=== PATIENT | male | born 1930 | race Caucasian/White ===

== ENCOUNTER 2016-09-23 21:08 | Outpatient (CLI) | payer MEDICARE, OTHER | END 2016-09-23 21:09 | disposition critical access hospital (66) | LOC: EMS 21:08 | PROVIDERS: ATTEND Surgery | DX: M79.604 Pain in right leg (principal); W18.39XA Other fall on same level, initial encounter; Y92.002 Bathroom of unspecified non-institutional (private) residence as the place of occurrence of the external cause | CPT/HCPCS: A0425; A0427 ==

== ENCOUNTER 2016-09-23 21:19 | Inpatient (IN) | payer MEDICARE, OTHER ==
[2016-09-23] MEDS ORDERED: SODIUM CHLORIDE 0.9% 1,000 ML IV ONE ×2 (21:29→21:33)
[2016-09-23] MEDS ORDERED: ONDANSETRON 4 MG/2 ML VIAL IVP STA (21:29)
[2016-09-23] MEDS ORDERED: HYDROmorphone 1 MG/ML SYRINGE IVP STA (21:29)
[2016-09-23] MEDS ORDERED: ONDANSETRON 4 MG/2 ML VIAL ONE (21:33)
[2016-09-23] MEDS ORDERED: HYDROmorphone 1 MG/ML SYRINGE ONE (21:33)
--- NOTE | 2016-09-23 21:34 | ED Physician Documentation ---
PD HPI LOWER EXT INJURY - Stated complaint Stated Complaint: GLF/R LEG INJ - Chief complaint Chief Complaint: General - History obtained from History obtained from: Patient, EMS - History of Present Illness PD HPI LOW EXT INJURY LOCATION: Right, Upper leg Type of injury: Fall Where injury occurred: Home (in the bathroom) Timing - onset: How many hours ago (1), Today Timing - duration: Hours (1) Timing - details: Abrupt onset Pain level max: 10 Pain level now: 10 Improved by: Rest, Ice, Immobilization Worsened by: Moving, Palpating Associated symptoms: Swelling. No: Weakness, Numbness, Tingling Contributing factors: Prior ortho surgery (B TKR). No: Anticoagulated Similar symptoms before: Has not had sx before Recently seen: Not recently seen - Additional information Additional information: Pt fell in the bathroom today. Now R upper leg pain. Fentanyl given by EMS. place in splint. Denies head or neck injury. Review of Systems Ten Systems: 10 systems reviewed and negative Constitutional: denies: Fever, Chills Nose: denies: Rhinorrhea / runny nose, Congestion Respiratory: denies: Cough GI: denies: Abdominal Pain, Nausea, Vomiting, Diarrhea : denies: Dysuria Skin: denies: Rash PD PAST MEDICAL HISTORY - Past Medical History Past Medical History: Yes Neuro: Dementia - Past Surgical History Past Surgical History: Yes Ortho: Knee replacement - Present Medications Home Medications: Ambulatory Orders Medication Instructions Recorded Confirmed Aspirin 81 mg PO DAILY 09/23/16 09/23/16 Finasteride 5 mg PO DAILY 09/23/16 09/23/16 Hydrochlorothiazide 50 mg PO DAILY 09/23/16 09/23/16 Memantine [Namenda] 10 mg PO BID 09/23/16 09/23/16 Metoprolol Succinate 25 mg PO DAILY 09/23/16 09/23/16 Simvastatin 40 mg PO DAILY 09/23/16 09/23/16 - Allergies Allergies/Adverse Reactions: Allergies Allergy/AdvReac Type Severity Reaction Status Date / Time No Known Drug Allergies Allergy Verified 09/23/16 21:30 - Living Situation Living Situation: reports: With family Living Arrangement: reports: At home - Social History Does the pt smoke?: No Does the pt have substance abuse?: No - Family History Family history: reports: Non contributory PD ED PE NORMAL - Vitals Vital signs reviewed: Yes - General General: Alert and oriented X 3, No acute distress, Well developed/nourished - HEENT HEENT: Atraumatic, PERRL, Moist mucous membranes - Neck Neck: Supple, no meningeal sign, No bony TTP - Cardiac Cardiac: RRR, Strong equal pulses - Respiratory Respiratory: No respiratory distress, Clear bilaterally - Abdomen Abdomen: Soft, Non tender, Non distended - Back Back: No spinal TTP - Derm Derm: Warm and dry - Extremities Extremities: Other (deformity to the proximal aspect of the R femur. NVI. ) - Neuro Neuro: Alert and oriented X 3 - Psych Psych: Normal mood, Normal affect Results - Vitals Vitals: Vital Signs - 24 hr 09/23/16 21:27 Temperature 36.0 C L Heart Rate 84 Respiratory 16 Rate Blood Pressure 168/84 H O2 Saturation 97 Oxygen O2 Source Room air - EKG (time done) 2303 Rate: Rate (enter#) (90) Rhythm: NSR, Other (PVC) [place]: Normal Intervals: Normal NM QRS: Normal Ischemia: Non specific changes Computer interpretation: Agree with computer - Labs Labs: Laboratory Tests 09/23/16 21:25 Urine Color YELLOW Urine Clarity CLEAR Urine pH 6.0 Ur Specific [place] 1.025 Urine Protein NEGATIVE Urine Glucose (UA) NEGATIVE Urine Ketones NEGATIVE Urine Occult Blood TRACE-INTA Urine Nitrite NEGATIVE Urine Bilirubin NEGATIVE Urine Urobilinogen 1 (NORMAL) Ur Leukocyte Esterase NEGATIVE Ur Microscopic Review NOT INDICATED Urine Culture Comments NOT INDICATED - Rads (name of study) R femur Radiology: Prelim report reviewed, EMP read contemporaneously, See rad report ( Angulated and displaced proximal femoral shaft fracture. ) CXR Radiology: Prelim report reviewed, EMP read contemporaneously, See rad report ( Large lung volumes with mild cardiomegaly and mild pulmonary vascular congestion. ) PD MEDICAL DECISION MAKING - ED course Complexity details: reviewed results, re-evaluated patient, considered differential, d/w patient, d/w family, d/w business operations consultant ED course: Patient is an 86-year-old male who presents to the emergency department after a fall. Is found to have a proximal shaft femoral fracture of the right lower extremity. NVI. Pain well controlled. Discussed the case with Dr. Conner, orthopedics who recommends admission to the hospitalist and he will evaluate the patient in the morning. Discussed the case with Dr. Armas, hospitalist who accepts. This document was made in part using voice recognition software. While efforts are made to proofread this document, sound alike and grammatical errors may occur. Departure - Departure Disposition: 66 [facility] DC/Xfer Clinical Impression: Femur fracture, right Qualifiers: Encounter type: initial encounter Femur location: subtrochanteric Fracture type : closed Fracture alignment: displaced Qualified Code(s): S72.21XA - Displaced subtrochanteric fracture of right femur, initial encounter for closed fracture Condition: Good Discharge Date/Time: 09/24/16 00:20
[2016-09-23 21:45] LABS: BILIRUBIN,URINE NEGATIVE (NEGATIVE)
[2016-09-23 21:51] LABS: UA CHARGE (STRIP ONLY) YES; UR CULTURE IF IND NOT INDICATED
[2016-09-23] MEDS ORDERED: SODIUM CHLORIDE FLUSH 0.9% 10 ML SYRINGE IVP PRN (22:52)
[2016-09-23] MEDS ORDERED: HYDROmorphone 1 MG/ML SYRINGE IVP PRN (22:52)
[2016-09-23] MEDS ORDERED: PROCHLORPERAZINE 10 MG/2 ML VIAL IVP PRN (22:52)
[2016-09-23] MEDS ORDERED: oxyCODONE 5 MG TABLET PO PRN (22:52)
[2016-09-23] MEDS ORDERED: TEMAZEPAM 15 MG CAPSULE PO PRN (22:52)
[2016-09-23] MEDS ORDERED: ACETAMINOPHEN 325 MG TABLET PO PRN (22:52)
--- NOTE | 2016-09-23 22:58 | XRAY Preliminary Report ---
Exam: XR Femur 2V RT IMPRESSION: Angulated and displaced proximal femoral shaft fracture. [facility] SITE ID: [id number]
--- NOTE | 2016-09-23 23:01 | XRAY Report ---
EXAM: RIGHT FEMUR RADIOGRAPHY EXAM DATE: 09/23/2016 10:27 PM. CLINICAL HISTORY: Right leg pain, s/p fall. COMPARISON: None. TECHNIQUE: 2 views. FINDINGS: Bones: There is an angulated and displaced proximal femoral shaft fracture. Joints: Hip joint unremarkable. Total knee arthroplasty in place. Soft Tissues: Normal. No soft tissue swelling. IMPRESSION: Angulated and displaced proximal femoral shaft fracture. [facility] Referring Provider Line: [phone] SITE ID: [id number]
[2016-09-23] MEDS: SODIUM CHLORIDE 0.9% 1,000 ML IV SCH (23:40)
--- NOTE | 2016-09-23 23:45 | XRAY Preliminary Report ---
Exam: XR Chest 1 View IMPRESSION: 1. Large lung volumes with mild cardiomegaly and mild pulmonary vascular congestion. [facility] SITE ID: [id number]
--- NOTE | 2016-09-23 23:48 | XRAY Report ---
EXAM: CHEST RADIOGRAPHY EXAM DATE: 09/23/2016 11:16 PM. CLINICAL HISTORY: Femur fracture. Pre-op chest radiograph for fracture repair. COMPARISON: None. TECHNIQUE: 1 view. FINDINGS: Lungs/Pleura: Large lung volumes. Mild bibasilar atelectasis. Mild pulmonary vascular congestion. No alveolar consolidation or pleural effusion. No pneumothorax. Mediastinum: Mild cardiomegaly. Other: None. IMPRESSION: 1. Large lung volumes with mild cardiomegaly and mild pulmonary vascular congestion. [facility] Referring Provider Line: [phone] SITE ID: [id number]
[2016-09-24 01:26] LABS: BASOPHILS % (AUTO) 0.2 %; EOSINOPHILS % (AUTO) 0.2 %; HCT - HEMATOCRIT 35.3 % (42.0-52.0); HGB - HEMOGLOBIN 12.5 g/dL (14.0-18.0); MEAN CORPUSCULAR HEMOGLOBIN 31.2 pg (27.0-31.0); MEAN CORPUSCULAR HGB CONC 35.4 g/dL (32.0-36.0); MEAN CORPUSCULAR VOLUME 88.2 fL (80.0-94.0); MEAN PLATELET VOLUME 6.4 fL (7.4-11.4); MONOCYTES # (AUTO) 0.7 10^3/uL (0.0-1.0); MONOCYTES % (AUTO) 6.2 %; NEUTROPHILS # (AUTO) 8.9 10^3/uL (1.5-6.6); NEUTROPHILS % (AUTO) 84.4 %; NUCLEATED RED BLOOD CELLS AUTO 0.1 /100WBC; RED CELL DISTRIBUTION WIDTH 12.5 % (12.0-15.0); UNCORRECTED WHITE BLOOD COUNT 10.5 x10^3/uL; WHITE BLOOD COUNT 10.5 x10^3/uL (4.8-10.8)
[2016-09-24 01:34] LABS: MAGNESIUM 1.4 mg/dL (1.7-2.8); PHOSPHORUS 3.3 mg/dL (2.5-4.6)
[2016-09-24 01:37] LABS: ALBUMIN/GLOBULIN RATIO 1.1 (1.0-2.2); BILIRUBIN,TOTAL 0.7 mg/dL (0.2-1.0); BUN - BLOOD UREA NITROGEN 19 mg/dL (6-20); CALCIUM 8.7 mg/dL (8.5-10.3); CARBON DIOXIDE - CO2 30 mmol/L (21-32); CHLORIDE 95 mmol/L (101-111); CREATININE 0.7 mg/dL (0.6-1.2); GFR - MDRD 107 (>89); GLUCOSE 270 mg/dL (70-100); POTASSIUM 3.3 mmol/L (3.5-5.0); SODIUM 135 mmol/L (135-145); TOTAL PROTEIN 5.9 g/dL (6.7-8.2)
[2016-09-24] MEDS ORDERED: MAGNESIUM SULFATE 2 GRAM 50 ML IV ONE ×2 (01:37→07:54)
[2016-09-24 01:38] LABS: INR 1.2 (0.8-1.2)
[2016-09-24 01:39] LABS: LIPASE < 10 U/L (22-51)
[2016-09-24] MEDS ORDERED: POTASSIUM CHLORIDE 20 MEQ TABLET PO SCH (01:39)
--- NOTE | 2016-09-24 01:57 | HISTORY & PHYSICAL EXAMINATION ---
Chief Complaint - Chief Complaint Chief Complaint: Right leg pain History of Present Illness - Admitted From Admitted From:: emergency department - History Obtained From Records Reviewed: yes History obtained from: Patient and his Exam Limitations: Patient could not move right leg secondary to pain - History of Present Illness HPI Comment/Other: Patient is an 86-year-old gentleman with a past medical history significant for hypertension, hyperlipidemia, TIA, probable history of atrial fibrillation and was previously on Coumadin stop Coumadin 4 weeks ago secondary to hematuria, obstructive sleep apnea on CPAP, BPH, mild dementia and osteoarthritis with bilateral knee replacements who presented to the emergency department with a chief complaint of right leg pain. The history is provided by the patient's and the patient. The patient's states that the patient was in his normal state of health this evening when he got up to go to the bathroom. She states that the patient was standing at the toilet and then turned lost his balance and fell to the ground. The patient states that he did not hit his head or lose consciousness but fell onto his right leg and felt a severe pain and thinks he heard a crack. The patient states that after the fall he had severe pain in his right leg and could not get up or bear weight on the right leg. The patient's states that the leg appeared to be deformed and patient could not straighten his leg. The patient denies any fevers or chills. He denies any headaches blurred vision runny nose sore throat or cough. The patient denies any chest pain or shortness of breath. The patient was previously on Coumadin and the states that this was for a TIA that he had in the past but she also states that he was put on the Coumadin by his math coach. I believe that the patient likely had atrial fibrillation although his EKG does not show A. fib. The patient has been off of Coumadin for 4 weeks now he stopped it after he began having hematuria. On presentation to the emergency department the patient was afebrile his vital signs were normal except his blood pressure was elevated. The patient was in significant amount of pain and his right lower extremity appear to be shortened and externally rotated the patient was living was also bent at the knee and could not be straightened. The patient had an obvious fracture of his right femur this was confirmed on x-ray of his right leg which revealed an angulated and displaced proximal femoral shaft fracture. The patient underwent routine lab work which did show a mild hypo-kalemia and mild hypomagnesemia. The patient 's INR was 1.2. The patient did not have any hematuria on urine analysis. The patient's glucose was elevated at 270 but he denied any history of diabetes. The emergency room physician spoke with the orthopedic surgeon occupational therapy manager Dr. Angel and he recommended that the hospitalist team admit the patient optimize him medically and that he would see the patient in the morning for possible surgery. Review of Systems - Constitutional Constitutional: denies: Fatigue, Fever, Chills, Malaise, Weakness, Poor appetite , Diaphoresis, Night sweats, Weight gain, Weight loss, Other - Eyes Eyes: denies: Pain, Irritation, Amaurosis, Blurred vision, Spots in vision, Field loss, Vision loss, Dipolpia, Corrective lenses, Other - Ears, Nose & Throat Ears, Nose & Throat: denies: Ear pain, Hearing loss, Hearing aids, Tinnitus, Vertigo, Nasal pain, Nasal discharge, Nosebleeds, Nasal obstruction, Nasal congestion, Postnasal drainage, Dentures, Sore throat, Hoarseness, Mouth lesions , Bleeding gums, Dental decay, Dental pain, Other - Cardiovascular Cariovascular: denies: Irregular heart rate, Palpitations, Chest pain, Edema, Lightheadedness, Syncope, Exertional dyspnea, Decr. exercise tolerance, Orthopnea, Other - Respiratory Respiratory: denies: Cough, Sputum production, Wheezing, Snoring, Hemoptysis, Orthopnea, SOB at rest, SOB with exertion, Apnea, Stridor, Pleuritic pain, Other - Gastrointestinal Gastrointestinal: denies: Abdominal pain, Abdominal distention, Constipation, Diarrhea, Change in bowel habits, Rectal bleeding, Black stools, Bloody stools, Nausea, Vomiting, Bile emesis, Long blood emesis, Coffee grounds emesis, Reflux /heartburn, Bloating, Poor appetite, Other - Genitourinary Genitourinary: reports: Hematuria (Resolved but had some 4 weeks ago), Nocturia. denies: Dysuria, Frequency, Urgency, Incontinence, Flank pain, Urethral discharge, Sexual dysfunction, Other - Musculoskeletal Musculoskeletal: reports: Back pain (chronic low back pain), Limited range of motion (cannot move right leg secondary to pain), Joint pain, Joint swelling ( swelling in the right thigh and hip) - Integumentary Integumentary: denies: Rash, Pruritis, Lesions, Dryness, Lumps, Acne, Pigment changes, Nail changes, Hair changes, Other - Neurological Neurological: reports: Memory problems (mild dementia), Other (Multiple falls). denies: General weakness, Focal weakness, Headache, Dizziness, Seizures, Slurred speech - Psychiatric Psychiatric: denies: Depression, Anxiety, Suicidal - Endocrine Endocrine: denies: Polyuria, Polydypsia, Polyphagia, Intolerance to cold, Intolerance to heat - Hematologic/Lymphatic Hematologic/Lymphatic: denies: Bruising, Petechiae, Lymphadenopathy History - Past Medical History Cardiovascular: reports: Hypertension, High cholesterol, Atrial fibrillation ( possibly ) Respiratory: reports: Sleep apnea, CPAP use Neuro: reports: Dementia (Mild), TIA Endocrine/Autoimmune: reports: None GI: reports: None : reports: Benign prostate hypertrophy HEENT: reports: None Musculoskeletal: reports: Osteoarthritis (Bilateral knee replacements), Chronic back pain Derm: reports: None Other Past Medical History: The patient was on warfarin for a possible stroke. He was taken off of the warfarin due to a low hemoglobin 4 weeks ago. - Past Surgical History Ortho: reports: Knee replacement - Family & Social History Family History: Mother: (Both parents were healthy and of old age) , Father: , Other family: Alive and Well (2 sons and daughter) Living arrangement: At home Living Situation: With spouse/s.o. Social History Notes: The patient is lives in [facility] since 2001. Prior to that he lived in [place]. He is originally from [place] moved here in [place]. The patient lives with his partner they have been together for 16 years. The patient uses a walker at home and has fallen several times in the past month. The patient does have 3 children 2 sons whom he has not spoken to for years and a daughter whom he occasionally speaks to him who lives in [place]. Patient used to smoke quit 50 years ago. Drinks alcohol occasionally. no illicit drug use - Substance History Use: Uses substance without health or social issues: Alcohol (Rarely will drink wine or beer with meal.) Abuse: Recurrent use of substance despite neg consequences: NONE Dependence: Experiences withdrawal or developed tolerances: NONE - POLST Patient has POLST: Yes POLST Status: DNR Meds/Allgy - Home Medications Home Medications: Ambulatory Orders Medication Instructions Recorded Confirmed Aspirin 81 mg PO DAILY 09/23/16 09/23/16 Finasteride 5 mg PO DAILY 09/23/16 09/23/16 Hydrochlorothiazide 50 mg PO DAILY 09/23/16 09/23/16 Memantine [Namenda] 10 mg PO BID 09/23/16 09/23/16 Metoprolol Succinate 25 mg PO DAILY 09/23/16 09/23/16 Simvastatin 40 mg PO DAILY 09/23/16 09/23/16 - Allergies Allergies/Adverse Reactions: Allergies Allergy/AdvReac Type Severity Reaction Status Date / Time No Known Drug Allergies Allergy Verified 09/23/16 21:30 Exam - Vital Signs Reviewed Vital Signs: Yes Vital Signs: Vital Signs x48h Temp Pulse Resp BP Pulse Ox 09/24/16 00:15 88 18 138/84 H 100 09/23/16 23:18 79 18 148/85 H 98 09/23/16 23:02 36.0 C L 83 15 149/67 H 90 L - Physical Exam General Appearance: positive: Moderate distress (Secondary to pain in the right leg) Eyes Bilateral: positive: Normal inspection, PERRL, EOMI, No lid inflammation, Conjunctivae nml, No scleral icterus ENT: positive: ENT inspection nml, Pharynx nml, Dry mucous membranes. negative : Purulent nasal drainage, Pharyngeal erythema, Oral lesions Neck: positive: Nml inspection, Thyroid nml, No JVD, Trachea midline. negative : Thyromegaly, Lymphadenopathy (R), Lymphadenopathy (L) Respiratory: positive: Chest non-tender, No respiratory distress, Breath sounds nml. negative: Wheezes, Rales, Rhonchi Cardiovascular: positive: No murmur, No gallop, Other (Irregular rhythm with skipped beats) Peripheral Pulses: positive: 2+ Abdomen: positive: Non-tender, No organomegaly, Nml bowel sounds, No distention. negative: Guarding, Rebound, Hepatomegaly Back: positive: Nml inspection. negative: CVA tenderness (R), CVA tenderness (L ) Skin: positive: Color nml, No rash, Warm. negative: Cyanosis, Diaphoresis Extremities: positive: No pedal edema, Other (Right leg is shortened, externally rotated and flexed at the knee. There is significant swelling in the mid thigh area. Unable to move right leg secondary to pain.) Neurologic/Psychiatric: positive: Oriented x3, CN's nml (2-12), Motor nml, Sensation nml, Mood/affect nml Conclusion/Plan - Problem List (1) Right femoral shaft fracture Conclusion/Plan: The patient presents to the emergency department after a mechanical fall Patient had severe pain in his right lower extremity with obvious deformity Right leg was externally rotated shortened and flexed and could not be manipulated secondary to severe pain. X-ray of the right leg revealed an angulated and displaced proximal femoral shaft fracture Orthopedic surgery asked the hospitalist team admit the patient and they would see patient in consultation. To provide his cardiac risk index patient has a 6.6% risk of major cardiac event during surgery. Plan: N.p.o. IV fluids Pain control with IV Dilaudid Orthopedic consult Will need surgical repair of right femur We'll start DVT prophylaxis postop Will medically optimized prior to surgery Qualifiers: Fracture type: closed Fracture alignment: displaced (2) Hypokalemia Conclusion/Plan: Potassium low on presentation Likely secondary to HCTZ Will replace K (3) Hypomagnesemia Conclusion/Plan: Magnesium low on presentation Likely secondary to dehydration Will give patient Mg replacement and IVfs (4) Hyperglycemia Conclusion/Plan: Could be elevated in acute stress like with fracture but concerning as Glu of 270 Patient may have undiagnosed DM Check HbA1c and consider Glu checks and sliding scale insulin if elevated Odd to have new onset diabetes at patients age would need to consider possibility of pancreatic cancer (5) Hypertension Conclusion/Plan: BP elevated on presentation LIkely secondary to pain Will continue home antihypertensives and control pain with IV dilaudid (6) Hyperlipidemia Conclusion/Plan: Continue home dose of statin Stable (7) LUISA on CPAP Conclusion/Plan: On CPAP at home but did not bring with him Asked to bring in for tomorrow (8) Prophylactic use of low molecular weight heparin for venous thromboembolism Conclusion/Plan: Start lovenox post op - Lab Results Lab results reviewed: Yes Fish Bones: 09/24/16 01:13 09/24/16 01:13 - Diagnostic Imaging Results Diagnostic Imaging Results: positive: Final report reviewed - EKG Results EKG Interpreted Independently: Yes EKG Findings: A lot of PVCs Issues/Core Measures - Anticipated LOS Anticipated Stay Length: 2 or more midnights - DVT/VTE - Prophylaxis VTE/DVT Prophylaxis med ordered at admit?: Yes
[2016-09-24 06:01] LABS: HEMOGLOBIN A1C 0.97 g/dL
[2016-09-24] MEDS: SODIUM CHLORIDE 0.9% 1,000 ML IV SCH ×2 (06:13→15:52)
[2016-09-24] MEDS: oxyCODONE 5 MG TABLET PO PRN (06:15)
[2016-09-24] MEDS: PANTOPRAZOLE 40 MG TABLET PO SCH (06:15)
--- NOTE | 2016-09-24 07:54 | PROVIDER PROGRESS NOTE ---
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 Dr Conner is taking patient to the OR for hafsa placement to the right femur. Patient is in bucks traction. no pain noted when laying still. will continue on pain medication and surgery scheduled for this morning (2) Hyperglycemia due to type 2 diabetes mellitus Qualifiers: Qualified Code(s): E11.65 - Type 2 diabetes mellitus with hyperglycemia Assessment/Plan: acute. patient does not take any medication for elevated blood glucose and will need outpatient treatment since his A1C was 8.9. He is on sliding scale insulin with diabetic diet once able to eat after surgery. will need nutrition and diabetic counseling per significant other. patient has had no formal notice from any caregiver regarding his blood sugars being elevated (3) Low serum magnesium level Assessment/Plan: acute. replace magnesium with magnesium sulfate IV and repeat levels with daily lab draw (4) Low serum potassium level Assessment/Plan: acute. replace potassium and monitor electrolytes with daily lab draws (5) Benign prostatic hyperplasia Qualifiers: Qualified Code(s): N40.0 - Benign prostatic hyperplasia without lower urinary tract symptoms Assessment/Plan: chronic. continue to monitor output. continue on proscar 5mg po home medications (6) LUISA on CPAP Assessment/Plan: chronic. continue on CPAP at night. respiratory therapy for supplemental oxygen an duoneb treatments as needed. monitor for changes in breathing status. (7) Postoperative anemia due to acute blood loss Assessment/Plan: acute with proximal femur fracture of right leg. will type and cross and pending transfusion. patient dropped to 9.7 after surgery and is anticipated to loose more blood. will monitor hemoglobin Q6 x 2. iron studies requested - Current Meds Current Meds: Current Medications Generic Name Dose Route Start Last Admin Trade Name Freq PRN Reason Stop Dose Admin Sodium Chloride 1,000 mls @ 100 mls/hr 09/23/16 23:00 09/24/16 06:13 Normal Saline 0.9% IV 100 mls/hr .Q10H GABRIELA Administration Oxycodone HCl 5 mg 09/23/16 22:52 09/24/16 06:15 Roxicodone PO 5 mg Q4HR PRN Administration Pain 5 to 7 Pantoprazole Sodium 40 mg 09/24/16 07:00 09/24/16 06:15 Protonix PO 40 mg QDAC GABRIELA Administration - Lab Result Lab results reviewed: Yes Fish Bone Diagrams: 09/24/16 13:05 09/24/16 01:13 Other Lab Results: Abnormal Lab Results 09/24/16 09/24/16 09/24/16 01:13 01:13 01:13 RBC 4.00 10^6/uL L 10^6/uL (4.70-6.10) Hgb 12.5 g/dL L g/dL (14.0-18.0) Hct 35.3 % L % (42.0-52.0) MCH 31.2 pg H pg (27.0-31.0) MPV 6.4 fL L fL (7.4-11.4) Neut # 8.9 10^3/uL H 10^3/uL (1.5-6.6) Lymph # 1.0 10^3/uL L 10^3/uL (1.5-3.5) PT 14.0 secs H secs (9.9-12.6) Potassium 3.3 mmol/L L mmol/L (3.5-5.0) Chloride 95 mmol/L L mmol/L (101-111) Glucose 270 mg/dL H mg/dL (70-100) Glycated Hemoglobin Estim Average Glucose Magnesium Alkaline Phosphatase 180 IU/L H IU/L (42-121) Total Protein 5.9 g/dL L g/dL (6.7-8.2) Albumin 3.1 g/dL L g/dL (3.2-5.5) Lipase < 10 U/L L U/L (22-51) 09/24/16 09/24/16 01:13 01:13 RBC Hgb Hct MCH MPV Neut # Lymph # PT Potassium Chloride Glucose Glycated Hemoglobin 8.9 % H % (4.6-6.2) Estim Average Glucose 209 H (70-100) Magnesium 1.4 mg/dL L mg/dL (1.7-2.8) Alkaline Phosphatase Total Protein Albumin Lipase - EKG Results EKG Interpreted Independently: Yes EKG Comparison: Unchanged from prior EKG - Diagnostic Imaging Results Diagnostic Imaging Results: positive: Prelim report reviewed, Final report reviewed - Additional Planning Condition/Complexity: Stable Consult/Specialty: OT, PT, Surgery Plan Discussed with:: Patient, Spouse, Case Management Time Spent: 31-60 minutes Additional Planning Notes: Patient will need at least 48-36 hours of inpatient treatment. He will need rehab after discharge. He is high risk and receiving IV medications with high risk for toxicity. He will need surgical intervention and additional diagnostics and consult. Subjective - Subjective Patient Reports: Feeling Better, Resting Comfortably, No Complaints Nursing Reports: No Complaints, Pain (only with movement and in bucks traction) Objective Vital Signs: Vital Signs - 24 hr 09/23/16 09/23/16 09/24/16 23:02 23:18 00:15 Temperature 36.0 C L Heart Rate 83 79 88 Heart Rate [ Brachial] Respiratory 15 18 18 Rate Blood Pressure 149/67 H 148/85 H 138/84 H Blood Pressure [Left Brachial artery] O2 Saturation 90 L 98 100 09/24/16 02:03 Temperature 36.3 C L Heart Rate Heart Rate [ 89 Brachial] Respiratory 16 Rate Blood Pressure Blood Pressure 146/73 H [Left Brachial artery] O2 Saturation 94 Oxygen O2 Source Room air I&O (Last 24 Hrs): Intake and Output Totals x24h 09/22/16 09/23/16 09/24/16 23:59 23:59 23:59 Intake Total 915 Output Total 475 Balance 440 General: Alert, Oriented x3, Cooperative, No acute distress HEENT: PERRLA, Mucous membr. moist/pink Neck: Supple, No JVD Lymphatic: no adenopathy Neuro: Alert, CN 2-12 Grossly Intact, Oriented Times 3 Cardiovascular: Regular rate, Normal S1, Normal S2 Respiratory: Chest non-tender, No respiratory distress, Breath sounds nml Abdomen: Normal bowel sounds, Soft, No tenderness, No hepatospenomegaly, No masses Rectal: Stool - Heme NEG Extremities: No clubbing, No cyanosis, No edema, Normal pulses, Other ( tenderness to right leg and good pulses to right pedal and popliteal. warm and intact skin) Skin: No rashes, No breakdown, No significant lesion - Results Results: Laboratory Results WBC 10.5 x10^3/uL (4.8-10.8) 09/24/16 01:13 RBC 4.00 10^6/uL (4.70-6.10) L 09/24/16 01:13 Hgb 12.5 g/dL (14.0-18.0) L 09/24/16 01:13 Hct 35.3 % (42.0-52.0) L 09/24/16 01:13 MCV 88.2 fL (80.0-94.0) 09/24/16 01:13 MCH 31.2 pg (27.0-31.0) H 09/24/16 01:13 MCHC 35.4 g/dL (32.0-36.0) 09/24/16 01:13 RDW 12.5 % (12.0-15.0) 09/24/16 01:13 Plt Count 226 10^3/uL (130-450) 09/24/16 01:13 MPV 6.4 fL (7.4-11.4) L 09/24/16 01:13 Neut # 8.9 10^3/uL (1.5-6.6) H 09/24/16 01:13 Lymph # 1.0 10^3/uL (1.5-3.5) L 09/24/16 01:13 White # 0.7 10^3/uL (0.0-1.0) 09/24/16 01:13 Eos # 0.0 10^3/uL (0.0-0.7) 09/24/16 01:13 Baso # 0.0 10^3/uL (0.0-0.1) 09/24/16 01:13 Absolute Nucleated RBC 0.01 x10^3/uL 09/24/16 01:13 Nucleated RBCs 0.1 /100WBC 09/24/16 01:13 PT 14.0 secs (9.9-12.6) H 09/24/16 01:13 INR 1.2 (0.8-1.2) 09/24/16 01:13 Sodium 135 mmol/L (135-145) 09/24/16 01:13 Potassium 3.3 mmol/L (3.5-5.0) L 09/24/16 01:13 Chloride 95 mmol/L (101-111) L 09/24/16 01:13 Carbon Dioxide 30 mmol/L (21-32) 09/24/16 01:13 Anion Gap 10.0 (6-13) 09/24/16 01:13 BUN 19 mg/dL (6-20) 09/24/16 01:13 Creatinine 0.7 mg/dL (0.6-1.2) 09/24/16 01:13 Estimated GFR (MDRD) 107 (>89) 09/24/16 01:13 Glucose 270 mg/dL (70-100) H 09/24/16 01:13 Glycated Hemoglobin 8.9 % (4.6-6.2) H 09/24/16 01:13 Estim Average Glucose 209 (70-100) H 09/24/16 01:13 Calcium 8.7 mg/dL (8.5-10.3) 09/24/16 01:13 Phosphorus 3.3 mg/dL (2.5-4.6) 09/24/16 01:13 Magnesium 1.4 mg/dL (1.7-2.8) L 09/24/16 01:13 Total Bilirubin 0.7 mg/dL (0.2-1.0) 09/24/16 01:13 AST 29 IU/L (10-42) 09/24/16 01:13 ALT 21 IU/L (10-60) 09/24/16 01:13 Alkaline Phosphatase 180 IU/L (42-121) H 09/24/16 01:13 Total Protein 5.9 g/dL (6.7-8.2) L 09/24/16 01:13 Albumin 3.1 g/dL (3.2-5.5) L 09/24/16 01:13 Globulin 2.8 g/dL (2.1-4.2) 09/24/16 01:13 Albumin/Globulin Ratio 1.1 (1.0-2.2) 09/24/16 01:13 Lipase < 10 U/L (22-51) L 09/24/16 01:13 Urine Color YELLOW 09/23/16 21:25 Urine Clarity CLEAR (CLEAR) 09/23/16 21:25 Urine pH 6.0 PH (5.0-7.5) 09/23/16 21:25 Ur Specific [place] 1.025 (1.002-1.030) 09/23/16 21:25 Urine Protein NEGATIVE mg/dL (NEGATIVE) 09/23/16 21:25 Urine Glucose (UA) NEGATIVE mg/dL (NEGATIVE) 09/23/16 21:25 Urine Ketones NEGATIVE mg/dL (NEGATIVE) 09/23/16 21:25 Urine Occult Blood TRACE-INTA (NEGATIVE) 09/23/16 21:25 Urine Nitrite NEGATIVE (NEGATIVE) 09/23/16 21:25 Urine Bilirubin NEGATIVE (NEGATIVE) 09/23/16 21:25 Urine Urobilinogen 1 (NORMAL) E.U./dL (NORMAL) 09/23/16 21:25 Ur Leukocyte Esterase NEGATIVE (NEGATIVE) 09/23/16 21:25 Ur Microscopic Review NOT INDICATED 09/23/16 21:25 Urine Culture Comments NOT INDICATED 09/23/16 21:25 - Procedures Procedures: Patient will need 48 hours before being discharged to rehab after fracture. He is high risk for worsening co morbid conditions and will need IV pain medication and IVF with high risk for toxicity. code status addressed at bedside. Patient is requesting [facility] for skilled rehab whendischarged
--- NOTE | 2016-09-24 07:57 | CONSULTATION NOTE ---
DATE OF CONSULTATION: REQUESTING PROVIDER: Sinan Mendez MD REASON FOR ADMISSION: Right hip fracture. HISTORY OF PRESENT ILLNESS: The patient is an 86-year-old male who has been a limited household ambul ator with a walker and a history of arthritis and knee replacements, who suffered a ground-level fall at home, fracturing his right hip. The patient did not have other injuries in this incident and was brought to the emergency room, unable to ambulate, and was admitted with hip pain. PAST MEDICAL HISTORY: The patient's prior medical history is remarkable for history of hypertension, hyperlipidemia, TIA, intermittent atrial fibrillation, hematuria with chronic prostate enlargement, s leep apnea, dementia, osteoarthritis. PAST SURGICAL HISTORY: Prior surgeries include knee replacements. SOCIAL HISTORY: The patient lives with his partner that he has been with for 16 years. He is original ly from [place]. His prior smoking history is significant, but he quit over 50 years ago[address] Does not dr ink alcohol or use drugs, and is retired. MEDICATIONS Listed and reviewed as: 1. Aspirin. 2. Finasteride. 3. Hydrochlorothiazide. 4. Namenda. 5. Metoprolol. 6. Simvastatin. ALLERGIES: NONE. REVIEW OF SYSTEMS: Not accurate because of the patient's dementia, and most of the record is reviewed for information in that regard. IMPRESSION: X-ray shows a subtrochanteric right femur fracture, slightly comminuted, with a butterfly fragment. The patient's bone density appears reasonable. PLAN: The plan for treatment of the injury is for closed intramedullary rodding of the right femur, w hich has been discussed with the patient's partner, who is the power of patent attorney and is in-transit to the hospital. Additionally, the patient has the following problems, which will be managed by the [facility] pitalist: Hypokalemia, hypomagnesemia, hyperglycemia, hypertension, hyperlipidemia, CPAP. The patient understands the plan for his hospital stay and he has had his questions answered. I also will speak to his partner when she arrives. JOB #: [id number] EXT JOB #:[id number]
[2016-09-24] MEDS: SODIUM CHLORIDE FLUSH 0.9% 10 ML SYRINGE IVP SCH ×2 (08:02→14:38)
[2016-09-24 08:22] LABS: HCT - HEMATOCRIT 32.6 % (42.0-52.0); HGB - HEMOGLOBIN 11.6 g/dL (14.0-18.0)
[2016-09-24] MEDS ORDERED: ceFAZolin 1 GM VIAL IV ONE (08:55)
[2016-09-24] MEDS ORDERED: ONDANSETRON 4 MG/2 ML VIAL IVP ONE (08:55)
[2016-09-24] MEDS ORDERED: ALBUTEROL 6.7 GM INHALER INH ONE (08:55)
[2016-09-24] MEDS ORDERED: GLYCOPYRROLATE 1 MG/5 ML VIAL IVP ONE (08:55)
[2016-09-24] MEDS ORDERED: fentaNYL 100 MCG/2 ML VIAL IVP ONE (08:55)
[2016-09-24] MEDS ORDERED: LIDOCAINE-MPF 2% 5 ML VIAL IM ONE (08:55)
[2016-09-24] MEDS ORDERED: ROCURONIUM 50 MG/5 ML VIAL IVP ONE (08:55)
[2016-09-24] MEDS ORDERED: PHENYLEPHRINE 50 MG/5 ML VIAL IV ONE (08:55)
[2016-09-24] MEDS ORDERED: ePHEDrine 50 MG/ML AMP IVP ONE (08:55)
[2016-09-24] MEDS ORDERED: DEXAMETHASONE 4 MG/ML VIAL IVP ONE (08:55)
[2016-09-24] MEDS ORDERED: MIDAZOLAM 2 MG/2 ML VIAL IVP ONE (08:55)
[2016-09-24] MEDS ORDERED: HYDROCHLOROTHIAZIDE 50 MG PO SCH (09:00)
[2016-09-24] MEDS: MEMANTINE 5 MG TABLET PO SCH ×2 (09:30→21:09)
[2016-09-24] MEDS: hydroCHLOROthiazide 25 MG TABLET PO SCH (09:30)
[2016-09-24] MEDS: METOPROLOL SUCCINATE 25 MG TABLET PO SCH (09:30)
[2016-09-24] MEDS: POLYETHYLENE GLYCOL 3350 17 GM PACKET PO SCH (09:30)
[2016-09-24] MEDS: FINASTERIDE 5 MG TABLET PO SCH (09:30)
[2016-09-24] MEDS: ASPIRIN CHEW 81 MG TABLET PO SCH (09:30)
[2016-09-24] MEDS ORDERED: LACTATED RINGERS 1,000 ML IV ONE ×3 (12:52→12:53)
--- NOTE | 2016-09-24 12:52 | OPERATIVE REPORT ---
Operative Report - General Admit Date: 09/23/16 Procedure Date: 09/24/16 Planned Procedure: im hafsa of right femur Pre-Op Diagnosis: subtrochanteric comminuted fracture right femur - Procedure Note Primary Surgeon: ava Anesthesia Provider: Anesthesia Technique: General ET tube Estimated Blood Loss (in cc): 800
[2016-09-24] MEDS ORDERED: SODIUM CHLORIDE 0.9% 1,000 ML IV SCH (13:00)
[2016-09-24 13:11] LABS: HCT - HEMATOCRIT 27.9 % (42.0-52.0); HGB - HEMOGLOBIN 9.7 g/dL (14.0-18.0); MEAN CORPUSCULAR HEMOGLOBIN 31.1 pg (27.0-31.0); MEAN CORPUSCULAR HGB CONC 34.9 g/dL (32.0-36.0); MEAN CORPUSCULAR VOLUME 89.1 fL (80.0-94.0); MEAN PLATELET VOLUME 6.1 fL (7.4-11.4); RED BLOOD COUNT 3.13 10^6/uL (4.70-6.10); RED CELL DISTRIBUTION WIDTH 12.2 % (12.0-15.0); WHITE BLOOD COUNT 13.6 x10^3/uL (4.8-10.8)
[2016-09-24] MEDS ORDERED: traMADol 50 MG TABLET PO PRN (13:41)
--- NOTE | 2016-09-24 13:55 | OPERATIVE REPORT ---
DATE OF SURGERY: 09/24/2016 00:00:00 PREOPERATIVE DIAGNOSIS: Comminuted, closed, right subtrochanteric femur fracture. POSTOPERATIVE DIAGNOSIS: Comminuted, closed, right subtrochanteric femur fracture. NAME OF PROCEDURE: Intramedullary interlocked rodding of the right femur with cerclage wiring, open. SURGEON: Frederick Conner MD ANESTHESIA: General. INDICATIONS FOR SURGERY: The patient is an 86-year-old male who suffered a ground level fall yesterda y, was admitted to the hospital with gross deformity of his thigh. He had swelling and pain in the th igh and unable to ambulate. Surgery was recommended with expectation of a difficult surgery because o f the nature of the fracture and the degree of comminution. FINDINGS AT SURGERY: The patient's fracture was able to be nicely reduced in an AP plane; however, on lateral views, the proximal femur remains significantly flexed and the butterfly fragment represente d a long segment of the posterior cortex which created problems with later guide hafsa passage reaming and hafsa placement and reduction. DESCRIPTION OF OPERATIVE PROCEDURE: The patient was on the fracture table in supine position under tr action, was sterilely prepped and draped in standard fashion. After an adequate surgical timeout, a h ip incision was made proximal to the trochanter and under C-arm images, a central to anterior slight placement was placed in the tip of the trochanter for trochanteric entry nailing. Reaming was perform ed to open the canal and further guide hafsa advancement was done down the femur intending to place the hafsa just proximal to the total knee arthroplasty. The initial reaming was taken up to a size 12 at w hich point the guide hafsa fell out and subsequent placement was difficult, but after the patient had f urther muscle relaxation, the hafsa was placed and a final reaming was done at 13 mm, so that the 11.5 would be easily passed down the femur, and a 30 cm hafsa length. At the time of hafsa placement. C-arm im ages showed that the patient had significant residual deformity at the fracture site, but excellent a ppearance once again on AP images. It was felt that the sagittal plane deformity was of such magnitud e it was elected to open the fracture and re-treat the hafsa from the fracture, remove it, reduce the f racture, and band it with cerclage wires which was more difficult than anticipated, but ultimately th e hafsa was able to be passed with cerclage wires under preliminary tension, after which they were firm ly clamped down on the hafsa when rotation was established, and a proximal screw placed in the femur, t he lag screw. This was done under standard technique, placing a lag screw central in the femur, femor al head and neck, and then removing the guide hafsa system and focusing on final reduction of the fract ure and final tightening of cerclage wires. When this was accomplished, the reduction gained was near anatomic and stability was gained distally by placement of an interlocked screw originally intention was to place 2 distal interlock screws, but the nature of the prep, the extent of the prep was not w arsen enough to accommodate a second distal screw. The wounds were all flushed and irrigated and closur e after C-arm imaging in 2 planes, and finding acceptable hafsa placement and screw placement and flush ing all wounds, closure began with 0 Vicryl in the fascial layers of the incisions, followed by 2-0 V icryl subcutaneous and louise in skin. Sterile dressings were applied. The patient was carefully pos itioned on a hospital bed and taken to recovery room in stable condition. ESTIMATED BLOOD LOSS: 800 mL. COMPLICATIONS: None. SPONGE AND NEEDLE COUNTS: Correct. JOB #: [id number] EXT JOB #:[id number]
[2016-09-24] MEDS: INSULIN REGULAR HUMAN 100 UNIT/1 ML 10 ML MDV SUBQ SCH ×3 (14:09→17:14)
--- NOTE | 2016-09-24 14:14 | XRAY Preliminary Report ---
Exam: XR Femur 2V RT IMPRESSION: Postoperative changes of IM hafsa fixation of proximal femoral shaft fracture. [facility] SITE ID: [id number]
--- NOTE | 2016-09-24 14:17 | XRAY Report ---
EXAM: RIGHT FEMUR RADIOGRAPHY EXAM DATE: 09/24/2016 01:51 PM. CLINICAL HISTORY: Post op. COMPARISON: 09/23/2016. TECHNIQUE: 2 views. FINDINGS: Bones: There has been a long IM hafsa and cerclage wire fixation of the proximal femoral shaft fracture . Proximal dynamic compression screw and distal locking screw are noted. Joints: Knee replacement. Mild hip osteoarthritis. Soft Tissues: Postoperative changes. IMPRESSION: Postoperative changes of IM hafsa fixation of proximal femoral shaft fracture. [facility] Referring Provider Line: [phone] SITE ID: [id number]
[2016-09-24 14:21] LABS: IMMATURE RETIC FRACTION 0.62; RED BLOOD COUNT 3.13 10^6/uL (4.70-6.10)
[2016-09-24 15:19] LABS: IRON 33 ug/dL (45-182); TOTAL IRON BINDING CAPACITY 232 ug/dL (250-450); TRANSFERRIN 166 mg/dL (180-329)
[2016-09-24 15:26] LABS: FERRITIN 595.1 ng/mL (23.9-336.2)
[2016-09-24] MEDS: ACETAMINOPHEN 1,000 MG/100 ML 100 ML IV SCH ×2 (15:36→21:08)
[2016-09-24] MEDS: ceFAZolin 2 GM/50 ML 50 ML IV SCH (17:14)
[2016-09-24] MEDS ORDERED: MORPHINE 2 MG/ML SYRINGE IVP PRN (17:17)
[2016-09-24] MEDS ORDERED: CYANOCOBALAMIN 1,000 MCG/ML VIAL IM SCH (17:19)
[2016-09-24] MEDS ORDERED: IRON SUCROSE 200 MG in SODIUM CHLORIDE 0.9% 100ML 100 ML IV SCH (17:21)
[2016-09-24] MEDS: CHOLECALCIFEROL 5,000 UNIT CAPSULE PO SCH ×2 (17:41→21:10)
[2016-09-24] MEDS: MULTIVITAMIN W/MINERALS TABLET PO SCH (17:41)
[2016-09-24 18:31] LABS: HCT - HEMATOCRIT 27.2 % (42.0-52.0); HGB - HEMOGLOBIN 9.5 g/dL (14.0-18.0)
[2016-09-24] MEDS ORDERED: INSULIN GLARGINE 300 UNIT/3 ML PEN SUBQ SCH (21:00)
[2016-09-24] MEDS ORDERED: ATORVASTATIN 40 MG TABLET PO SCH (21:00)
[2016-09-24] MEDS: SENNA 8.6 MG TABLET PO SCH ×2 (21:09→21:46)
[2016-09-24] MEDS: ATORVASTATIN 10 MG TABLET PO SCH ×2 (21:09→21:47)
[2016-09-24] MEDS: CALCIUM CARBONATE CHEW 500 MG TABLET PO SCH ×2 (21:09→21:45)
[2016-09-24] MEDS: DOCUSATE SODIUM 250 MG CAPSULE PO SCH (21:10)
[2016-09-24] MEDS: ONDANSETRON 4 MG/2 ML VIAL IVP PRN (23:28)
[2016-09-25] MEDS: INSULIN REGULAR HUMAN 100 UNIT/1 ML 10 ML MDV SUBQ SCH ×4 (00:05→17:36)
[2016-09-25] MEDS: SODIUM CHLORIDE FLUSH 0.9% 10 ML SYRINGE IVP SCH ×4 (00:36→21:16)
[2016-09-25] MEDS: ceFAZolin 2 GM/50 ML 50 ML IV SCH (00:39)
[2016-09-25] MEDS: SODIUM CHLORIDE 0.9% 1,000 ML IV SCH ×2 (02:52→20:00)
[2016-09-25] MEDS: ACETAMINOPHEN 1,000 MG/100 ML 100 ML IV SCH ×4 (04:08→22:37)
[2016-09-25 05:55] LABS: BASOPHILS % (AUTO) 0.1 %; HCT - HEMATOCRIT 25.6 % (42.0-52.0); LYMPHOCYTES # (AUTO) 1.3 10^3/uL (1.5-3.5); LYMPHOCYTES % (AUTO) 11.9 %; MEAN CORPUSCULAR HEMOGLOBIN 31.7 pg (27.0-31.0); MEAN CORPUSCULAR VOLUME 90.3 fL (80.0-94.0); MEAN PLATELET VOLUME 7.1 fL (7.4-11.4); MONOCYTES % (AUTO) 9.5 %; NEUTROPHILS # (AUTO) 8.3 10^3/uL (1.5-6.6); NEUTROPHILS % (AUTO) 78.5 %; RED BLOOD COUNT 2.84 10^6/uL (4.70-6.10); RED CELL DISTRIBUTION WIDTH 12.6 % (12.0-15.0); UNCORRECTED WHITE BLOOD COUNT 10.6 x10^3/uL; WHITE BLOOD COUNT 10.6 x10^3/uL (4.8-10.8)
[2016-09-25 06:17] LABS: ALBUMIN/GLOBULIN RATIO 0.9 (1.0-2.2); BILIRUBIN,TOTAL 0.5 mg/dL (0.2-1.0); CREATININE 1.7 mg/dL (0.6-1.2); MAGNESIUM 1.9 mg/dL (1.7-2.8); PHOSPHORUS 5.4 mg/dL (2.5-4.6); POTASSIUM 4.8 mmol/L (3.5-5.0)
[2016-09-25 06:22] LABS: CHOLESTEROL 89 mg/dL; HDL CHOLESTEROL 30 mg/dL; LDL/HDL RATIO 1.1 (<3.6); TRIGLYCERIDES 126 mg/dL; VLDL CHOLESTEROL 25 mg/dL
[2016-09-25] MEDS: PANTOPRAZOLE 40 MG TABLET PO SCH (06:33)
--- NOTE | 2016-09-25 07:48 | PROVIDER PROGRESS NOTE ---
Subjective - General Admit Date: 09/23/16 Procedure Date: 09/24/16 Post Op Days: 1 Procedure Performed: IM rodding of right femur/hip - Review of Systems Wound/Incisions: positive: Dressing dry and intact Musculoskeletal: positive: Joint swelling Psychiatric: positive: Confusion Objective - Patient Data Reviewed Vital Signs: Yes Vital Signs: Vital Signs x48h Temp Pulse Resp BP BP Pulse Ox 09/25/16 07:46 36.8 C 105 H 14 158/64 H 92 09/25/16 04:00 36.4 C L 104 H 18 138/77 H 94 09/25/16 00:19 36.5 C 104 H 20 127/90 H 95 Weight: Weight 09/23/16 09/24/16 09/25/16 23:59 23:59 23:59 Weight (kg) 200 kg Intake & Output: Intake and Output Totals x24h 09/23/16 09/24/16 09/25/16 23:59 23:59 23:59 Intake Total 1015 1474 Output Total 675 150 Balance 340 1324 - Lab Results Lab Results: 09/25/16 05:19 09/25/16 05:19 Other Lab Results: Lab Results x24hrs 09/25/16 09/25/16 09/25/16 Range/Units 05:19 05:19 05:19 WBC 10.6 (4.8-10.8) x10^3/uL RBC 2.84 L (4.70-6.10) 10^6/uL Hgb 9.0 L (14.0-18.0) g/dL Hct 25.6 L (42.0-52.0) % MCV 90.3 (80.0-94.0) fL MCH 31.7 H (27.0-31.0) pg MCHC 35.0 (32.0-36.0) g/dL RDW 12.6 (12.0-15.0) % Plt Count 221 (130-450) 10^3/uL MPV 7.1 L (7.4-11.4) fL Reticulocyte % (Auto) (0.5-2.3) % Neut # 8.3 H (1.5-6.6) 10^3/uL Lymph # 1.3 L (1.5-3.5) 10^3/uL [place] # 1.0 (0.0-1.0) 10^3/uL Eos # 0.0 (0.0-0.7) 10^3/uL Baso # 0.0 (0.0-0.1) 10^3/uL Absolute Nucleated RBC 0.00 x10^3/uL Nucleated RBCs 0.0 /100WBC Absolute Retic (0.020-0.110) 10^6/uL Sodium 133 L (135-145) mmol/L Potassium 4.8 (3.5-5.0) mmol/L Chloride 98 L (101-111) mmol/L Carbon Dioxide 24 (21-32) mmol/L Anion Gap 11.0 (6-13) BUN 33 H (6-20) mg/dL Creatinine 1.7 H (0.6-1.2) mg/dL Estimated GFR (MDRD) 38 L (>89) Glucose 421 H (70-100) mg/dL Calcium 8.0 L (8.5-10.3) mg/dL Phosphorus 5.4 H (2.5-4.6) mg/dL Magnesium 1.9 (1.7-2.8) mg/dL Iron (45-182) ug/dL TIBC (250-450) ug/dL % Saturation (20-50) % Transferrin (180-329) mg/dL Ferritin (23.9-336.2) ng/mL Total Bilirubin 0.5 (0.2-1.0) mg/dL AST 189 H (10-42) IU/L ALT 22 (10-60) IU/L Alkaline Phosphatase 583 H (42-121) IU/L Lactate Dehydrogenase (91-225) IU/L Total Protein 5.0 L (6.7-8.2) g/dL Albumin 2.4 L (3.2-5.5) g/dL Globulin 2.6 (2.1-4.2) g/dL Albumin/Globulin Ratio 0.9 L (1.0-2.2) Triglycerides 126 ( - 149) mg/dL Cholesterol 89 ( - 199) mg/dL LDL Cholesterol, Calc 34 ( - 129) mg/dL VLDL Cholesterol 25 mg/dL HDL Cholesterol 30 L (60 - ) mg/dL LDL/HDL Ratio 1.1 (<3.6) Cholesterol/HDL Ratio 3.0 (<5.0) Vitamin B12 (180-914) pg/mL Blood Type Blood Type Recheck Antibody Screen Crossmatch IS Only 09/24/16 09/24/16 09/24/16 Range/Units 18:00 14:40 14:40 WBC (4.8-10.8) x10^3/uL RBC (4.70-6.10) 10^6/uL Hgb 9.5 L (14.0-18.0) g/dL Hct 27.2 L (42.0-52.0) % MCV (80.0-94.0) fL MCH (27.0-31.0) pg MCHC (32.0-36.0) g/dL RDW (12.0-15.0) % Plt Count (130-450) 10^3/uL MPV (7.4-11.4) fL Reticulocyte % (Auto) (0.5-2.3) % Neut # (1.5-6.6) 10^3/uL Lymph # (1.5-3.5) 10^3/uL [place] # (0.0-1.0) 10^3/uL Eos # (0.0-0.7) 10^3/uL Baso # (0.0-0.1) 10^3/uL Absolute Nucleated RBC x10^3/uL Nucleated RBCs /100WBC Absolute Retic (0.020-0.110) 10^6/uL Sodium (135-145) mmol/L Potassium (3.5-5.0) mmol/L Chloride (101-111) mmol/L Carbon Dioxide (21-32) mmol/L Anion Gap (6-13) BUN (6-20) mg/dL Creatinine (0.6-1.2) mg/dL Estimated GFR (MDRD) (>89) Glucose (70-100) mg/dL Calcium (8.5-10.3) mg/dL Phosphorus (2.5-4.6) mg/dL Magnesium (1.7-2.8) mg/dL Iron 33 L (45-182) ug/dL TIBC 232 L (250-450) ug/dL % Saturation 14 L (20-50) % Transferrin 166 L (180-329) mg/dL Ferritin 595.1 H (23.9-336.2) ng/mL Total Bilirubin (0.2-1.0) mg/dL AST (10-42) IU/L ALT (10-60) IU/L Alkaline Phosphatase (42-121) IU/L Lactate Dehydrogenase (91-225) IU/L Total Protein (6.7-8.2) g/dL Albumin (3.2-5.5) g/dL Globulin (2.1-4.2) g/dL Albumin/Globulin Ratio (1.0-2.2) Triglycerides ( - 149) mg/dL Cholesterol ( - 199) mg/dL LDL Cholesterol, Calc ( - 129) mg/dL VLDL Cholesterol mg/dL HDL Cholesterol (60 - ) mg/dL LDL/HDL Ratio (<3.6) Cholesterol/HDL Ratio (<5.0) Vitamin B12 339 (180-914) pg/mL Blood Type Blood Type Recheck Antibody Screen Crossmatch IS Only 09/24/16 09/24/16 09/24/16 Range/Units 13:45 13:05 13:05 WBC (4.8-10.8) x10^3/uL RBC 3.13 L (4.70-6.10) 10^6/uL Hgb (14.0-18.0) g/dL Hct (42.0-52.0) % MCV (80.0-94.0) fL MCH (27.0-31.0) pg MCHC (32.0-36.0) g/dL RDW (12.0-15.0) % Plt Count (130-450) 10^3/uL MPV (7.4-11.4) fL Reticulocyte % (Auto) 2.38 H (0.5-2.3) % Neut # (1.5-6.6) 10^3/uL Lymph # (1.5-3.5) 10^3/uL [place] # (0.0-1.0) 10^3/uL Eos # (0.0-0.7) 10^3/uL Baso # (0.0-0.1) 10^3/uL Absolute Nucleated RBC x10^3/uL Nucleated RBCs /100WBC Absolute Retic 0.075 (0.020-0.110) 10^6/uL Sodium (135-145) mmol/L Potassium (3.5-5.0) mmol/L Chloride (101-111) mmol/L Carbon Dioxide (21-32) mmol/L Anion Gap (6-13) BUN (6-20) mg/dL Creatinine (0.6-1.2) mg/dL Estimated GFR (MDRD) (>89) Glucose (70-100) mg/dL Calcium (8.5-10.3) mg/dL Phosphorus (2.5-4.6) mg/dL Magnesium (1.7-2.8) mg/dL Iron (45-182) ug/dL TIBC (250-450) ug/dL % Saturation (20-50) % Transferrin (180-329) mg/dL Ferritin (23.9-336.2) ng/mL Total Bilirubin (0.2-1.0) mg/dL AST (10-42) IU/L ALT (10-60) IU/L Alkaline Phosphatase (42-121) IU/L Lactate Dehydrogenase 298 H (91-225) IU/L Total Protein (6.7-8.2) g/dL Albumin (3.2-5.5) g/dL Globulin (2.1-4.2) g/dL Albumin/Globulin Ratio (1.0-2.2) Triglycerides ( - 149) mg/dL Cholesterol ( - 199) mg/dL LDL Cholesterol, Calc ( - 129) mg/dL VLDL Cholesterol mg/dL HDL Cholesterol (60 - ) mg/dL LDL/HDL Ratio (<3.6) Cholesterol/HDL Ratio (<5.0) Vitamin B12 (180-914) pg/mL Blood Type Blood Type Recheck O POSITIVE Antibody Screen Crossmatch IS Only 09/24/16 09/24/16 09/24/16 Range/Units 13:05 08:15 07:42 WBC 13.6 H (4.8-10.8) x10^3/uL RBC 3.13 L (4.70-6.10) 10^6/uL Hgb 9.7 L 11.6 L (14.0-18.0) g/dL Hct 27.9 L 32.6 L (42.0-52.0) % MCV 89.1 (80.0-94.0) fL MCH 31.1 H (27.0-31.0) pg MCHC 34.9 (32.0-36.0) g/dL RDW 12.2 (12.0-15.0) % Plt Count 239 (130-450) 10^3/uL MPV 6.1 L (7.4-11.4) fL Reticulocyte % (Auto) (0.5-2.3) % Neut # (1.5-6.6) 10^3/uL Lymph # (1.5-3.5) 10^3/uL [place] # (0.0-1.0) 10^3/uL Eos # (0.0-0.7) 10^3/uL Baso # (0.0-0.1) 10^3/uL Absolute Nucleated RBC x10^3/uL Nucleated RBCs /100WBC Absolute Retic (0.020-0.110) 10^6/uL Sodium (135-145) mmol/L Potassium (3.5-5.0) mmol/L Chloride (101-111) mmol/L Carbon Dioxide (21-32) mmol/L Anion Gap (6-13) BUN (6-20) mg/dL Creatinine (0.6-1.2) mg/dL Estimated GFR (MDRD) (>89) Glucose (70-100) mg/dL Calcium (8.5-10.3) mg/dL Phosphorus (2.5-4.6) mg/dL Magnesium (1.7-2.8) mg/dL Iron (45-182) ug/dL TIBC (250-450) ug/dL % Saturation (20-50) % Transferrin (180-329) mg/dL Ferritin (23.9-336.2) ng/mL Total Bilirubin (0.2-1.0) mg/dL AST (10-42) IU/L ALT (10-60) IU/L Alkaline Phosphatase (42-121) IU/L Lactate Dehydrogenase (91-225) IU/L Total Protein (6.7-8.2) g/dL Albumin (3.2-5.5) g/dL Globulin (2.1-4.2) g/dL Albumin/Globulin Ratio (1.0-2.2) Triglycerides ( - 149) mg/dL Cholesterol ( - 199) mg/dL LDL Cholesterol, Calc ( - 129) mg/dL VLDL Cholesterol mg/dL HDL Cholesterol (60 - ) mg/dL LDL/HDL Ratio (<3.6) Cholesterol/HDL Ratio (<5.0) Vitamin B12 (180-914) pg/mL Blood Type Blood Type Recheck Antibody Screen Crossmatch IS Only See Detail 09/24/16 Range/Units 07:40 WBC (4.8-10.8) x10^3/uL RBC (4.70-6.10) 10^6/uL Hgb (14.0-18.0) g/dL Hct (42.0-52.0) % MCV (80.0-94.0) fL MCH (27.0-31.0) pg MCHC (32.0-36.0) g/dL RDW (12.0-15.0) % Plt Count (130-450) 10^3/uL MPV (7.4-11.4) fL Reticulocyte % (Auto) (0.5-2.3) % Neut # (1.5-6.6) 10^3/uL Lymph # (1.5-3.5) 10^3/uL [place] # (0.0-1.0) 10^3/uL Eos # (0.0-0.7) 10^3/uL Baso # (0.0-0.1) 10^3/uL Absolute Nucleated RBC x10^3/uL Nucleated RBCs /100WBC Absolute Retic (0.020-0.110) 10^6/uL Sodium (135-145) mmol/L Potassium (3.5-5.0) mmol/L Chloride (101-111) mmol/L Carbon Dioxide (21-32) mmol/L Anion Gap (6-13) BUN (6-20) mg/dL Creatinine (0.6-1.2) mg/dL Estimated GFR (MDRD) (>89) Glucose (70-100) mg/dL Calcium (8.5-10.3) mg/dL Phosphorus (2.5-4.6) mg/dL Magnesium (1.7-2.8) mg/dL Iron (45-182) ug/dL TIBC (250-450) ug/dL % Saturation (20-50) % Transferrin (180-329) mg/dL Ferritin (23.9-336.2) ng/mL Total Bilirubin (0.2-1.0) mg/dL AST (10-42) IU/L ALT (10-60) IU/L Alkaline Phosphatase (42-121) IU/L Lactate Dehydrogenase (91-225) IU/L Total Protein (6.7-8.2) g/dL Albumin (3.2-5.5) g/dL Globulin (2.1-4.2) g/dL Albumin/Globulin Ratio (1.0-2.2) Triglycerides ( - 149) mg/dL Cholesterol ( - 199) mg/dL LDL Cholesterol, Calc ( - 129) mg/dL VLDL Cholesterol mg/dL HDL Cholesterol (60 - ) mg/dL LDL/HDL Ratio (<3.6) Cholesterol/HDL Ratio (<5.0) Vitamin B12 (180-914) pg/mL Blood Type O POSITIVE Blood Type Recheck Antibody Screen NEGATIVE Crossmatch IS Only - Imaging Results Radiology Imaging: positive: EMP read indepedently - Current Medications Current Medications: Current Medications Generic Name Dose Route Start Last Admin Trade Name Freq PRN Reason Stop Dose Admin Aspirin 81 mg 09/24/16 09:00 09/24/16 09:30 [facility] [place] Aspirin PO Not Given DAILY [facility] Atorvastatin Calcium 20 mg 09/24/16 21:00 09/24/16 21:47 Lipitor PO Not Given QPM GABRIELA Calcium Carbonate/Glycine 500 mg 09/24/16 21:00 09/24/16 21:45 Tums PO Not Given BID GABRIELA Cholecalciferol 5,000 unit 09/24/16 17:20 09/24/16 21:10 Vitamin D3 PO 5,000 unit BID GABRIELA Administration Docusate Sodium 250 - 500 mg 09/24/16 21:00 09/24/16 21:10 Colace 250mg Capsule PO 500 mg DAILY GABRIELA Administration Finasteride 5 mg 09/24/16 09:00 09/24/16 09:30 Proscar PO Not Given DAILY G[facility]A Hydrochlorothiazide 50 mg 09/24/16 09:00 09/24/16 09:30 Hydrodiuril PO Not Given DAILY GABRIELA Sodium Chloride 1,000 mls @ 100 mls/hr 09/23/16 23:00 09/25/16 02:52 Normal Saline 0.9% IV 100 mls/hr .Q10H GABRIELA Administration Acetaminophen 100 mls @ 400 mls/hr 09/24/16 16:00 09/25/16 04:08 Ofirmev IV 400 mls/hr Q6H GABRIELA Administration Insulin Glargine 5 unit 09/24/16 21:00 09/24/16 21:10 Lantus Solostar SUBQ 5 unit QPM GABRIELA Administration Insulin Human Regular 1 - 5 unit 09/24/16 08:00 09/25/16 06:32 Novolin R SUBQ 5 unit Q6HR GABRIELA Administration Protocol Memantine 10 mg 09/24/16 09:00 09/24/16 21:09 Namenda PO 10 mg BID GABRIELA Administration Metoprolol Succinate 25 mg 09/24/16 09:00 09/24/16 09:30 Toprol Xl PO Not Given DAILY [facility] Morphine Sulfate 2 mg 09/24/16 17:17 09/24/16 18:28 Morphine IVP 2 mg Q2HR PRN Administration PAIN Multivitamins/Minerals 1 tab 09/24/16 18:00 09/24/16 17:41 Theragran M PO 1 tab DAILYWM GABRIELA Administration Ondansetron HCl 4 mg 09/23/16 22:52 09/24/16 23:28 Zofran Inj IVP 4 mg Q6HR PRN Administration Nausea / Vomiting Oxycodone HCl 5 mg 09/23/16 22:52 09/24/16 06:15 Roxicodone PO 5 mg Q4HR PRN Administration Pain 5 to 7 Pantoprazole Sodium 40 mg 09/24/16 07:00 09/25/16 06:33 Protonix PO 40 mg QDAC [facility] Administration Polyethylene Glycol 17 gm 09/24/16 09:00 09/24/16 09:30 Miralax PO Not Given DAILY [facility] Senna 8.6 - 17.2 mg 09/24/16 21:00 09/24/16 21:46 Senokot PO Not Given DAILY [facility] Sodium Chloride 10 ml 09/24/16 06:00 09/25/16 07:26 Normal Saline Flush 0.9% IVP Not Given Q8HR [facility] Temazepam 15 mg 09/23/16 22:52 09/25/16 00:56 Restoril PO 15 mg QPM PRN Administration Insomnia - Physical Exam Wound/Incisions: positive: Dressing dry and intact General Appearance: positive: No acute distress Skin: positive: Warm, Dry Extremities: positive: Joint swelling Neurologic/Psychiatric: positive: Motor nml, Sensation nml, Disoriented to time Impression/Plan - Problem List Problem List: POD #1 Pt is having some pain as expected. Hip area is clean and dry. Plan to begin PT today.
[2016-09-25] MEDS: POLYETHYLENE GLYCOL 3350 17 GM PACKET PO SCH (08:41)
[2016-09-25] MEDS: CALCIUM CARBONATE CHEW 500 MG TABLET PO SCH ×2 (08:41→21:15)
[2016-09-25] MEDS: DOCUSATE SODIUM 250 MG CAPSULE PO SCH (08:42)
[2016-09-25] MEDS: ASPIRIN CHEW 81 MG TABLET PO SCH (08:42)
[2016-09-25] MEDS: MEMANTINE 5 MG TABLET PO SCH ×2 (08:42→21:16)
[2016-09-25] MEDS: CHOLECALCIFEROL 5,000 UNIT CAPSULE PO SCH ×2 (08:42→21:16)
[2016-09-25] MEDS: METOPROLOL SUCCINATE 25 MG TABLET PO SCH (08:42)
[2016-09-25] MEDS: hydroCHLOROthiazide 25 MG TABLET PO SCH (08:42)
[2016-09-25] MEDS: FINASTERIDE 5 MG TABLET PO SCH (08:42)
[2016-09-25] MEDS: SENNA 8.6 MG TABLET PO SCH (08:42)
[2016-09-25] MEDS: MULTIVITAMIN W/MINERALS TABLET PO SCH (08:43)
[2016-09-25] MEDS: oxyCODONE 5 MG TABLET PO PRN (08:49)
[2016-09-25] MEDS ORDERED: SODIUM CHLORIDE 0.9% 500 ML IV ONE (08:50)
--- NOTE | 2016-09-25 08:51 | PROVIDER PROGRESS NOTE ---
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 continue to work with PT and OT. continue with pain medications as scheduled. Continue to encourage ambulation. continue with vitamin D and calcium supplements. surgery ortho on consult following (2) Postoperative anemia due to acute blood loss Assessment/Plan: unstable. patients hemoglobin dropped to 9.0 today. he received Venofer yesterday and is on Ferrous sulfate oral daily. colace for stool softener. continue to monitor hemoglobin daily. no active bleeding at this time. oxygen NC ordered (3) Hyperglycemia due to type 2 diabetes mellitus Qualifiers: Qualified Code(s): E11.65 - Type 2 diabetes mellitus with hyperglycemia Assessment/Plan: ongong. increased lantus to 10units BID and increased sliding scale to moderate. will add metformin to medications BID tomorrow. continue with diabetic diet and counseling with diabetic coordinator and nursing (4) Low serum magnesium level Assessment/Plan: resolved. continue to monitor with daily lab draws (5) Low serum potassium level Assessment/Plan: resolved. continue to monitor with daily lab draws and replace as needed (6) Benign prostatic hyperplasia Qualifiers: Qualified Code(s): N40.0 - Benign prostatic hyperplasia without lower urinary tract symptoms Assessment/Plan: chronic. will also monitor PSA and get ultrasound of the prostate/bladder. His ALP was 583 and very high today. could be from the bone fracture as well. patient was having issues with urination recently. (7) LUISA on CPAP Assessment/Plan: chronic. continue with CPAP at night and oxygen NC during the day - Current Meds Current Meds: Current Medications Generic Name Dose Route Start Last Admin Trade Name Mili PRN Reason Stop Dose Admin Aspirin 81 mg 09/24/16 09:00 09/25/16 08:42 [facility] [place] Aspirin PO 81 mg DAILY [facility] Administration Atorvastatin Calcium 20 mg 09/24/16 21:00 09/24/16 21:47 Lipitor PO Not Given QPM [facility] Calcium Carbonate/Glycine 500 mg 09/24/16 21:00 09/25/16 08:41 Tums PO 500 mg BID GABRIELA Administration Cholecalciferol 5,000 unit 09/24/16 17:20 09/25/16 08:42 Vitamin D3 PO 5,000 unit BID [facility] Administration Docusate Sodium 250 - 500 mg 09/24/16 21:00 09/25/16 08:42 Colace 250mg Capsule PO 250 mg DAILY GABRIELA Administration Finasteride 5 mg 09/24/16 09:00 09/25/16 08:42 Proscar PO 5 mg DAILY GABRIELA Administration Sodium Chloride 1,000 mls @ 100 mls/hr 09/23/16 23:00 09/25/16 02:52 Normal Saline 0.9% IV 100 mls/hr .Q10H GABRIELA Administration Acetaminophen 100 mls @ 400 mls/hr 09/24/16 16:00 09/25/16 04:08 Ofirmev IV 400 mls/hr Q6H GABRIELA Administration Memantine 10 mg 09/24/16 09:00 09/25/16 08:42 Namenda PO 10 mg BID GABRIELA Administration Metoprolol Succinate 25 mg 09/24/16 09:00 09/25/16 08:42 Toprol Xl PO 25 mg DAILY GABRIELA Administration Morphine Sulfate 2 mg 09/24/16 17:17 09/24/16 18:28 Morphine IVP 2 mg Q2HR PRN Administration PAIN Multivitamins/Minerals 1 tab 09/24/16 18:00 09/25/16 08:43 Theragran M PO 1 tab DAILYWM G[facility] Administration Ondansetron HCl 4 mg 09/23/16 22:52 09/24/16 23:28 Zofran Inj IVP 4 mg Q6HR PRN Administration Nausea / Vomiting Oxycodone HCl 5 mg 09/23/16 22:52 09/25/16 08:49 Roxicodone PO 5 mg Q4HR PRN Administration Pain 5 to 7 Pantoprazole Sodium 40 mg 09/24/16 07:00 09/25/16 06:33 Protonix PO 40 mg QDAC GABRIELA Administration Polyethylene Glycol 17 gm 09/24/16 09:00 09/25/16 08:41 Miralax PO 17 gm DAILY G[facility] Administration Senna 8.6 - 17.2 mg 09/24/16 21:00 09/25/16 08:42 Senokot PO 8.6 mg DAILY GABRIELA Administration Sodium Chloride 10 ml 09/24/16 06:00 09/25/16 07:26 Normal Saline Flush 0.9% IVP Not Given Q8HR GABREILA Temazepam 15 mg 09/23/16 22:52 09/25/16 00:56 Restoril PO 15 mg QPM PRN Administration Insomnia - Lab Result Lab results reviewed: Yes Fish Bone Diagrams: 09/25/16 05:19 09/25/16 05:19 Other Lab Results: Abnormal Lab Results 09/24/16 09/24/16 09/24/16 01:13 01:13 01:13 WBC RBC 4.00 10^6/uL L 10^6/uL (4.70-6.10) Hgb 12.5 g/dL L g/dL (14.0-18.0) Hct 35.3 % L % (42.0-52.0) MCH 31.2 pg H pg (27.0-31.0) MPV 6.4 fL L fL (7.4-11.4) Reticulocyte % (Auto) Neut # 8.9 10^3/uL H 10^3/uL (1.5-6.6) Lymph # 1.0 10^3/uL L 10^3/uL (1.5-3.5) PT 14.0 secs H secs (9.9-12.6) Sodium Potassium 3.3 mmol/L L mmol/L (3.5-5.0) Chloride 95 mmol/L L mmol/L (101-111) BUN Creatinine Estimated GFR (MDRD) Glucose 270 mg/dL H mg/dL (70-100) Glycated Hemoglobin Estim Average Glucose Calcium Phosphorus Magnesium Iron TIBC % Saturation Transferrin Ferritin AST Alkaline Phosphatase 180 IU/L H IU/L (42-121) Lactate Dehydrogenase Total Protein 5.9 g/dL L g/dL (6.7-8.2) Albumin 3.1 g/dL L g/dL (3.2-5.5) Albumin/Globulin Ratio HDL Cholesterol Lipase < 10 U/L L U/L (22-51) Crossmatch IS Only 09/24/16 09/24/16 09/24/16 01:13 01:13 07:42 WBC RBC Hgb Hct MCH MPV Reticulocyte % (Auto) Neut # Lymph # PT Sodium Potassium Chloride BUN Creatinine Estimated GFR (MDRD) Glucose Glycated Hemoglobin 8.9 % H % (4.6-6.2) Estim Average Glucose 209 H (70-100) Calcium Phosphorus Magnesium 1.4 mg/dL L mg/dL (1.7-2.8) Iron TIBC % Saturation Transferrin Ferritin AST Alkaline Phosphatase Lactate Dehydrogenase Total Protein Albumin Albumin/Globulin Ratio HDL Cholesterol Lipase Crossmatch IS Only See Detail 09/24/16 09/24/16 09/24/16 08:15 13:05 13:05 WBC 13.6 x10^3/uL H x10^3/uL (4.8-10.8) RBC 3.13 10^6/uL L 10^6/uL 3.13 10^6/uL L 10^6/uL (4.70-6.10) (4.70-6.10) Hgb 11.6 g/dL L g/dL 9.7 g/dL L g/dL (14.0-18.0) (14.0-18.0) Hct 32.6 % L % 27.9 % L % (42.0-52.0) (42.0-52.0) MCH 31.1 pg H pg (27.0-31.0) MPV 6.1 fL L fL (7.4-11.4) Reticulocyte % (Auto) 2.38 % H % (0.5-2.3) Neut # Lymph # PT Sodium Potassium Chloride BUN Creatinine Estimated GFR (MDRD) Glucose Glycated Hemoglobin Estim Average Glucose Calcium Phosphorus Magnesium Iron TIBC % Saturation Transferrin Ferritin AST Alkaline Phosphatase Lactate Dehydrogenase Total Protein Albumin Albumin/Globulin Ratio HDL Cholesterol Lipase Crossmatch IS Only 09/24/16 09/24/16 09/24/16 13:45 14:40 14:40 WBC RBC Hgb Hct MCH MPV Reticulocyte % (Auto) Neut # Lymph # PT Sodium Potassium Chloride BUN Creatinine Estimated GFR (MDRD) Glucose Glycated Hemoglobin Estim Average Glucose Calcium Phosphorus Magnesium Iron 33 ug/dL L ug/dL (45-182) TIBC 232 ug/dL L ug/dL (250-450) % Saturation 14 % L % (20-50) Transferrin 166 mg/dL L mg/dL (180-329) Ferritin 595.1 ng/mL H ng/mL (23.9-336.2) AST Alkaline Phosphatase Lactate Dehydrogenase 298 IU/L H IU/L (91-225) Total Protein Albumin Albumin/Globulin Ratio HDL Cholesterol Lipase Crossmatch IS Only 09/24/16 09/25/16 09/25/16 18:00 05:19 05:19 WBC RBC 2.84 10^6/uL L 10^6/uL (4.70-6.10) Hgb 9.5 g/dL L g/dL 9.0 g/dL L g/dL (14.0-18.0) (14.0-18.0) Hct 27.2 % L % 25.6 % L % (42.0-52.0) (42.0-52.0) MCH 31.7 pg H pg (27.0-31.0) MPV 7.1 fL L fL (7.4-11.4) Reticulocyte % (Auto) Neut # 8.3 10^3/uL H 10^3/uL (1.5-6.6) Lymph # 1.3 10^3/uL L 10^3/uL (1.5-3.5) PT Sodium 133 mmol/L L mmol/L (135-145) Potassium Chloride 98 mmol/L L mmol/L (101-111) BUN 33 mg/dL H mg/dL (6-20) Creatinine 1.7 mg/dL H mg/dL (0.6-1.2) Estimated GFR (MDRD) 38 L (>89) Glucose 421 mg/dL H mg/dL (70-100) Glycated Hemoglobin Estim Average Glucose Calcium 8.0 mg/dL L mg/dL (8.5-10.3) Phosphorus 5.4 mg/dL H mg/dL (2.5-4.6) Magnesium Iron TIBC % Saturation Transferrin Ferritin AST 189 IU/L H IU/L (10-42) Alkaline Phosphatase 583 IU/L H IU/L (42-121) Lactate Dehydrogenase Total Protein 5.0 g/dL L g/dL (6.7-8.2) Albumin 2.4 g/dL L g/dL (3.2-5.5) Albumin/Globulin Ratio 0.9 L (1.0-2.2) HDL Cholesterol Lipase Crossmatch IS Only 09/25/16 09/25/16 05:19 05:19 WBC RBC Hgb Hct MCH MPV Reticulocyte % (Auto) Neut # Lymph # PT Sodium Potassium Chloride BUN Creatinine Estimated GFR (MDRD) Glucose Glycated Hemoglobin 9.0 % H % (4.6-6.2) Estim Average Glucose 212 H (70-100) Calcium Phosphorus Magnesium Iron TIBC % Saturation Transferrin Ferritin AST Alkaline Phosphatase Lactate Dehydrogenase Total Protein Albumin Albumin/Globulin Ratio HDL Cholesterol 30 mg/dL L mg/dL (60 - ) Lipase Crossmatch IS Only - EKG Results EKG Interpreted Independently: No - Additional Planning Condition/Complexity: Stable My Orders: My Active Orders 09/24/16 07:56 Blood Glucose POC [] 0800,1200,1700,2100 Initiate Hypoglycemia Protocol [RC] .protocol 09/24/16 13:41 traMADol [Ultram] 50 mg PO Q6H PRN 09/24/16 16:00 Acetaminophen 1,000 mg/100 ml [Ofirmev] 100 ml IV Q6H 09/24/16 17:17 Morphine Inj [Morphine] 2 mg IVP Q2HR PRN 09/24/16 17:18 Blood Glucose Checks - NPO [] 0600,1200,1800,0000 Diabetic Education [RC] ONCE 09/24/16 17:20 Cholecalciferol [Vitamin D3] 5,000 unit PO BID 09/24/16 18:00 Multivitamin W/Minerals [Theragran M] 1 tab PO DAILYWM 09/24/16 21:00 Atorvastatin [Lipitor] 20 mg PO QPM Calcium Carbonate [Tums] 500 mg PO BID Docusate Sodium 250Mg Capsule [Colace 250Mg Capsule] 250 - 500 mg PO DAILY Senna [Senokot] 8.6 - 17.2 mg PO DAILY 09/24/16 Dinner Carb-controlled Diet [DIET] 09/25/16 08:45 ABG - ARTERIAL BLOOD GAS [BG] Routine 09/25/16 08:47 A1C [CHEM] Routine BMP - BASIC METABOLIC PANEL [CHEM] Routine GLUCOSE,FASTING [CHEM] Routine 09/25/16 08:50 Sodium Chloride 0.9% [Normal Saline 0.9%] 500 ml IV ONCE 09/25/16 09:00 Insulin Glargine [Lantus Solostar] 10 unit SUBQ BID Insulin Regular Human [NovoLIN R] See Protocol SUBQ Q6HR Consult/Specialty: OT, PT, Surgery Plan Discussed with:: Patient, Family, Case Management Time Spent: 31-60 minutes (Patient will need another 24-48 hours before discharge. He will go to rehab. He is high risk for worsening co morbid conditions and still is needing IV medication with high risk for toxicity) Subjective - Subjective Patient Reports: Resting Comfortably, No Complaints, Pain (to right hip with movement. sleeping alot) Nursing Reports: No Complaints, Sedated Objective Vital Signs: Vital Signs - 24 hr 09/24/16 09/24/16 09/24/16 12:48 12:50 12:53 Temperature Heart Rate [ Brachial] Respiratory Rate Blood Pressure [Left Brachial artery] Blood Pressure [Right Brachial artery] O2 Saturation 98 9 L 96 09/24/16 09/24/16 09/24/16 12:59 13:04 13:08 Temperature Heart Rate [ Brachial] Respiratory Rate Blood Pressure [Left Brachial artery] Blood Pressure [Right Brachial artery] O2 Saturation 98 8 L 94 09/24/16 09/24/16 09/24/16 13:14 13:21 13:29 Temperature Heart Rate [ Brachial] Respiratory Rate Blood Pressure [Left Brachial artery] Blood Pressure [Right Brachial artery] O2 Saturation 98 97 99 09/24/16 09/24/16 09/24/16 13:40 13:45 13:54 Temperature Heart Rate [ Brachial] Respiratory Rate Blood Pressure [Left Brachial artery] Blood Pressure [Right Brachial artery] O2 Saturation 99 98 96 09/24/16 09/24/16 09/24/16 14:00 14:35 15:22 Temperature 37.1 C 36.7 C 36.7 C Heart Rate [ 96 106 H 101 H Brachial] Respiratory 24 22 20 Rate Blood Pressure 111/64 119/69 [Left Brachial artery] Blood Pressure 121/73 [Right Brachial artery] O2 Saturation 97 97 95 09/24/16 09/25/16 09/25/16 20:05 00:19 04:00 Temperature 36.4 C L 36.5 C 36.4 C L Heart Rate [ 106 H 104 H 104 H Brachial] Respiratory 24 20 18 Rate Blood Pressure 127/90 H 138/77 H [Left Brachial artery] Blood Pressure 112/76 [Right Brachial artery] O2 Saturation 98 95 94 09/25/16 07:46 Temperature 36.8 C Heart Rate [ 105 H Brachial] Respiratory 14 Rate Blood Pressure [Left Brachial artery] Blood Pressure 158/64 H [Right Brachial artery] O2 Saturation 92 Oxygen O2 Source Room air I&O (Last 24 Hrs): Intake and Output Totals x24h 09/23/16 09/24/16 09/25/16 23:59 23:59 23:59 Intake Total 1015 1834 Output Total 675 150 Balance 340 1684 General: Alert, Oriented x3, Cooperative, No acute distress HEENT: Atraumatic, PERRLA, Mucous membr. moist/pink Neck: Supple, No JVD Lymphatic: no adenopathy Neuro: Alert, Non Focal, Oriented Times 3 Cardiovascular: Normal S1, Normal S2, No murmurs Respiratory: Chest non-tender, No respiratory distress, Breath sounds nml Abdomen: Normal bowel sounds, Soft, No tenderness Rectal: Stool - Heme NEG Extremities: No clubbing, No cyanosis, Normal pulses, Other (tenderness to outer right hip and not moving much. dry intact dressing.) Skin: No rashes, No breakdown, No significant lesion - Results Results: Laboratory Results WBC 10.6 x10^3/uL (4.8-10.8) 09/25/16 05:19 RBC 2.84 10^6/uL (4.70-6.10) L 09/25/16 05:19 Hgb 9.0 g/dL (14.0-18.0) L 09/25/16 05:19 Hct 25.6 % (42.0-52.0) L 09/25/16 05:19 MCV 90.3 fL (80.0-94.0) 09/25/16 05:19 MCH 31.7 pg (27.0-31.0) H 09/25/16 05:19 MCHC 35.0 g/dL (32.0-36.0) 09/25/16 05:19 RDW 12.6 % (12.0-15.0) 09/25/16 05:19 Plt Count 221 10^3/uL (130-450) 09/25/16 05:19 MPV 7.1 fL (7.4-11.4) L 09/25/16 05:19 Reticulocyte % (Auto) 2.38 % (0.5-2.3) H 09/24/16 13:05 Neut # 8.3 10^3/uL (1.5-6.6) H 09/25/16 05:19 Lymph # 1.3 10^3/uL (1.5-3.5) L 09/25/16 05:19 [place] # 1.0 10^3/uL (0.0-1.0) 09/25/16 05:19 Eos # 0.0 10^3/uL (0.0-0.7) 09/25/16 05:19 Baso # 0.0 10^3/uL (0.0-0.1) 09/25/16 05:19 Absolute Nucleated RBC 0.00 x10^3/uL 09/25/16 05:19 Nucleated RBCs 0.0 /100WBC 09/25/16 05:19 Absolute Retic 0.075 10^6/uL (0.020-0.110) 09/24/16 13:05 PT 14.0 secs (9.9-12.6) H 09/24/16 01:13 INR 1.2 (0.8-1.2) 09/24/16 01:13 Sodium 133 mmol/L (135-145) L 09/25/16 05:19 Potassium 4.8 mmol/L (3.5-5.0) 09/25/16 05:19 Chloride 98 mmol/L (101-111) L 09/25/16 05:19 Carbon Dioxide 24 mmol/L (21-32) 09/25/16 05:19 Anion Gap 11.0 (6-13) 09/25/16 05:19 BUN 33 mg/dL (6-20) H 09/25/16 05:19 Creatinine 1.7 mg/dL (0.6-1.2) H 09/25/16 05:19 Estimated GFR (MDRD) 38 (>89) L 09/25/16 05:19 Glucose 421 mg/dL (70-100) H 09/25/16 05:19 Glycated Hemoglobin 8.9 % (4.6-6.2) H 09/24/16 01:13 Estim Average Glucose 209 (70-100) H 09/24/16 01:13 Calcium 8.0 mg/dL (8.5-10.3) L 09/25/16 05:19 Phosphorus 5.4 mg/dL (2.5-4.6) H 09/25/16 05:19 Magnesium 1.9 mg/dL (1.7-2.8) 09/25/16 05:19 Iron 33 ug/dL (45-182) L 09/24/16 14:40 TIBC 232 ug/dL (250-450) L 09/24/16 14:40 % Saturation 14 % (20-50) L 09/24/16 14:40 Transferrin 166 mg/dL (180-329) L 09/24/16 14:40 Ferritin 595.1 ng/mL (23.9-336.2) H 09/24/16 14:40 Total Bilirubin 0.5 mg/dL (0.2-1.0) 09/25/16 05:19 AST 189 IU/L (10-42) H 09/25/16 05:19 ALT 22 IU/L (10-60) 09/25/16 05:19 Alkaline Phosphatase 583 IU/L (42-121) H 09/25/16 05:19 Lactate Dehydrogenase 298 IU/L (91-225) H 09/24/16 13:45 Total Protein 5.0 g/dL (6.7-8.2) L 09/25/16 05:19 Albumin 2.4 g/dL (3.2-5.5) L 09/25/16 05:19 Globulin 2.6 g/dL (2.1-4.2) 09/25/16 05:19 Albumin/Globulin Ratio 0.9 (1.0-2.2) L 09/25/16 05:19 Triglycerides 126 mg/dL (-149) 09/25/16 05:19 Cholesterol 89 mg/dL (-199) 09/25/16 05:19 LDL Cholesterol, Calc 34 mg/dL (-129) 09/25/16 05:19 VLDL Cholesterol 25 mg/dL 09/25/16 05:19 HDL Cholesterol 30 mg/dL (60-) L 09/25/16 05:19 LDL/HDL Ratio 1.1 (<3.6) 09/25/16 05:19 Cholesterol/HDL Ratio 3.0 (<5.0) 09/25/16 05:19 Lipase < 10 U/L (22-51) L 09/24/16 01:13 Vitamin B12 339 pg/mL (180-914) 09/24/16 14:40 Urine Color YELLOW 09/23/16 21:25 Urine Clarity CLEAR (CLEAR) 09/23/16 21:25 Urine pH 6.0 PH (5.0-7.5) 09/23/16 21:25 Ur Specific [place] 1.025 (1.002-1.030) 09/23/16 21:25 Urine Protein NEGATIVE mg/dL (NEGATIVE) 09/23/16 21:25 Urine Glucose (UA) NEGATIVE mg/dL (NEGATIVE) 09/23/16 21:25 Urine Ketones NEGATIVE mg/dL (NEGATIVE) 09/23/16 21:25 Urine Occult Blood TRACE-INTA (NEGATIVE) 09/23/16 21:25 Urine Nitrite NEGATIVE (NEGATIVE) 09/23/16 21:25 Urine Bilirubin NEGATIVE (NEGATIVE) 09/23/16 21:25 Urine Urobilinogen 1 (NORMAL) E.U./dL (NORMAL) 09/23/16 21:25 Ur Leukocyte Esterase NEGATIVE (NEGATIVE) 09/23/16 21:25 Ur Microscopic Review NOT INDICATED 09/23/16 21:25 Urine Culture Comments NOT INDICATED 09/23/16 21:25 Blood Type O POSITIVE 09/24/16 07:40 Blood Type Recheck O POSITIVE 09/24/16 13:05 Antibody Screen NEGATIVE 09/24/16 07:40 Crossmatch IS Only See Detail 09/24/16 07:42
[2016-09-25] MEDS ORDERED: INSULIN REGULAR HUMAN 100 UNIT/1 ML 10 ML MDV SUBQ SCH ×2 (09:00→12:00)
[2016-09-25] MEDS ORDERED: SENNA 8.6 MG TABLET PO SCH (09:00)
[2016-09-25] MEDS ORDERED: DOCUSATE SODIUM 250 MG CAPSULE PO SCH (09:00)
[2016-09-25] MEDS ORDERED: ENOXAPARIN 40 MG/0.4 ML SYRINGE SUBQ SCH (09:00)
[2016-09-25] MEDS: INSULIN GLARGINE 300 UNIT/3 ML PEN SUBQ SCH ×2 (09:07→21:27)
[2016-09-25 09:49] LABS: HEMOGLOBIN A1C 0.69 g/dL
[2016-09-25] MEDS ORDERED: CALCIUM CARBONATE CHEW 500 MG TABLET PO ONE (17:15)
[2016-09-25] MEDS ORDERED: INSULIN ASPART 300 UNIT/3 ML PEN SUBQ SCH (21:00)
[2016-09-25] MEDS: ATORVASTATIN 10 MG TABLET PO SCH (21:16)
[2016-09-26] MEDS: SODIUM CHLORIDE 0.9% 1,000 ML IV SCH ×2 (03:40→06:01)
[2016-09-26] MEDS: ACETAMINOPHEN 1,000 MG/100 ML 100 ML IV SCH ×4 (03:48→22:00)
[2016-09-26] MEDS: SODIUM CHLORIDE FLUSH 0.9% 10 ML SYRINGE IVP SCH ×3 (05:05→23:53)
[2016-09-26 06:33] LABS: BASOPHILS % (AUTO) 0.1 %; EOSINOPHILS % (AUTO) 0.4 %; HGB - HEMOGLOBIN 7.1 g/dL (14.0-18.0); LYMPHOCYTES # (AUTO) 1.6 10^3/uL (1.5-3.5); LYMPHOCYTES % (AUTO) 16.2 %; MEAN CORPUSCULAR HEMOGLOBIN 31.7 pg (27.0-31.0); MEAN CORPUSCULAR HGB CONC 35.2 g/dL (32.0-36.0); MEAN CORPUSCULAR VOLUME 89.9 fL (80.0-94.0); MEAN PLATELET VOLUME 6.8 fL (7.4-11.4); MONOCYTES # (AUTO) 0.8 10^3/uL (0.0-1.0); MONOCYTES % (AUTO) 8.3 %; NEUTROPHILS # (AUTO) 7.4 10^3/uL (1.5-6.6); NUCLEATED RED BLOOD CELLS AUTO 0.4 /100WBC; RED BLOOD COUNT 2.23 10^6/uL (4.70-6.10); RED CELL DISTRIBUTION WIDTH 12.8 % (12.0-15.0); UNCORRECTED WHITE BLOOD COUNT 9.8 x10^3/uL; WHITE BLOOD COUNT 9.8 x10^3/uL (4.8-10.8)
[2016-09-26 06:37] LABS: BILIRUBIN,TOTAL 0.6 mg/dL (0.2-1.0); CALCIUM 7.8 mg/dL (8.5-10.3); CREATININE 1.4 mg/dL (0.6-1.2); PHOSPHORUS 3.2 mg/dL (2.5-4.6); POTASSIUM 3.5 mmol/L (3.5-5.0); TOTAL PROTEIN 4.5 g/dL (6.7-8.2)
[2016-09-26] MEDS: PANTOPRAZOLE 40 MG TABLET PO SCH (06:38)
[2016-09-26] MEDS ORDERED: ACETAMINOPHEN 325 MG TABLET PO ONE (07:25)
[2016-09-26] MEDS ORDERED: FUROSEMIDE 20 MG/2 ML VIAL IVP PRN (07:25)
[2016-09-26] MEDS ORDERED: diphenhydrAMINE INJ 50 MG/ML VIAL IVP ONE ×2 (07:25→11:00)
--- NOTE | 2016-09-26 08:21 | PROVIDER PROGRESS NOTE ---
Subjective - General Admit Date: 09/23/16 Procedure Date: 09/24/16 Post Op Days: 2 Procedure Performed: IM rodding of right femur/hip - Review of Systems Wound/Incisions: positive: Dressing dry and intact Musculoskeletal: positive: Joint swelling Psychiatric: positive: Confusion Objective - Patient Data Reviewed Vital Signs: Yes Vital Signs: Vital Signs x48h Temp Pulse Resp BP BP Pulse Ox 09/26/16 03:59 36.7 C 109 H 18 139/71 H 95 09/26/16 01:00 36.8 C 103 H 18 133/70 H 94 Weight: Weight 09/24/16 09/25/16 09/26/16 23:59 23:59 23:59 Weight (kg) 200 kg Intake & Output: Intake and Output Totals x24h 09/24/16 09/25/16 09/26/16 23:59 23:59 23:59 Intake Total 1015 4505 350 Output Total 675 900 225 Balance 340 3605 125 - Lab Results Lab Results: 09/26/16 05:44 09/26/16 05:44 Other Lab Results: Lab Results x24hrs 09/26/16 09/26/16 09/25/16 Range/Units 05:44 05:44 17:25 WBC 9.8 (4.8-10.8) x10^3/uL RBC 2.23 L (4.70-6.10) 10^6/uL Hgb 7.1 L (14.0-18.0) g/dL Hct 20.0 L* (42.0-52.0) % MCV 89.9 (80.0-94.0) fL MCH 31.7 H (27.0-31.0) pg MCHC 35.2 (32.0-36.0) g/dL RDW 12.8 (12.0-15.0) % Plt Count 166 (130-450) 10^3/uL MPV 6.8 L (7.4-11.4) fL Neut # 7.4 H (1.5-6.6) 10^3/uL Lymph # 1.6 (1.5-3.5) 10^3/uL [place] # 0.8 (0.0-1.0) 10^3/uL Eos # 0.0 (0.0-0.7) 10^3/uL Baso # 0.0 (0.0-0.1) 10^3/uL Absolute Nucleated RBC 0.04 x10^3/uL Nucleated RBCs 0.4 /100WBC Sodium 134 L (135-145) mmol/L Potassium 3.5 (3.5-5.0) mmol/L Chloride 101 (101-111) mmol/L Carbon Dioxide 27 (21-32) mmol/L Anion Gap 6.0 (6-13) BUN 43 H (6-20) mg/dL Creatinine 1.4 H (0.6-1.2) mg/dL Estimated GFR (MDRD) 48 L (>89) Glucose 183 H (70-100) mg/dL Glycated Hemoglobin (4.6-6.2) % Estim Average Glucose (70-100) Calcium 7.8 L (8.5-10.3) mg/dL Phosphorus 3.2 (2.5-4.6) mg/dL Magnesium 2.0 (1.7-2.8) mg/dL Total Bilirubin 0.6 (0.2-1.0) mg/dL GGT (8-55) IU/L AST 121 H (10-42) IU/L ALT 16 (10-60) IU/L Alkaline Phosphatase 597 H (42-121) IU/L Total Protein 4.5 L (6.7-8.2) g/dL Albumin 2.2 L (3.2-5.5) g/dL Globulin 2.3 (2.1-4.2) g/dL Albumin/Globulin Ratio 1.0 (1.0-2.2) PSA Screen (0.000-2.000) ng/mL Prostate Specific Ag (0.000-2.000) ng/mL TSH 3.96 (0.34-5.60) uIU/mL Blood Type Antibody Screen Crossmatch IS Only 09/25/16 09/25/16 09/25/16 Range/Units 17:25 17:05 05:19 WBC (4.8-10.8) x10^3/uL RBC (4.70-6.10) 10^6/uL Hgb (14.0-18.0) g/dL Hct (42.0-52.0) % MCV (80.0-94.0) fL MCH (27.0-31.0) pg MCHC (32.0-36.0) g/dL RDW (12.0-15.0) % Plt Count (130-450) 10^3/uL MPV (7.4-11.4) fL Neut # (1.5-6.6) 10^3/uL Lymph # (1.5-3.5) 10^3/uL [place] # (0.0-1.0) 10^3/uL Eos # (0.0-0.7) 10^3/uL Baso # (0.0-0.1) 10^3/uL Absolute Nucleated RBC x10^3/uL Nucleated RBCs /100WBC Sodium (135-145) mmol/L Potassium (3.5-5.0) mmol/L Chloride (101-111) mmol/L Carbon Dioxide (21-32) mmol/L Anion Gap (6-13) BUN (6-20) mg/dL Creatinine (0.6-1.2) mg/dL Estimated GFR (MDRD) (>89) Glucose (70-100) mg/dL Glycated Hemoglobin 9.0 H (4.6-6.2) % Estim Average Glucose 212 H (70-100) Calcium (8.5-10.3) mg/dL Phosphorus (2.5-4.6) mg/dL Magnesium (1.7-2.8) mg/dL Total Bilirubin (0.2-1.0) mg/dL GGT 22 (8-55) IU/L AST (10-42) IU/L ALT (10-60) IU/L Alkaline Phosphatase (42-121) IU/L Total Protein (6.7-8.2) g/dL Albumin (3.2-5.5) g/dL Globulin (2.1-4.2) g/dL Albumin/Globulin Ratio (1.0-2.2) PSA Screen 1210.000 H (0.000-2.000) ng/mL Prostate Specific Ag 1210.000 H (0.000-2.000) ng/mL TSH (0.34-5.60) uIU/mL Blood Type Antibody Screen Crossmatch IS Only 09/24/16 Range/Units 07:42 WBC (4.8-10.8) x10^3/uL RBC (4.70-6.10) 10^6/uL Hgb (14.0-18.0) g/dL Hct (42.0-52.0) % MCV (80.0-94.0) fL MCH (27.0-31.0) pg MCHC (32.0-36.0) g/dL RDW (12.0-15.0) % Plt Count (130-450) 10^3/uL MPV (7.4-11.4) fL Neut # (1.5-6.6) 10^3/uL Lymph # (1.5-3.5) 10^3/uL [place] # (0.0-1.0) 10^3/uL Eos # (0.0-0.7) 10^3/uL Baso # (0.0-0.1) 10^3/uL Absolute Nucleated RBC x10^3/uL Nucleated RBCs /100WBC Sodium (135-145) mmol/L Potassium (3.5-5.0) mmol/L Chloride (101-111) mmol/L Carbon Dioxide (21-32) mmol/L Anion Gap (6-13) BUN (6-20) mg/dL Creatinine (0.6-1.2) mg/dL Estimated GFR (MDRD) (>89) Glucose (70-100) mg/dL Glycated Hemoglobin (4.6-6.2) % Estim Average Glucose (70-100) Calcium (8.5-10.3) mg/dL Phosphorus (2.5-4.6) mg/dL Magnesium (1.7-2.8) mg/dL Total Bilirubin (0.2-1.0) mg/dL GGT (8-55) IU/L AST (10-42) IU/L ALT (10-60) IU/L Alkaline Phosphatase (42-121) IU/L Total Protein (6.7-8.2) g/dL Albumin (3.2-5.5) g/dL Globulin (2.1-4.2) g/dL Albumin/Globulin Ratio (1.0-2.2) PSA Screen (0.000-2.000) ng/mL Prostate Specific Ag (0.000-2.000) ng/mL TSH (0.34-5.60) uIU/mL Blood Type Cancelled Antibody Screen Cancelled Crossmatch IS Only See Detail - Current Medications Current Medications: Current Medications Generic Name Dose Route Start Last Admin Trade Name Mili PRN Reason Stop Dose Admin Aspirin 81 mg 09/24/16 09:00 09/25/16 08:42 [facility] [place] Aspirin PO 81 mg DAILY GABRIELA Administration Atorvastatin Calcium 20 mg 09/24/16 21:00 09/25/16 21:16 Lipitor PO 20 mg QPM GABRIELA Administration Calcium Carbonate/Glycine 500 mg 09/24/16 21:00 09/25/16 21:15 Tums PO 500 mg BID GABRIELA Administration Cholecalciferol 5,000 unit 09/24/16 17:20 09/25/16 21:16 Vitamin D3 PO 5,000 unit BID GABRIELA Administration Docusate Sodium 250 - 500 mg 09/24/16 21:00 09/25/16 08:42 Colace 250mg Capsule PO 250 mg DAILY GABRIELA Administration Finasteride 5 mg 09/24/16 09:00 09/25/16 08:42 Proscar PO 5 mg DAILY GABRIELA Administration Sodium Chloride 1,000 mls @ 100 mls/hr 09/23/16 23:00 09/26/16 06:01 Normal Saline 0.9% IV 100 mls/hr .Q10H GABRIELA Administration Acetaminophen 100 mls @ 400 mls/hr 09/24/16 16:00 09/26/16 03:48 Ofirmev IV 400 mls/hr Q6H GABRIELA Administration Insulin Glargine 10 unit 09/25/16 09:00 09/25/16 21:27 Lantus Solostar SUBQ 10 unit BID GABRIELA Administration Memantine 10 mg 09/24/16 09:00 09/25/16 21:16 Namenda PO 10 mg BID GABRIELA Administration Metoprolol Succinate 25 mg 09/24/16 09:00 09/25/16 08:42 Toprol Xl PO 25 mg DAILY GABRIELA Administration Morphine Sulfate 2 mg 09/24/16 17:17 09/24/16 18:28 Morphine IVP 2 mg Q2HR PRN Administration PAIN Multivitamins/Minerals 1 tab 09/24/16 18:00 09/25/16 08:43 Theragran M PO 1 tab DAILYWM GABRIELA Administration Ondansetron HCl 4 mg 09/23/16 22:52 09/24/16 23:28 Zofran Inj IVP 4 mg Q6HR PRN Administration Nausea / Vomiting Oxycodone HCl 5 mg 09/23/16 22:52 09/25/16 08:49 Roxicodone PO 5 mg Q4HR PRN Administration Pain 5 to 7 Pantoprazole Sodium 40 mg 09/24/16 07:00 09/26/16 06:38 Protonix PO 40 mg QDAC GABRIELA Administration Polyethylene Glycol 17 gm 09/24/16 09:00 09/25/16 08:41 Miralax PO 17 gm DAILY GABRIELA Administration Senna 8.6 - 17.2 mg 09/24/16 21:00 09/25/16 08:42 Senokot PO 8.6 mg DAILY GABRIELA Administration Sodium Chloride 10 ml 09/24/16 06:00 09/26/16 05:05 Normal Saline Flush 0.9% IVP Not Given Q8HR GABRIELA Temazepam 15 mg 09/23/16 22:52 09/25/16 00:56 Restoril PO 15 mg QPM PRN Administration Insomnia - Physical Exam Wound/Incisions: positive: Dressing dry and intact General Appearance: positive: No acute distress Skin: positive: Warm, Dry Extremities: positive: Joint swelling Neurologic/Psychiatric: positive: Motor nml, Sensation nml, Mood/affect nml Impression/Plan - Problem List Problem List: POD #2 Pt has post-operative anemia, and some confusion. He will be transfused. There is no sign of compartment syndrome or hematoma, and this degree of blood loss is expected with the injury and surgery. Delay PT mobilization today
[2016-09-26] MEDS: POLYETHYLENE GLYCOL 3350 17 GM PACKET PO SCH (08:39)
[2016-09-26] MEDS: oxyCODONE 5 MG TABLET PO PRN (08:39)
[2016-09-26] MEDS: CALCIUM CARBONATE CHEW 500 MG TABLET PO SCH ×2 (08:39→20:44)
[2016-09-26] MEDS: METOPROLOL SUCCINATE 25 MG TABLET PO SCH (08:39)
[2016-09-26] MEDS: MULTIVITAMIN W/MINERALS TABLET PO SCH (08:40)
[2016-09-26] MEDS: CHOLECALCIFEROL 5,000 UNIT CAPSULE PO SCH ×2 (08:40→20:44)
[2016-09-26] MEDS: INSULIN GLARGINE 300 UNIT/3 ML PEN SUBQ SCH ×2 (08:40→20:43)
[2016-09-26] MEDS: DOCUSATE SODIUM 250 MG CAPSULE PO SCH (08:40)
[2016-09-26] MEDS: MEMANTINE 5 MG TABLET PO SCH ×2 (08:40→20:44)
[2016-09-26] MEDS: ASPIRIN CHEW 81 MG TABLET PO SCH (08:40)
[2016-09-26] MEDS: FINASTERIDE 5 MG TABLET PO SCH (08:40)
[2016-09-26] MEDS: SENNA 8.6 MG TABLET PO SCH (08:40)
[2016-09-26] MEDS: INSULIN ASPART 300 UNIT/3 ML PEN SUBQ SCH ×4 (08:41→20:43)
--- NOTE | 2016-09-26 10:26 | PROVIDER PROGRESS NOTE ---
Assessment/Plan - Problem List (1) Postoperative anemia due to acute blood loss Assessment/Plan: acute. Hemoglobin now at 7.1. Iron studies done. Transfuse 2 units now and then repeat H/H and Q6 hours. patient will need close monitoring. he is receiving iron supplements. continue with vitamin D and calcium. 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 patient is still working with PT and OT today. He will need transfusion since his hemoglobin dropped to 7.1 overnight. will monitor and continue to encourage ambulation. will need Rehab at [facility] when discharged. (3) Hyperglycemia due to type 2 diabetes mellitus Qualifiers: Qualified Code(s): E11.65 - Type 2 diabetes mellitus with hyperglycemia Assessment/Plan: improving. continue with counseling for diabetic management and continue with sliding scale and diabetic diet. Patient is doing well with Lantus at 10units at night and during the morning. His blood glucose is now around 140 average. will need to start metformin before discharge. (4) Low serum magnesium level Assessment/Plan: resolving. continue to monitor electrolytes with lab draws and replace. (5) Low serum potassium level Assessment/Plan: ongoing. continue with potassium replacement and monitor with daily lab draws. (6) Benign prostatic hyperplasia Qualifiers: Qualified Code(s): N40.0 - Benign prostatic hyperplasia without lower urinary tract symptoms Assessment/Plan: ongoing. patient has a very high PSA. will get ultrasound since patient is having urinary retention as well. - Current Meds Current Meds: Current Medications Generic Name Dose Route Start Last Admin Trade Name Mili PRN Reason Stop Dose Admin Aspirin 81 mg 09/24/16 09:00 09/26/16 08:40 Casey Aspirin PO 81 mg DAILY GABRIELA Administration Atorvastatin Calcium 20 mg 09/24/16 21:00 09/25/16 21:16 Lipitor PO 20 mg QPM GABRIELA Administration Calcium Carbonate/Glycine 500 mg 09/24/16 21:00 09/26/16 08:39 Tums PO 500 mg BID GABRIELA Administration Cholecalciferol 5,000 unit 09/24/16 17:20 09/26/16 08:40 Vitamin D3 PO 5,000 unit BID GABRIELA Administration Docusate Sodium 250 - 500 mg 09/24/16 21:00 09/26/16 08:40 Colace 250mg Capsule PO 500 mg DAILY GABRIELA Administration Finasteride 5 mg 09/24/16 09:00 09/26/16 08:40 Proscar PO 5 mg DAILY GABRIELA Administration Sodium Chloride 1,000 mls @ 100 mls/hr 09/23/16 23:00 09/26/16 06:01 Normal Saline 0.9% IV 100 mls/hr .Q10H GABRIELA Administration Acetaminophen 100 mls @ 400 mls/hr 09/24/16 16:00 09/26/16 03:48 Ofirmev IV 400 mls/hr Q6H GABRIELA Administration Insulin Aspart 1 - 9 unit 09/25/16 22:56 09/26/16 08:41 Novolog SUBQ 2 unit 0800,1200,1700,2100 GABRIELA Administration Protocol Insulin Glargine 10 unit 09/25/16 09:00 09/26/16 08:40 Lantus Solostar SUBQ 10 unit BID GABRIELA Administration Memantine 10 mg 09/24/16 09:00 09/26/16 08:40 Namenda PO 10 mg BID GABRIELA Administration Metoprolol Succinate 25 mg 09/24/16 09:00 09/26/16 08:39 Toprol Xl PO 25 mg DAILY GABRIELA Administration Morphine Sulfate 2 mg 09/24/16 17:17 09/24/16 18:28 Morphine IVP 2 mg Q2HR PRN Administration PAIN Multivitamins/Minerals 1 tab 09/24/16 18:00 09/26/16 08:40 Theragran M PO 1 tab DAILYWM GABRIELA Administration Ondansetron HCl 4 mg 09/23/16 22:52 09/24/16 23:28 Zofran Inj IVP 4 mg Q6HR PRN Administration Nausea / Vomiting Oxycodone HCl 5 mg 09/23/16 22:52 09/26/16 08:39 Roxicodone PO 5 mg Q4HR PRN Administration Pain 5 to 7 Pantoprazole Sodium 40 mg 09/24/16 07:00 09/26/16 06:38 Protonix PO 40 mg QDAC GABRIELA Administration Polyethylene Glycol 17 gm 09/24/16 09:00 09/26/16 08:39 Miralax PO 17 gm DAILY GABRIELA Administration Senna 8.6 - 17.2 mg 09/24/16 21:00 09/26/16 08:40 Senokot PO 8.6 mg DAILY GABRIELA Administration Sodium Chloride 10 ml 09/24/16 06:00 09/26/16 05:05 Normal Saline Flush 0.9% IVP Not Given Q8HR GABRIELA Temazepam 15 mg 09/23/16 22:52 09/25/16 00:56 Restoril PO 15 mg QPM PRN Administration Insomnia - Lab Result Fish Bone Diagrams: 09/26/16 05:44 09/26/16 05:44 Other Lab Results: Abnormal Lab Results 09/24/16 09/24/16 09/24/16 07:42 08:19 12:56 WBC RBC Hgb Hct MCH MPV Reticulocyte % (Auto) Neut # Lymph # Sodium Chloride BUN Creatinine Estimated GFR (MDRD) Glucose POC Whole Bld Glucose 236 mg/dL H mg/dL 243 mg/dL H mg/dL (70 - 100) (70 - 100) Glycated Hemoglobin Estim Average Glucose Calcium Phosphorus Iron TIBC % Saturation Transferrin Ferritin AST Alkaline Phosphatase Lactate Dehydrogenase Total Protein Albumin Albumin/Globulin Ratio HDL Cholesterol PSA Screen Prostate Specific Ag Crossmatch IS Only See Detail 09/24/16 09/24/16 09/24/16 13:05 13:05 13:45 WBC 13.6 x10^3/uL H x10^3/uL (4.8-10.8) RBC 3.13 10^6/uL L 10^6/uL 3.13 10^6/uL L 10^6/uL (4.70-6.10) (4.70-6.10) Hgb 9.7 g/dL L g/dL (14.0-18.0) Hct 27.9 % L % (42.0-52.0) MCH 31.1 pg H pg (27.0-31.0) MPV 6.1 fL L fL (7.4-11.4) Reticulocyte % (Auto) 2.38 % H % (0.5-2.3) Neut # Lymph # Sodium Chloride BUN Creatinine Estimated GFR (MDRD) Glucose POC Whole Bld Glucose Glycated Hemoglobin Estim Average Glucose Calcium Phosphorus Iron TIBC % Saturation Transferrin Ferritin AST Alkaline Phosphatase Lactate Dehydrogenase 298 IU/L H IU/L (91-225) Total Protein Albumin Albumin/Globulin Ratio HDL Cholesterol PSA Screen Prostate Specific Ag Crossmatch IS Only 09/24/16 09/24/16 09/24/16 14:11 14:40 14:40 WBC RBC Hgb Hct MCH MPV Reticulocyte % (Auto) Neut # Lymph # Sodium Chloride BUN Creatinine Estimated GFR (MDRD) Glucose POC Whole Bld Glucose 301 mg/dL H mg/dL (70 - 100) Glycated Hemoglobin Estim Average Glucose Calcium Phosphorus Iron 33 ug/dL L ug/dL (45-182) TIBC 232 ug/dL L ug/dL (250-450) % Saturation 14 % L % (20-50) Transferrin 166 mg/dL L mg/dL (180-329) Ferritin 595.1 ng/mL H ng/mL (23.9-336.2) AST Alkaline Phosphatase Lactate Dehydrogenase Total Protein Albumin Albumin/Globulin Ratio HDL Cholesterol PSA Screen Prostate Specific Ag Crossmatch IS Only 09/24/16 09/24/16 09/24/16 16:26 18:00 20:57 WBC RBC Hgb 9.5 g/dL L g/dL (14.0-18.0) Hct 27.2 % L % (42.0-52.0) MCH MPV Reticulocyte % (Auto) Neut # Lymph # Sodium Chloride BUN Creatinine Estimated GFR (MDRD) Glucose POC Whole Bld Glucose 314 mg/dL H mg/dL 338 mg/dL H mg/dL (70 - 100) (70 - 100) Glycated Hemoglobin Estim Average Glucose Calcium Phosphorus Iron TIBC % Saturation Transferrin Ferritin AST Alkaline Phosphatase Lactate Dehydrogenase Total Protein Albumin Albumin/Globulin Ratio HDL Cholesterol PSA Screen Prostate Specific Ag Crossmatch IS Only 09/24/16 09/24/16 09/25/16 23:52 23:54 00:51 WBC RBC Hgb Hct MCH MPV Reticulocyte % (Auto) Neut # Lymph # Sodium Chloride BUN Creatinine Estimated GFR (MDRD) Glucose POC Whole Bld Glucose 389 mg/dL H mg/dL 357 mg/dL H mg/dL 344 mg/dL H mg/dL (70 - 100) (70 - 100) (70 - 100) Glycated Hemoglobin Estim Average Glucose Calcium Phosphorus Iron TIBC % Saturation Transferrin Ferritin AST Alkaline Phosphatase Lactate Dehydrogenase Total Protein Albumin Albumin/Globulin Ratio HDL Cholesterol PSA Screen Prostate Specific Ag Crossmatch IS Only 09/25/16 09/25/16 09/25/16 05:19 05:19 05:19 WBC RBC 2.84 10^6/uL L 10^6/uL (4.70-6.10) Hgb 9.0 g/dL L g/dL (14.0-18.0) Hct 25.6 % L % (42.0-52.0) MCH 31.7 pg H pg (27.0-31.0) MPV 7.1 fL L fL (7.4-11.4) Reticulocyte % (Auto) Neut # 8.3 10^3/uL H 10^3/uL (1.5-6.6) Lymph # 1.3 10^3/uL L 10^3/uL (1.5-3.5) Sodium 133 mmol/L L mmol/L (135-145) Chloride 98 mmol/L L mmol/L (101-111) BUN 33 mg/dL H mg/dL (6-20) Creatinine 1.7 mg/dL H mg/dL (0.6-1.2) Estimated GFR (MDRD) 38 L (>89) Glucose 421 mg/dL H mg/dL (70-100) POC Whole Bld Glucose Glycated Hemoglobin Estim Average Glucose Calcium 8.0 mg/dL L mg/dL (8.5-10.3) Phosphorus 5.4 mg/dL H mg/dL (2.5-4.6) Iron TIBC % Saturation Transferrin Ferritin AST 189 IU/L H IU/L (10-42) Alkaline Phosphatase 583 IU/L H IU/L (42-121) Lactate Dehydrogenase Total Protein 5.0 g/dL L g/dL (6.7-8.2) Albumin 2.4 g/dL L g/dL (3.2-5.5) Albumin/Globulin Ratio 0.9 L (1.0-2.2) HDL Cholesterol 30 mg/dL L mg/dL (60 - ) PSA Screen Prostate Specific Ag Crossmatch IS Only 09/25/16 09/25/16 09/25/16 05:19 06:24 11:49 WBC RBC Hgb Hct MCH MPV Reticulocyte % (Auto) Neut # Lymph # Sodium Chloride BUN Creatinine Estimated GFR (MDRD) Glucose POC Whole Bld Glucose 371 mg/dL H mg/dL 355 mg/dL H mg/dL (70 - 100) (70 - 100) Glycated Hemoglobin 9.0 % H % (4.6-6.2) Estim Average Glucose 212 H (70-100) Calcium Phosphorus Iron TIBC % Saturation Transferrin Ferritin AST Alkaline Phosphatase Lactate Dehydrogenase Total Protein Albumin Albumin/Globulin Ratio HDL Cholesterol PSA Screen Prostate Specific Ag Crossmatch IS Only 09/25/16 09/25/16 09/25/16 16:57 17:05 20:58 WBC RBC Hgb Hct MCH MPV Reticulocyte % (Auto) Neut # Lymph # Sodium Chloride BUN Creatinine Estimated GFR (MDRD) Glucose POC Whole Bld Glucose 365 mg/dL H mg/dL 324 mg/dL H mg/dL (70 - 100) (70 - 100) Glycated Hemoglobin Estim Average Glucose Calcium Phosphorus Iron TIBC % Saturation Transferrin Ferritin AST Alkaline Phosphatase Lactate Dehydrogenase Total Protein Albumin Albumin/Globulin Ratio HDL Cholesterol PSA Screen 1210.000 ng/mL H ng/mL (0.000-2.000) Prostate Specific Ag 1210.000 ng/mL H ng/mL (0.000-2.000) Crossmatch IS Only 09/26/16 09/26/16 09/26/16 05:44 05:44 07:39 WBC RBC 2.23 10^6/uL L 10^6/uL (4.70-6.10) Hgb 7.1 g/dL L g/dL (14.0-18.0) Hct 20.0 % L* % (42.0-52.0) MCH 31.7 pg H pg (27.0-31.0) MPV 6.8 fL L fL (7.4-11.4) Reticulocyte % (Auto) Neut # 7.4 10^3/uL H 10^3/uL (1.5-6.6) Lymph # Sodium 134 mmol/L L mmol/L (135-145) Chloride BUN 43 mg/dL H mg/dL (6-20) Creatinine 1.4 mg/dL H mg/dL (0.6-1.2) Estimated GFR (MDRD) 48 L (>89) Glucose 183 mg/dL H mg/dL (70-100) POC Whole Bld Glucose 146 mg/dL H mg/dL (70 - 100) Glycated Hemoglobin Estim Average Glucose Calcium 7.8 mg/dL L mg/dL (8.5-10.3) Phosphorus Iron TIBC % Saturation Transferrin Ferritin AST 121 IU/L H IU/L (10-42) Alkaline Phosphatase 597 IU/L H IU/L (42-121) Lactate Dehydrogenase Total Protein 4.5 g/dL L g/dL (6.7-8.2) Albumin 2.2 g/dL L g/dL (3.2-5.5) Albumin/Globulin Ratio HDL Cholesterol PSA Screen Prostate Specific Ag Crossmatch IS Only - EKG Results EKG Interpreted Independently: Yes - Additional Planning Condition/Complexity: Guarded My Orders: My Active Orders 09/25/16 17:25 PTH-RELATED PROTEIN (PTH-RP) [REFLAB] Routine 09/25/16 22:36 RT [Home CPAP/BiPAP] [RC] .ONCE 09/25/16 22:56 Insulin Aspart [NovoLOG] 1 - 9 unit SUBQ 0800,1200,1700,2100 09/26/16 07:23 Transfuse RBCs Leukoreduced [RC] ONCE 09/26/16 07:25 FUROSEMIDE INJ 20mg VIAL [LASIX INJ 20mg VIAL] 20 mg IVP ONCE PRN 09/26/16 15:00 HEMOGLOBIN AND HEMATOCRIT [HEME] Timed Consult/Specialty: OT, PT, Surgery Plan Discussed with:: Patient, Case Management Subjective - Subjective Patient Reports: Resting Comfortably, Other (not wanting to eat or get up much, sleeping alot and tired) Nursing Reports: Other (patient is sleeping and lethargic. pale. will be getting blood transfusion today) Objective Vital Signs: Vital Signs - 24 hr 09/25/16 09/25/16 09/25/16 11:25 11:35 12:00 Temperature 36.5 C Heart Rate [ 88 Brachial] Heart Rate [ 88 88 Sitting] Heart Rate [ 80 83 Supine] Respiratory 18 Rate Blood Pressure [Left Brachial artery] Blood Pressure 131/79 H [Right Brachial artery] Blood Pressure 131/79 H 131/79 H [Sitting] Blood Pressure 138/79 H 138/79 H [Supine] O2 Saturation 92 09/25/16 09/25/16 09/25/16 16:00 20:13 21:25 Temperature 36.3 C L 36.8 C 36.8 C Heart Rate [ 92 88 88 Brachial] Heart Rate [ Sitting] Heart Rate [ Supine] Respiratory 20 18 18 Rate Blood Pressure 128/68 [Left Brachial artery] Blood Pressure 143/82 H 128/68 [Right Brachial artery] Blood Pressure [Sitting] Blood Pressure [Supine] O2 Saturation 94 93 93 09/26/16 09/26/16 09/26/16 01:00 03:59 08:37 Temperature 36.8 C 36.7 C 36.6 C Heart Rate [ 103 H 109 H 110 H Brachial] Heart Rate [ Sitting] Heart Rate [ Supine] Respiratory 18 18 16 Rate Blood Pressure 139/71 H 129/80 [Left Brachial artery] Blood Pressure 133/70 H [Right Brachial artery] Blood Pressure [Sitting] Blood Pressure [Supine] O2 Saturation 94 95 94 Oxygen O2 Source Room air I&O (Last 24 Hrs): Intake and Output Totals x24h 09/24/16 09/25/16 09/26/16 23:59 23:59 23:59 Intake Total 1015 4505 650 Output Total 675 900 225 Balance 340 3605 425 General: Alert, Oriented x3, Cooperative, No acute distress HEENT: PERRLA Neck: No JVD, No thyromegaly Lymphatic: no adenopathy Neuro: Alert, Other (not wanting to have assessment done due to lethargy) Cardiovascular: Normal S1, Normal S2 Respiratory: Chest non-tender, No respiratory distress, Breath sounds nml Abdomen: Normal bowel sounds, Soft, No tenderness, No hepatospenomegaly Extremities: No clubbing, No cyanosis, No edema, Normal pulses, Other (right leg and hip painful with palpation) Skin: No rashes, No breakdown, No significant lesion - Results Results: Laboratory Results WBC 9.8 x10^3/uL (4.8-10.8) 09/26/16 05:44 RBC 2.23 10^6/uL (4.70-6.10) L 09/26/16 05:44 Hgb 7.1 g/dL (14.0-18.0) L 09/26/16 05:44 Hct 20.0 % (42.0-52.0) L* 09/26/16 05:44 MCV 89.9 fL (80.0-94.0) 09/26/16 05:44 MCH 31.7 pg (27.0-31.0) H 09/26/16 05:44 MCHC 35.2 g/dL (32.0-36.0) 09/26/16 05:44 RDW 12.8 % (12.0-15.0) 09/26/16 05:44 Plt Count 166 10^3/uL (130-450) 09/26/16 05:44 MPV 6.8 fL (7.4-11.4) L 09/26/16 05:44 Reticulocyte % (Auto) 2.38 % (0.5-2.3) H 09/24/16 13:05 Neut # 7.4 10^3/uL (1.5-6.6) H 09/26/16 05:44 Lymph # 1.6 10^3/uL (1.5-3.5) 09/26/16 05:44 [place] # 0.8 10^3/uL (0.0-1.0) 09/26/16 05:44 Eos # 0.0 10^3/uL (0.0-0.7) 09/26/16 05:44 Baso # 0.0 10^3/uL (0.0-0.1) 09/26/16 05:44 Absolute Nucleated RBC 0.04 x10^3/uL 09/26/16 05:44 Nucleated RBCs 0.4 /100WBC 09/26/16 05:44 Absolute Retic 0.075 10^6/uL (0.020-0.110) 09/24/16 13:05 PT 14.0 secs (9.9-12.6) H 09/24/16 01:13 INR 1.2 (0.8-1.2) 09/24/16 01:13 Sodium 134 mmol/L (135-145) L 09/26/16 05:44 Potassium 3.5 mmol/L (3.5-5.0) 09/26/16 05:44 Chloride 101 mmol/L (101-111) 09/26/16 05:44 Carbon Dioxide 27 mmol/L (21-32) 09/26/16 05:44 Anion Gap 6.0 (6-13) 09/26/16 05:44 BUN 43 mg/dL (6-20) H 09/26/16 05:44 Creatinine 1.4 mg/dL (0.6-1.2) H 09/26/16 05:44 Estimated GFR (MDRD) 48 (>89) L 09/26/16 05:44 Glucose 183 mg/dL (70-100) H 09/26/16 05:44 POC Whole Bld Glucose 146 mg/dL (70 - 100) H 09/26/16 07:39 Glycated Hemoglobin 9.0 % (4.6-6.2) H 09/25/16 05:19 Estim Average Glucose 212 (70-100) H 09/25/16 05:19 Calcium 7.8 mg/dL (8.5-10.3) L 09/26/16 05:44 Phosphorus 3.2 mg/dL (2.5-4.6) 09/26/16 05:44 Magnesium 2.0 mg/dL (1.7-2.8) 09/26/16 05:44 Iron 33 ug/dL (45-182) L 09/24/16 14:40 TIBC 232 ug/dL (250-450) L 09/24/16 14:40 % Saturation 14 % (20-50) L 09/24/16 14:40 Transferrin 166 mg/dL (180-329) L 09/24/16 14:40 Ferritin 595.1 ng/mL (23.9-336.2) H 09/24/16 14:40 Total Bilirubin 0.6 mg/dL (0.2-1.0) 09/26/16 05:44 GGT 22 IU/L (8-55) 09/25/16 17:25 AST 121 IU/L (10-42) H 09/26/16 05:44 ALT 16 IU/L (10-60) 09/26/16 05:44 Alkaline Phosphatase 597 IU/L (42-121) H 09/26/16 05:44 Lactate Dehydrogenase 298 IU/L (91-225) H 09/24/16 13:45 Total Protein 4.5 g/dL (6.7-8.2) L 09/26/16 05:44 Albumin 2.2 g/dL (3.2-5.5) L 09/26/16 05:44 Globulin 2.3 g/dL (2.1-4.2) 09/26/16 05:44 Albumin/Globulin Ratio 1.0 (1.0-2.2) 09/26/16 05:44 Triglycerides 126 mg/dL (-149) 09/25/16 05:19 Cholesterol 89 mg/dL (-199) 09/25/16 05:19 LDL Cholesterol, Calc 34 mg/dL (-129) 09/25/16 05:19 VLDL Cholesterol 25 mg/dL 09/25/16 05:19 HDL Cholesterol 30 mg/dL (60-) L 09/25/16 05:19 LDL/HDL Ratio 1.1 (<3.6) 09/25/16 05:19 Cholesterol/HDL Ratio 3.0 (<5.0) 09/25/16 05:19 Lipase < 10 U/L (22-51) L 09/24/16 01:13 PSA Screen 1210.000 ng/mL (0.000-2.000) H 09/25/16 17:05 Prostate Specific Ag 1210.000 ng/mL (0.000-2.000) H 09/25/16 17:05 Vitamin B12 339 pg/mL (180-914) 09/24/16 14:40 TSH 3.96 uIU/mL (0.34-5.60) 09/25/16 17:25 Urine Color YELLOW 09/23/16 21:25 Urine Clarity CLEAR (CLEAR) 09/23/16 21:25 Urine pH 6.0 PH (5.0-7.5) 09/23/16 21:25 Ur Specific [place] 1.025 (1.002-1.030) 09/23/16 21:25 Urine Protein NEGATIVE mg/dL (NEGATIVE) 09/23/16 21:25 Urine Glucose (UA) NEGATIVE mg/dL (NEGATIVE) 09/23/16 21:25 Urine Ketones NEGATIVE mg/dL (NEGATIVE) 09/23/16 21:25 Urine Occult Blood TRACE-INTA (NEGATIVE) 09/23/16 21:25 Urine Nitrite NEGATIVE (NEGATIVE) 09/23/16 21:25 Urine Bilirubin NEGATIVE (NEGATIVE) 09/23/16 21:25 Urine Urobilinogen 1 (NORMAL) E.U./dL (NORMAL) 09/23/16 21:25 Ur Leukocyte Esterase NEGATIVE (NEGATIVE) 09/23/16 21:25 Ur Microscopic Review NOT INDICATED 09/23/16 21:25 Urine Culture Comments NOT INDICATED 09/23/16 21:25 Blood Type O POSITIVE 09/24/16 07:40 Blood Type Recheck O POSITIVE 09/24/16 13:05 Antibody Screen NEGATIVE 09/24/16 07:40 Crossmatch IS Only See Detail 09/24/16 07:42
--- NOTE | 2016-09-26 12:33 | Ultrasound Report ---
BLADDER ULTRASOUND: 09/26/2016 CLINICAL INDICATION: Urinary retention. TECHNIQUE: Real-time scanning was performed with area representative static images obtained. FINDINGS: Prevoid, the urinary bladder measures 9.3 x 8.4 x 5.0 cm, yielding a prevoid volume of 204 mL. No focal bladder mass is identified. The prostate appears heterogeneous. The patient could no t void at this volume, so no postvoid imaging was performed. IMPRESSION: A TOTAL OF 204 ML BLADDER VOLUME. PATIENT COULD NOT VOID AT THIS VOLUME. JOB #: [id number] EXT JOB #:[id number]
[2016-09-26] MEDS ORDERED: chlorproMAZINE 25 MG TABLET PO PRN (15:34)
--- NOTE | 2016-09-26 16:42 | XRAY Report ---
[facility] SERVICES: 09/24/2016 Fluoroscopy time only, no images submitted for interpretation. Fluoroscopy time 2 minutes, 4 seconds. STEVIED
[2016-09-26 18:25] LABS: HCT - HEMATOCRIT 26.2 % (42.0-52.0); HGB - HEMOGLOBIN 9.2 g/dL (14.0-18.0); IMMATURE RETIC FRACTION 0.65; RED BLOOD COUNT 2.99 10^6/uL (4.70-6.10)
[2016-09-26 20:04] LABS: IRON 85 ug/dL (45-182); TOTAL IRON BINDING CAPACITY 262 ug/dL (250-450); TRANSFERRIN 187 mg/dL (180-329)
[2016-09-26] MEDS: ATORVASTATIN 10 MG TABLET PO SCH (20:44)
[2016-09-27] MEDS: SODIUM CHLORIDE 0.9% 1,000 ML IV SCH ×4 (01:00→22:19)
[2016-09-27] MEDS: ACETAMINOPHEN 1,000 MG/100 ML 100 ML IV SCH ×4 (04:27→22:19)
[2016-09-27] MEDS: SODIUM CHLORIDE FLUSH 0.9% 10 ML SYRINGE IVP SCH ×3 (04:33→21:34)
[2016-09-27 05:55] LABS: BASOPHILS % (AUTO) 0.3 %; EOSINOPHILS % (AUTO) 0.6 %; HCT - HEMATOCRIT 24.3 % (42.0-52.0); HGB - HEMOGLOBIN 8.5 g/dL (14.0-18.0); LYMPHOCYTES # (AUTO) 1.3 10^3/uL (1.5-3.5); LYMPHOCYTES % (AUTO) 15.9 %; MEAN CORPUSCULAR HEMOGLOBIN 31.2 pg (27.0-31.0); MEAN CORPUSCULAR VOLUME 89.1 fL (80.0-94.0); MEAN PLATELET VOLUME 6.3 fL (7.4-11.4); MONOCYTES # (AUTO) 0.7 10^3/uL (0.0-1.0); NEUTROPHILS # (AUTO) 6.2 10^3/uL (1.5-6.6); NEUTROPHILS % (AUTO) 75.2 %; NUCLEATED RED BLOOD CELLS AUTO 0.3 /100WBC; RED BLOOD COUNT 2.72 10^6/uL (4.70-6.10); RED CELL DISTRIBUTION WIDTH 13.2 % (12.0-15.0); UNCORRECTED WHITE BLOOD COUNT 8.2 x10^3/uL; WHITE BLOOD COUNT 8.2 x10^3/uL (4.8-10.8)
[2016-09-27 06:10] LABS: ALBUMIN/GLOBULIN RATIO 0.9 (1.0-2.2); BILIRUBIN,TOTAL 0.9 mg/dL (0.2-1.0); CALCIUM 7.8 mg/dL (8.5-10.3); MAGNESIUM 1.8 mg/dL (1.7-2.8); PHOSPHORUS 2.8 mg/dL (2.5-4.6); POTASSIUM 3.3 mmol/L (3.5-5.0); TOTAL PROTEIN 4.7 g/dL (6.7-8.2)
[2016-09-27] MEDS: PANTOPRAZOLE 40 MG TABLET PO SCH (06:40)
[2016-09-27] MEDS ORDERED: POTASSIUM CHLORIDE 20 MEQ TABLET PO SCH (08:00)
--- NOTE | 2016-09-27 08:06 | PROVIDER PROGRESS NOTE ---
Subjective - General Admit Date: 09/23/16 Procedure Date: 09/24/16 Post Op Days: 3 Procedure Performed: IM rodding of right femur/hip - Review of Systems Wound/Incisions: positive: Dressing dry and intact Musculoskeletal: positive: Joint swelling Psychiatric: positive: Confusion Objective - Patient Data Reviewed Vital Signs: Yes Vital Signs: Vital Signs x48h Temp Pulse Resp BP Pulse Ox 09/27/16 04:32 36.6 C 79 18 127/72 94 Intake & Output: Intake and Output Totals x24h 09/25/16 09/26/16 09/27/16 23:59 23:59 23:59 Intake Total 4505 950 150 Output Total 900 850 Balance 3605 100 150 - Lab Results Lab Results: 09/27/16 05:38 09/27/16 05:38 Other Lab Results: Lab Results x24hrs 09/27/16 09/27/16 09/27/16 Range/Units 07:31 05:38 05:38 WBC 8.2 (4.8-10.8) x10^3/uL RBC 2.72 L (4.70-6.10) 10^6/uL Hgb 8.5 L (14.0-18.0) g/dL Hct 24.3 L (42.0-52.0) % MCV 89.1 (80.0-94.0) fL MCH 31.2 H (27.0-31.0) pg MCHC 35.0 (32.0-36.0) g/dL RDW 13.2 (12.0-15.0) % Plt Count 153 (130-450) 10^3/uL MPV 6.3 L (7.4-11.4) fL Reticulocyte % (Auto) (0.5-2.3) % Neut # 6.2 (1.5-6.6) 10^3/uL Lymph # 1.3 L (1.5-3.5) 10^3/uL [place] # 0.7 (0.0-1.0) 10^3/uL Eos # 0.0 (0.0-0.7) 10^3/uL Baso # 0.0 (0.0-0.1) 10^3/uL Absolute Nucleated RBC 0.02 x10^3/uL Nucleated RBCs 0.3 /100WBC Absolute Retic (0.020-0.110) 10^6/uL Sodium 135 (135-145) mmol/L Potassium 3.3 L (3.5-5.0) mmol/L Chloride 102 (101-111) mmol/L Carbon Dioxide 27 (21-32) mmol/L Anion Gap 6.0 (6-13) BUN 34 H (6-20) mg/dL Creatinine 1.0 (0.6-1.2) mg/dL Estimated GFR (MDRD) 71 L (>89) Glucose 148 H (70-100) mg/dL POC Whole Bld Glucose 125 H (70 - 100) mg/dL Calcium 7.8 L (8.5-10.3) mg/dL Phosphorus 2.8 (2.5-4.6) mg/dL Magnesium 1.8 (1.7-2.8) mg/dL Iron (45-182) ug/dL TIBC (250-450) ug/dL % Saturation (20-50) % Transferrin (180-329) mg/dL Ferritin (23.9-336.2) ng/mL Total Bilirubin 0.9 (0.2-1.0) mg/dL AST 98 H (10-42) IU/L ALT 17 (10-60) IU/L Alkaline Phosphatase 448 H (42-121) IU/L Lactate Dehydrogenase (91-225) IU/L Total Protein 4.7 L (6.7-8.2) g/dL Albumin 2.2 L (3.2-5.5) g/dL Globulin 2.5 (2.1-4.2) g/dL Albumin/Globulin Ratio 0.9 L (1.0-2.2) Vitamin B12 (180-914) pg/mL Blood Type Antibody Screen Crossmatch IS Only 09/26/16 09/26/16 09/26/16 Range/Units 20:36 18:06 18:06 WBC (4.8-10.8) x10^3/uL RBC (4.70-6.10) 10^6/uL Hgb (14.0-18.0) g/dL Hct (42.0-52.0) % MCV (80.0-94.0) fL MCH (27.0-31.0) pg MCHC (32.0-36.0) g/dL RDW (12.0-15.0) % Plt Count (130-450) 10^3/uL MPV (7.4-11.4) fL Reticulocyte % (Auto) (0.5-2.3) % Neut # (1.5-6.6) 10^3/uL Lymph # (1.5-3.5) 10^3/uL [place] # (0.0-1.0) 10^3/uL Eos # (0.0-0.7) 10^3/uL Baso # (0.0-0.1) 10^3/uL Absolute Nucleated RBC x10^3/uL Nucleated RBCs /100WBC Absolute Retic (0.020-0.110) 10^6/uL Sodium (135-145) mmol/L Potassium (3.5-5.0) mmol/L Chloride (101-111) mmol/L Carbon Dioxide (21-32) mmol/L Anion Gap (6-13) BUN (6-20) mg/dL Creatinine (0.6-1.2) mg/dL Estimated GFR (MDRD) (>89) Glucose (70-100) mg/dL POC Whole Bld Glucose 187 H (70 - 100) mg/dL Calcium (8.5-10.3) mg/dL Phosphorus (2.5-4.6) mg/dL Magnesium (1.7-2.8) mg/dL Iron (45-182) ug/dL TIBC (250-450) ug/dL % Saturation (20-50) % Transferrin (180-329) mg/dL Ferritin 1362.0 H (23.9-336.2) ng/mL Total Bilirubin (0.2-1.0) mg/dL AST (10-42) IU/L ALT (10-60) IU/L Alkaline Phosphatase (42-121) IU/L Lactate Dehydrogenase 626 H (91-225) IU/L Total Protein (6.7-8.2) g/dL Albumin (3.2-5.5) g/dL Globulin (2.1-4.2) g/dL Albumin/Globulin Ratio (1.0-2.2) Vitamin B12 3804 H (180-914) pg/mL Blood Type Antibody Screen Crossmatch IS Only 09/26/16 09/26/16 09/26/16 Range/Units 18:06 18:06 18:06 WBC (4.8-10.8) x10^3/uL RBC 2.99 L (4.70-6.10) 10^6/uL Hgb 9.2 L (14.0-18.0) g/dL Hct 26.2 L (42.0-52.0) % MCV (80.0-94.0) fL MCH (27.0-31.0) pg MCHC (32.0-36.0) g/dL RDW (12.0-15.0) % Plt Count (130-450) 10^3/uL MPV (7.4-11.4) fL Reticulocyte % (Auto) 4.59 H (0.5-2.3) % Neut # (1.5-6.6) 10^3/uL Lymph # (1.5-3.5) 10^3/uL [place] # (0.0-1.0) 10^3/uL Eos # (0.0-0.7) 10^3/uL Baso # (0.0-0.1) 10^3/uL Absolute Nucleated RBC x10^3/uL Nucleated RBCs /100WBC Absolute Retic 0.137 H (0.020-0.110) 10^6/uL Sodium (135-145) mmol/L Potassium (3.5-5.0) mmol/L Chloride (101-111) mmol/L Carbon Dioxide (21-32) mmol/L Anion Gap (6-13) BUN (6-20) mg/dL Creatinine (0.6-1.2) mg/dL Estimated GFR (MDRD) (>89) Glucose (70-100) mg/dL POC Whole Bld Glucose (70 - 100) mg/dL Calcium (8.5-10.3) mg/dL Phosphorus (2.5-4.6) mg/dL Magnesium (1.7-2.8) mg/dL Iron 85 (45-182) ug/dL TIBC 262 (250-450) ug/dL % Saturation 32 (20-50) % Transferrin 187 (180-329) mg/dL Ferritin (23.9-336.2) ng/mL Total Bilirubin (0.2-1.0) mg/dL AST (10-42) IU/L ALT (10-60) IU/L Alkaline Phosphatase (42-121) IU/L Lactate Dehydrogenase (91-225) IU/L Total Protein (6.7-8.2) g/dL Albumin (3.2-5.5) g/dL Globulin (2.1-4.2) g/dL Albumin/Globulin Ratio (1.0-2.2) Vitamin B12 (180-914) pg/mL Blood Type Antibody Screen Crossmatch IS Only 09/26/16 09/26/16 09/26/16 Range/Units 16:52 11:16 07:39 WBC (4.8-10.8) x10^3/uL RBC (4.70-6.10) 10^6/uL Hgb (14.0-18.0) g/dL Hct (42.0-52.0) % MCV (80.0-94.0) fL MCH (27.0-31.0) pg MCHC (32.0-36.0) g/dL RDW (12.0-15.0) % Plt Count (130-450) 10^3/uL MPV (7.4-11.4) fL Reticulocyte % (Auto) (0.5-2.3) % Neut # (1.5-6.6) 10^3/uL Lymph # (1.5-3.5) 10^3/uL [place] # (0.0-1.0) 10^3/uL Eos # (0.0-0.7) 10^3/uL Baso # (0.0-0.1) 10^3/uL Absolute Nucleated RBC x10^3/uL Nucleated RBCs /100WBC Absolute Retic (0.020-0.110) 10^6/uL Sodium (135-145) mmol/L Potassium (3.5-5.0) mmol/L Chloride (101-111) mmol/L Carbon Dioxide (21-32) mmol/L Anion Gap (6-13) BUN (6-20) mg/dL Creatinine (0.6-1.2) mg/dL Estimated GFR (MDRD) (>89) Glucose (70-100) mg/dL POC Whole Bld Glucose 164 H 188 H 146 H (70 - 100) mg/dL Calcium (8.5-10.3) mg/dL Phosphorus (2.5-4.6) mg/dL Magnesium (1.7-2.8) mg/dL Iron (45-182) ug/dL TIBC (250-450) ug/dL % Saturation (20-50) % Transferrin (180-329) mg/dL Ferritin (23.9-336.2) ng/mL Total Bilirubin (0.2-1.0) mg/dL AST (10-42) IU/L ALT (10-60) IU/L Alkaline Phosphatase (42-121) IU/L Lactate Dehydrogenase (91-225) IU/L Total Protein (6.7-8.2) g/dL Albumin (3.2-5.5) g/dL Globulin (2.1-4.2) g/dL Albumin/Globulin Ratio (1.0-2.2) Vitamin B12 (180-914) pg/mL Blood Type Antibody Screen Crossmatch IS Only 09/25/16 09/25/16 09/25/16 Range/Units 20:58 16:57 11:49 WBC (4.8-10.8) x10^3/uL RBC (4.70-6.10) 10^6/uL Hgb (14.0-18.0) g/dL Hct (42.0-52.0) % MCV (80.0-94.0) fL MCH (27.0-31.0) pg MCHC (32.0-36.0) g/dL RDW (12.0-15.0) % Plt Count (130-450) 10^3/uL MPV (7.4-11.4) fL Reticulocyte % (Auto) (0.5-2.3) % Neut # (1.5-6.6) 10^3/uL Lymph # (1.5-3.5) 10^3/uL [place] # (0.0-1.0) 10^3/uL Eos # (0.0-0.7) 10^3/uL Baso # (0.0-0.1) 10^3/uL Absolute Nucleated RBC x10^3/uL Nucleated RBCs /100WBC Absolute Retic (0.020-0.110) 10^6/uL Sodium (135-145) mmol/L Potassium (3.5-5.0) mmol/L Chloride (101-111) mmol/L Carbon Dioxide (21-32) mmol/L Anion Gap (6-13) BUN (6-20) mg/dL Creatinine (0.6-1.2) mg/dL Estimated GFR (MDRD) (>89) Glucose (70-100) mg/dL POC Whole Bld Glucose 324 H 365 H 355 H (70 - 100) mg/dL Calcium (8.5-10.3) mg/dL Phosphorus (2.5-4.6) mg/dL Magnesium (1.7-2.8) mg/dL Iron (45-182) ug/dL TIBC (250-450) ug/dL % Saturation (20-50) % Transferrin (180-329) mg/dL Ferritin (23.9-336.2) ng/mL Total Bilirubin (0.2-1.0) mg/dL AST (10-42) IU/L ALT (10-60) IU/L Alkaline Phosphatase (42-121) IU/L Lactate Dehydrogenase (91-225) IU/L Total Protein (6.7-8.2) g/dL Albumin (3.2-5.5) g/dL Globulin (2.1-4.2) g/dL Albumin/Globulin Ratio (1.0-2.2) Vitamin B12 (180-914) pg/mL Blood Type Antibody Screen Crossmatch IS Only 09/25/16 09/25/16 09/24/16 Range/Units 06:24 00:51 23:54 WBC (4.8-10.8) x10^3/uL RBC (4.70-6.10) 10^6/uL Hgb (14.0-18.0) g/dL Hct (42.0-52.0) % MCV (80.0-94.0) fL MCH (27.0-31.0) pg MCHC (32.0-36.0) g/dL RDW (12.0-15.0) % Plt Count (130-450) 10^3/uL MPV (7.4-11.4) fL Reticulocyte % (Auto) (0.5-2.3) % Neut # (1.5-6.6) 10^3/uL Lymph # (1.5-3.5) 10^3/uL [place] # (0.0-1.0) 10^3/uL Eos # (0.0-0.7) 10^3/uL Baso # (0.0-0.1) 10^3/uL Absolute Nucleated RBC x10^3/uL Nucleated RBCs /100WBC Absolute Retic (0.020-0.110) 10^6/uL Sodium (135-145) mmol/L Potassium (3.5-5.0) mmol/L Chloride (101-111) mmol/L Carbon Dioxide (21-32) mmol/L Anion Gap (6-13) BUN (6-20) mg/dL Creatinine (0.6-1.2) mg/dL Estimated GFR (MDRD) (>89) Glucose (70-100) mg/dL POC Whole Bld Glucose 371 H 344 H 357 H (70 - 100) mg/dL Calcium (8.5-10.3) mg/dL Phosphorus (2.5-4.6) mg/dL Magnesium (1.7-2.8) mg/dL Iron (45-182) ug/dL TIBC (250-450) ug/dL % Saturation (20-50) % Transferrin (180-329) mg/dL Ferritin (23.9-336.2) ng/mL Total Bilirubin (0.2-1.0) mg/dL AST (10-42) IU/L ALT (10-60) IU/L Alkaline Phosphatase (42-121) IU/L Lactate Dehydrogenase (91-225) IU/L Total Protein (6.7-8.2) g/dL Albumin (3.2-5.5) g/dL Globulin (2.1-4.2) g/dL Albumin/Globulin Ratio (1.0-2.2) Vitamin B12 (180-914) pg/mL Blood Type Antibody Screen Crossmatch IS Only 09/24/16 09/24/16 09/24/16 Range/Units 23:52 20:57 16:26 WBC (4.8-10.8) x10^3/uL RBC (4.70-6.10) 10^6/uL Hgb (14.0-18.0) g/dL Hct (42.0-52.0) % MCV (80.0-94.0) fL MCH (27.0-31.0) pg MCHC (32.0-36.0) g/dL RDW (12.0-15.0) % Plt Count (130-450) 10^3/uL MPV (7.4-11.4) fL Reticulocyte % (Auto) (0.5-2.3) % Neut # (1.5-6.6) 10^3/uL Lymph # (1.5-3.5) 10^3/uL [place] # (0.0-1.0) 10^3/uL Eos # (0.0-0.7) 10^3/uL Baso # (0.0-0.1) 10^3/uL Absolute Nucleated RBC x10^3/uL Nucleated RBCs /100WBC Absolute Retic (0.020-0.110) 10^6/uL Sodium (135-145) mmol/L Potassium (3.5-5.0) mmol/L Chloride (101-111) mmol/L Carbon Dioxide (21-32) mmol/L Anion Gap (6-13) BUN (6-20) mg/dL Creatinine (0.6-1.2) mg/dL Estimated GFR (MDRD) (>89) Glucose (70-100) mg/dL POC Whole Bld Glucose 389 H 338 H 314 H (70 - 100) mg/dL Calcium (8.5-10.3) mg/dL Phosphorus (2.5-4.6) mg/dL Magnesium (1.7-2.8) mg/dL Iron (45-182) ug/dL TIBC (250-450) ug/dL % Saturation (20-50) % Transferrin (180-329) mg/dL Ferritin (23.9-336.2) ng/mL Total Bilirubin (0.2-1.0) mg/dL AST (10-42) IU/L ALT (10-60) IU/L Alkaline Phosphatase (42-121) IU/L Lactate Dehydrogenase (91-225) IU/L Total Protein (6.7-8.2) g/dL Albumin (3.2-5.5) g/dL Globulin (2.1-4.2) g/dL Albumin/Globulin Ratio (1.0-2.2) Vitamin B12 (180-914) pg/mL Blood Type Antibody Screen Crossmatch IS Only 09/24/16 09/24/16 09/24/16 Range/Units 14:11 12:56 08:19 WBC (4.8-10.8) x10^3/uL RBC (4.70-6.10) 10^6/uL Hgb (14.0-18.0) g/dL Hct (42.0-52.0) % MCV (80.0-94.0) fL MCH (27.0-31.0) pg MCHC (32.0-36.0) g/dL RDW (12.0-15.0) % Plt Count (130-450) 10^3/uL MPV (7.4-11.4) fL Reticulocyte % (Auto) (0.5-2.3) % Neut # (1.5-6.6) 10^3/uL Lymph # (1.5-3.5) 10^3/uL [place] # (0.0-1.0) 10^3/uL Eos # (0.0-0.7) 10^3/uL Baso # (0.0-0.1) 10^3/uL Absolute Nucleated RBC x10^3/uL Nucleated RBCs /100WBC Absolute Retic (0.020-0.110) 10^6/uL Sodium (135-145) mmol/L Potassium (3.5-5.0) mmol/L Chloride (101-111) mmol/L Carbon Dioxide (21-32) mmol/L Anion Gap (6-13) BUN (6-20) mg/dL Creatinine (0.6-1.2) mg/dL Estimated GFR (MDRD) (>89) Glucose (70-100) mg/dL POC Whole Bld Glucose 301 H 243 H 236 H (70 - 100) mg/dL Calcium (8.5-10.3) mg/dL Phosphorus (2.5-4.6) mg/dL Magnesium (1.7-2.8) mg/dL Iron (45-182) ug/dL TIBC (250-450) ug/dL % Saturation (20-50) % Transferrin (180-329) mg/dL Ferritin (23.9-336.2) ng/mL Total Bilirubin (0.2-1.0) mg/dL AST (10-42) IU/L ALT (10-60) IU/L Alkaline Phosphatase (42-121) IU/L Lactate Dehydrogenase (91-225) IU/L Total Protein (6.7-8.2) g/dL Albumin (3.2-5.5) g/dL Globulin (2.1-4.2) g/dL Albumin/Globulin Ratio (1.0-2.2) Vitamin B12 (180-914) pg/mL Blood Type Antibody Screen Crossmatch IS Only 09/24/16 Range/Units 07:42 WBC (4.8-10.8) x10^3/uL RBC (4.70-6.10) 10^6/uL Hgb (14.0-18.0) g/dL Hct (42.0-52.0) % MCV (80.0-94.0) fL MCH (27.0-31.0) pg MCHC (32.0-36.0) g/dL RDW (12.0-15.0) % Plt Count (130-450) 10^3/uL MPV (7.4-11.4) fL Reticulocyte % (Auto) (0.5-2.3) % Neut # (1.5-6.6) 10^3/uL Lymph # (1.5-3.5) 10^3/uL [place] # (0.0-1.0) 10^3/uL Eos # (0.0-0.7) 10^3/uL Baso # (0.0-0.1) 10^3/uL Absolute Nucleated RBC x10^3/uL Nucleated RBCs /100WBC Absolute Retic (0.020-0.110) 10^6/uL Sodium (135-145) mmol/L Potassium (3.5-5.0) mmol/L Chloride (101-111) mmol/L Carbon Dioxide (21-32) mmol/L Anion Gap (6-13) BUN (6-20) mg/dL Creatinine (0.6-1.2) mg/dL Estimated GFR (MDRD) (>89) Glucose (70-100) mg/dL POC Whole Bld Glucose (70 - 100) mg/dL Calcium (8.5-10.3) mg/dL Phosphorus (2.5-4.6) mg/dL Magnesium (1.7-2.8) mg/dL Iron (45-182) ug/dL TIBC (250-450) ug/dL % Saturation (20-50) % Transferrin (180-329) mg/dL Ferritin (23.9-336.2) ng/mL Total Bilirubin (0.2-1.0) mg/dL AST (10-42) IU/L ALT (10-60) IU/L Alkaline Phosphatase (42-121) IU/L Lactate Dehydrogenase (91-225) IU/L Total Protein (6.7-8.2) g/dL Albumin (3.2-5.5) g/dL Globulin (2.1-4.2) g/dL Albumin/Globulin Ratio (1.0-2.2) Vitamin B12 (180-914) pg/mL Blood Type Cancelled Antibody Screen Cancelled Crossmatch IS Only See Detail - Current Medications Current Medications: Current Medications Generic Name Dose Route Start Last Admin Trade Name Freq PRN Reason Stop Dose Admin Aspirin 81 mg 09/24/16 09:00 09/26/16 08:40 [facility] [place] Aspirin PO 81 mg DAILY GABRIELA Administration Atorvastatin Calcium 20 mg 09/24/16 21:00 09/26/16 20:44 Lipitor PO 20 mg QPM GABRIELA Administration Calcium Carbonate/Glycine 500 mg 09/24/16 21:00 09/26/16 20:44 Tums PO 500 mg BID GABRIELA Administration Chlorpromazine HCl 25 mg 09/26/16 15:34 09/26/16 16:08 Thorazine PO 25 mg TID PRN Administration Hiccups Cholecalciferol 5,000 unit 09/24/16 17:20 09/26/16 20:44 Vitamin D3 PO 5,000 unit BID GABRIELA Administration Docusate Sodium 250 - 500 mg 09/24/16 21:00 09/26/16 08:40 Colace 250mg Capsule PO 500 mg DAILY GABRIELA Administration Finasteride 5 mg 09/24/16 09:00 09/26/16 08:40 Proscar PO 5 mg DAILY GABRIELA Administration Sodium Chloride 1,000 mls @ 100 mls/hr 09/23/16 23:00 09/27/16 06:47 Normal Saline 0.9% IV Not Given .Q10H GABRIELA Acetaminophen 100 mls @ 400 mls/hr 09/24/16 16:00 09/27/16 04:27 Ofirmev IV 400 mls/hr Q6H GABRIELA Administration Insulin Aspart 1 - 9 unit 09/25/16 22:56 09/26/16 20:43 Novolog SUBQ 3 unit 0800,1200,1700,2100 GABRIELA Administration Protocol Insulin Glargine 10 unit 09/25/16 09:00 09/26/16 20:43 Lantus Solostar SUBQ 10 unit BID GABRIELA Administration Memantine 10 mg 09/24/16 09:00 09/26/16 20:44 Namenda PO 10 mg BID GABRIELA Administration Metoprolol Succinate 25 mg 09/24/16 09:00 09/26/16 08:39 Toprol Xl PO 25 mg DAILY GABRIELA Administration Multivitamins/Minerals 1 tab 09/24/16 18:00 09/26/16 08:40 Theragran M PO 1 tab DAILYWM AGBRIELA Administration Ondansetron HCl 4 mg 09/23/16 22:52 09/24/16 23:28 Zofran Inj IVP 4 mg Q6HR PRN Administration Nausea / Vomiting Oxycodone HCl 5 mg 09/23/16 22:52 09/26/16 08:39 Roxicodone PO 5 mg Q4HR PRN Administration Pain 5 to 7 Pantoprazole Sodium 40 mg 09/24/16 07:00 09/27/16 06:40 Protonix PO 40 mg QDAC GABRIELA Administration Polyethylene Glycol 17 gm 09/24/16 09:00 09/26/16 08:39 Miralax PO 17 gm DAILY GABRIELA Administration Senna 8.6 - 17.2 mg 09/24/16 21:00 09/26/16 08:40 Senokot PO 8.6 mg DAILY GABRIELA Administration Sodium Chloride 10 ml 09/24/16 06:00 09/27/16 04:33 Normal Saline Flush 0.9% IVP Not Given Q8HR GABRIELA - Physical Exam Wound/Incisions: positive: Drainage Skin: positive: Warm, Dry Neurologic/Psychiatric: positive: Motor nml, Sensation nml, Mood/affect nml Impression/Plan - Problem List Problem List: POD #3 Pt is progressing as expected. Will need SNF. Dressings changed, PT, louise out by 12 days post-op, office f/u in 2-3 wks.
[2016-09-27] MEDS: CALCIUM CARBONATE CHEW 500 MG TABLET PO SCH ×2 (08:42→21:07)
[2016-09-27] MEDS: MULTIVITAMIN W/MINERALS TABLET PO SCH (08:42)
[2016-09-27] MEDS: MEMANTINE 5 MG TABLET PO SCH ×2 (08:42→21:07)
[2016-09-27] MEDS: ASPIRIN CHEW 81 MG TABLET PO SCH (08:42)
[2016-09-27] MEDS: DOCUSATE SODIUM 250 MG CAPSULE PO SCH (08:42)
[2016-09-27] MEDS: INSULIN GLARGINE 300 UNIT/3 ML PEN SUBQ SCH ×2 (08:42→21:07)
[2016-09-27] MEDS: CHOLECALCIFEROL 5,000 UNIT CAPSULE PO SCH ×2 (08:42→21:07)
[2016-09-27] MEDS: FINASTERIDE 5 MG TABLET PO SCH (08:43)
[2016-09-27] MEDS: POLYETHYLENE GLYCOL 3350 17 GM PACKET PO SCH (08:43)
[2016-09-27] MEDS: METOPROLOL SUCCINATE 25 MG TABLET PO SCH (08:43)
[2016-09-27] MEDS: SENNA 8.6 MG TABLET PO SCH (08:43)
[2016-09-27] MEDS: INSULIN ASPART 300 UNIT/3 ML PEN SUBQ SCH ×4 (08:44→21:08)
--- NOTE | 2016-09-27 15:39 | PROVIDER PROGRESS NOTE ---
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 Staff is having trouble getting him to want to sit in chair. He is working with physical therapy. Anticipate discharge to [facility] tomorrow. Will monitor 1 more day to make sure anemia has stabilized (2) Hyperglycemia due to type 2 diabetes mellitus Qualifiers: Qualified Code(s): E11.65 - Type 2 diabetes mellitus with hyperglycemia Assessment/Plan: BG has been stable. Will restart his Metformin in AM (3) Hypertension Assessment/Plan: Controlled on current medications. Continue to monitor with no changes today (4) Hypokalemia Assessment/Plan: 3.3 today. Additional PO K ordered. Mag was normal range and not requiring supplementation. Recheck in AM (5) Postoperative anemia due to acute blood loss Assessment/Plan: H/H has decreased overnight however remains greater then the pre-transfusion levels/ Will continue to monitor and replace if H/H decline further. - Current Meds Current Meds: Current Medications Generic Name Dose Route Start Last Admin Trade Name Freq PRN Reason Stop Dose Admin Aspirin 81 mg 09/24/16 09:00 09/27/16 08:42 [facility] [place] Aspirin PO 81 mg DAILY GABRIELA Administration Atorvastatin Calcium 20 mg 09/24/16 21:00 09/26/16 20:44 Lipitor PO 20 mg QPM GABRIELA Administration Calcium Carbonate/Glycine 500 mg 09/24/16 21:00 09/27/16 08:42 Tums PO 500 mg BID GABRIELA Administration Chlorpromazine HCl 25 mg 09/26/16 15:34 09/26/16 16:08 Thorazine PO 25 mg TID PRN Administration Hiccups Cholecalciferol 5,000 unit 09/24/16 17:20 09/27/16 08:42 Vitamin D3 PO 5,000 unit BID GABRIELA Administration Docusate Sodium 250 - 500 mg 09/24/16 21:00 09/27/16 08:42 Colace 250mg Capsule PO 250 mg DAILY GABRIELA Administration Finasteride 5 mg 09/24/16 09:00 09/27/16 08:43 Proscar PO 5 mg DAILY GABRIELA Administration Sodium Chloride 1,000 mls @ 100 mls/hr 09/23/16 23:00 09/27/16 11:13 Normal Saline 0.9% IV 100 mls/hr .Q10H GABRIELA Administration Acetaminophen 100 mls @ 400 mls/hr 09/24/16 16:00 09/27/16 11:11 Ofirmev IV 400 mls/hr Q6H GABRIELA Administration Insulin Aspart 1 - 9 unit 09/25/16 22:56 09/27/16 15:32 Novolog SUBQ Not Given 0800,1200,1700,2100 COUNT INCLUDES [facility] Protocol Insulin Glargine 10 unit 09/25/16 09:00 09/27/16 08:42 Lantus Solostar SUBQ 10 unit BID GABRIELA Administration Memantine 10 mg 09/24/16 09:00 09/27/16 08:42 Namenda PO 10 mg BID GABRIELA Administration Metoprolol Succinate 25 mg 09/24/16 09:00 09/27/16 08:43 Toprol Xl PO 25 mg DAILY GABRIELA Administration Multivitamins/Minerals 1 tab 09/24/16 18:00 09/27/16 08:42 Theragran M PO 1 tab DAILYWM GABRIELA Administration Ondansetron HCl 4 mg 09/23/16 22:52 09/24/16 23:28 Zofran Inj IVP 4 mg Q6HR PRN Administration Nausea / Vomiting Oxycodone HCl 5 mg 09/23/16 22:52 09/26/16 08:39 Roxicodone PO 5 mg Q4HR PRN Administration Pain 5 to 7 Pantoprazole Sodium 40 mg 09/24/16 07:00 09/27/16 06:40 Protonix PO 40 mg QDAC GABRIELA Administration Polyethylene Glycol 17 gm 09/24/16 09:00 09/27/16 08:43 Miralax PO 17 gm DAILY GABRIELA Administration Senna 8.6 - 17.2 mg 09/24/16 21:00 09/27/16 08:43 Senokot PO 8.6 mg DAILY GABRIELA Administration Sodium Chloride 10 ml 09/24/16 06:00 09/27/16 04:33 Normal Saline Flush 0.9% IVP Not Given Q8HR GABRIELA - Lab Result Lab results reviewed: Yes Fish Bone Diagrams: 09/27/16 05:38 09/27/16 05:38 - Additional Planning Condition/Complexity: Stable Plan Discussed with:: Patient, Family Time Spent: 15-30 minutes Subjective - Subjective Patient Reports: Nausea (PT reports pain with eating. HE also stated he doesnt like the food choices. He denies pain. His dementia is confounding his report of SX.), Pain Nursing Reports: Confused, Pain, Other (Does not eat or drink much throughout the day. Does not complain of pain but has pain response when mobilizing.) Objective Vital Signs: Vital Signs - 24 hr 09/26/16 09/26/16 09/27/16 16:30 21:30 00:05 Temperature 36.9 C 38.6 C H 36.9 C Heart Rate [ 100 75 93 Brachial] Respiratory 16 16 20 Rate Blood Pressure 129/54 L 147/70 H 117/60 [Left Brachial artery] O2 Saturation 95 94 94 09/27/16 09/27/16 09/27/16 04:32 08:35 13:00 Temperature 36.6 C 36.7 C 36.8 C Heart Rate [ 79 66 116 H Brachial] Respiratory 18 16 18 Rate Blood Pressure 127/72 125/60 127/64 [Left Brachial artery] O2 Saturation 94 96 92 Oxygen O2 Source Room air I&O (Last 24 Hrs): Intake and Output Totals x24h 09/25/16 09/26/16 09/27/16 23:59 23:59 23:59 Intake Total 4505 950 1249 Output Total 900 850 Balance 3605 100 1249 General: Alert, No acute distress HEENT: Atraumatic, PERRLA, EOMI Neck: Supple, No JVD Neuro: Alert, Non Focal, CN 2-12 Grossly Intact Cardiovascular: Regular rate, No murmurs Respiratory: Chest non-tender, No respiratory distress Abdomen: Normal bowel sounds, Soft - Results Results: Laboratory Results WBC 8.2 x10^3/uL (4.8-10.8) 09/27/16 05:38 RBC 2.72 10^6/uL (4.70-6.10) L 09/27/16 05:38 Hgb 8.5 g/dL (14.0-18.0) L 09/27/16 05:38 Hct 24.3 % (42.0-52.0) L 09/27/16 05:38 MCV 89.1 fL (80.0-94.0) 09/27/16 05:38 MCH 31.2 pg (27.0-31.0) H 09/27/16 05:38 MCHC 35.0 g/dL (32.0-36.0) 09/27/16 05:38 RDW 13.2 % (12.0-15.0) 09/27/16 05:38 Plt Count 153 10^3/uL (130-450) 09/27/16 05:38 MPV 6.3 fL (7.4-11.4) L 09/27/16 05:38 Reticulocyte % (Auto) 4.59 % (0.5-2.3) H 09/26/16 18:06 Neut # 6.2 10^3/uL (1.5-6.6) 09/27/16 05:38 Lymph # 1.3 10^3/uL (1.5-3.5) L 09/27/16 05:38 [place] # 0.7 10^3/uL (0.0-1.0) 09/27/16 05:38 Eos # 0.0 10^3/uL (0.0-0.7) 09/27/16 05:38 Baso # 0.0 10^3/uL (0.0-0.1) 09/27/16 05:38 Absolute Nucleated RBC 0.02 x10^3/uL 09/27/16 05:38 Nucleated RBCs 0.3 /100WBC 09/27/16 05:38 Absolute Retic 0.137 10^6/uL (0.020-0.110) H 09/26/16 18:06 PT 14.0 secs (9.9-12.6) H 09/24/16 01:13 INR 1.2 (0.8-1.2) 09/24/16 01:13 Sodium 135 mmol/L (135-145) 09/27/16 05:38 Potassium 3.3 mmol/L (3.5-5.0) L 09/27/16 05:38 Chloride 102 mmol/L (101-111) 09/27/16 05:38 Carbon Dioxide 27 mmol/L (21-32) 09/27/16 05:38 Anion Gap 6.0 (6-13) 09/27/16 05:38 BUN 34 mg/dL (6-20) H 09/27/16 05:38 Creatinine 1.0 mg/dL (0.6-1.2) 09/27/16 05:38 Estimated GFR (MDRD) 71 (>89) L 09/27/16 05:38 Glucose 148 mg/dL (70-100) H 09/27/16 05:38 POC Whole Bld Glucose 134 mg/dL (70 - 100) H 09/27/16 11:10 Glycated Hemoglobin 9.0 % (4.6-6.2) H 09/25/16 05:19 Estim Average Glucose 212 (70-100) H 09/25/16 05:19 Calcium 7.8 mg/dL (8.5-10.3) L 09/27/16 05:38 Phosphorus 2.8 mg/dL (2.5-4.6) 09/27/16 05:38 Magnesium 1.8 mg/dL (1.7-2.8) 09/27/16 05:38 Iron 85 ug/dL (45-182) 09/26/16 18:06 TIBC 262 ug/dL (250-450) 09/26/16 18:06 % Saturation 32 % (20-50) 09/26/16 18:06 Transferrin 187 mg/dL (180-329) 09/26/16 18:06 Ferritin 1362.0 ng/mL (23.9-336.2) H 09/26/16 18:06 Total Bilirubin 0.9 mg/dL (0.2-1.0) 09/27/16 05:38 GGT 22 IU/L (8-55) 09/25/16 17:25 AST 98 IU/L (10-42) H 09/27/16 05:38 ALT 17 IU/L (10-60) 09/27/16 05:38 Alkaline Phosphatase 448 IU/L (42-121) H 09/27/16 05:38 Lactate Dehydrogenase 626 IU/L (91-225) H 09/26/16 18:06 Total Protein 4.7 g/dL (6.7-8.2) L 09/27/16 05:38 Albumin 2.2 g/dL (3.2-5.5) L 09/27/16 05:38 Globulin 2.5 g/dL (2.1-4.2) 09/27/16 05:38 Albumin/Globulin Ratio 0.9 (1.0-2.2) L 09/27/16 05:38 Triglycerides 126 mg/dL (-149) 09/25/16 05:19 Cholesterol 89 mg/dL (-199) 09/25/16 05:19 LDL Cholesterol, Calc 34 mg/dL (-129) 09/25/16 05:19 VLDL Cholesterol 25 mg/dL 09/25/16 05:19 HDL Cholesterol 30 mg/dL (60-) L 09/25/16 05:19 LDL/HDL Ratio 1.1 (<3.6) 09/25/16 05:19 Cholesterol/HDL Ratio 3.0 (<5.0) 09/25/16 05:19 Lipase < 10 U/L (22-51) L 09/24/16 01:13 PSA Screen 1210.000 ng/mL (0.000-2.000) H 09/25/16 17:05 Prostate Specific Ag 1210.000 ng/mL (0.000-2.000) H 09/25/16 17:05 Vitamin B12 3804 pg/mL (180-914) H 09/26/16 18:06 TSH 3.96 uIU/mL (0.34-5.60) 09/25/16 17:25 Urine Color YELLOW 09/23/16 21:25 Urine Clarity CLEAR (CLEAR) 09/23/16 21:25 Urine pH 6.0 PH (5.0-7.5) 09/23/16 21:25 Ur Specific [place] 1.025 (1.002-1.030) 09/23/16 21:25 Urine Protein NEGATIVE mg/dL (NEGATIVE) 09/23/16 21:25 Urine Glucose (UA) NEGATIVE mg/dL (NEGATIVE) 09/23/16 21:25 Urine Ketones NEGATIVE mg/dL (NEGATIVE) 09/23/16 21:25 Urine Occult Blood TRACE-INTA (NEGATIVE) 09/23/16 21:25 Urine Nitrite NEGATIVE (NEGATIVE) 09/23/16 21:25 Urine Bilirubin NEGATIVE (NEGATIVE) 09/23/16 21:25 Urine Urobilinogen 1 (NORMAL) E.U./dL (NORMAL) 09/23/16 21:25 Ur Leukocyte Esterase NEGATIVE (NEGATIVE) 09/23/16 21:25 Ur Microscopic Review NOT INDICATED 09/23/16 21:25 Urine Culture Comments NOT INDICATED 09/23/16 21:25 Blood Type O POSITIVE 09/24/16 07:40 Blood Type Recheck O POSITIVE 09/24/16 13:05 Antibody Screen NEGATIVE 09/24/16 07:40 Crossmatch IS Only See Detail 09/24/16 07:42
[2016-09-27] MEDS: ATORVASTATIN 10 MG TABLET PO SCH (21:07)
[2016-09-28] MEDS: ACETAMINOPHEN 1,000 MG/100 ML 100 ML IV SCH ×4 (04:34→22:39)
[2016-09-28 05:42] LABS: ALBUMIN/GLOBULIN RATIO 0.8 (1.0-2.2); BILIRUBIN,TOTAL 0.8 mg/dL (0.2-1.0); CALCIUM 7.8 mg/dL (8.5-10.3); CREATININE 0.7 mg/dL (0.6-1.2); MAGNESIUM 1.7 mg/dL (1.7-2.8); PHOSPHORUS 2.8 mg/dL (2.5-4.6); POTASSIUM 3.4 mmol/L (3.5-5.0); TOTAL PROTEIN 4.7 g/dL (6.7-8.2)
[2016-09-28 05:54] LABS: BASOPHILS % (AUTO) 0.1 %; EOSINOPHILS % (AUTO) 0.7 %; LYMPHOCYTES # (AUTO) 0.8 10^3/uL (1.5-3.5); LYMPHOCYTES % (AUTO) 12.5 %; MEAN CORPUSCULAR HEMOGLOBIN 31.6 pg (27.0-31.0); MEAN CORPUSCULAR HGB CONC 34.9 g/dL (32.0-36.0); MEAN CORPUSCULAR VOLUME 90.6 fL (80.0-94.0); MEAN PLATELET VOLUME 6.6 fL (7.4-11.4); MONOCYTES # (AUTO) 0.7 10^3/uL (0.0-1.0); MONOCYTES % (AUTO) 10.2 %; NEUTROPHILS # (AUTO) 5.2 10^3/uL (1.5-6.6); NEUTROPHILS % (AUTO) 76.5 %; NUCLEATED RED BLOOD CELLS AUTO 0.4 /100WBC; RED BLOOD COUNT 2.54 10^6/uL (4.70-6.10); RED CELL DISTRIBUTION WIDTH 13.4 % (12.0-15.0); UNCORRECTED WHITE BLOOD COUNT 6.7 x10^3/uL; WHITE BLOOD COUNT 6.7 x10^3/uL (4.8-10.8)
[2016-09-28] MEDS: SODIUM CHLORIDE FLUSH 0.9% 10 ML SYRINGE IVP SCH ×3 (06:53→20:10)
[2016-09-28] MEDS: SODIUM CHLORIDE 0.9% 1,000 ML IV SCH ×2 (06:55→18:36)
[2016-09-28] MEDS: PANTOPRAZOLE 40 MG TABLET PO SCH (06:55)
[2016-09-28] MEDS: INSULIN GLARGINE 300 UNIT/3 ML PEN SUBQ SCH ×2 (10:03→20:57)
[2016-09-28] MEDS: METOPROLOL SUCCINATE 25 MG TABLET PO SCH (10:04)
[2016-09-28] MEDS: CHOLECALCIFEROL 5,000 UNIT CAPSULE PO SCH ×2 (10:04→20:56)
[2016-09-28] MEDS: MULTIVITAMIN W/MINERALS TABLET PO SCH (10:04)
[2016-09-28] MEDS: CALCIUM CARBONATE CHEW 500 MG TABLET PO SCH ×2 (10:04→20:56)
[2016-09-28] MEDS: FINASTERIDE 5 MG TABLET PO SCH (10:04)
[2016-09-28] MEDS: ASPIRIN CHEW 81 MG TABLET PO SCH (10:04)
[2016-09-28] MEDS: MEMANTINE 5 MG TABLET PO SCH ×2 (10:04→20:56)
[2016-09-28] MEDS: DOCUSATE SODIUM 250 MG CAPSULE PO SCH (10:05)
[2016-09-28] MEDS: INSULIN ASPART 300 UNIT/3 ML PEN SUBQ SCH ×4 (10:05→20:58)
[2016-09-28] MEDS: POLYETHYLENE GLYCOL 3350 17 GM PACKET PO SCH (10:05)
[2016-09-28] MEDS: SENNA 8.6 MG TABLET PO SCH (10:06)
--- NOTE | 2016-09-28 10:52 | PROVIDER PROGRESS NOTE ---
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 Continues to need 2 person assist. Reports leg being tender to palpation but otherwise no complaints. Continues to show post op blood loss on labs. Plan: PT to work with pt again today. Had intended to discharge to SNF but will need to monitor blood loss as he may need additional transfusion. (2) Hyperglycemia due to type 2 diabetes mellitus Qualifiers: Qualified Code(s): E11.65 - Type 2 diabetes mellitus with hyperglycemia Assessment/Plan: HgA1c 9.0 on admission. Will continue insulin for now. No mention of metformin on home medication list. Can transition to PO as OP after seing PCP. For now given his elevated HgA1c he will benefit from continued use of insulin. (3) Hypertension Assessment/Plan: Bp is suboptimally controlled during admission and is elevated further today. Currently on low dose BB. Plan Add ACEi today for better BP control and renal protection in setting of DM (4) Hypokalemia Assessment/Plan: Potassium remains low today at 3.4. Will replace again with oral potassium. Magnesium is low normal and will replace this as well (5) Postoperative anemia due to acute blood loss Assessment/Plan: H/H decreased again today. Will recheck at 1200 and 1800. If drops below 8 then will replace with PRBC - Current Meds Current Meds: Current Medications Generic Name Dose Route Start Last Admin Trade Name Freq PRN Reason Stop Dose Admin Aspirin 81 mg 09/24/16 09:00 09/28/16 10:04 [facility] Aspirin PO 81 mg DAILY GABRIELA Administration Atorvastatin Calcium 20 mg 09/24/16 21:00 09/27/16 21:07 Lipitor PO 20 mg QPM GABRIELA Administration Calcium Carbonate/Glycine 500 mg 09/24/16 21:00 09/28/16 10:04 Tums PO 500 mg BID GABRIELA Administration Chlorpromazine HCl 25 mg 09/26/16 15:34 09/26/16 16:08 Thorazine PO 25 mg TID PRN Administration Hiccups Cholecalciferol 5,000 unit 09/24/16 17:20 09/28/16 10:04 Vitamin D3 PO 5,000 unit BID GABRIELA Administration Docusate Sodium 250 - 500 mg 09/24/16 21:00 09/28/16 10:05 Colace 250mg Capsule PO Not Given DAILY GABRIELA Finasteride 5 mg 09/24/16 09:00 09/28/16 10:04 Proscar PO 5 mg DAILY GABRIELA Administration Sodium Chloride 1,000 mls @ 100 mls/hr 09/23/16 23:00 09/28/16 06:55 Normal Saline 0.9% IV 100 mls/hr .Q10H GABRIELA Administration Acetaminophen 100 mls @ 400 mls/hr 09/24/16 16:00 09/28/16 10:04 Ofirmev IV 400 mls/hr Q6H GABRIELA Administration Insulin Aspart 1 - 9 unit 09/25/16 22:56 09/28/16 10:05 Novolog SUBQ Not Given 0800,1200,1700,2100 [facility] Protocol Insulin Glargine 10 unit 09/25/16 09:00 09/28/16 10:03 Lantus Solostar SUBQ 10 unit BID GABRIELA Administration Memantine 10 mg 09/24/16 09:00 09/28/16 10:04 Namenda PO 10 mg BID GABRIELA Administration Metoprolol Succinate 25 mg 09/24/16 09:00 09/28/16 10:04 Toprol Xl PO 25 mg DAILY GABRIELA Administration Multivitamins/Minerals 1 tab 09/24/16 18:00 09/28/16 10:04 Theragran M PO 1 tab DAILYWM GABRIELA Administration Ondansetron HCl 4 mg 09/23/16 22:52 09/24/16 23:28 Zofran Inj IVP 4 mg Q6HR PRN Administration Nausea / Vomiting Oxycodone HCl 5 mg 09/23/16 22:52 09/26/16 08:39 Roxicodone PO 5 mg Q4HR PRN Administration Pain 5 to 7 Pantoprazole Sodium 40 mg 09/24/16 07:00 09/28/16 06:55 Protonix PO 40 mg QDAC GABRIELA Administration Polyethylene Glycol 17 gm 09/24/16 09:00 09/28/16 10:05 Miralax PO Not Given DAILY [facility] Senna 8.6 - 17.2 mg 09/24/16 21:00 09/28/16 10:06 Senokot PO Not Given DAILY GABRIELA Sodium Chloride 10 ml 09/24/16 06:00 09/28/16 06:53 Normal Saline Flush 0.9% IVP Not Given Q8HR GABRIELA - Lab Result Lab results reviewed: Yes Fish Bone Diagrams: 09/28/16 05:02 09/28/16 05:02 - Additional Planning Condition/Complexity: Stable My Orders: My Active Orders 09/28/16 12:00 HEMOGLOBIN AND HEMATOCRIT [HEME] Timed Plan Discussed with:: Patient Time Spent: 15-30 minutes Subjective - Subjective Patient Reports: Pain (Pt complains of pain along his RLE. He continues to have decreaseda ppetite but will try to eat more) Objective Vital Signs: Vital Signs - 24 hr 09/27/16 09/27/16 09/27/16 13:00 16:25 20:00 Temperature 36.8 C 36.5 C 36.5 C Heart Rate [ 116 H 98 84 Brachial] Respiratory 18 20 18 Rate Blood Pressure 127/64 147/82 H 131/71 H [Left Brachial artery] Blood Pressure [Right Brachial artery] O2 Saturation 92 97 95 09/28/16 09/28/16 09/28/16 00:00 04:00 08:00 Temperature 37.6 C H 37.6 C H 37.1 C Heart Rate [ 72 96 89 Brachial] Respiratory 18 18 18 Rate Blood Pressure 157/93 H 160/75 H [Left Brachial artery] Blood Pressure 162/81 H [Right Brachial artery] O2 Saturation 95 94 96 Oxygen O2 Source Room air I&O (Last 24 Hrs): Intake and Output Totals x24h 09/26/16 09/27/16 09/28/16 23:59 23:59 23:59 Intake Total 950 2388 1541 Output Total 850 150 100 Balance 100 2238 1441 General: Alert, No acute distress HEENT: PERRLA, EOMI Neck: No JVD, No thyromegaly Neuro: CN 2-12 Grossly Intact Cardiovascular: Regular rate, No murmurs Respiratory: Chest non-tender, No respiratory distress Abdomen: Normal bowel sounds Extremities: Other (RLE edema. No ecchymosis appreciated. Tender to palpation. Incision C/D/I) Skin: No rashes, No breakdown - Results Results: Laboratory Results WBC 6.7 x10^3/uL (4.8-10.8) 09/28/16 05:02 RBC 2.54 10^6/uL (4.70-6.10) L 09/28/16 05:02 Hgb 8.0 g/dL (14.0-18.0) L 09/28/16 05:02 Hct 23.0 % (42.0-52.0) L 09/28/16 05:02 MCV 90.6 fL (80.0-94.0) 09/28/16 05:02 MCH 31.6 pg (27.0-31.0) H 09/28/16 05:02 MCHC 34.9 g/dL (32.0-36.0) 09/28/16 05:02 RDW 13.4 % (12.0-15.0) 09/28/16 05:02 Plt Count 154 10^3/uL (130-450) 09/28/16 05:02 MPV 6.6 fL (7.4-11.4) L 09/28/16 05:02 Reticulocyte % (Auto) 4.59 % (0.5-2.3) H 09/26/16 18:06 Neut # 5.2 10^3/uL (1.5-6.6) 09/28/16 05:02 Lymph # 0.8 10^3/uL (1.5-3.5) L 09/28/16 05:02 [place] # 0.7 10^3/uL (0.0-1.0) 09/28/16 05:02 Eos # 0.0 10^3/uL (0.0-0.7) 09/28/16 05:02 Baso # 0.0 10^3/uL (0.0-0.1) 09/28/16 05:02 Absolute Nucleated RBC 0.03 x10^3/uL 09/28/16 05:02 Nucleated RBCs 0.4 /100WBC 09/28/16 05:02 Absolute Retic 0.137 10^6/uL (0.020-0.110) H 09/26/16 18:06 PT 14.0 secs (9.9-12.6) H 09/24/16 01:13 INR 1.2 (0.8-1.2) 09/24/16 01:13 Sodium 136 mmol/L (135-145) 09/28/16 05:02 Potassium 3.4 mmol/L (3.5-5.0) L 09/28/16 05:02 Chloride 103 mmol/L (101-111) 09/28/16 05:02 Carbon Dioxide 25 mmol/L (21-32) 09/28/16 05:02 Anion Gap 8.0 (6-13) 09/28/16 05:02 BUN 28 mg/dL (6-20) H 09/28/16 05:02 Creatinine 0.7 mg/dL (0.6-1.2) 09/28/16 05:02 Estimated GFR (MDRD) 107 (>89) 09/28/16 05:02 Glucose 127 mg/dL (70-100) H 09/28/16 05:02 POC Whole Bld Glucose 95 mg/dL (70 - 100) 09/28/16 07:51 Glycated Hemoglobin 9.0 % (4.6-6.2) H 09/25/16 05:19 Estim Average Glucose 212 (70-100) H 09/25/16 05:19 Calcium 7.8 mg/dL (8.5-10.3) L 09/28/16 05:02 Phosphorus 2.8 mg/dL (2.5-4.6) 09/28/16 05:02 Magnesium 1.7 mg/dL (1.7-2.8) 09/28/16 05:02 Iron 85 ug/dL (45-182) 09/26/16 18:06 TIBC 262 ug/dL (250-450) 09/26/16 18:06 % Saturation 32 % (20-50) 09/26/16 18:06 Transferrin 187 mg/dL (180-329) 09/26/16 18:06 Ferritin 1362.0 ng/mL (23.9-336.2) H 09/26/16 18:06 Total Bilirubin 0.8 mg/dL (0.2-1.0) 09/28/16 05:02 GGT 22 IU/L (8-55) 09/25/16 17:25 AST 78 IU/L (10-42) H 09/28/16 05:02 ALT 20 IU/L (10-60) 09/28/16 05:02 Alkaline Phosphatase 356 IU/L (42-121) H 09/28/16 05:02 Lactate Dehydrogenase 626 IU/L (91-225) H 09/26/16 18:06 Total Protein 4.7 g/dL (6.7-8.2) L 09/28/16 05:02 Albumin 2.1 g/dL (3.2-5.5) L 09/28/16 05:02 Globulin 2.6 g/dL (2.1-4.2) 09/28/16 05:02 Albumin/Globulin Ratio 0.8 (1.0-2.2) L 09/28/16 05:02 Triglycerides 126 mg/dL (-149) 09/25/16 05:19 Cholesterol 89 mg/dL (-199) 09/25/16 05:19 LDL Cholesterol, Calc 34 mg/dL (-129) 09/25/16 05:19 VLDL Cholesterol 25 mg/dL 09/25/16 05:19 HDL Cholesterol 30 mg/dL (60-) L 09/25/16 05:19 LDL/HDL Ratio 1.1 (<3.6) 09/25/16 05:19 Cholesterol/HDL Ratio 3.0 (<5.0) 09/25/16 05:19 Lipase < 10 U/L (22-51) L 09/24/16 01:13 PSA Screen 1210.000 ng/mL (0.000-2.000) H 09/25/16 17:05 Prostate Specific Ag 1210.000 ng/mL (0.000-2.000) H 09/25/16 17:05 Vitamin B12 3804 pg/mL (180-914) H 09/26/16 18:06 TSH 3.96 uIU/mL (0.34-5.60) 09/25/16 17:25 Urine Color YELLOW 09/23/16 21:25 Urine Clarity CLEAR (CLEAR) 09/23/16 21:25 Urine pH 6.0 PH (5.0-7.5) 09/23/16 21:25 Ur Specific [place] 1.025 (1.002-1.030) 09/23/16 21:25 Urine Protein NEGATIVE mg/dL (NEGATIVE) 09/23/16 21:25 Urine Glucose (UA) NEGATIVE mg/dL (NEGATIVE) 09/23/16 21:25 Urine Ketones NEGATIVE mg/dL (NEGATIVE) 09/23/16 21:25 Urine Occult Blood TRACE-INTA (NEGATIVE) 09/23/16 21:25 Urine Nitrite NEGATIVE (NEGATIVE) 09/23/16 21:25 Urine Bilirubin NEGATIVE (NEGATIVE) 09/23/16 21:25 Urine Urobilinogen 1 (NORMAL) E.U./dL (NORMAL) 09/23/16 21:25 Ur Leukocyte Esterase NEGATIVE (NEGATIVE) 09/23/16 21:25 Ur Microscopic Review NOT INDICATED 09/23/16 21:25 Urine Culture Comments NOT INDICATED 09/23/16 21:25 Blood Type O POSITIVE 09/24/16 07:40 Blood Type Recheck O POSITIVE 09/24/16 13:05 Antibody Screen NEGATIVE 09/24/16 07:40 Crossmatch IS Only See Detail 09/24/16 07:42
[2016-09-28] MEDS: LISINOPRIL 5 MG TABLET PO SCH (11:17)
[2016-09-28] MEDS ORDERED: MAGNESIUM SULFATE 2 GRAM 50 ML IV ONE (12:00)
[2016-09-28] MEDS ORDERED: POTASSIUM CHLORIDE 20 MEQ TABLET PO SCH (12:00)
[2016-09-28] MEDS ORDERED: POTASSIUM CHLORIDE 20 MEQ TABLET PO ONE (12:00)
[2016-09-28 12:18] LABS: HCT - HEMATOCRIT 24.7 % (42.0-52.0); HGB - HEMOGLOBIN 8.6 g/dL (14.0-18.0)
--- NOTE | 2016-09-28 12:36 | PROVIDER PROGRESS NOTE ---
Subjective - General Admit Date: 09/23/16 Procedure Date: 09/24/16 Post Op Days: 4 Procedure Performed: IM rodding of right femur/hip - Review of Systems Wound/Incisions: positive: Healing well Musculoskeletal: positive: Joint swelling Skin: positive: Bruising Objective - Patient Data Reviewed Vital Signs: Yes Vital Signs: Vital Signs x48h Temp Pulse Resp BP Pulse Ox 09/28/16 08:00 37.1 C 89 18 160/75 H 96 Intake & Output: Intake and Output Totals x24h 09/26/16 09/27/16 09/28/16 23:59 23:59 23:59 Intake Total 950 2388 1541 Output Total 850 150 100 Balance 100 2238 1441 - Lab Results Lab Results: 09/28/16 12:15 09/28/16 05:02 Other Lab Results: Lab Results x24hrs 09/28/16 09/28/16 09/28/16 Range/Units 12:15 11:56 07:51 WBC (4.8-10.8) x10^3/uL RBC (4.70-6.10) 10^6/uL Hgb 8.6 L (14.0-18.0) g/dL Hct 24.7 L (42.0-52.0) % MCV (80.0-94.0) fL MCH (27.0-31.0) pg MCHC (32.0-36.0) g/dL RDW (12.0-15.0) % Plt Count (130-450) 10^3/uL MPV (7.4-11.4) fL Neut # (1.5-6.6) 10^3/uL Lymph # (1.5-3.5) 10^3/uL Edgar # (0.0-1.0) 10^3/uL Eos # (0.0-0.7) 10^3/uL Baso # (0.0-0.1) 10^3/uL Absolute Nucleated RBC x10^3/uL Nucleated RBCs /100WBC Sodium (135-145) mmol/L Potassium (3.5-5.0) mmol/L Chloride (101-111) mmol/L Carbon Dioxide (21-32) mmol/L Anion Gap (6-13) BUN (6-20) mg/dL Creatinine (0.6-1.2) mg/dL Estimated GFR (MDRD) (>89) Glucose (70-100) mg/dL POC Whole Bld Glucose 158 H 95 (70 - 100) mg/dL Calcium (8.5-10.3) mg/dL Phosphorus (2.5-4.6) mg/dL Magnesium (1.7-2.8) mg/dL Total Bilirubin (0.2-1.0) mg/dL AST (10-42) IU/L ALT (10-60) IU/L Alkaline Phosphatase (42-121) IU/L Total Protein (6.7-8.2) g/dL Albumin (3.2-5.5) g/dL Globulin (2.1-4.2) g/dL Albumin/Globulin Ratio (1.0-2.2) 09/28/16 09/28/16 09/27/16 Range/Units 05:02 05:02 20:20 WBC 6.7 (4.8-10.8) x10^3/uL RBC 2.54 L (4.70-6.10) 10^6/uL Hgb 8.0 L (14.0-18.0) g/dL Hct 23.0 L (42.0-52.0) % MCV 90.6 (80.0-94.0) fL MCH 31.6 H (27.0-31.0) pg MCHC 34.9 (32.0-36.0) g/dL RDW 13.4 (12.0-15.0) % Plt Count 154 (130-450) 10^3/uL MPV 6.6 L (7.4-11.4) fL Neut # 5.2 (1.5-6.6) 10^3/uL Lymph # 0.8 L (1.5-3.5) 10^3/uL Edgar # 0.7 (0.0-1.0) 10^3/uL Eos # 0.0 (0.0-0.7) 10^3/uL Baso # 0.0 (0.0-0.1) 10^3/uL Absolute Nucleated RBC 0.03 x10^3/uL Nucleated RBCs 0.4 /100WBC Sodium 136 (135-145) mmol/L Potassium 3.4 L (3.5-5.0) mmol/L Chloride 103 (101-111) mmol/L Carbon Dioxide 25 (21-32) mmol/L Anion Gap 8.0 (6-13) BUN 28 H (6-20) mg/dL Creatinine 0.7 (0.6-1.2) mg/dL Estimated GFR (MDRD) 107 (>89) Glucose 127 H (70-100) mg/dL POC Whole Bld Glucose 149 H (70 - 100) mg/dL Calcium 7.8 L (8.5-10.3) mg/dL Phosphorus 2.8 (2.5-4.6) mg/dL Magnesium 1.7 (1.7-2.8) mg/dL Total Bilirubin 0.8 (0.2-1.0) mg/dL AST 78 H (10-42) IU/L ALT 20 (10-60) IU/L Alkaline Phosphatase 356 H (42-121) IU/L Total Protein 4.7 L (6.7-8.2) g/dL Albumin 2.1 L (3.2-5.5) g/dL Globulin 2.6 (2.1-4.2) g/dL Albumin/Globulin Ratio 0.8 L (1.0-2.2) 09/27/16 Range/Units 16:54 WBC (4.8-10.8) x10^3/uL RBC (4.70-6.10) 10^6/uL Hgb (14.0-18.0) g/dL Hct (42.0-52.0) % MCV (80.0-94.0) fL MCH (27.0-31.0) pg MCHC (32.0-36.0) g/dL RDW (12.0-15.0) % Plt Count (130-450) 10^3/uL MPV (7.4-11.4) fL Neut # (1.5-6.6) 10^3/uL Lymph # (1.5-3.5) 10^3/uL Edgar # (0.0-1.0) 10^3/uL Eos # (0.0-0.7) 10^3/uL Baso # (0.0-0.1) 10^3/uL Absolute Nucleated RBC x10^3/uL Nucleated RBCs /100WBC Sodium (135-145) mmol/L Potassium (3.5-5.0) mmol/L Chloride (101-111) mmol/L Carbon Dioxide (21-32) mmol/L Anion Gap (6-13) BUN (6-20) mg/dL Creatinine (0.6-1.2) mg/dL Estimated GFR (MDRD) (>89) Glucose (70-100) mg/dL POC Whole Bld Glucose 147 H (70 - 100) mg/dL Calcium (8.5-10.3) mg/dL Phosphorus (2.5-4.6) mg/dL Magnesium (1.7-2.8) mg/dL Total Bilirubin (0.2-1.0) mg/dL AST (10-42) IU/L ALT (10-60) IU/L Alkaline Phosphatase (42-121) IU/L Total Protein (6.7-8.2) g/dL Albumin (3.2-5.5) g/dL Globulin (2.1-4.2) g/dL Albumin/Globulin Ratio (1.0-2.2) - Current Medications Current Medications: Current Medications Generic Name Dose Route Start Last Admin Trade Name Freq PRN Reason Stop Dose Admin Aspirin 81 mg 09/24/16 09:00 09/28/16 10:04 [facility] Aspirin PO 81 mg DAILY GABRIELA Administration Atorvastatin Calcium 20 mg 09/24/16 21:00 09/27/16 21:07 Lipitor PO 20 mg QPM GABRIELA Administration Calcium Carbonate/Glycine 500 mg 09/24/16 21:00 09/28/16 10:04 Tums PO 500 mg BID GABRIELA Administration Chlorpromazine HCl 25 mg 09/26/16 15:34 09/26/16 16:08 Thorazine PO 25 mg TID PRN Administration Hiccups Cholecalciferol 5,000 unit 09/24/16 17:20 09/28/16 10:04 Vitamin D3 PO 5,000 unit BID GABRIELA Administration Docusate Sodium 250 - 500 mg 09/24/16 21:00 09/28/16 10:05 Colace 250mg Capsule PO Not Given DAILY GABRIELA Finasteride 5 mg 09/24/16 09:00 09/28/16 10:04 Proscar PO 5 mg DAILY GABRIELA Administration Sodium Chloride 1,000 mls @ 100 mls/hr 09/23/16 23:00 09/28/16 06:55 Normal Saline 0.9% IV 100 mls/hr .Q10H GABRIELA Administration Acetaminophen 100 mls @ 400 mls/hr 09/24/16 16:00 09/28/16 10:04 Ofirmev IV 400 mls/hr Q6H GABRIELA Administration Magnesium Sulfate 50 mls @ 50 mls/hr 09/28/16 12:00 09/28/16 11:18 Magnesium Sulfate IV 09/28/16 12:59 50 mls/hr ONCE ONE Administration Insulin Aspart 1 - 9 unit 09/25/16 22:56 09/28/16 10:05 Novolog SUBQ Not Given 0800,1200,1700,2100 [facility] Protocol Insulin Glargine 10 unit 09/25/16 09:00 09/28/16 10:03 Lantus Solostar SUBQ 10 unit BID GABRIELA Administration Lisinopril 5 mg 09/28/16 11:30 09/28/16 11:17 Zestril PO 5 mg DAILY GABRIELA Administration Memantine 10 mg 09/24/16 09:00 09/28/16 10:04 Namenda PO 10 mg BID GABRIELA Administration Metoprolol Succinate 25 mg 09/24/16 09:00 09/28/16 10:04 Toprol Xl PO 25 mg DAILY GABRIELA Administration Multivitamins/Minerals 1 tab 09/24/16 18:00 09/28/16 10:04 Theragran M PO 1 tab DAILYWM GABRIELA Administration Ondansetron HCl 4 mg 09/23/16 22:52 09/24/16 23:28 Zofran Inj IVP 4 mg Q6HR PRN Administration Nausea / Vomiting Oxycodone HCl 5 mg 09/23/16 22:52 09/26/16 08:39 Roxicodone PO 5 mg Q4HR PRN Administration Pain 5 to 7 Pantoprazole Sodium 40 mg 09/24/16 07:00 09/28/16 06:55 Protonix PO 40 mg QDAC GABRIELA Administration Polyethylene Glycol 17 gm 09/24/16 09:00 09/28/16 10:05 Miralax PO Not Given DAILY GABRIELA Senna 8.6 - 17.2 mg 09/24/16 21:00 09/28/16 10:06 Senokot PO Not Given DAILY GABRIELA Sodium Chloride 10 ml 09/24/16 06:00 09/28/16 06:53 Normal Saline Flush 0.9% IVP Not Given Q8HR GABRIELA
[2016-09-28] MEDS: ONDANSETRON 4 MG/2 ML VIAL IVP PRN (17:27)
[2016-09-28] MEDS: ATORVASTATIN 10 MG TABLET PO SCH (20:56)
[2016-09-29] MEDS: ACETAMINOPHEN 1,000 MG/100 ML 100 ML IV SCH (04:39)
[2016-09-29] MEDS: SODIUM CHLORIDE 0.9% 1,000 ML IV SCH (04:57)
[2016-09-29] MEDS: PANTOPRAZOLE 40 MG TABLET PO SCH (06:18)
[2016-09-29] MEDS: SODIUM CHLORIDE FLUSH 0.9% 10 ML SYRINGE IVP SCH (06:20)
[2016-09-29 07:39] LABS: HCT - HEMATOCRIT 23.1 % (42.0-52.0); HGB - HEMOGLOBIN 8.1 g/dL (14.0-18.0); MEAN CORPUSCULAR HEMOGLOBIN 31.7 pg (27.0-31.0); MEAN CORPUSCULAR HGB CONC 34.9 g/dL (32.0-36.0); MEAN PLATELET VOLUME 6.3 fL (7.4-11.4); RED BLOOD COUNT 2.54 10^6/uL (4.70-6.10); RED CELL DISTRIBUTION WIDTH 13.5 % (12.0-15.0); WHITE BLOOD COUNT 7.7 x10^3/uL (4.8-10.8)
[2016-09-29 07:43] VITALS: BP 124/72
[2016-09-29] MEDS ORDERED: POTASSIUM CHLORIDE 20 MEQ TABLET PO SCH (08:00)
[2016-09-29] MEDS: POLYETHYLENE GLYCOL 3350 17 GM PACKET PO SCH (08:49)
[2016-09-29] MEDS: INSULIN GLARGINE 300 UNIT/3 ML PEN SUBQ SCH (08:49)
[2016-09-29] MEDS: CALCIUM CARBONATE CHEW 500 MG TABLET PO SCH (08:50)
[2016-09-29] MEDS: DOCUSATE SODIUM 250 MG CAPSULE PO SCH (08:50)
[2016-09-29] MEDS: CHOLECALCIFEROL 5,000 UNIT CAPSULE PO SCH (08:50)
[2016-09-29] MEDS: ASPIRIN CHEW 81 MG TABLET PO SCH (08:50)
[2016-09-29] MEDS: SENNA 8.6 MG TABLET PO SCH (08:51)
[2016-09-29] MEDS: LISINOPRIL 5 MG TABLET PO SCH (08:51)
[2016-09-29] MEDS: FINASTERIDE 5 MG TABLET PO SCH (08:51)
[2016-09-29] MEDS: METOPROLOL SUCCINATE 25 MG TABLET PO SCH (08:51)
[2016-09-29] MEDS: MEMANTINE 5 MG TABLET PO SCH (08:51)
[2016-09-29] MEDS: INSULIN ASPART 300 UNIT/3 ML PEN SUBQ SCH ×2 (08:51→11:45)
[2016-09-29] MEDS: MULTIVITAMIN W/MINERALS TABLET PO SCH (08:51)
[2016-09-29] MEDS ORDERED: ENOXAPARIN 40 MG/0.4 ML SYRINGE SUBQ SCH (09:00)
--- NOTE | 2016-09-29 09:31 | PROVIDER PROGRESS NOTE ---
Subjective - General Admit Date: 09/23/16 Procedure Date: 09/24/16 Post Op Days: 5 Procedure Performed: IM rodding of right femur/hip - Review of Systems Wound/Incisions: positive: Healing well, Drainage Musculoskeletal: positive: Joint swelling Skin: positive: Bruising Psychiatric: positive: Confusion Objective - Patient Data Reviewed Vital Signs: Yes Vital Signs: Vital Signs x48h Temp Pulse Resp BP BP Pulse Ox 09/29/16 07:42 36.9 C 86 14 124/72 94 09/29/16 04:05 36.7 C 71 16 130/69 96 Weight: Weight 09/27/16 09/28/16 09/29/16 23:59 23:59 23:59 Weight (kg) 90.718 kg Intake & Output: Intake and Output Totals x24h 09/27/16 09/28/16 09/29/16 23:59 23:59 23:59 Intake Total 2388 3961 1374 Output Total 150 300 Balance 2238 3661 1374 - Lab Results Lab Results: 09/29/16 07:26 09/28/16 05:02 Other Lab Results: Lab Results x24hrs 09/29/16 09/29/16 09/28/16 Range/Units 07:37 07:26 20:21 WBC 7.7 (4.8-10.8) x10^3/uL RBC 2.54 L (4.70-6.10) 10^6/uL Hgb 8.1 L (14.0-18.0) g/dL Hct 23.1 L (42.0-52.0) % MCV 91.0 (80.0-94.0) fL MCH 31.7 H (27.0-31.0) pg MCHC 34.9 (32.0-36.0) g/dL RDW 13.5 (12.0-15.0) % Plt Count 167 (130-450) 10^3/uL MPV 6.3 L (7.4-11.4) fL POC Whole Bld Glucose 88 206 H (70 - 100) mg/dL 09/28/16 09/28/16 09/28/16 Range/Units 16:42 12:15 11:56 WBC (4.8-10.8) x10^3/uL RBC (4.70-6.10) 10^6/uL Hgb 8.6 L (14.0-18.0) g/dL Hct 24.7 L (42.0-52.0) % MCV (80.0-94.0) fL MCH (27.0-31.0) pg MCHC (32.0-36.0) g/dL RDW (12.0-15.0) % Plt Count (130-450) 10^3/uL MPV (7.4-11.4) fL POC Whole Bld Glucose 169 H 158 H (70 - 100) mg/dL - Current Medications Current Medications: Current Medications Generic Name Dose Route Start Last Admin Trade Name Freq PRN Reason Stop Dose Admin Aspirin 81 mg 09/24/16 09:00 09/29/16 08:50 [facility] Aspirin PO 81 mg DAILY GABRIELA Administration Atorvastatin Calcium 20 mg 09/24/16 21:00 09/28/16 20:56 Lipitor PO 20 mg QPM GABRIELA Administration Calcium Carbonate/Glycine 500 mg 09/24/16 21:00 09/29/16 08:50 Tums PO 500 mg BID GABRIELA Administration Chlorpromazine HCl 25 mg 09/26/16 15:34 09/26/16 16:08 Thorazine PO 25 mg TID PRN Administration Hiccups Cholecalciferol 5,000 unit 09/24/16 17:20 09/29/16 08:50 Vitamin D3 PO 5,000 unit BID GABRIELA Administration Docusate Sodium 250 - 500 mg 09/24/16 21:00 09/29/16 08:50 Colace 250mg Capsule PO 250 mg DAILY GABRIELA Administration Finasteride 5 mg 09/24/16 09:00 09/29/16 08:51 Proscar PO 5 mg DAILY GABRIELA Administration Sodium Chloride 1,000 mls @ 100 mls/hr 09/23/16 23:00 09/29/16 04:57 Normal Saline 0.9% IV 100 mls/hr .Q10H GABRIELA Administration Insulin Aspart 1 - 9 unit 09/25/16 22:56 09/29/16 08:51 Novolog SUBQ Not Given 0800,1200,1700,2100 [facility] [place] Protocol Insulin Glargine 10 unit 09/25/16 09:00 09/29/16 08:49 Lantus Solostar SUBQ 10 unit BID GABRIELA Administration Lisinopril 5 mg 09/28/16 11:30 09/29/16 08:51 Zestril PO 5 mg DAILY GABRIELA Administration Memantine 10 mg 09/24/16 09:00 09/29/16 08:51 Namenda PO 10 mg BID GABRIELA Administration Metoprolol Succinate 25 mg 09/24/16 09:00 09/29/16 08:51 Toprol Xl PO 25 mg DAILY GABRIELA Administration Multivitamins/Minerals 1 tab 09/24/16 18:00 09/29/16 08:51 Theragran M PO 1 tab DAILYWM GABRIELA Administration Ondansetron HCl 4 mg 09/23/16 22:52 09/28/16 17:27 Zofran Inj IVP 4 mg Q6HR PRN Administration Nausea / Vomiting Oxycodone HCl 5 mg 09/23/16 22:52 09/26/16 08:39 Roxicodone PO 5 mg Q4HR PRN Administration Pain 5 to 7 Pantoprazole Sodium 40 mg 09/24/16 07:00 09/29/16 06:18 Protonix PO 40 mg QDAC GABRIELA Administration Polyethylene Glycol 17 gm 09/24/16 09:00 09/29/16 08:49 Miralax PO 17 gm DAILY GABRIELA Administration Potassium Chloride 20 meq 09/29/16 08:00 09/29/16 08:50 K-Dur PO 20 meq DAILYWM GABRIELA Administration Senna 8.6 - 17.2 mg 09/24/16 21:00 09/29/16 08:51 Senokot PO 8.6 mg DAILY GABRIELA Administration Sodium Chloride 10 ml 09/23/16 22:52 09/28/16 17:28 Normal Saline Flush 0.9% IVP 10 ml PRN PRN Administration NEEDED PER PROVIDER ORDERS Sodium Chloride 10 ml 09/24/16 06:00 09/29/16 06:20 Normal Saline Flush 0.9% IVP Not Given Q8HR GABRIELA Tramadol HCl 50 mg 09/24/16 13:41 09/29/16 06:18 Ultram PO 50 mg Q6H PRN Administration PAIN - Physical Exam Wound/Incisions: positive: Drainage Skin: positive: Warm, Dry Neurologic/Psychiatric: positive: Motor nml, Sensation nml, Mood/affect nml Impression/Plan - Problem List Problem List: Ortho: Pt is showing decreasing hct. Will follow with serial labs. Rec: D/C Lovenox and use ASA.. Continue with care. Dressing change by nursing today.
[2016-09-29] MEDS ORDERED: ASPIRIN 325 MG TABLET PO SCH (10:00)
--- NOTE | 2016-09-29 10:28 | Discharge Plan ---
Discharge Plan Disposition: 03 SNF DC/Xfer Condition: Stable Prescriptions: oxyCODONE [Roxicodone] 5 mg PO Q6H PRN #20 tablet PRN Reason: Pain 5 to 7 Diet: Diabetic Activity Restrictions: Wt Bearing as Tolerated Assistance Devices: Walker Weight Bearing: Full Weight No Smoking: If you smoke, Please STOP! Call for help. Follow-up with: Nikolai Muller MD [Provider Admit Priv/Credential] - 2 Weeks
--- NOTE | 2016-09-29 19:44 | DISCHARGE SUMMARY ---
DATE OF ADMISSION: 09/23/2016 DATE OF DISCHARGE: 09/29/2016 PRIMARY CARE PROVIDER: Sachin Weber MD ADMITTING DIAGNOSES 1. Right femoral shaft fracture. 2. Hypokalemia. 3. Hypomagnesemia. 4. Hyperglycemia. 5. Hypertension. 6. Hyperlipidemia. 7. Obstructive sleep apnea. DISCHARGE DIAGNOSES 1. Right femoral shaft fracture. a. Status post open reduction and internal fixation. 2. Postoperative anemia. a. Status post transfusion. b. Stable. 3. Hypokalemia - resolved. 4. Hypomagnesemia - resolved with replacement. 5. Hyperglycemia, had been treated with insulin. 6. Hypertension - controlled. 7. Hyperlipidemia - controlled on statin. 8. Obstructive sleep apnea on CPAP. BRIEF HISTORY OF PRESENT ILLNESS: For specifics, please see that on admission. This is an 86-year-old gentleman with a complex past medical history. Recently stopped Coumadin due to hematuria. The patie nt had gotten up to use the restroom and lost his balance while standing at the toilet. He had a grou nd-level fall resulting in acute onset of pain. 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 Fracture was co nfirmed on x-ray. Dr. Conner, surgeon transmission builder, recommended admit to the hospitalist team. The patient was taken to the operating room on 09/24/2016, and a hafsa was placed in the right femur. T he procedure was performed without difficulties or complications. The patient was taken back to the [facility] floor for further observation. The patient was treated with physical therapy and occupational therapy. Pain was controlled with oral and IV medication. Ambulation was encouraged. The patient was noted to have postoperative anemia which continued to decline, with a low of 7.1 hemo globin and 20.0 hematocrit. The patient was transfused 2 units of packed red blood cells with an impr ovement in his hemoglobin and hematocrit. This remained stable over the next 3 days initially with a gradual decline before leveling off. The patient had limited mobility and difficulty with standing an d ambulation. He would often forget that he had an injury due to his dementia. At time of discharge, patient was stable but not at a medical state to go home without assistance. Th e patient was transferred to a shelter facility for additional therapy and medical management . LABORATORY CBC ON DISCHARGE: White blood cell 7.7, hemoglobin 8.1, hematocrit 23.1, platelet count 167. DISCHARGE MEDICATIONS 1. Oxycodone 5 mg p.o. q.4 hours as needed for pain. 2. Aspirin 325 mg daily. 3. Potassium 10 daily. 4. Lisinopril 5 mg daily. 5. Tramadol 50 mg q.6 hours as needed. 6. Calcium carbonate 500 mg b.i.d. 7. Metoprolol succinate 25 mg daily. 8. Senna 8.6 mg as needed daily. 9. Protonix 40 mg q.a.m. 10. Insulin Lantus 10 units subcutaneously b.i.d. 11. Insulin aspart per moderate sliding scale. PHYSICAL EXAMINATION ON DISCHARGE GENERAL: In no acute distress. CHEST: Clear to auscultation with regular respiratory rate and effort. CARDIOVASCULAR: Regular rate and rhythm without murmurs, rubs, or gallops. ABDOMEN: Nontender, nondistended. Normal bowel tones. EXTREMITIES: Right lower extremity with tenderness to palpation. Incision is clean, dry, and intact. There is 1+ or trace plus left lower extremity edema. SKIN: No rashes or breakdown. DISCHARGE INSTRUCTIONS 1. The patient is discharged to a shelter facility. 2. Follow up with Orthopedic Surgery in 2 weeks. 3. Follow up with his primary care provider in 1-2 weeks. 4. Diet: Consistent carbohydrate diet. 5. Activity: Physical therapy and occupational therapy with weightbearing as tolerated. Time spent on discharge greater than 30 minutes, including decision making and plan. Thank you for the opportunity to participate in the care of the patient and all his medical needs. JOB #: [id number] EXT JOB #:[id number]
[2016-09-30] MEDS ORDERED: ASPIRIN 325 MG TABLET PO SCH (09:00)
== END 2016-09-29 14:23 | DRG 481 ==
LOC: EDUNIT# → ED 21:19 → MS 22:56
PROVIDERS: ADMIT Internal Medicine; ATTEND Physician Assistant
PROC: 0QS606Z Reposition Right Upper Femur with Intramedullary Internal Fixation Device, Open Approach (ICD-10-PCS; principal; 2016-09-24 09:00)
PROC: 30233N1 Transfusion of Nonautologous Red Blood Cells into Peripheral Vein, Percutaneous Approach (ICD-10-PCS; 2016-09-26)
DX: S72.301A Unspecified fracture of shaft of right femur, initial encounter for closed fracture (principal); S72.21XA Displaced subtrochanteric fracture of right femur, initial encounter for closed fracture; D62 Acute posthemorrhagic anemia; W19.XXXA Unspecified fall, initial encounter; Z96.653 Presence of artificial knee joint, bilateral; Y92.002 Bathroom of unspecified non-institutional (private) residence as the place of occurrence of the external cause; F03.90 Unspecified dementia, unspecified severity, without behavioral disturbance, psychotic disturbance, mood disturbance, and anxiety; E87.6 Hypokalemia; E83.42 Hypomagnesemia; I10 Essential (primary) hypertension; E78.5 Hyperlipidemia, unspecified; G47.33 Obstructive sleep apnea (adult) (pediatric); Z86.73 Personal history of transient ischemic attack (TIA), and cerebral infarction without residual deficits; N40.0 Benign prostatic hyperplasia without lower urinary tract symptoms; Z79.82 Long term (current) use of aspirin; E11.65 Type 2 diabetes mellitus with hyperglycemia
CPT/HCPCS: 36415; 71010; 76857; 80048; 80053; 80061; 81001; 81003; 82607; 82728; 82803; 82947; 82977; 83036; 83519; 83540; 83615; 83690; 83735; 84100; 84153; 84443; 84466; 85014; 85018; 85025; 85044; 85610; 86850; 86900; 86901; 86920; 87086; 93005; 93010; 96361; 96374; 96375; 99283; 99284; 99285

== ENCOUNTER 2016-09-29 14:05 | Outpatient (CLI) | payer MEDICARE, OTHER | END 2016-09-29 14:06 | disposition home or self-care (01) | LOC: EMS 14:05 | PROVIDERS: ATTEND Surgery | DX: S72.91XA Unspecified fracture of right femur, initial encounter for closed fracture (principal) | CPT/HCPCS: A0425; A0428 ==

== ENCOUNTER 2016-10-03 06:05 | Outpatient (CLI) | payer MEDICARE, OTHER ==
[2016-10-03 08:19] LABS: BILIRUBIN,URINE NEGATIVE (NEGATIVE)
[2016-10-03 08:22] LABS: UA CHARGE (STRIP ONLY) YES; UR CULTURE IF IND NOT INDICATED
[2016-10-03 08:29] LABS: BASOPHILS % (AUTO) 0.4 %; EOSINOPHILS # (AUTO) 0.1 10^3/uL (0.0-0.7); EOSINOPHILS % (AUTO) 1.5 %; HGB - HEMOGLOBIN 8.2 g/dL (14.0-18.0); LYMPHOCYTES # (AUTO) 0.9 10^3/uL (1.5-3.5); LYMPHOCYTES % (AUTO) 12.1 %; MEAN CORPUSCULAR HEMOGLOBIN 30.8 pg (27.0-31.0); MEAN CORPUSCULAR HGB CONC 34.1 g/dL (32.0-36.0); MEAN CORPUSCULAR VOLUME 90.3 fL (80.0-94.0); MEAN PLATELET VOLUME 6.4 fL (7.4-11.4); MONOCYTES # (AUTO) 0.5 10^3/uL (0.0-1.0); MONOCYTES % (AUTO) 6.5 %; NEUTROPHILS % (AUTO) 79.5 %; NUCLEATED RED BLOOD CELLS AUTO 0.1 /100WBC; RED BLOOD COUNT 2.66 10^6/uL (4.70-6.10); RED CELL DISTRIBUTION WIDTH 13.5 % (12.0-15.0); UNCORRECTED WHITE BLOOD COUNT 7.5 x10^3/uL; WHITE BLOOD COUNT 7.5 x10^3/uL (4.8-10.8)
[2016-10-03 08:32] LABS: ALBUMIN/GLOBULIN RATIO 0.6 (1.0-2.2); BILIRUBIN,TOTAL 1.1 mg/dL (0.2-1.0); CALCIUM 7.8 mg/dL (8.5-10.3); CREATININE 0.7 mg/dL (0.6-1.2); POTASSIUM 3.5 mmol/L (3.5-5.0); TOTAL PROTEIN 4.8 g/dL (6.7-8.2)
== END 2016-10-03 06:06 | disposition home or self-care (01) ==
LOC: LAB.R 06:05
DX: D62 Acute posthemorrhagic anemia (principal)
CPT/HCPCS: 80053; 81001; 81003; 85025; 87086

== ENCOUNTER 2016-10-04 12:05 | Outpatient (CLI) | payer MEDICARE, OTHER ==
[2016-10-04 12:58] LABS: BASOPHILS % (AUTO) 0.1 %; EOSINOPHILS % (AUTO) 0.1 %; HCT - HEMATOCRIT 26.2 % (42.0-52.0); HGB - HEMOGLOBIN 9.1 g/dL (14.0-18.0); LYMPHOCYTES # (AUTO) 0.2 10^3/uL (1.5-3.5); LYMPHOCYTES % (AUTO) 3.2 %; MEAN CORPUSCULAR HEMOGLOBIN 31.5 pg (27.0-31.0); MEAN CORPUSCULAR HGB CONC 34.8 g/dL (32.0-36.0); MEAN CORPUSCULAR VOLUME 90.6 fL (80.0-94.0); MEAN PLATELET VOLUME 6.2 fL (7.4-11.4); MONOCYTES % (AUTO) 0.3 %; NEUTROPHILS # (AUTO) 6.8 10^3/uL (1.5-6.6); NEUTROPHILS % (AUTO) 96.3 %; RED BLOOD COUNT 2.89 10^6/uL (4.70-6.10); RED CELL DISTRIBUTION WIDTH 13.8 % (12.0-15.0)
== END 2016-10-04 12:06 | disposition home or self-care (01) ==
LOC: LAB.R 12:05
PROVIDERS: ATTEND Internal Medicine
DX: D62 Acute posthemorrhagic anemia (principal)
CPT/HCPCS: 36415; 85025

== ENCOUNTER 2016-10-04 17:29 | Outpatient (CLI) | payer MEDICARE, OTHER | END 2016-10-04 17:30 | disposition critical access hospital (66) | LOC: EMS 17:29 | PROVIDERS: ATTEND Surgery | DX: E11.641 Type 2 diabetes mellitus with hypoglycemia with coma (principal) | CPT/HCPCS: A0425; A0427 ==

== ENCOUNTER 2016-10-04 17:33 | Inpatient (IN) | payer MEDICARE, OTHER ==
[2016-10-04] MEDS ORDERED: ACETAMINOPHEN 1,000 MG/100 ML 100 ML IV STA (17:53)
[2016-10-04] MEDS ORDERED: ACETAMINOPHEN 1,000 MG/100 ML 100 ML IV ONE (17:54)
--- NOTE | 2016-10-04 17:56 | ED Physician Documentation ---
PD HPI ALTERED MENTAL STATUS - Stated complaint Stated Complaint: POST OP COMPLICATIONS - Chief complaint Chief Complaint: Fever - History obtained from History obtained from: Family (DPOA), EMS - History of Present Illness Timing - onset: Other (Had a recent hip fracture, repaired here and discharged to [facility] 5 days ago, now presents by EMS with fevers and report of cough. Patient is unable to give any history due to altered mental status.) Review of Systems Unable to obtain: Confused PD PAST MEDICAL HISTORY - Past Medical History Cardiovascular: Hypertension, High cholesterol, Atrial fibrillation Respiratory: Sleep apnea, CPAP use Neuro: Dementia, TIA Endocrine/Autoimmune: None GI: None : Benign prostate hypertrophy HEENT: None Psych: None Musculoskeletal: Osteoarthritis, Chronic back pain Derm: None - Past Surgical History Past Surgical History: Yes Ortho: Knee replacement - Present Medications Home Medications: Ambulatory Orders Medication Instructions Recorded Confirmed Aspirin 81 mg PO DAILY 09/23/16 09/23/16 Finasteride 5 mg PO DAILY 09/23/16 09/23/16 Memantine [Namenda] 10 mg PO BID 09/23/16 09/23/16 Metoprolol Succinate 25 mg PO DAILY 09/23/16 09/23/16 Simvastatin 40 mg PO DAILY 09/23/16 09/23/16 Potassium Chloride [Micro-K] 10 meq PO DAILY 09/24/16 09/24/16 Tramadol HCl 50 mg PO Q6H PRN 09/24/16 09/24/16 Calcium Carbonate [Tums (Calcium 500 mg PO BID tablet 09/29/16 Carbonate 500mg)] Cholecalciferol [Vitamin D3] 2,000 unit PO DAILYWM capsule 09/29/16 Insulin Aspart [NovoLOG] 1 - 9 unit SUBQ 09/29/16 0800,1200,1700,2100 pen Insulin Glargine [Lantus Solostar] 10 unit SUBQ BID pen 09/29/16 Lisinopril [Zestril] 5 mg PO DAILY #0 tablet 09/29/16 Multivitamin W/Minerals [Theragran 1 tab PO DAILYWM tablet 09/29/16 M] oxyCODONE [Roxicodone] 5 mg PO Q6H PRN #20 tablet 09/29/16 - Allergies Allergies/Adverse Reactions: Allergies Allergy/AdvReac Type Severity Reaction Status Date / Time No Known Drug Allergies Allergy Verified 10/04/16 17:41 - Social History Does the pt smoke?: No Smoking Status: Never smoker Does the pt drink ETOH?: Yes Does the pt have substance abuse?: No - POLST Patient has POLST: Yes POLST Status: DNR PD ED PE NORMAL - Vitals Vital signs reviewed: Yes - General General: Other (He is somnolent, tachypneic, febrile. He nods his head when I say his name but he does not follow commands and is nonverbal. He is keeping his eyes closed.) - HEENT HEENT: PERRL, EOMI - Neck Neck: Supple, no meningeal sign, No bony TTP - Cardiac Cardiac: Other (Tachycardic) - Respiratory Respiratory: Other (Tachypneic, diminished at both bases, left more than right with some rhonchi there) - Abdomen Abdomen: Soft, Other (TTP RUQ) - Derm Derm: Normal color, Warm and dry - Extremities Extremities: Other (Right hip surgical sites look fine) - Neuro Neuro: Other (ddelirious, nonverbal) Results - Vitals Vitals: Vital Signs - 24 hr 10/04/16 10/04/16 10/04/16 17:36 19:48 21:37 Temperature 38.9 C H 37.5 C Heart Rate 80 94 94 Respiratory 20 22 22 Rate Blood Pressure 95/61 95/67 94/64 O2 Saturation 93 94 97 10/04/16 22:27 Temperature Heart Rate 84 Respiratory 9 L Rate Blood Pressure 78/52 L O2 Saturation 97 Oxygen O2 Source Room air Oxygen Flow Rate 3 - EKG (time done) 1804 Rate: Rate (enter#) (116) Rhythm: Atrial fibrillation (with PVCs) QRS: Low voltage Ischemia: Non specific changes Computer interpretation: Agree with computer - Labs Labs: Laboratory Tests 10/04/16 10/04/16 10/04/16 17:49 17:49 17:49 WBC 27.6 H RBC 2.76 L Hgb 8.5 L Hct 25.4 L MCV 92.0 MCH 30.6 MCHC 33.3 RDW 14.1 Plt Count 367 MPV 6.2 L Neut # 27.2 H Lymph # 0.3 L Cavalier # 0.1 Eos # 0.0 Baso # 0.0 Absolute Nucleated RBC 0.31 Nucleated RBCs 1.1 WBC Morphology 1+ BANDS Platelet Estimate NORMAL (130-450,000) Platelet Morphology NORMAL APPEARANCE RBC Morph Micro Appear 1+ POLYCHROMASIA PT 17.5 H INR 1.5 H Sodium 137 Potassium 3.3 L Chloride 100 L Carbon Dioxide 26 Anion Gap 11.0 BUN 26 H Creatinine 1.3 H Estimated GFR (MDRD) 52 L Glucose 126 H Lactic Acid Calcium 7.5 L Total Bilirubin 2.3 H AST 93 H ALT 65 H Alkaline Phosphatase 367 H Total Creatine Kinase 89 CK-MB (CK-2) Troponin I Total Protein 5.1 L Albumin 1.7 L Globulin 3.4 Albumin/Globulin Ratio 0.5 L Lipase 10 L Urine Color Urine Clarity Urine pH Ur Specific Lenore Urine Protein Urine Glucose (UA) Urine Ketones Urine Occult Blood Urine Nitrite Urine Bilirubin Urine Urobilinogen Ur Leukocyte Esterase Urine RBC Urine WBC Ur Epithelial Cells Ur Squamous Epith Cells Urine Bacteria Urine Mucus Ur Microscopic Review Urine Culture Comments 10/04/16 10/04/16 10/04/16 17:49 17:49 18:44 WBC RBC Hgb Hct MCV MCH MCHC RDW Plt Count MPV Neut # Lymph # Cavalier # Eos # Baso # Absolute Nucleated RBC Nucleated RBCs WBC Morphology Platelet Estimate Platelet Morphology RBC Morph Micro Appear PT INR Sodium Potassium Chloride Carbon Dioxide Anion Gap BUN Creatinine Estimated GFR (MDRD) Glucose Lactic Acid 3.7 H* Calcium Total Bilirubin AST ALT Alkaline Phosphatase Total Creatine Kinase CK-MB (CK-2) 1.0 Troponin I 0.11 Total Protein Albumin Globulin Albumin/Globulin Ratio Lipase Urine Color DARK YELLOW Urine Clarity HAZY Urine pH 6.0 Ur Specific Lenore 1.015 Urine Protein TRACE Urine Glucose (UA) NEGATIVE Urine Ketones NEGATIVE Urine Occult Blood LARGE H Urine Nitrite NEGATIVE Urine Bilirubin MODERATE H Urine Urobilinogen 4 H Ur Leukocyte Esterase TRACE H Urine RBC TNTC H Urine WBC 6-10 H Ur Epithelial Cells FEW Renal Tubular Ur Squamous Epith Cells FEW Squamous Urine Bacteria Many H Urine Mucus Few Strands Ur Microscopic Review INDICATED Urine Culture Comments INDICATED 10/04/16 20:25 WBC RBC Hgb Hct MCV MCH MCHC RDW Plt Count MPV Neut # Lymph # Cavalier # Eos # Baso # Absolute Nucleated RBC Nucleated RBCs WBC Morphology Platelet Estimate Platelet Morphology RBC Morph Micro Appear PT INR Sodium Potassium Chloride Carbon Dioxide Anion Gap BUN Creatinine Estimated GFR (MDRD) Glucose Lactic Acid 3.4 H* Calcium Total Bilirubin AST ALT Alkaline Phosphatase Total Creatine Kinase CK-MB (CK-2) Troponin I Total Protein Albumin Globulin Albumin/Globulin Ratio Lipase Urine Color Urine Clarity Urine pH Ur Specific Lenore Urine Protein Urine Glucose (UA) Urine Ketones Urine Occult Blood Urine Nitrite Urine Bilirubin Urine Urobilinogen Ur Leukocyte Esterase Urine RBC Urine WBC Ur Epithelial Cells Ur Squamous Epith Cells Urine Bacteria Urine Mucus Ur Microscopic Review Urine Culture Comments - Rads (name of study) 1v chest Radiology: EMP read contemporaneously (Pulmonary vascular congestion without obvious consolidation.) RUQ sono Radiology: EMP read contemporaneously (Gallstones and sludge without other evidence of cholecystitis, complicated renal cyst) CT A/P Radiology: EMP read contemporaneously (No acute organ abnormality, moderate pleural effusions, diverticulosis, vascular disease, prostatic hypertrophy, thickening of the urinary bladder, L2 compression fracture) Procedures - Central Line Central Line Preparation: Unable to obtain consent, Time out completed, Ultrasound used, Sterile prep and drape Central line location: Right IJ Central line type: Triple lumen Central line aftercare: Chlorhexidine disc placed, Secured, Placement confirmed , No pneumothorax, No complications, Bundle checklist complete, Pt tolerated well PD MEDICAL DECISION MAKING - ED course ED course: This is an 86-year-old gentleman presents from a local retirement after her recent transfer thereafter hip fracture. He is febrile and delirious. No obvious pulmonary source on exam or chest x-ray. Urinalysis is infected. His hip wound looks fine. He does have a significant leukocytosis and lactic acidosis. He was given 3 L of IV crystalloid, lactate rechecked and improved. He was administered Zosyn and vancomycin after blood cultures. He had some abdominal tenderness focused in the right upper quadrant ultrasound was done showing gallstones but no evidence of cholecystitis. This was followed by CT. Spoke with Dr. Ring for admission at 940 p.m. He did have some soft blood pressures, but no maps below [address] Ring spoke with the by phone, after that discussion the wanted him in the ICU and there is no ICU bed available here. prefer to [place] or [facility]. [facility] so [facility] was called for transfer at 944 p.m. Accepted to [facility] ICU by Dr. Meza at 950 p.m. I was notified at 1015 p.m. and we actually did have an ICU bed and Taty was called and thanked but we were able to keep him here and is admitting him. He continued to have some episodes of hypotension, a central line was placed and pressures were started. - Critical Care Time(min): 45 Time Includes: Direct patient care, Review records, Reassess patient, Document care, Coordinate care, Medical consult, Family consult for tx dec Procedures included in critical care time: Peripheral IV Procedures excluded from critical care time: EKG Departure - Departure Disposition: 66 [facility] DC/Xfer Clinical Impression: Septicemia UTI (urinary tract infection) Qualifiers: Urinary tract infection type: site unspecified Hematuria presence: with hematuria Qualified Code(s): N39.0 - Urinary tract infection, site not specified Fever Qualifiers: Fever type: due to other condition Qualified Code(s): R50.81 - Fever presenting with conditions classified elsewhere Abdominal pain Qualifiers: Abdominal location: generalized Qualified Code(s): R10.84 - Generalized abdominal pain Condition: Serious
[2016-10-04] MEDS ORDERED: SODIUM CHLORIDE 0.9% 1,000 ML IV ONE (17:59)
[2016-10-04 18:00] LABS: BASOPHILS % (AUTO) 0.1 %; HCT - HEMATOCRIT 25.4 % (42.0-52.0); HGB - HEMOGLOBIN 8.5 g/dL (14.0-18.0); LYMPHOCYTES # (AUTO) 0.3 10^3/uL (1.5-3.5); LYMPHOCYTES % (AUTO) 0.9 %; MEAN CORPUSCULAR HEMOGLOBIN 30.6 pg (27.0-31.0); MEAN CORPUSCULAR HGB CONC 33.3 g/dL (32.0-36.0); MEAN PLATELET VOLUME 6.2 fL (7.4-11.4); MONOCYTES # (AUTO) 0.1 10^3/uL (0.0-1.0); MONOCYTES % (AUTO) 0.5 %; NEUTROPHILS # (AUTO) 27.2 10^3/uL (1.5-6.6); NEUTROPHILS % (AUTO) 98.5 %; NUCLEATED RED BLOOD CELLS AUTO 1.1 /100WBC; RED BLOOD COUNT 2.76 10^6/uL (4.70-6.10); RED CELL DISTRIBUTION WIDTH 14.1 % (12.0-15.0); UNCORRECTED WHITE BLOOD COUNT 27.6 x10^3/uL; WHITE BLOOD COUNT 27.6 x10^3/uL (4.8-10.8)
[2016-10-04 18:05] LABS: INR 1.5 (0.8-1.2); PT - PROTHROMBIN TIME 17.5 secs (9.9-12.6)
[2016-10-04 18:11] LABS: ALBUMIN/GLOBULIN RATIO 0.5 (1.0-2.2); BILIRUBIN,TOTAL 2.3 mg/dL (0.2-1.0); CALCIUM 7.5 mg/dL (8.5-10.3); CREATININE 1.3 mg/dL (0.6-1.2); POTASSIUM 3.3 mmol/L (3.5-5.0); TOTAL PROTEIN 5.1 g/dL (6.7-8.2)
[2016-10-04] MEDS ORDERED: LACTATED RINGERS 2,000 ML IV STA (18:12)
[2016-10-04] MEDS ORDERED: PIPERACILLIN/TAZOBACTAM 4.5 GM in SODIUM CHLORIDE 0.9% MINIBAG 100 ML IV STA (18:12)
[2016-10-04] MEDS ORDERED: VANCOMYCIN INJ 2 GM in SODIUM CHLORIDE 0.9% 500 ML IV STA (18:12)
[2016-10-04 18:16] LABS: TROPONIN I 0.11 ng/mL (<0.49)
[2016-10-04 18:26] LABS: PLATELET ESTIMATE, MANUAL NORMAL (130-450,000) (NORMAL); PLATELET MORPHOLOGY NORMAL APPEARANCE (NORMAL)
[2016-10-04 18:27] LABS: WBC MORPHOLOGY (MULTIPLE) 1+ BANDS (NORMAL)
--- NOTE | 2016-10-04 18:57 | XRAY Preliminary Report ---
Exam: XR Chest 1 View IMPRESSION: Pulmonary vascular congestion. No overt edema or focal air space consolidation. [id number]
--- NOTE | 2016-10-04 19:00 | XRAY Report ---
EXAM: CHEST RADIOGRAPHY EXAM DATE: 10/04/2016 06:32 PM. CLINICAL HISTORY: Cough, fever. COMPARISON: 09/23/2016 chest x-ray. TECHNIQUE: 1 view. FINDINGS: Lungs/Pleura: Distended pulmonary vessels with no edema or focal consolidation. No pleural effusion o r pneumothorax. Mediastinum: Within exam limitations, cardiomediastinal contour is normal. Other: None. IMPRESSION: Pulmonary vascular congestion. No overt edema or focal air space consolidation. [facility] Referring Provider Line: [phone] SITE ID: [id number]
[2016-10-04 19:14] LABS: UA w/ MICROSCOPIC CHARGE YES
[2016-10-04 19:15] LABS: BILIRUBIN,URINE MODERATE (NEGATIVE)
[2016-10-04 19:20] LABS: UR CULTURE IF IND INDICATED
--- NOTE | 2016-10-04 19:48 | Ultrasound Preliminary Report ---
Exam: US Abdomen Limited IMPRESSION: 1. Gallstones and sludge. No color wall thickening, sonographic Dorsey's sign or pericholecystic flui d. 2. Heterogeneous liver parenchyma. No mass. 3. No hydronephrosis or renal stones. 4.6 x 5.8 x 5.2 cm mildly complex right mid renal cyst with pos sible thickened septations. Cyst wall is mildly irregular without a definite mural nodule. Recommend contrast enhanced CT or MRI for more definitive characterization. [facility] SITE ID: [id number]
--- NOTE | 2016-10-04 20:28 | Ultrasound Report ---
EXAM: ABDOMEN ULTRASOUND LIMITED, RUQ EXAM DATE: 10/04/2016 07:23 PM. CLINICAL HISTORY: Fever, elevated liver enzymes, TTP RUQ. COMPARISON: None. TECHNIQUE: Real-time scanning was performed with static images obtained. FINDINGS: Liver: Mildly heterogeneous parenchyma. No mass or intrahepatic bile duct dilation. Right liver measu res 18 cm. Main portal vein flow: Hepatopetal. Gallbladder: Sludge and gallstones are noted. Negative sonographic Dorsey's sign. No pericholecystic fluid or gallbladder wall thickening noted. Biliary System: CBD measures 4.6 mm. No intrahepatic or extrahepatic ductal dilatation. Right kidney: No hydronephrosis. Renal cortex is mildly echogenic. There is a cystic lesion in the mi d right kidney measuring 4.6 x 5.8 x 5.2 cm. Possible thickened septation. Margins of the cyst are ir regular. No calcifications. No hydronephrosis or stones. Other: Right-sided pleural effusion noted. IMPRESSION: 1. Gallstones and sludge. No gallbladder wall thickening, sonographic Dorsey's sign or pericholecysti c fluid. 2. Heterogeneous liver parenchyma. No mass. 3. No hydronephrosis or renal stones. 4.6 x 5.8 x 5.2 cm mildly complex right mid renal cyst with pos sible thickened septations. Cyst wall is mildly irregular without a definite mural nodule. Recommend contrast enhanced CT or MRI for more definitive characterization and to exclude malignancy. [facility] Referring Provider Line: [phone] SITE ID: [id number]
[2016-10-04] MEDS ORDERED: IOPAMIDOL-300 100 ML VIAL IVP ONE (21:44)
[2016-10-04] MEDS ORDERED: ACETAMINOPHEN 325 MG TABLET PO PRN (22:24)
[2016-10-04] MEDS ORDERED: ONDANSETRON 4 MG/2 ML VIAL IVP PRN (22:24)
[2016-10-04] MEDS ORDERED: HYDROcod/ACETAM 5/325 MG TABLET PO PRN (22:24)
[2016-10-04] MEDS ORDERED: ONDANSETRON ODT 4 MG TABLET TL PRN (22:24)
[2016-10-04] MEDS ORDERED: MORPHINE 2 MG/ML SYRINGE IVP PRN (22:24)
[2016-10-04] MEDS ORDERED: PROCHLORPERAZINE 10 MG/2 ML VIAL IVP PRN (22:24)
--- NOTE | 2016-10-04 22:27 | CT Report ---
EXAM: CT ABDOMEN AND PELVIS EXAM DATE: 10/04/2016 09:54 PM. CLINICAL HISTORY: Sepsis. COMPARISONS: None. TECHNIQUE: Routine helical CT imaging was performed through the abdomen and pelvis. IV contrast: 100 cc Isovue-300. Enteric contrast: No. Reconstructions: Coronal and sagittal. In accordance with CT protocol optimization, one or more of the following dose reduction techniques w ere utilized for this exam: automated exposure control, adjustment of mA and/or KV based on patient s ize, or use of iterative reconstructive technique. FINDINGS: Lung Bases: There are moderate-sized bilateral pleural effusions. There is bibasilar atelectasis. The re is mild cardiomegaly. Liver: Normal. No masses. Gallbladder/Bile Ducts: Unremarkable. Spleen: Normal. Pancreas: There is fatty replacement of the pancreas. No acute abnormalities. Adrenal Glands: Normal. Kidneys: No significant abnormalities. There is a right renal cyst. Peritoneal Cavity/Bowel: No dilated or thick-walled bowel is seen. There is small amount of fluid wit hin the paracolic gutters. There is distal colon diverticulosis without evidence of diverticulitis. N o enlarged mesenteric or retroperitoneal lymph nodes. The appendix is well visualized and normal. Pelvic Organs: Mild enlargement of the prostate. The urinary bladder demonstrates no acute abnormalit ies. No enlarged pelvic lymph nodes. Vasculature: There are atheromatous calcifications of the aorta and branch vessels. No acute vascular abnormalities are seen. Bones: Patient has undergone internal fixation of proximal right femur fracture. No acute bony abnorm alities are seen. There is patient terminated fracture through the superior endplate of the L2 verteb ral body. There is approximately 20% loss of height. Other: None. IMPRESSION: 1. No acute solid or hollow viscus abdominal organ abnormalities to clearly account for the patient's presentation. 2. There are moderate-sized bilateral pleural effusions. 3. There is distal colon diverticulosis without evidence of diverticulitis. 4. There are atheromatous calcifications of the aorta and branch vessels. No acute vascular abnormali ties are seen. 5. Prostate is enlarged. There is mild thickening of the urinary bladder. This could represent cystit is. 6. Age-indeterminate compression fracture of the L2 vertebral body. Patient has undergone internal fi xation of right femur fracture. [facility] Referring Provider Line: [phone] SITE ID: [id number]
[2016-10-04] MEDS ORDERED: traMADol 50 MG TABLET PO PRN (22:28)
[2016-10-04] MEDS ORDERED: VANCOMYCIN PER PHARMACY 1 GM in SODIUM CHLORIDE 0.9% 250 ML IV SCH (23:00)
--- NOTE | 2016-10-04 23:25 | XRAY Preliminary Report ---
Exam: XR Chest for Line Placement IMPRESSION: 1. Right IJ central line placed to cavoatrial junction. 2. No pneumothorax. 3. Mild pulmonary fluid overload. [facility] SITE ID: [id number]
--- NOTE | 2016-10-04 23:28 | XRAY Report ---
EXAM: CHEST RADIOGRAPHY EXAM DATE: 10/04/2016 11:03 PM. CLINICAL HISTORY: Post line. COMPARISON: 10/04/2016. TECHNIQUE: 1 view. FINDINGS: Lungs/Pleura: Mild interstitial edema. No pleural effusion or pneumothorax. Mediastinum: Prominent heart size. Other: Right IJ line placed to cavoatrial junction. IMPRESSION: 1. Right IJ central line placed to cavoatrial junction. 2. No pneumothorax. 3. Mild pulmonary fluid overload. [facility] Referring Provider Line: [phone] SITE ID: [id number]
[2016-10-05] MEDS ORDERED: FUROSEMIDE 20 MG/2 ML VIAL IVP ONE (00:51)
[2016-10-05] MEDS: PIPERACILLIN/TAZOBACTAM 4.5 GM in SODIUM CHLORIDE 0.9% MINIBAG 100 ML IV SCH ×5 (00:56→23:04)
[2016-10-05] MEDS: FUROSEMIDE 20 MG/2 ML VIAL IVP SCH ×2 (00:59→09:01)
[2016-10-05 02:17] LABS: BASOPHILS % (AUTO) 0.1 %; HCT - HEMATOCRIT 23.2 % (42.0-52.0); HGB - HEMOGLOBIN 7.8 g/dL (14.0-18.0); LYMPHOCYTES % (AUTO) 1.8 %; MEAN CORPUSCULAR HEMOGLOBIN 30.4 pg (27.0-31.0); MEAN CORPUSCULAR HGB CONC 33.8 g/dL (32.0-36.0); MEAN PLATELET VOLUME 6.1 fL (7.4-11.4); MONOCYTES % (AUTO) 2.6 %; NEUTROPHILS % (AUTO) 95.5 %; RED BLOOD COUNT 2.57 10^6/uL (4.70-6.10); UNCORRECTED WHITE BLOOD COUNT 30.2 x10^3/uL; WHITE BLOOD COUNT 30.2 x10^3/uL (4.8-10.8)
[2016-10-05] MEDS: POTASSIUM CHLOR 20 MEQ/100 ML 100 ML IV SCH ×2 (02:18→03:22)
[2016-10-05 02:26] LABS: CALCIUM 7.2 mg/dL (8.5-10.3); CREATININE 1.1 mg/dL (0.6-1.2); POTASSIUM 3.4 mmol/L (3.5-5.0)
[2016-10-05 02:33] LABS: MAGNESIUM 1.3 mg/dL (1.7-2.8); PHOSPHORUS 3.9 mg/dL (2.5-4.6)
[2016-10-05 02:38] LABS: CALCIUM 7.1 mg/dL (8.5-10.3)
[2016-10-05 02:56] LABS: BAND NEUTROPHILS % (MANUAL) 33 %; LYMPHOCYTES % (MANUAL) 4 %; NEUTROPHILS % (MANUAL) 61 %; PLATELET ESTIMATE, MANUAL NORMAL (130-450,000) (NORMAL); TOTAL CELLS COUNTED 100
[2016-10-05 02:57] LABS: NP AUTO DIFFERENTIAL? YES; NP MAN DIFFERENTIAL? NO
--- NOTE | 2016-10-05 03:03 | HISTORY & PHYSICAL EXAMINATION ---
DATE OF ADMISSION: 10/04/2016 PRIMARY CARE PROVIDER: Sachin Weber MD. ADMITTING PROVIDER: Antoinette Ring MD. HISTORY OF PRESENT ILLNESS: The patient is an 86-year-old man who has moderate cognitive deficit of aging and is on Namenda. He also used to have a history of atrial fibrillation and was on Coumadin, as well as for a possible TIA. He lives in his own home with his partner of 16-18 years. He was standing in his bathroom when he tripped and fell and lost his balance on 09/23 and had a subsequent right femoral neck fracture. He underwent open reduction and internal fixation and had some postoperative anemia requiring transfusion, hypokalemia that resolved, hypomagnesemia that resolved, a new diagnosis of hypoglycemia with sugars over 200-300 treated with insulin. He also has obstructive sleep apnea on CPAP. He needed rehabilitation because of limited mobility and difficulty with standing. He would often forget that he had his injury due to dementia. He was stable, but not at a medical state or able to go home without assistance. As such, he was transferred to a halfway facility for additional therapy and medical management. He has been at [facility] since 09/29. Over the last couple of days, he has had increasing chest congestion and cough. History is obtained from EMS and from his partner because he is unable to give a history. In addition to the cough and chest congestion, he has gotten more and more lethargic. He is not getting out of bed and is not eating. He had a fever yesterday and labs were done with normal urinalysis and normal WBC. He continues to have the abnormal LFTs that were present with his last admission. He was brought to [facility] today because of continued fever and now he is obtunded. He was evaluated by Dr. Eduard Brooks, and Dr. Brooks found him to be somnolent, tachypneic, febrile. He would nod his head when his name was called, but he would not follow commands and was nonverbal. Eyes were closed. He was febrile to 38.9, heart rate was 80, blood pressure was 95/61. Dr. Brooks gave him lactated Ringer's wide open, as well as sodium chloride wide open with vancomycin and Zosyn. He found to have a urinary tract infection, a complex right renal cyst, elevated liver enzymes, but a negative ultrasound with just sludge in the gallbladder. He does not have any abdominal pain indicating that he has acute cholecystitis. We initially did not have an ICU bed, and as such the patient stayed in the emergency room as Dr. Brooks found him a bed. He was eventually to be transferred to [facility], but at the last moment we were able to transfer the patient out of the ICU where he was stabilized and the patient go now go to ICU here, and the bed transfer to [facility] was cancelled. Although he is DNR/DNI, his partner says that she does want aggressive measures done, such as pressors and care in the ICU and blood transfusions as necessary. PAST MEDICAL HISTORY 1. Moderate cognitive deficit of aging with possible slide into dementia. 2. Complex right renal cyst, resulting in hematuria and stopping of Coumadin in early August. 3. Obstructive sleep apnea on CPAP. 4. Benign prostatic hypertrophy on Finasteride. 5. Osteoarthritis with a history of bilateral knee replacements. 6. Right femoral neck fracture on 09/23, status post open reduction internal fixation. 7. Chronic atrial fibrillation in the past, for which he is on Coumadin. 8. History of TIA, for which he is on Coumadin. 9. Hyperlipidemia. 10. Hypertension. 11. New diagnosis of diabetes mellitus. His partner was never aware that he had diabetes and has never been a diagnosis that she was aware of, but with his hip fracture in September, it was a new diagnosis for which he was started on Lantus and but he was not sent to [facility] with Lantus. ALLERGIES: NO KNOWN DRUG ALLERGIES. MEDICATIONS 1. Simvastatin 40 mg p.o. at bedtime. 2. Calcium carbonate 500 p.o. b.i.d. 3. Vitamin D 2000 units daily. 4. Finasteride 5 mg daily. 5. Lisinopril 5 mg daily. 6. Namenda 10 mg b.i.d. 7. Metoprolol succinate 25 mg p.o. daily. 8. Protonix 40 mg p.o. daily. 9. Oxycodone 5 mg p.o. q.6h. p.r.n. pain. 10. At discharge, there were no orders for Lantus. However, during his hospital stay, he was on Lantus 10 units b.i.d. and sliding scale insulin. SOCIAL HISTORY: This elderly gentleman is from [place]. He moved to the [place] in [address] and lived in [place]. He moved to [facility] in 2001. He has been with his current partner for 16-18 years, and they lived together in their own home until he was placed at [facility]. He uses a walker at home and prior to his admission on 09/23, had fallen several times in the month before. He had 3 children, 2 sons. He had not spoken to them in years and the daughter he does speak to and she lives in [place]. He smoked, but quit 50 years ago. Occasional alcohol use, but no history of abuse. I spoke to his significant other, and she confirms that he is DO NOT INTUBATE, DO NOT RESUSCITATE, BUT STILL WANTS HIM TO RECEIVE AGGRESSIVE MEDICAL CARE, INCLUDING TRANSFER TO ICU AND PRESSORS IF NEEDED. REVIEW OF SYSTEMS: Unobtainable in this septic elderly man who is obtunded. Review of the review of systems from 09/[address] Armas did not have any major complaint other than his dementia and multiple falls. PHYSICAL EXAMINATION VITAL SIGNS: On examination tonight, he has already received a liter of fluids, Zosyn and vancomycin. Temperature started off at 39 and he is currently 37.5. Pulse has been maintained in the 80s-90s, but his systolic has dropped in spite of intervention to 38-[address] Brooks place a central line before transferring him to PACU. Respiratory rate varies from 9-20 and he is 97% on 3 liters nasal cannula. GENERAL: He is a tall, slender, elderly, balding gentleman who is lying quietly on the emergency room gurney, unresponsive to my voice until I place my hand on his chest where he will open his eyes and then go right back to sleep with some mumbling conversation. HEENT: Pupils are sluggish, but reactive. Sclerae are muddy. Oral mucosa are dry , lips are cracked. Facies are slack, but no specific facial asymmetry. NECK: Shotty adenopathy, some JVD. No goiter, no bruits. LUNGS: Coarse upper airway sounds, diminished at bases in the axilla. Occasional crackle that comes and goes. No increased respiratory effort. No use of accessory muscles. CARDIOVASCULAR: PMI is normally placed with a regular rate and rhythm and a systolic ejection murmur. ABDOMEN: Slightly distended, soft, and there is frowning and grimacing and he uses his hands to pull my hands away and he mumbles when I get toward the left lower quadrant and suprapubic area, but there does not seem to be rebound or guarding. EXTREMITIES: His legs are with slight edema around the left calf and ankle. The right calf and leg are diffusely swollen, 1+ edema. There is a bandage over the distal lateral femoral acetabulum. In inspecting the skin over the joint, there is no redness or heat and the skin is uniform in coloration from groin to thigh without any redness. Just edema is present. His right arm is also diffusely larger with edema. No cyanosis. No clubbing. NEUROLOGICAL: He is responsive to voice, pain. Uses his hands to withdraw from noxious stimuli. Toes are downgoing. There does not appear to be any focal deficits. LABORATORY: Sodium is 137, potassium 3.3, BUN 26, creatinine 1.3, which is new from yesterday where he was 20 and 0.7. Random glucose 126. Lactic acid is elevated at 3.7 and repeat after antibiotics and fluids is 3.4, calcium 7.5. Total bilirubin has gone from 1.1 to 2.3. AST was 75, now 93. ALT was 63, now 65. Alkaline phosphatase was 291, now 367. Troponin is 0.11. Protein down at 5.1. White cell count is markedly elevated. Yesterday, he was 7.5. At noon today , he was 7, and now he is 27.6. Hemoglobin shows an anemia since the surgery at 8.5. MCV is 92. Platelets are 367. INR is 1.5. Urinalysis has hazy, dark yellow urine with a large amount of blood, bilirubin, urobilinogen, leukocyte esterase , red cells, white cells, renal tubular cells, squamous cells, bacteria. Yesterday, his urinalysis was actually relatively normal. IMAGING: Abdomen and pelvis CT was done in the emergency room, and he has gallbladder sludge, but no dilated duct, no evidence of acute cholecystitis, enlarged prostate. He has moderate sized bilateral pleural effusions, diverticulosis without diverticulitis. He has a compression fracture of L2 and he has undergone internal fixation of the right femur. Abdominal ultrasound is negative other than a complex right renal cyst. Chest x-ray shows pulmonary vascular congestion, but no infiltrate. ASSESSMENT AND PLAN 1. Sepsis with shock from urinary tract infection. He is not responding to fluid resuscitation or antibiotics in the emergency room. Will transfer him to ICU after the central line is placed, continue vancomycin and Zosyn, as well as start Levophed. The continued elevation in bilirubin and liver enzymes is concerning. Where we did think obstruction or cholecystitis, CT and ultrasound did not show obstruction other than sludge. He does have a history of gallstones. On physical exam, there is no right upper quadrant tenderness and he grimaces and withdraws to pain when I palpate left lower quadrant and suprapubic area. Nevertheless, he will be placed on broad-spectrum antibiotics to cover not only urinary pathogens, but gallbladder pathogens. Prognosis is guarded in this elderly gentleman. 2. Abnormal troponin that may be just due to hypotension. No true NSTEMI. Nevertheless, repeat troponins q.6h. x2 more. 3. Bilateral pleural effusions in an elderly person who has a history of atrial fibrillation and is malnourished. Combination of possible congestive heart failure from atrial fibrillation, as well as malnutrition. He has not had an echocardiogram. I do not think we are going to need to do one in this elderly gentleman as we try and resuscitate him. I do not believe that pleural effusions are malignant or infectious. 4. Anemia. When he was admitted to the hospital prior to his hip surgery, his hemoglobin was 12.5. After surgery, he dropped to 9 and has hung between 8.5 to 9 grams of hemoglobin. Most likely chronic anemia and superimposed acute blood loss anemia from surgery, and he has not had enough time to recover. No transfusion required at this time. 5. Acute kidney injury, most likely from hypotension. We will continue to monitor and hopefully it responds to pressors and treatment. 6. History of new diabetes type 2 with last admission. Monitor glucose and treat with sliding scale. Currently glucose is acceptable level. 7. DO NOT INTUBATE, DO NOT RESUSCITATE status. 8. Deep venous thrombosis prophylaxis with Lovenox that will be adjusted on the basis of his renal function and already elevated INR. JOB #: [id number] EXT JOB #:[id number] [facility]
[2016-10-05] MEDS: MAGNESIUM SULFATE 2 GRAM 50 ML IV SCH ×2 (03:22→04:17)
[2016-10-05] MEDS: SODIUM CHLORIDE FLUSH 0.9% 10 ML SYRINGE IVP PRN ×3 (04:26→16:53)
[2016-10-05] MEDS: SODIUM CHLORIDE FLUSH 0.9% 10 ML SYRINGE IVP SCH ×3 (06:11→20:36)
[2016-10-05] MEDS ORDERED: PANTOPRAZOLE 40 MG VIAL IVP SCH (07:00)
[2016-10-05] MEDS ORDERED: BENZOCAINE/MENTHOL LOZENGE MM PRN (07:22)
[2016-10-05] MEDS ORDERED: INSULIN ASPART 300 UNIT/3 ML PEN SUBQ SCH (08:00)
[2016-10-05] MEDS ORDERED: CHOLECALCIFEROL 1,000 UNIT TABLET PO SCH (08:00)
[2016-10-05] MEDS: FINASTERIDE 5 MG TABLET PO SCH (08:50)
[2016-10-05] MEDS: MULTIVITAMIN W/MINERALS TABLET PO SCH (08:50)
[2016-10-05] MEDS: ASPIRIN CHEW 81 MG TABLET PO SCH (08:50)
[2016-10-05] MEDS: CALCIUM CARBONATE CHEW 500 MG TABLET PO SCH ×2 (08:50→20:33)
[2016-10-05] MEDS: ENOXAPARIN 40 MG/0.4 ML SYRINGE SUBQ SCH (08:57)
[2016-10-05] MEDS ORDERED: FUROSEMIDE 20 MG/2 ML VIAL IVP SCH (09:00)
[2016-10-05] MEDS: VANCOMYCIN INJ 1 GM in SODIUM CHLORIDE 0.9% 250 ML IV SCH ×2 (09:52→20:33)
[2016-10-05] MEDS: SODIUM CHLORIDE 0.9% 1,000 ML IV SCH (20:36)
[2016-10-05] MEDS: MEMANTINE 5 MG TABLET PO SCH (21:18)
[2016-10-06] MEDS ORDERED: METOPROLOL SUCCINATE 25 MG TABLET PO SCH ×2 (00:30→09:00)
[2016-10-06 01:57] LABS: CALCIUM 6.7 mg/dL (8.5-10.3)
[2016-10-06 01:59] LABS: BASOPHILS % (AUTO) 0.4 %; EOSINOPHILS % (AUTO) 0.2 %; HGB - HEMOGLOBIN 7.3 g/dL (14.0-18.0); LYMPHOCYTES % (AUTO) 4.4 %; MEAN CORPUSCULAR VOLUME 90.8 fL (80.0-94.0); MEAN PLATELET VOLUME 6.6 fL (7.4-11.4); MONOCYTES % (AUTO) 3.3 %; NEUTROPHILS % (AUTO) 91.7 %; RED BLOOD COUNT 2.43 10^6/uL (4.70-6.10); RED CELL DISTRIBUTION WIDTH 13.8 % (12.0-15.0); UNCORRECTED WHITE BLOOD COUNT 20.6 x10^3/uL; WHITE BLOOD COUNT 20.6 x10^3/uL (4.8-10.8)
[2016-10-06 02:00] LABS: CALCIUM, IONIZED 0.98 mmol/L (1.15-1.33); VBG PH 7.476 (7.31-7.41)
[2016-10-06 02:02] LABS: CALCIUM 6.8 mg/dL (8.5-10.3); MAGNESIUM 1.9 mg/dL (1.7-2.8); PHOSPHORUS 2.8 mg/dL (2.5-4.6); POTASSIUM 3.3 mmol/L (3.5-5.0)
[2016-10-06 02:19] LABS: BAND NEUTROPHILS % (MANUAL) 9 %; LYMPHOCYTES % (MANUAL) 7 %; NEUTROPHILS % (MANUAL) 82 %; TOTAL CELLS COUNTED 100
[2016-10-06 02:20] LABS: NP AUTO DIFFERENTIAL? YES; NP MAN DIFFERENTIAL? NO; PLATELET ESTIMATE, MANUAL NORMAL (130-450,000) (NORMAL); PLATELET MORPHOLOGY NORMAL APPEARANCE (NORMAL)
[2016-10-06] MEDS ORDERED: POTASSIUM CHLORIDE 20 MEQ TABLET PO SCH (03:00)
[2016-10-06] MEDS: PIPERACILLIN/TAZOBACTAM 4.5 GM in SODIUM CHLORIDE 0.9% MINIBAG 100 ML IV SCH (05:34)
[2016-10-06] MEDS: SODIUM CHLORIDE FLUSH 0.9% 10 ML SYRINGE IVP SCH ×2 (06:15→06:16)
[2016-10-06] MEDS: PANTOPRAZOLE 40 MG TABLET PO SCH (06:16)
[2016-10-06] MEDS: VANCOMYCIN INJ 1 GM in SODIUM CHLORIDE 0.9% 250 ML IV SCH (09:15)
[2016-10-06] MEDS: FUROSEMIDE 20 MG/2 ML VIAL IVP SCH (09:37)
[2016-10-06] MEDS: SODIUM CHLORIDE FLUSH 0.9% 10 ML SYRINGE IVP PRN (09:38)
[2016-10-06] MEDS: ENOXAPARIN 40 MG/0.4 ML SYRINGE SUBQ SCH (09:41)
[2016-10-06] MEDS: FINASTERIDE 5 MG TABLET PO SCH (09:55)
[2016-10-06] MEDS: ASPIRIN CHEW 81 MG TABLET PO SCH (09:55)
[2016-10-06] MEDS: LISINOPRIL 5 MG TABLET PO SCH (09:55)
[2016-10-06] MEDS: POTASSIUM CHLORIDE 10 MEQ CAPSULE PO SCH (09:57)
[2016-10-06] MEDS: MULTIVITAMIN W/MINERALS TABLET PO SCH (10:00)
[2016-10-06] MEDS: CALCIUM CARBONATE CHEW 500 MG TABLET PO SCH (10:02)
[2016-10-06] MEDS: CHOLECALCIFEROL 1,000 UNIT TABLET PO SCH (10:03)
[2016-10-06] MEDS: MEMANTINE 5 MG TABLET PO SCH (10:10)
[2016-10-06] MEDS: SODIUM CHLORIDE 0.9% 1,000 ML IV SCH (11:33)
[2016-10-06] MEDS ORDERED: MAGNESIUM SULFATE 2 GRAM 50 ML IV SCH (22:10)
[2016-10-06] MEDS ORDERED: METOPROLOL TARTRATE 25 MG TABLET PO SCH (22:10)
[2016-10-06] MEDS ORDERED: MAGNESIUM SULFATE 2 GRAM 50 ML IV ONE (22:26)
[2016-10-07] MEDS: POTASSIUM CHLOR 10 MEQ/100 ML 100 ML IV SCH ×3 (01:47→02:51)
[2016-10-07] MEDS: CALCIUM CARBONATE CHEW 500 MG TABLET PO SCH ×3 (02:01→20:48)
[2016-10-07] MEDS: MEMANTINE 5 MG TABLET PO SCH ×3 (02:02→20:48)
[2016-10-07] MEDS: SODIUM CHLORIDE FLUSH 0.9% 10 ML SYRINGE IVP SCH ×4 (02:03→20:53)
[2016-10-07 05:48] LABS: EOSINOPHILS # (AUTO) 0.1 10^3/uL (0.0-0.7); HGB - HEMOGLOBIN 7.6 g/dL (14.0-18.0); LYMPHOCYTES # (AUTO) 1.3 10^3/uL (1.5-3.5); MEAN CORPUSCULAR HEMOGLOBIN 29.6 pg (27.0-31.0); NUCLEATED RED BLOOD CELLS AUTO 0.1 /100WBC; RED BLOOD COUNT 2.58 10^6/uL (4.70-6.10)
[2016-10-07 05:53] LABS: BASOPHILS % (AUTO) 0.3 %; EOSINOPHILS % (AUTO) 0.5 %; HCT - HEMATOCRIT 23.7 % (42.0-52.0); MEAN CORPUSCULAR HGB CONC 32.2 g/dL (32.0-36.0); MEAN PLATELET VOLUME 6.9 fL (7.4-11.4); MONOCYTES # (AUTO) 0.5 10^3/uL (0.0-1.0); NEUTROPHILS # (AUTO) 14.1 10^3/uL (1.5-6.6); NEUTROPHILS % (AUTO) 88.2 %; RED CELL DISTRIBUTION WIDTH 14.2 % (12.0-15.0)
[2016-10-07 05:59] LABS: CALCIUM 7.5 mg/dL (8.5-10.3); CREATININE 0.8 mg/dL (0.6-1.2); POTASSIUM 3.8 mmol/L (3.5-5.0)
[2016-10-07 06:03] LABS: CALCIUM, IONIZED 1.07 mmol/L (1.15-1.33); VBG PH 7.448 (7.31-7.41)
[2016-10-07 06:46] LABS: NP AUTO DIFFERENTIAL? NO; NP MAN DIFFERENTIAL? YES; PLATELET ESTIMATE, MANUAL NORMAL (130-450,000) (NORMAL); PLATELET MORPHOLOGY NORMAL APPEARANCE (NORMAL)
[2016-10-07] MEDS: PANTOPRAZOLE 40 MG TABLET PO SCH (06:52)
[2016-10-07] MEDS ORDERED: POTASSIUM PHOSPHATE 15 MMOL in SODIUM CHLORIDE 0.9% 250 ML IV ONE (08:00)
--- NOTE | 2016-10-07 08:00 | PROVIDER PROGRESS NOTE ---
Assessment/Plan - Problem List (1) Septic shock Assessment/Plan: Presented with lethargy, fever, WBC of 27.6, weakness and hypotension Requiring levophed to maintain BP Lactate still elevated at 2.3 presented with lactate of 3.7 Source appears to be urine and blood Patient has positive blood cultures with 4/4 bottles growing gram negative Patient has improvement in mentation this am WBC worsening to 30.2 Plan: Continue levophed COntinue IVFs Continue broad spectrum IV abx Vanoc and Zosyn Monitor lactate (2) Gram-negative bacteremia Assessment/Plan: 4/4 bottles positive for gram negative bacteremia Likely source is urine Patient presented with septic shock Will continue IV vanco and zosyn till we get susceptibilities Will likely need IV abx at least during hospitalization if significant improvement maybe able to switch to PO at discharge (3) UTI (urinary tract infection) Qualifiers: Urinary tract infection type: site unspecified Hematuria presence: with hematuria Qualified Code(s): N39.0 - Urinary tract infection, site not specified; R31.9 - Hematuria, unspecified Assessment/Plan: Presented with lethargy and septic shock Blood cx positive for gram negative organism Likely source is the urine Given history of BPH this is concerning for prostatitis Will need long course of abx On zosyn and vanco Awaiting cultures (4) CLARISSE (acute kidney injury) Assessment/Plan: Secondary to septic shock Non 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 was 1.3 presentation improved to 1.1 Continue IVFs and pressors (5) Benign prostatic hyperplasia Qualifiers: Assessment/Plan: Patient on finasteride Presented with septic shock and bacteremia from urinary source Given that he is a male and has BPH will presume this is prostatitis and treat accordingly (6) Hyperlipidemia Assessment/Plan: HOlding statin till more stable (7) Hypokalemia Assessment/Plan: Replace K (8) Elevated LFTs Assessment/Plan: Likely shocked liver secondary to septic shock Treat septic shock and recheck LFTs Abdominal ultrasound and CT does not show obvious cholecystitis - Current Meds Current Meds: Current Medications Generic Name Dose Route Start Last Admin Trade Name Freq PRN Reason Stop Dose Admin Aspirin 81 mg 10/05/16 09:00 10/06/16 09:55 [facility] [place] Aspirin PO 81 mg DAILY GABRIELA Administration Calcium Carbonate/Glycine 500 mg 10/05/16 09:00 10/07/16 02:01 Tums PO Not Given BID [facility] Cholecalciferol 1,000 unit 10/06/16 09:00 10/06/16 10:03 Vitamin D3 PO 1,000 unit DAILY GABRIELA Administration Enoxaparin Sodium 40 mg 10/05/16 09:00 10/06/16 09:41 Lovenox SUBQ 40 mg DAILY GABRIELA Administration Finasteride 5 mg 10/05/16 09:00 10/06/16 09:55 Proscar PO 5 mg DAILY GABRIELA Administration Furosemide 20 mg 10/05/16 00:53 10/06/16 09:37 Lasix Inj 20mg Vial IVP 20 mg DAILY GABRIELA Administration Norepinephrine Bitartrate 8 mg 250 mls @ 15 mls/hr 10/04/16 23:00 10/07/16 05: 31 / Dextrose IV Not Given .[id number] [facility] Protocol 8 MCG/MIN Levofloxacin 150 mls @ 100 mls/hr 10/06/16 11:00 10/06/16 11:32 Levaquin 750 Mg/150 Ml IV 100 mls/hr Q24H GABRIELA Administration Potassium Phosphate 15 mmol/ 255 mls @ 63 mls/hr 10/07/16 08:00 10/07/16 07:52 Sodium Chloride IV 10/07/16 12:02 63 mls/hr ONCE ONE Administration Protocol Lisinopril 5 mg 10/06/16 09:00 10/06/16 09:55 Zestril PO 5 mg DAILY GABRIELA Administration Memantine 10 mg 10/05/16 21:00 10/07/16 02:02 Namenda PO Not Given BID [facility] Multivitamins/Minerals 1 tab 10/05/16 08:00 10/06/16 10:00 Theragran M PO 1 tab DAILYWM GABRIELA Administration Pantoprazole Sodium 40 mg 10/06/16 07:00 10/07/16 06:52 Protonix PO 40 mg QDAC GABRIELA Administration Potassium Chloride 10 meq 10/06/16 09:00 10/06/16 09:57 Micro-K PO 10 meq DAILY GABRIELA Administration Sodium Chloride 10 ml 10/04/16 22:24 10/06/16 09:38 Normal Saline Flush 0.9% IVP 20 ml PRN PRN Administration NEEDED PER PROVIDER ORDERS Sodium Chloride 10 ml 10/05/16 06:00 10/07/16 05:14 Normal Saline Flush 0.9% IVP 10 ml Q8HR GABRIELA Administration - Lab Result Lab results reviewed: Yes Fish Bone Diagrams: 10/07/16 05:03 10/07/16 05:03 - EKG Results EKG Interpreted Independently: Yes - Diagnostic Imaging Results Diagnostic Imaging Results: positive: Final report reviewed - Additional Planning Condition/Complexity: Critical My Orders: My Active Orders 10/06/16 11:00 levoFLOXacin 750 MG/150 ML [Levaquin 750 mg/150 ml] 150 ml IV Q24H 10/06/16 11:18 Min Oil/Dimeth/Coconut Oil Crm [Cavilon] 1 applic TOP PRN PRN 10/07/16 05:03 ALBUMIN [CHEM] Stat 10/07/16 08:00 Metoprolol Tartrate [Lopressor] 50 mg PO BID Potassium Phosphate 15 mmol Sodium Chloride 0.9% [Normal Saline 0.9%] 250 ml IV ONCE Plan Discussed with:: Patient, Family Time Spent: 31-60 minutes Subjective - Subjective Patient Reports: Other (Patient is more alert but still look toxic. He feels better, still short of breath. No fevers today. No chest pain.) Nursing Reports: No Complaints Objective Vital Signs: Vital Signs - 24 hr 10/06/16 10/06/16 10/06/16 08:00 09:00 10:00 Temperature Heart Rate [ 118 H 120 H 117 H Monitoring electrodes] Respiratory 21 23 24 Rate Blood Pressure 117/70 123/62 134/78 H [Right Brachial artery] O2 Saturation 96 96 97 10/06/16 10/06/16 10/06/16 11:00 12:00 13:00 Temperature 36.9 C Heart Rate [ 113 H 113 H 119 H Monitoring electrodes] Respiratory 22 24 22 Rate Blood Pressure 134/78 H 131/82 H 113/62 [Right Brachial artery] O2 Saturation 97 97 97 10/06/16 10/07/16 10/07/16 14:00 02:00 03:00 Temperature Heart Rate [ 120 H 84 94 Monitoring electrodes] Respiratory 22 18 20 Rate Blood Pressure 123/66 117/71 122/74 [Right Brachial artery] O2 Saturation 97 98 96 10/07/16 10/07/16 10/07/16 04:00 05:00 06:00 Temperature 36.5 C Heart Rate [ 94 97 85 Monitoring electrodes] Respiratory 20 18 22 Rate Blood Pressure 122/75 123/73 129/68 [Right Brachial artery] O2 Saturation 96 98 98 10/07/16 06:59 Temperature Heart Rate [ 105 H Monitoring electrodes] Respiratory 24 Rate Blood Pressure [Right Brachial artery] O2 Saturation 98 Oxygen O2 Source Room air I&O (Last 24 Hrs): Intake and Output Totals x24h 10/05/16 10/06/16 10/07/16 23:59 23:59 23:59 Intake Total 3268 1524 360 Output Total 2509 1435 325 Balance 759 89 35 General: Alert, Cooperative, Mild distress (toxic appearing) HEENT: Atraumatic, PERRLA, EOMI, Other (dry mucus membranes) Neck: Supple, No JVD, No thyromegaly, +2 carotid pulse wo bruit, No LAD Lymphatic: no adenopathy Neuro: Alert, Non Focal, CN 2-12 Grossly Intact, Other (oriented x2) Cardiovascular: Regular rate, No murmurs, Other (tachycardic) Respiratory: Chest non-tender, Rales, Rhonchi (coarse breath sounds) Abdomen: Normal bowel sounds, Soft, No tenderness, No hepatospenomegaly Rectal: Tender Prostate Extremities: No clubbing, No cyanosis, No edema, Normal pulses Skin: No rashes, No breakdown - Results Results: Laboratory Results WBC 16.0 x10^3/uL (4.8-10.8) H 10/07/16 05:03 RBC 2.58 10^6/uL (4.70-6.10) L 10/07/16 05:03 Hgb 7.6 g/dL (14.0-18.0) L 10/07/16 05:03 Hct 23.7 % (42.0-52.0) L 10/07/16 05:03 MCV 92.0 fL (80.0-94.0) 10/07/16 05:03 MCH 29.6 pg (27.0-31.0) 10/07/16 05:03 MCHC 32.2 g/dL (32.0-36.0) 10/07/16 05:03 RDW 14.2 % (12.0-15.0) 10/07/16 05:03 Plt Count 344 10^3/uL (130-450) 10/07/16 05:03 MPV 6.9 fL (7.4-11.4) L 10/07/16 05:03 Neut # 14.1 10^3/uL (1.5-6.6) H 10/07/16 05:03 Lymph # 1.3 10^3/uL (1.5-3.5) L 10/07/16 05:03 Mccreary # 0.5 10^3/uL (0.0-1.0) 10/07/16 05:03 Eos # 0.1 10^3/uL (0.0-0.7) 10/07/16 05:03 Baso # 0.0 10^3/uL (0.0-0.1) 10/07/16 05:03 Absolute Nucleated RBC 0.02 x10^3/uL 10/07/16 05:03 Total Counted 100 10/06/16 01:40 Band Neuts % (Manual) Not Reportable 10/07/16 05:03 Neutrophils # (Manual) 18.7 10^3/uL (1.5-6.6) H 10/06/16 01:40 Lymphocytes # (Manual) 1.4 10^3/uL (1.5-3.5) L 10/06/16 01:40 Monocytes # (Manual) 0.4 10^3/uL (0.0-1.0) 10/06/16 01:40 Nucleated RBCs 0.1 /100WBC 10/07/16 05:03 Differential Comment MANUAL=AUTO DIFF 10/07/16 05:03 WBC Morphology 1+ BANDS (NORMAL) 10/04/16 17:49 Platelet Estimate NORMAL (130-450,000) (NORMAL) 10/07/16 05:03 Platelet Morphology NORMAL APPEARANCE (NORMAL) 10/07/16 05:03 RBC Morph Micro Appear NORMAL APPEARANCE (NORMAL) 10/05/16 02:02 RBC Morph Micro Appear NORMAL APPEARANCE (NORMAL) 10/06/16 01:40 RBC Morph Micro Appear NORMAL APPEARANCE (NORMAL) 10/07/16 05:03 PT 17.5 secs (9.9-12.6) H 10/04/16 17:49 INR 1.5 (0.8-1.2) H 10/04/16 17:49 VBG pH 7.448 (7.31-7.41) H 10/07/16 05:03 Ionized Calcium 1.07 mmol/L (1.15-1.33) L 10/07/16 05:03 Sodium 140 mmol/L (135-145) 10/07/16 05:03 Potassium 3.8 mmol/L (3.5-5.0) 10/07/16 05:03 Chloride 107 mmol/L (101-111) 10/07/16 05:03 Carbon Dioxide 25 mmol/L (21-32) 10/07/16 05:03 Anion Gap 8.0 (6-13) 10/07/16 05:03 BUN 27 mg/dL (6-20) H 10/07/16 05:03 Creatinine 0.8 mg/dL (0.6-1.2) 10/07/16 05:03 Estimated GFR (MDRD) 91 (>89) 10/07/16 05:03 Glucose 163 mg/dL (70-100) H 10/07/16 05:03 Lactic Acid 1.8 mmol/L (0.5-2.2) 10/06/16 01:40 Calcium 7.5 mg/dL (8.5-10.3) L 10/07/16 05:03 Ionized Calcium YES 10/07/16 05:03 Phosphorus 2.0 mg/dL (2.5-4.6) L 10/07/16 05:03 Magnesium 2.0 mg/dL (1.7-2.8) 10/07/16 05:03 Total Bilirubin 2.3 mg/dL (0.2-1.0) H 10/04/16 17:49 AST 93 IU/L (10-42) H 10/04/16 17:49 ALT 65 IU/L (10-60) H 10/04/16 17:49 Alkaline Phosphatase 367 IU/L (42-121) H 10/04/16 17:49 Total Creatine Kinase 89 IU/L (22-269) 10/04/16 17:49 CK-MB (CK-2) 1.0 ng/mL (0.6-6.3) 10/04/16 17:49 Troponin I 0.07 ng/mL (<0.49) 10/05/16 08:00 Total Protein 5.1 g/dL (6.7-8.2) L 10/04/16 17:49 Albumin 1.6 g/dL (3.2-5.5) L 10/06/16 01:40 Globulin 3.4 g/dL (2.1-4.2) 10/04/16 17:49 Albumin/Globulin Ratio 0.5 (1.0-2.2) L 10/04/16 17:49 Lipase 10 U/L (22-51) L 10/04/16 17:49 Urine Color DARK YELLOW 10/04/16 18:44 Urine Clarity HAZY (CLEAR) 10/04/16 18:44 Urine pH 6.0 PH (5.0-7.5) 10/04/16 18:44 Ur Specific [place] 1.015 (1.002-1.030) 10/04/16 18:44 Urine Protein TRACE mg/dL (NEGATIVE) 10/04/16 18:44 Urine Glucose (UA) NEGATIVE mg/dL (NEGATIVE) 10/04/16 18:44 Urine Ketones NEGATIVE mg/dL (NEGATIVE) 10/04/16 18:44 Urine Occult Blood LARGE (NEGATIVE) H 10/04/16 18:44 Urine Nitrite NEGATIVE (NEGATIVE) 10/04/16 18:44 Urine Bilirubin MODERATE (NEGATIVE) H 10/04/16 18:44 Urine Urobilinogen 4 E.U./dL (NORMAL) H 10/04/16 18:44 Ur Leukocyte Esterase TRACE (NEGATIVE) H 10/04/16 18:44 Urine RBC TNTC /HPF (0-5) H 10/04/16 18:44 Urine WBC 6-10 /HPF (0-3) H 10/04/16 18:44 Ur Epithelial Cells FEW Renal Tubular /HPF (<= Few) 10/04/16 18:44 Ur Squamous Epith Cells FEW Squamous (<= Few) 10/04/16 18:44 Urine Bacteria Many /HPF (None Seen) H 10/04/16 18:44 Urine Mucus Few Strands 10/04/16 18:44 Ur Microscopic Review INDICATED 10/04/16 18:44 Urine Culture Comments INDICATED 10/04/16 18:44 - Procedures Procedures: Procedures REPOSITION R UP FEMUR WITH INTRAMED FIX, OPEN APPROACH (09/23/16) TRANSFUSE NONAUT RED BLOOD CELLS IN PERIPH VEIN, PERC (09/23/16)
--- NOTE | 2016-10-07 08:20 | PROVIDER PROGRESS NOTE ---
Assessment/Plan - Problem List (1) Septic shock Assessment/Plan: Presented with lethargy, fever, WBC of 27.6, weakness and hypotension Requiring levophed to maintain BP Lactate resolved Source appears to be urine and blood Patient has positive blood cultures with 4/4 bottles growing kleb pneumonia WBC improved to 20.5 from 30.2 Patient looks better Off Levophed Blood cx susceptible to levaquin Will discontinue vanco and zosyn and start levaquin Resolving (2) Gram-negative bacteremia Assessment/Plan: 4/4 bottles positive for Kleb Pneumo Likely source is urine Patient presented with septic shock Susceptible to levaquin switch to IV levaquin today will continue IV abx till discharge (3) UTI (urinary tract infection) Qualifiers: Urinary tract infection type: site unspecified Hematuria presence: with hematuria Qualified Code(s): N39.0 - Urinary tract infection, site not specified; R31.9 - Hematuria, unspecified Assessment/Plan: Presented with lethargy and septic shock Blood cx positive for gram negative organism Likely source is the urine Given history of BPH this is concerning for prostatitis Will need long course of abx Urine growing kleb pnuemo susceptible to levaquin On IV levaquin Improving (4) CLARISSE (acute kidney injury) Assessment/Plan: Secondary to septic shock 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 Safety Director was 1.3 presentation improved to 1.0 Resolving (5) Benign prostatic hyperplasia Qualifiers: Assessment/Plan: Patient on finasteride Presented with septic shock and bacteremia from urinary source Given that he is a male and has BPH will presume this is prostatitis and treat accordingly (6) Hyperlipidemia Assessment/Plan: HOlding statin till more stable (7) Hypokalemia Assessment/Plan: Replace K (8) Elevated LFTs Assessment/Plan: Likely shocked liver secondary to septic shock Treat septic shock and recheck LFTs Abdominal ultrasound and CT does not show obvious cholecystitis - Current Meds Current Meds: Current Medications Generic Name Dose Route Start Last Admin Trade Name Freq PRN Reason Stop Dose Admin Aspirin 81 mg 10/05/16 09:00 10/06/16 09:55 [place] Aspirin PO 81 mg DAILY GABRIELA Administration Calcium Carbonate/Glycine 500 mg 10/05/16 09:00 10/07/16 02:01 Tums PO Not Given BID [facility] Cholecalciferol 1,000 unit 10/06/16 09:00 10/06/16 10:03 Vitamin D3 PO 1,000 unit DAILY GABRIELA Administration Enoxaparin Sodium 40 mg 10/05/16 09:00 10/06/16 09:41 Lovenox SUBQ 40 mg DAILY GABRIELA Administration Finasteride 5 mg 10/05/16 09:00 10/06/16 09:55 Proscar PO 5 mg DAILY GABRIELA Administration Furosemide 20 mg 10/05/16 00:53 10/06/16 09:37 Lasix Inj 20mg Vial IVP 20 mg DAILY GABRIELA Administration Norepinephrine Bitartrate 8 mg 250 mls @ 15 mls/hr 10/04/16 23:00 10/07/16 05: 31 / Dextrose IV Not Given .[id number] GABRIELA Protocol 8 MCG/MIN Levofloxacin 150 mls @ 100 mls/hr 10/06/16 11:00 10/06/16 11:32 Levaquin 750 Mg/150 Ml IV 100 mls/hr Q24H GABRIELA Administration Potassium Phosphate 15 mmol/ 255 mls @ 63 mls/hr 10/07/16 08:00 10/07/16 07:52 Sodium Chloride IV 10/07/16 12:02 63 mls/hr ONCE ONE Administration Protocol Lisinopril 5 mg 10/06/16 09:00 10/06/16 09:55 Zestril PO 5 mg DAILY GABRIELA Administration Memantine 10 mg 10/05/16 21:00 10/07/16 02:02 Namenda PO Not Given BID [facility] Multivitamins/Minerals 1 tab 10/05/16 08:00 10/06/16 10:00 Theragran M PO 1 tab DAILYWM GABRIELA Administration Pantoprazole Sodium 40 mg 10/06/16 07:00 10/07/16 06:52 Protonix PO 40 mg QDAC GABRIELA Administration Potassium Chloride 10 meq 10/06/16 09:00 10/06/16 09:57 Micro-K PO 10 meq DAILY GABRIELA Administration Sodium Chloride 10 ml 10/04/16 22:24 10/06/16 09:38 Normal Saline Flush 0.9% IVP 20 ml PRN PRN Administration NEEDED PER PROVIDER ORDERS Sodium Chloride 10 ml 10/05/16 06:00 10/07/16 05:14 Normal Saline Flush 0.9% IVP 10 ml Q8HR GABRIELA Administration - Lab Result Lab results reviewed: Yes Fish Bone Diagrams: 10/07/16 05:03 10/07/16 05:03 - EKG Results EKG Interpreted Independently: Yes EKG Comparison: Changed from prior EKG - Diagnostic Imaging Results Diagnostic Imaging Results: positive: Final report reviewed - Additional Planning Condition/Complexity: Guarded My Orders: My Active Orders 10/06/16 11:00 levoFLOXacin 750 MG/150 ML [Levaquin 750 mg/150 ml] 150 ml IV Q24H 10/06/16 11:18 Min Oil/Dimeth/Coconut Oil Crm [Cavilon] 1 applic TOP PRN PRN 10/07/16 05:03 ALBUMIN [CHEM] Stat 10/07/16 08:00 Metoprolol Tartrate [Lopressor] 50 mg PO BID Potassium Phosphate 15 mmol Sodium Chloride 0.9% [Normal Saline 0.9%] 250 ml IV ONCE 10/08/16 05:00 CMP, RFLX TO IONIZED CA IF [CHEM] DAILYLAB 10/09/16 05:00 CMP, RFLX TO IONIZED CA IF [CHEM] DAILYLAB 10/10/16 05:00 CMP, RFLX TO IONIZED CA IF [CHEM] DAILYLAB 10/11/16 05:00 CMP, RFLX TO IONIZED CA IF [CHEM] DAILYLAB Plan Discussed with:: Patient, Family Time Spent: 31-60 minutes Subjective - Subjective Patient Reports: Feeling Better (Patient feels better this morning, much more alert. He states he has no appetite. Denies any fevers or chills. Denies any shortnes of breath.) Nursing Reports: No Complaints Objective Vital Signs: Vital Signs - 24 hr 10/06/16 10/06/16 10/06/16 09:00 10:00 11:00 Temperature 36.9 C Heart Rate [ 120 H 117 H 113 H Monitoring electrodes] Respiratory 23 24 22 Rate Blood Pressure 123/62 134/78 H 134/78 H [Right Brachial artery] O2 Saturation 96 97 97 10/06/16 10/06/16 10/06/16 12:00 13:00 14:00 Temperature Heart Rate [ 113 H 119 H 120 H Monitoring electrodes] Respiratory 24 22 22 Rate Blood Pressure 131/82 H 113/62 123/66 [Right Brachial artery] O2 Saturation 97 97 97 10/07/16 10/07/16 10/07/16 02:00 03:00 04:00 Temperature 36.5 C Heart Rate [ 84 94 94 Monitoring electrodes] Respiratory 18 20 20 Rate Blood Pressure 117/71 122/74 122/75 [Right Brachial artery] O2 Saturation 98 96 96 10/07/16 10/07/16 10/07/16 05:00 06:00 06:59 Temperature Heart Rate [ 97 85 105 H Monitoring electrodes] Respiratory 18 22 24 Rate Blood Pressure 123/73 129/68 [Right Brachial artery] O2 Saturation 98 98 98 10/07/16 08:00 Temperature 36.5 C Heart Rate [ 100 Monitoring electrodes] Respiratory 22 Rate Blood Pressure 131/79 H [Right Brachial artery] O2 Saturation 98 Oxygen O2 Source Room air I&O (Last 24 Hrs): Intake and Output Totals x24h 10/05/16 10/06/16 10/07/16 23:59 23:59 23:59 Intake Total 3268 1524 360 Output Total 2509 1435 405 Balance 759 89 -45 General: Alert, Cooperative, No acute distress, Other HEENT: Atraumatic, PERRLA, EOMI, Mucous membr. moist/pink Neck: Supple, No JVD, No thyromegaly, +2 carotid pulse wo bruit, No LAD Lymphatic: no adenopathy Neuro: Alert, Non Focal, CN 2-12 Grossly Intact, Oriented Times 3 Cardiovascular: Regular rate, Normal S1, Normal S2, No murmurs Respiratory: Chest non-tender, No respiratory distress, Breath sounds nml Abdomen: Normal bowel sounds, Soft, No tenderness, No hepatospenomegaly Extremities: No clubbing, No cyanosis, No edema, Normal pulses, Other (Surgical site appears clean from ORIF) Skin: No rashes, No breakdown - Results Results: Laboratory Results WBC 16.0 x10^3/uL (4.8-10.8) H 10/07/16 05:03 RBC 2.58 10^6/uL (4.70-6.10) L 10/07/16 05:03 Hgb 7.6 g/dL (14.0-18.0) L 10/07/16 05:03 Hct 23.7 % (42.0-52.0) L 10/07/16 05:03 MCV 92.0 fL (80.0-94.0) 10/07/16 05:03 MCH 29.6 pg (27.0-31.0) 10/07/16 05:03 MCHC 32.2 g/dL (32.0-36.0) 10/07/16 05:03 RDW 14.2 % (12.0-15.0) 10/07/16 05:03 Plt Count 344 10^3/uL (130-450) 10/07/16 05:03 MPV 6.9 fL (7.4-11.4) L 10/07/16 05:03 Neut # 14.1 10^3/uL (1.5-6.6) H 10/07/16 05:03 Lymph # 1.3 10^3/uL (1.5-3.5) L 10/07/16 05:03 [place] # 0.5 10^3/uL (0.0-1.0) 10/07/16 05:03 Eos # 0.1 10^3/uL (0.0-0.7) 10/07/16 05:03 Baso # 0.0 10^3/uL (0.0-0.1) 10/07/16 05:03 Absolute Nucleated RBC 0.02 x10^3/uL 10/07/16 05:03 Total Counted 100 10/06/16 01:40 Band Neuts % (Manual) Not Reportable 10/07/16 05:03 Neutrophils # (Manual) 18.7 10^3/uL (1.5-6.6) H 10/06/16 01:40 Lymphocytes # (Manual) 1.4 10^3/uL (1.5-3.5) L 10/06/16 01:40 Monocytes # (Manual) 0.4 10^3/uL (0.0-1.0) 10/06/16 01:40 Nucleated RBCs 0.1 /100WBC 10/07/16 05:03 Differential Comment MANUAL=AUTO DIFF 10/07/16 05:03 WBC Morphology 1+ BANDS (NORMAL) 10/04/16 17:49 Platelet Estimate NORMAL (130-450,000) (NORMAL) 10/07/16 05:03 Platelet Morphology NORMAL APPEARANCE (NORMAL) 10/07/16 05:03 RBC Morph Micro Appear NORMAL APPEARANCE (NORMAL) 10/05/16 02:02 RBC Morph Micro Appear NORMAL APPEARANCE (NORMAL) 10/06/16 01:40 RBC Morph Micro Appear NORMAL APPEARANCE (NORMAL) 10/07/16 05:03 PT 17.5 secs (9.9-12.6) H 10/04/16 17:49 INR 1.5 (0.8-1.2) H 10/04/16 17:49 VBG pH 7.448 (7.31-7.41) H 10/07/16 05:03 Ionized Calcium 1.07 mmol/L (1.15-1.33) L 10/07/16 05:03 Sodium 140 mmol/L (135-145) 10/07/16 05:03 Potassium 3.8 mmol/L (3.5-5.0) 10/07/16 05:03 Chloride 107 mmol/L (101-111) 10/07/16 05:03 Carbon Dioxide 25 mmol/L (21-32) 10/07/16 05:03 Anion Gap 8.0 (6-13) 10/07/16 05:03 BUN 27 mg/dL (6-20) H 10/07/16 05:03 Creatinine 0.8 mg/dL (0.6-1.2) 10/07/16 05:03 Estimated GFR (MDRD) 91 (>89) 10/07/16 05:03 Glucose 163 mg/dL (70-100) H 10/07/16 05:03 Lactic Acid 1.8 mmol/L (0.5-2.2) 10/06/16 01:40 Calcium 7.5 mg/dL (8.5-10.3) L 10/07/16 05:03 Ionized Calcium YES 10/07/16 05:03 Phosphorus 2.0 mg/dL (2.5-4.6) L 10/07/16 05:03 Magnesium 2.0 mg/dL (1.7-2.8) 10/07/16 05:03 Total Bilirubin 2.3 mg/dL (0.2-1.0) H 10/04/16 17:49 AST 93 IU/L (10-42) H 10/04/16 17:49 ALT 65 IU/L (10-60) H 10/04/16 17:49 Alkaline Phosphatase 367 IU/L (42-121) H 10/04/16 17:49 Total Creatine Kinase 89 IU/L (22-269) 10/04/16 17:49 CK-MB (CK-2) 1.0 ng/mL (0.6-6.3) 10/04/16 17:49 Troponin I 0.07 ng/mL (<0.49) 10/05/16 08:00 Total Protein 5.1 g/dL (6.7-8.2) L 10/04/16 17:49 Albumin 1.6 g/dL (3.2-5.5) L 10/06/16 01:40 Globulin 3.4 g/dL (2.1-4.2) 10/04/16 17:49 Albumin/Globulin Ratio 0.5 (1.0-2.2) L 10/04/16 17:49 Lipase 10 U/L (22-51) L 10/04/16 17:49 Urine Color DARK YELLOW 10/04/16 18:44 Urine Clarity HAZY (CLEAR) 10/04/16 18:44 Urine pH 6.0 PH (5.0-7.5) 10/04/16 18:44 Ur Specific [place] 1.015 (1.002-1.030) 10/04/16 18:44 Urine Protein TRACE mg/dL (NEGATIVE) 10/04/16 18:44 Urine Glucose (UA) NEGATIVE mg/dL (NEGATIVE) 10/04/16 18:44 Urine Ketones NEGATIVE mg/dL (NEGATIVE) 10/04/16 18:44 Urine Occult Blood LARGE (NEGATIVE) H 10/04/16 18:44 Urine Nitrite NEGATIVE (NEGATIVE) 10/04/16 18:44 Urine Bilirubin MODERATE (NEGATIVE) H 10/04/16 18:44 Urine Urobilinogen 4 E.U./dL (NORMAL) H 10/04/16 18:44 Ur Leukocyte Esterase TRACE (NEGATIVE) H 10/04/16 18:44 Urine RBC TNTC /HPF (0-5) H 10/04/16 18:44 Urine WBC 6-10 /HPF (0-3) H 10/04/16 18:44 Ur Epithelial Cells FEW Renal Tubular /HPF (<= Few) 10/04/16 18:44 Ur Squamous Epith Cells FEW Squamous (<= Few) 10/04/16 18:44 Urine Bacteria Many /HPF (None Seen) H 10/04/16 18:44 Urine Mucus Few Strands 10/04/16 18:44 Ur Microscopic Review INDICATED 10/04/16 18:44 Urine Culture Comments INDICATED 10/04/16 18:44 - Procedures Procedures: Procedures REPOSITION R UP FEMUR WITH INTRAMED FIX, OPEN APPROACH (09/23/16) TRANSFUSE NONAUT RED BLOOD CELLS IN PERIPH VEIN, PERC (09/23/16)
[2016-10-07] MEDS: MIN OIL/DIMETHICON/COCONUT OIL 92 GM TUBE TOP PRN ×2 (08:57→20:53)
[2016-10-07] MEDS: FINASTERIDE 5 MG TABLET PO SCH (09:01)
[2016-10-07] MEDS: LISINOPRIL 5 MG TABLET PO SCH (09:02)
[2016-10-07] MEDS: ASPIRIN CHEW 81 MG TABLET PO SCH (09:02)
[2016-10-07] MEDS: METOPROLOL TARTRATE 50 MG TABLET PO SCH ×2 (09:02→20:50)
[2016-10-07] MEDS: POTASSIUM CHLORIDE 10 MEQ CAPSULE PO SCH (09:03)
[2016-10-07] MEDS: MULTIVITAMIN W/MINERALS TABLET PO SCH (09:03)
[2016-10-07] MEDS: CHOLECALCIFEROL 1,000 UNIT TABLET PO SCH (09:04)
[2016-10-07] MEDS: SODIUM CHLORIDE FLUSH 0.9% 10 ML SYRINGE IVP PRN ×4 (09:04→20:53)
[2016-10-07] MEDS: FUROSEMIDE 20 MG/2 ML VIAL IVP SCH (09:04)
[2016-10-07] MEDS: ENOXAPARIN 40 MG/0.4 ML SYRINGE SUBQ SCH (09:05)
[2016-10-08] MEDS: SODIUM CHLORIDE FLUSH 0.9% 10 ML SYRINGE IVP PRN ×2 (05:41→20:57)
[2016-10-08] MEDS: SODIUM CHLORIDE FLUSH 0.9% 10 ML SYRINGE IVP SCH ×3 (05:42→20:57)
[2016-10-08 06:03] LABS: BASOPHILS % (AUTO) 0.2 %; EOSINOPHILS # (AUTO) 0.2 10^3/uL (0.0-0.7); EOSINOPHILS % (AUTO) 1.4 %; HCT - HEMATOCRIT 24.4 % (42.0-52.0); LYMPHOCYTES # (AUTO) 1.7 10^3/uL (1.5-3.5); LYMPHOCYTES % (AUTO) 13.8 %; MEAN CORPUSCULAR HEMOGLOBIN 30.3 pg (27.0-31.0); MEAN CORPUSCULAR HGB CONC 32.9 g/dL (32.0-36.0); MEAN PLATELET VOLUME 6.9 fL (7.4-11.4); MONOCYTES # (AUTO) 0.6 10^3/uL (0.0-1.0); MONOCYTES % (AUTO) 4.6 %; NEUTROPHILS # (AUTO) 9.8 10^3/uL (1.5-6.6); NUCLEATED RED BLOOD CELLS AUTO 0.4 /100WBC; RED BLOOD COUNT 2.65 10^6/uL (4.70-6.10); RED CELL DISTRIBUTION WIDTH 14.5 % (12.0-15.0); UNCORRECTED WHITE BLOOD COUNT 12.3 x10^3/uL; WHITE BLOOD COUNT 12.3 x10^3/uL (4.8-10.8)
[2016-10-08 06:06] LABS: ALBUMIN/GLOBULIN RATIO 0.5 (1.0-2.2); BUN - BLOOD UREA NITROGEN 25 mg/dL (6-20); CALCIUM 7.8 mg/dL (8.5-10.3); CARBON DIOXIDE - CO2 26 mmol/L (21-32); CHLORIDE 108 mmol/L (101-111); CREATININE 0.8 mg/dL (0.6-1.2); GFR - MDRD 91 (>89); GLUCOSE 142 mg/dL (70-100); POTASSIUM 3.7 mmol/L (3.5-5.0); SODIUM 141 mmol/L (135-145); TOTAL PROTEIN 5.3 g/dL (6.7-8.2)
[2016-10-08 06:16] LABS: CALCIUM, IONIZED 1.11 mmol/L (1.15-1.33); VBG PH 7.43 (7.31-7.41)
[2016-10-08 06:31] LABS: NP AUTO DIFFERENTIAL? NO; NP MAN DIFFERENTIAL? YES; PLATELET ESTIMATE, MANUAL NORMAL (130-450,000) (NORMAL); PLATELET MORPHOLOGY NORMAL APPEARANCE (NORMAL)
[2016-10-08] MEDS: FUROSEMIDE 20 MG/2 ML VIAL IVP SCH (10:49)
[2016-10-08] MEDS: METOPROLOL TARTRATE 50 MG TABLET PO SCH ×2 (10:51→20:55)
[2016-10-08] MEDS: MEMANTINE 5 MG TABLET PO SCH ×2 (10:52→20:56)
[2016-10-08] MEDS: LISINOPRIL 5 MG TABLET PO SCH (10:53)
[2016-10-08] MEDS: ASPIRIN CHEW 81 MG TABLET PO SCH (10:53)
[2016-10-08] MEDS: CHOLECALCIFEROL 1,000 UNIT TABLET PO SCH (10:57)
[2016-10-08] MEDS: MULTIVITAMIN W/MINERALS TABLET PO SCH (10:58)
[2016-10-08] MEDS: PANTOPRAZOLE 40 MG TABLET PO SCH (10:59)
[2016-10-08] MEDS: FINASTERIDE 5 MG TABLET PO SCH (11:00)
[2016-10-08] MEDS: POTASSIUM CHLORIDE 10 MEQ CAPSULE PO SCH (11:01)
[2016-10-08] MEDS: CALCIUM CARBONATE CHEW 500 MG TABLET PO SCH ×2 (11:01→20:56)
[2016-10-08] MEDS: ENOXAPARIN 40 MG/0.4 ML SYRINGE SUBQ SCH (11:02)
--- NOTE | 2016-10-08 16:53 | PROVIDER PROGRESS NOTE ---
Assessment/Plan - Problem List (1) Septic shock Assessment/Plan: Presented with lethargy, fever, WBC of 27.6, weakness and hypotension Requiring levophed to maintain BP Lactate resolved Source appears to be urine and blood Patient has positive blood cultures with 4/4 bottles growing kleb pneumonia WBC improved to 16.0 from 30.2 Off Levophed Blood cx susceptible to levaquin on levophed day 2 Resolved (2) Gram-negative bacteremia Assessment/Plan: 4/4 bottles positive for Kleb Pneumo Likely source is urine Patient presented with septic shock Susceptible to levaquin switched to IV levaquin day 2 will continue IV abx till discharge then switch to PO levaquin and will treat for total of 6 weeks for prostatitis (3) Prostatitis Qualifiers: Urinary tract infection type: site unspecified Hematuria presence: with hematuria Qualified Code(s): N39.0 - Urinary tract infection, site not specified; R31.9 - Hematuria, unspecified Assessment/Plan: Presented with lethargy and septic shock Blood cx positive for Kleb penumo Urine cx also positive for kleb pneumo prostate tenderness Treat for 6 weeks for prostatitis to eradicate bacteria Urine growing kleb pnuemo susceptible to levaquin On IV levaquin will switch to PO at discharge and treat for 6 weeks today is day 2 of 42 Improving (4) CLARISSE (acute kidney injury) Assessment/Plan: Secondary to septic shock 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 was 1.3 presentation improved to 0.8 Resolved (5) Benign prostatic hyperplasia Assessment/Plan: Patient on finasteride Presented with septic shock and bacteremia from urinary source Given that he is a male and has BPH will presume this is prostatitis and treat for 6 weeks (6) Hyperlipidemia Assessment/Plan: HOlding statin till more stable (7) Hypokalemia Assessment/Plan: Replaced K Resolved (8) Elevated LFTs Assessment/Plan: Likely shocked liver secondary to septic shock Abdominal ultrasound and CT does not show obvious cholecystitis Recheck LFTs tomorrow (9) Hypophosphatemia Assessment/Plan: Replace Phos - Current Meds Current Meds: Current Medications Generic Name Dose Route Start Last Admin Trade Name Freq PRN Reason Stop Dose Admin Acetaminophen/Hydrocodone Bitart 1 tab 10/04/16 22:24 10/08/16 05:57 [place] 5/325 PO 1 tab Q4HR PRN Administration Pain 5 to 7 Aspirin 81 mg 06/15/17 09:00 10/08/16 10:53 [place] Aspirin PO 81 mg DAILY GABRIELA Administration Calcium Carbonate/Glycine 500 mg 10/05/16 09:00 10/08/16 11:01 Tums PO 500 mg BID GABRIELA Administration Cholecalciferol 1,000 unit 10/06/16 09:00 10/08/16 10:57 Vitamin D3 PO 1,000 unit DAILY GABRIELA Administration Enoxaparin Sodium 40 mg 10/05/16 09:00 10/08/16 11:02 Lovenox SUBQ 40 mg DAILY GABRIELA Administration Finasteride 5 mg 10/05/16 09:00 10/08/16 11:00 Proscar PO 5 mg DAILY GABRIELA Administration Furosemide 20 mg 10/05/16 00:53 10/08/16 10:49 Lasix Inj 20mg Vial IVP 20 mg DAILY GABRIELA Administration Norepinephrine Bitartrate 8 mg 250 mls @ 15 mls/hr 10/04/16 23:00 10/08/16 08: 04 / Dextrose IV Not Given .[id number] GABRIELA Protocol 8 MCG/MIN Levofloxacin 150 mls @ 100 mls/hr 10/06/16 11:00 10/08/16 11:39 Levaquin 750 Mg/150 Ml IV 100 mls/hr Q24H GABRIELA Administration Lisinopril 5 mg 10/06/16 09:00 10/08/16 10:53 Zestril PO 5 mg DAILY GABRIELA Administration Memantine 10 mg 10/05/16 21:00 10/08/16 10:52 Namenda PO 10 mg BID GABRIELA Administration Metoprolol Tartrate 50 mg 10/07/16 08:00 10/08/16 10:51 Lopressor PO 50 mg BID GABRIELA Administration Mineral Oil 1 applic 10/06/16 11:18 10/07/16 20:53 Cavilon TOP 1 applic PRN PRN Administration Skin Care Multivitamins/Minerals 1 tab 10/05/16 08:00 10/08/16 10:58 Theragran M PO 1 tab DAILYWM GABRIELA Administration Ondansetron HCl 4 mg 10/04/16 22:24 10/07/16 11:37 Zofran Inj IVP 4 mg Q6HR PRN Administration Nausea / Vomiting Pantoprazole Sodium 40 mg 10/06/16 07:00 10/08/16 10:59 Protonix PO 40 mg QDAC GABRIELA Administration Potassium Chloride 10 meq 10/06/16 09:00 10/08/16 11:01 Micro-K PO 10 meq DAILY GABRIELA Administration Sodium Chloride 10 ml 10/04/16 22:24 10/08/16 05:41 Normal Saline Flush 0.9% IVP 10 ml PRN PRN Administration NEEDED PER PROVIDER ORDERS Sodium Chloride 10 ml 10/05/16 06:00 10/08/16 10:48 Normal Saline Flush 0.9% IVP 10 ml Q8HR GABRIELA Administration Throat Lozenges 1 lozenge 10/05/16 07:22 10/07/16 11:36 Cepacol MM 1 lozenge Q2HR PRN Administration Mouth Sore Pain - Lab Result Lab results reviewed: Yes Fish Bone Diagrams: 10/08/16 05:10 10/08/16 05:10 - EKG Results EKG Interpreted Independently: Yes - Diagnostic Imaging Results Diagnostic Imaging Results: positive: Final report reviewed - Additional Planning Condition/Complexity: Improved My Orders: My Active Orders 10/09/16 05:00 CMP, RFLX TO IONIZED CA IF [CHEM] DAILYLAB 10/10/16 05:00 CMP, RFLX TO IONIZED CA IF [CHEM] DAILYLAB 10/11/16 05:00 CMP, RFLX TO IONIZED CA IF [CHEM] DAILYLAB Consult/Specialty: PT Plan Discussed with:: Patient, Family, Spouse Time Spent: 31-60 minutes Subjective - Subjective Patient Reports: Other (Improving. He still feels weak. will work with PT today. Would like to go home but understands he will likely have to go back to [facility]. no fevers or chills.) Nursing Reports: No Complaints Objective Vital Signs: Vital Signs - 24 hr 10/07/16 10/07/16 10/08/16 20:50 21:00 01:00 Temperature 36.8 C 36.7 C Heart Rate [ 97 84 Brachial] Respiratory 18 16 Rate Blood Pressure 128/73 Blood Pressure 128/73 130/79 [Left Brachial artery] O2 Saturation 95 96 10/08/16 10/08/16 10/08/16 05:00 09:00 10:42 Temperature 36.5 C 36.5 C Heart Rate [ 83 90 85 Brachial] Respiratory 16 18 Rate Blood Pressure Blood Pressure 127/77 108/72 138/71 H [Left Brachial artery] O2 Saturation 97 95 94 10/08/16 10/08/16 10:51 12:36 Temperature 36.7 C Heart Rate [ 79 Brachial] Respiratory 18 Rate Blood Pressure 138/71 H Blood Pressure 116/69 [Left Brachial artery] O2 Saturation 95 Oxygen O2 Source [Without Activity] Room air O2 Source Room air I&O (Last 24 Hrs): Intake and Output Totals x24h 10/06/16 10/07/16 10/08/16 23:59 23:59 23:59 Intake Total 1524 1763 1270 Output Total 1435 1290 Balance 89 473 1270 General: Alert, Oriented x3, Cooperative, No acute distress HEENT: Atraumatic, PERRLA, EOMI, Mucous membr. moist/pink Neck: Supple, No JVD, No thyromegaly, +2 carotid pulse wo bruit, No LAD Lymphatic: no adenopathy Neuro: Alert, Non Focal, CN 2-12 Grossly Intact, Oriented Times 3 Cardiovascular: Regular rate, Normal S1, Normal S2, No murmurs Respiratory: Chest non-tender, No respiratory distress, Breath sounds nml Abdomen: Normal bowel sounds, Soft, No tenderness, No hepatospenomegaly Extremities: No clubbing, No cyanosis, No edema, Normal pulses, Other (surgical site from hip fx repair looks clean and non infected) Skin: No rashes, No breakdown - Results Results: Laboratory Results WBC 12.3 x10^3/uL (4.8-10.8) H 10/08/16 05:10 RBC 2.65 10^6/uL (4.70-6.10) L 10/08/16 05:10 Hgb 8.0 g/dL (14.0-18.0) L 10/08/16 05:10 Hct 24.4 % (42.0-52.0) L 10/08/16 05:10 MCV 92.0 fL (80.0-94.0) 10/08/16 05:10 MCH 30.3 pg (27.0-31.0) 10/08/16 05:10 MCHC 32.9 g/dL (32.0-36.0) 10/08/16 05:10 RDW 14.5 % (12.0-15.0) 10/08/16 05:10 Plt Count 346 10^3/uL (130-450) 10/08/16 05:10 MPV 6.9 fL (7.4-11.4) L 10/08/16 05:10 Neut # 9.8 10^3/uL (1.5-6.6) H 10/08/16 05:10 Lymph # 1.7 10^3/uL (1.5-3.5) 10/08/16 05:10 [place] # 0.6 10^3/uL (0.0-1.0) 10/08/16 05:10 Eos # 0.2 10^3/uL (0.0-0.7) 10/08/16 05:10 Baso # 0.0 10^3/uL (0.0-0.1) 10/08/16 05:10 Absolute Nucleated RBC 0.05 x10^3/uL 10/08/16 05:10 Total Counted 100 10/06/16 01:40 Band Neuts % (Manual) Not Reportable 10/08/16 05:10 Neutrophils # (Manual) 18.7 10^3/uL (1.5-6.6) H 10/06/16 01:40 Lymphocytes # (Manual) 1.4 10^3/uL (1.5-3.5) L 10/06/16 01:40 Monocytes # (Manual) 0.4 10^3/uL (0.0-1.0) 10/06/16 01:40 Nucleated RBCs 0.4 /100WBC 10/08/16 05:10 Differential Comment MANUAL=AUTO DIFF 10/08/16 05:10 WBC Morphology 1+ BANDS (NORMAL) 10/04/16 17:49 Platelet Estimate NORMAL (130-450,000) (NORMAL) 10/08/16 05:10 Platelet Morphology NORMAL APPEARANCE (NORMAL) 10/08/16 05:10 RBC Morph Micro Appear NORMAL APPEARANCE (NORMAL) 10/06/16 01:40 RBC Morph Micro Appear NORMAL APPEARANCE (NORMAL) 10/07/16 05:03 RBC Morph Micro Appear 1+ POLYCHROMASIA (NORMAL) 1+ HYPOCHROMASIA (NORMAL) 1 + SCHISTOCYTES (NORMAL) 10/08/16 05:10 RBC Morph Micro Appear 1+ POLYCHROMASIA (NORMAL) 1+ HYPOCHROMASIA (NORMAL) 1 + SCHISTOCYTES (NORMAL) 10/08/16 05:10 RBC Morph Micro Appear 1+ POLYCHROMASIA (NORMAL) 1+ HYPOCHROMASIA (NORMAL) 1 + SCHISTOCYTES (NORMAL) 10/08/16 05:10 PT 17.5 secs (9.9-12.6) H 10/04/16 17:49 INR 1.5 (0.8-1.2) H 10/04/16 17:49 VBG pH 7.430 (7.31-7.41) H 10/08/16 05:10 Ionized Calcium 1.11 mmol/L (1.15-1.33) L 10/08/16 05:10 Sodium 141 mmol/L (135-145) 10/08/16 05:10 Potassium 3.7 mmol/L (3.5-5.0) 10/08/16 05:10 Chloride 108 mmol/L (101-111) 10/08/16 05:10 Carbon Dioxide 26 mmol/L (21-32) 10/08/16 05:10 Anion Gap 7.0 (6-13) 10/08/16 05:10 BUN 25 mg/dL (6-20) H 10/08/16 05:10 Creatinine 0.8 mg/dL (0.6-1.2) 10/08/16 05:10 Estimated GFR (MDRD) 91 (>89) 10/08/16 05:10 Glucose 142 mg/dL (70-100) H 10/08/16 05:10 Lactic Acid 1.8 mmol/L (0.5-2.2) 10/06/16 01:40 Calcium 7.8 mg/dL (8.5-10.3) L 10/08/16 05:10 Ionized Calcium YES 10/08/16 05:10 Phosphorus 2.0 mg/dL (2.5-4.6) L 10/07/16 05:03 Magnesium 2.0 mg/dL (1.7-2.8) 10/07/16 05:03 Total Bilirubin 1.0 mg/dL (0.2-1.0) 10/08/16 05:10 AST 31 IU/L (10-42) 10/08/16 05:10 ALT 36 IU/L (10-60) 10/08/16 05:10 Alkaline Phosphatase 267 IU/L (42-121) H 10/08/16 05:10 Total Creatine Kinase 89 IU/L (22-269) 10/04/16 17:49 CK-MB (CK-2) 1.0 ng/mL (0.6-6.3) 10/04/16 17:49 Troponin I 0.07 ng/mL (<0.49) 10/05/16 08:00 Total Protein 5.3 g/dL (6.7-8.2) L 10/08/16 05:10 Albumin 1.8 g/dL (3.2-5.5) L 10/08/16 05:10 Globulin 3.5 g/dL (2.1-4.2) 10/08/16 05:10 Albumin/Globulin Ratio 0.5 (1.0-2.2) L 10/08/16 05:10 Lipase 10 U/L (22-51) L 10/04/16 17:49 Urine Color DARK YELLOW 10/04/16 18:44 Urine Clarity HAZY (CLEAR) 10/04/16 18:44 Urine pH 6.0 PH (5.0-7.5) 10/04/16 18:44 Ur Specific [place] 1.015 (1.002-1.030) 10/04/16 18:44 Urine Protein TRACE mg/dL (NEGATIVE) 10/04/16 18:44 Urine Glucose (UA) NEGATIVE mg/dL (NEGATIVE) 10/04/16 18:44 Urine Ketones NEGATIVE mg/dL (NEGATIVE) 10/04/16 18:44 Urine Occult Blood LARGE (NEGATIVE) H 10/04/16 18:44 Urine Nitrite NEGATIVE (NEGATIVE) 10/04/16 18:44 Urine Bilirubin MODERATE (NEGATIVE) H 10/04/16 18:44 Urine Urobilinogen 4 E.U./dL (NORMAL) H 10/04/16 18:44 Ur Leukocyte Esterase TRACE (NEGATIVE) H 10/04/16 18:44 Urine RBC TNTC /HPF (0-5) H 10/04/16 18:44 Urine WBC 6-10 /HPF (0-3) H 10/04/16 18:44 Ur Epithelial Cells FEW Renal Tubular /HPF (<= Few) 10/04/16 18:44 Ur Squamous Epith Cells FEW Squamous (<= Few) 10/04/16 18:44 Urine Bacteria Many /HPF (None Seen) H 10/04/16 18:44 Urine Mucus Few Strands 10/04/16 18:44 Ur Microscopic Review INDICATED 10/04/16 18:44 Urine Culture Comments INDICATED 10/04/16 18:44 - Procedures Procedures: Procedures REPOSITION R UP FEMUR WITH INTRAMED FIX, OPEN APPROACH (09/23/16) TRANSFUSE NONAUT RED BLOOD CELLS IN PERIPH VEIN, PERC (09/23/16)
--- NOTE | 2016-10-08 17:09 | PROVIDER PROGRESS NOTE ---
Assessment/Plan - Problem List (1) Septic shock Assessment/Plan: Presented with lethargy, fever, WBC of 27.6, weakness and hypotension Requiring levophed to maintain BP Lactate resolved Source appears to be urine and blood Patient has positive blood cultures with 4/4 bottles growing kleb pneumonia WBC improved to 12.3 from 30.2 Off Levophed Blood cx susceptible to levaquin on levophed day 3 Resolved (2) Gram-negative bacteremia Assessment/Plan: 4/4 bottles positive for Kleb Pneumo Likely source is urine Patient presented with septic shock Susceptible to levaquin switched to IV levaquin day 3 will continue IV abx till discharge then switch to PO levaquin and will treat for total of 6 weeks for prostatitis (3) Prostatitis Qualifiers: Urinary tract infection type: site unspecified Hematuria presence: with hematuria Qualified Code(s): N39.0 - Urinary tract infection, site not specified; R31.9 - Hematuria, unspecified Assessment/Plan: Presented with lethargy and septic shock Blood cx positive for Kleb penumo Urine cx also positive for kleb pneumo prostate tenderness Treat for 6 weeks for prostatitis to eradicate bacteria Urine growing kleb pnuemo susceptible to levaquin On IV levaquin will switch to PO at discharge and treat for 6 weeks today is day 3 of 42 Improving (4) CLARISSE (acute kidney injury) Assessment/Plan: Secondary to septic shock Field Liability Generalist was 1.3 presentation improved to 0.8 Resolved (5) Benign prostatic hyperplasia Assessment/Plan: Patient on finasteride Presented with septic shock and bacteremia from urinary source Given that he is a male and has BPH will presume this is prostatitis and treat for 6 weeks (6) Hyperlipidemia Assessment/Plan: Restart statin (7) Hypokalemia Assessment/Plan: Replaced K Resolved (8) Elevated LFTs Assessment/Plan: Likely shocked liver secondary to septic shock Abdominal ultrasound and CT does not show obvious cholecystitis Recheck LFTs tomorrow (9) Hypophosphatemia Assessment/Plan: Replaced Phos (10) Diabetes Assessment/Plan: Patient has had poor appetite and sugars have been below 100 in the morning Will not restart lantus Will place on SS insulin and DM diet Monitor BG A1C from 10 days ago was over 9 (11) Atrial Fibrillation Assessment/Plan: Admission EKG showed A fib been in a fib on monitor Rate controlled with starting metoprolol Likely secondary to severe infection with septic shock and bacteremia Rate controlled At 86 patient is not a good candidate for coumadin especially given recent fall and fracture CHADS2 score 3 Echo - Current Meds Current Meds: Current Medications Generic Name Dose Route Start Last Admin Trade Name Freq PRN Reason Stop Dose Admin Acetaminophen/Hydrocodone Bitart 1 tab 10/04/16 22:24 10/08/16 05:57 [place] 5/325 PO 1 tab Q4HR PRN Administration Pain 5 to 7 Aspirin 81 mg 10/05/16 09:00 10/08/16 10:53 [facility] [place] Aspirin PO 81 mg DAILY GABRIELA Administration Calcium Carbonate/Glycine 500 mg 10/05/16 09:00 10/08/16 11:01 Tums PO 500 mg BID GABRIELA Administration Cholecalciferol 1,000 unit 10/06/16 09:00 10/08/16 10:57 Vitamin D3 PO 1,000 unit DAILY GABRIELA Administration Enoxaparin Sodium 40 mg 10/05/16 09:00 10/08/16 11:02 Lovenox SUBQ 40 mg DAILY GABRIELA Administration Finasteride 5 mg 10/05/16 09:00 10/08/16 11:00 Proscar PO 5 mg DAILY GABRIELA Administration Furosemide 20 mg 10/05/16 00:53 10/08/16 10:49 Lasix Inj 20mg Vial IVP 20 mg DAILY GABRIELA Administration Norepinephrine Bitartrate 8 mg 250 mls @ 15 mls/hr 10/04/16 23:00 10/08/16 08: 04 / Dextrose IV Not Given .[id number] GABRIELA Protocol 8 MCG/MIN Levofloxacin 150 mls @ 100 mls/hr 10/06/16 11:00 10/08/16 11:39 Levaquin 750 Mg/150 Ml IV 100 mls/hr Q24H GABRIELA Administration Lisinopril 5 mg 10/06/16 09:00 10/08/16 10:53 Zestril PO 5 mg DAILY GABRIELA Administration Memantine 10 mg 10/05/16 21:00 10/08/16 10:52 Namenda PO 10 mg BID GABRIELA Administration Metoprolol Tartrate 50 mg 10/07/16 08:00 10/08/16 10:51 Lopressor PO 50 mg BID GABRIELA Administration Mineral Oil 1 applic 10/06/16 11:18 10/07/16 20:53 Cavilon TOP 1 applic PRN PRN Administration Skin Care Multivitamins/Minerals 1 tab 10/05/16 08:00 10/08/16 10:58 Theragran M PO 1 tab DAILYWM GABRIELA Administration Ondansetron HCl 4 mg 10/04/16 22:24 10/07/16 11:37 Zofran Inj IVP 4 mg Q6HR PRN Administration Nausea / Vomiting Pantoprazole Sodium 40 mg 10/06/16 07:00 10/08/16 10:59 Protonix PO 40 mg QDAC GABRIELA Administration Potassium Chloride 10 meq 10/06/16 09:00 10/08/16 11:01 Micro-K PO 10 meq DAILY GABRIELA Administration Sodium Chloride 10 ml 10/04/16 22:24 10/08/16 05:41 Normal Saline Flush 0.9% IVP 10 ml PRN PRN Administration NEEDED PER PROVIDER ORDERS Sodium Chloride 10 ml 10/05/16 06:00 10/08/16 10:48 Normal Saline Flush 0.9% IVP 10 ml Q8HR GABRIELA Administration Throat Lozenges 1 lozenge 10/05/16 07:22 10/07/16 11:36 Cepacol MM 1 lozenge Q2HR PRN Administration Mouth Sore Pain - Lab Result Lab results reviewed: Yes Fish Bone Diagrams: 10/08/16 05:10 10/08/16 05:10 - EKG Results EKG Interpreted Independently: Yes - Diagnostic Imaging Results Diagnostic Imaging Results: positive: Final report reviewed - Additional Planning Condition/Complexity: Improved My Orders: My Active Orders 10/09/16 05:00 CMP, RFLX TO IONIZED CA IF [CHEM] DAILYLAB 10/10/16 05:00 CMP, RFLX TO IONIZED CA IF [CHEM] DAILYLAB 10/11/16 05:00 CMP, RFLX TO IONIZED CA IF [CHEM] DAILYLAB Consult/Specialty: PT Plan Discussed with:: Patient, Spouse Time Spent: 31-60 minutes Subjective - Subjective Patient Reports: Feeling Better (Patient denies any fevers overnight. He denies any chest pain. He denies any shortness of breath. He denies any abdominal pain or nausea or vomiting. He is still not having a good appetite.), Resting Comfortably Nursing Reports: No Complaints Objective Vital Signs: Vital Signs - 24 hr 10/07/16 10/07/16 10/08/16 20:50 21:00 01:00 Temperature 36.8 C 36.7 C Heart Rate [ 97 84 Brachial] Respiratory 18 16 Rate Blood Pressure 128/73 Blood Pressure 128/73 130/79 [Left Brachial artery] O2 Saturation 95 96 10/08/16 10/08/16 10/08/16 05:00 09:00 10:42 Temperature 36.5 C 36.5 C Heart Rate [ 83 90 85 Brachial] Respiratory 16 18 Rate Blood Pressure Blood Pressure 127/77 108/72 138/71 H [Left Brachial artery] O2 Saturation 97 95 94 10/08/16 10/08/16 10:51 12:36 Temperature 36.7 C Heart Rate [ 79 Brachial] Respiratory 18 Rate Blood Pressure 138/71 H Blood Pressure 116/69 [Left Brachial artery] O2 Saturation 95 Oxygen O2 Source [Without Activity] Room air O2 Source Room air I&O (Last 24 Hrs): Intake and Output Totals x24h 10/06/16 10/07/16 10/08/16 23:59 23:59 23:59 Intake Total 1524 1763 1270 Output Total 1435 1290 Balance 89 473 1270 General: Alert, Oriented x3, Cooperative, No acute distress HEENT: Atraumatic, PERRLA, EOMI, Mucous membr. moist/pink Neck: Supple, No JVD, No thyromegaly, +2 carotid pulse wo bruit, No LAD Lymphatic: no adenopathy Neuro: Alert, Non Focal, CN 2-12 Grossly Intact, Oriented Times 3 Cardiovascular: Regular rate, Normal S1, Normal S2, No murmurs Respiratory: Chest non-tender, No respiratory distress, Breath sounds nml Abdomen: Normal bowel sounds, Soft, No tenderness, No hepatospenomegaly Extremities: No clubbing, No cyanosis, No edema, Normal pulses, Other (surgical site looks clean, louise in place) Skin: No rashes, No breakdown - Results Results: Laboratory Results WBC 12.3 x10^3/uL (4.8-10.8) H 10/08/16 05:10 RBC 2.65 10^6/uL (4.70-6.10) L 10/08/16 05:10 Hgb 8.0 g/dL (14.0-18.0) L 10/08/16 05:10 Hct 24.4 % (42.0-52.0) L 10/08/16 05:10 MCV 92.0 fL (80.0-94.0) 10/08/16 05:10 MCH 30.3 pg (27.0-31.0) 10/08/16 05:10 MCHC 32.9 g/dL (32.0-36.0) 10/08/16 05:10 RDW 14.5 % (12.0-15.0) 10/08/16 05:10 Plt Count 346 10^3/uL (130-450) 10/08/16 05:10 MPV 6.9 fL (7.4-11.4) L 10/08/16 05:10 Neut # 9.8 10^3/uL (1.5-6.6) H 10/08/16 05:10 Lymph # 1.7 10^3/uL (1.5-3.5) 10/08/16 05:10 [place] # 0.6 10^3/uL (0.0-1.0) 10/08/16 05:10 Eos # 0.2 10^3/uL (0.0-0.7) 10/08/16 05:10 Baso # 0.0 10^3/uL (0.0-0.1) 10/08/16 05:10 Absolute Nucleated RBC 0.05 x10^3/uL 10/08/16 05:10 Total Counted 100 10/06/16 01:40 Band Neuts % (Manual) Not Reportable 10/08/16 05:10 Neutrophils # (Manual) 18.7 10^3/uL (1.5-6.6) H 10/06/16 01:40 Lymphocytes # (Manual) 1.4 10^3/uL (1.5-3.5) L 10/06/16 01:40 Monocytes # (Manual) 0.4 10^3/uL (0.0-1.0) 10/06/16 01:40 Nucleated RBCs 0.4 /100WBC 10/08/16 05:10 Differential Comment MANUAL=AUTO DIFF 10/08/16 05:10 WBC Morphology 1+ BANDS (NORMAL) 10/04/16 17:49 Platelet Estimate NORMAL (130-450,000) (NORMAL) 10/08/16 05:10 Platelet Morphology NORMAL APPEARANCE (NORMAL) 10/08/16 05:10 RBC Morph Micro Appear NORMAL APPEARANCE (NORMAL) 10/06/16 01:40 RBC Morph Micro Appear NORMAL APPEARANCE (NORMAL) 10/07/16 05:03 RBC Morph Micro Appear 1+ POLYCHROMASIA (NORMAL) 1+ HYPOCHROMASIA (NORMAL) 1 + SCHISTOCYTES (NORMAL) 10/08/16 05:10 RBC Morph Micro Appear 1+ POLYCHROMASIA (NORMAL) 1+ HYPOCHROMASIA (NORMAL) 1 + SCHISTOCYTES (NORMAL) 10/08/16 05:10 RBC Morph Micro Appear 1+ POLYCHROMASIA (NORMAL) 1+ HYPOCHROMASIA (NORMAL) 1 + SCHISTOCYTES (NORMAL) 10/08/16 05:10 PT 17.5 secs (9.9-12.6) H 10/04/16 17:49 INR 1.5 (0.8-1.2) H 10/04/16 17:49 VBG pH 7.430 (7.31-7.41) H 10/08/16 05:10 Ionized Calcium 1.11 mmol/L (1.15-1.33) L 10/08/16 05:10 Sodium 141 mmol/L (135-145) 10/08/16 05:10 Potassium 3.7 mmol/L (3.5-5.0) 10/08/16 05:10 Chloride 108 mmol/L (101-111) 10/08/16 05:10 Carbon Dioxide 26 mmol/L (21-32) 10/08/16 05:10 Anion Gap 7.0 (6-13) 10/08/16 05:10 BUN 25 mg/dL (6-20) H 10/08/16 05:10 Creatinine 0.8 mg/dL (0.6-1.2) 10/08/16 05:10 Estimated GFR (MDRD) 91 (>89) 10/08/16 05:10 Glucose 142 mg/dL (70-100) H 10/08/16 05:10 Lactic Acid 1.8 mmol/L (0.5-2.2) 10/06/16 01:40 Calcium 7.8 mg/dL (8.5-10.3) L 10/08/16 05:10 Ionized Calcium YES 10/08/16 05:10 Phosphorus 2.0 mg/dL (2.5-4.6) L 10/07/16 05:03 Magnesium 2.0 mg/dL (1.7-2.8) 10/07/16 05:03 Total Bilirubin 1.0 mg/dL (0.2-1.0) 10/08/16 05:10 AST 31 IU/L (10-42) 10/08/16 05:10 ALT 36 IU/L (10-60) 10/08/16 05:10 Alkaline Phosphatase 267 IU/L (42-121) H 10/08/16 05:10 Total Creatine Kinase 89 IU/L (22-269) 10/04/16 17:49 CK-MB (CK-2) 1.0 ng/mL (0.6-6.3) 10/04/16 17:49 Troponin I 0.07 ng/mL (<0.49) 10/05/16 08:00 Total Protein 5.3 g/dL (6.7-8.2) L 10/08/16 05:10 Albumin 1.8 g/dL (3.2-5.5) L 10/08/16 05:10 Globulin 3.5 g/dL (2.1-4.2) 10/08/16 05:10 Albumin/Globulin Ratio 0.5 (1.0-2.2) L 10/08/16 05:10 Lipase 10 U/L (22-51) L 10/04/16 17:49 Urine Color DARK YELLOW 10/04/16 18:44 Urine Clarity HAZY (CLEAR) 10/04/16 18:44 Urine pH 6.0 PH (5.0-7.5) 10/04/16 18:44 Ur Specific [place] 1.015 (1.002-1.030) 10/04/16 18:44 Urine Protein TRACE mg/dL (NEGATIVE) 10/04/16 18:44 Urine Glucose (UA) NEGATIVE mg/dL (NEGATIVE) 10/04/16 18:44 Urine Ketones NEGATIVE mg/dL (NEGATIVE) 10/04/16 18:44 Urine Occult Blood LARGE (NEGATIVE) H 10/04/16 18:44 Urine Nitrite NEGATIVE (NEGATIVE) 10/04/16 18:44 Urine Bilirubin MODERATE (NEGATIVE) H 10/04/16 18:44 Urine Urobilinogen 4 E.U./dL (NORMAL) H 10/04/16 18:44 Ur Leukocyte Esterase TRACE (NEGATIVE) H 10/04/16 18:44 Urine RBC TNTC /HPF (0-5) H 10/04/16 18:44 Urine WBC 6-10 /HPF (0-3) H 10/04/16 18:44 Ur Epithelial Cells FEW Renal Tubular /HPF (<= Few) 10/04/16 18:44 Ur Squamous Epith Cells FEW Squamous (<= Few) 10/04/16 18:44 Urine Bacteria Many /HPF (None Seen) H 10/04/16 18:44 Urine Mucus Few Strands 10/04/16 18:44 Ur Microscopic Review INDICATED 10/04/16 18:44 Urine Culture Comments INDICATED 10/04/16 18:44 - Procedures Procedures: Procedures REPOSITION R UP FEMUR WITH INTRAMED FIX, OPEN APPROACH (09/23/16) TRANSFUSE NONAUT RED BLOOD CELLS IN PERIPH VEIN, PERC (09/23/16)
[2016-10-08] MEDS: INSULIN ASPART 300 UNIT/3 ML PEN SUBQ SCH (20:56)
[2016-10-08] MEDS ORDERED: ATORVASTATIN 40 MG TABLET PO SCH (21:00)
[2016-10-09 05:02] LABS: ALBUMIN/GLOBULIN RATIO 0.5 (1.0-2.2); BILIRUBIN,TOTAL 1.1 mg/dL (0.2-1.0); BUN - BLOOD UREA NITROGEN 23 mg/dL (6-20); CALCIUM 7.8 mg/dL (8.5-10.3); CARBON DIOXIDE - CO2 28 mmol/L (21-32); CHLORIDE 106 mmol/L (101-111); CREATININE 0.9 mg/dL (0.6-1.2); GFR - MDRD 80 (>89); GLUCOSE 157 mg/dL (70-100); POTASSIUM 3.5 mmol/L (3.5-5.0); SODIUM 141 mmol/L (135-145); TOTAL PROTEIN 5.1 g/dL (6.7-8.2)
[2016-10-09 05:11] LABS: CALCIUM, IONIZED 1.12 mmol/L (1.15-1.33); VBG PH 7.4 (7.31-7.41)
[2016-10-09] MEDS: PANTOPRAZOLE 40 MG TABLET PO SCH (06:43)
[2016-10-09] MEDS: SODIUM CHLORIDE FLUSH 0.9% 10 ML SYRINGE IVP SCH (06:44)
[2016-10-09] MEDS: SODIUM CHLORIDE FLUSH 0.9% 10 ML SYRINGE IVP PRN (06:44)
[2016-10-09 07:40] VITALS: BP 146/83
[2016-10-09 08:48] LABS: EOSINOPHILS % (AUTO) 1.5 %; HGB - HEMOGLOBIN 8.7 g/dL (14.0-18.0); LYMPHOCYTES % (AUTO) 16.5 %; MEAN CORPUSCULAR HEMOGLOBIN 30.8 pg (27.0-31.0); MEAN CORPUSCULAR HGB CONC 33.3 g/dL (32.0-36.0); MEAN CORPUSCULAR VOLUME 92.3 fL (80.0-94.0); MEAN PLATELET VOLUME 6.6 fL (7.4-11.4); MONOCYTES % (AUTO) 5.6 %; NEUTROPHILS % (AUTO) 75.4 %; RED BLOOD COUNT 2.82 10^6/uL (4.70-6.10); RED CELL DISTRIBUTION WIDTH 14.2 % (12.0-15.0); UNCORRECTED WHITE BLOOD COUNT 10.2 x10^3/uL; WHITE BLOOD COUNT 10.2 x10^3/uL (4.8-10.8)
[2016-10-09 09:10] LABS: BAND NEUTROPHILS % (MANUAL) 1 %; BASOPHILS % (MANUAL) 1 %; EOSINOPHILS % (MANUAL) 3 %; LYMPHOCYTES % (MANUAL) 17 %; NEUTROPHILS % (MANUAL) 69 %; TOTAL CELLS COUNTED 100
[2016-10-09 09:12] LABS: NP AUTO DIFFERENTIAL? YES; NP MAN DIFFERENTIAL? NO
[2016-10-09] MEDS: METOPROLOL TARTRATE 50 MG TABLET PO SCH (10:26)
[2016-10-09] MEDS: MEMANTINE 5 MG TABLET PO SCH (10:29)
[2016-10-09] MEDS: LISINOPRIL 5 MG TABLET PO SCH (10:30)
[2016-10-09] MEDS: FINASTERIDE 5 MG TABLET PO SCH (10:31)
[2016-10-09] MEDS: CHOLECALCIFEROL 1,000 UNIT TABLET PO SCH (10:31)
[2016-10-09] MEDS: MULTIVITAMIN W/MINERALS TABLET PO SCH (10:32)
[2016-10-09] MEDS: POTASSIUM CHLORIDE 10 MEQ CAPSULE PO SCH (10:33)
[2016-10-09] MEDS: INSULIN ASPART 300 UNIT/3 ML PEN SUBQ SCH (10:34)
[2016-10-09] MEDS: CALCIUM CARBONATE CHEW 500 MG TABLET PO SCH (10:34)
[2016-10-09] MEDS: ASPIRIN CHEW 81 MG TABLET PO SCH (10:34)
[2016-10-09] MEDS: ENOXAPARIN 40 MG/0.4 ML SYRINGE SUBQ SCH (10:37)
[2016-10-09] MEDS: FUROSEMIDE 20 MG/2 ML VIAL IVP SCH (10:38)
--- NOTE | 2016-10-10 09:29 | DISCHARGE SUMMARY ---
DATE OF ADMISSION: 10/04/2016 DATE OF DISCHARGE: 10/09/2016 PRIMARY CARE PHYSICIAN: Sachin Weber M.D. DISCHARGING PHYSICIAN: Flo Armas M.D. DISCHARGE DIAGNOSES 1. Septic shock. 2. Gram-negative bacteremia. 3. Prostatitis. 4. Acute kidney injury. 5. Diabetes. 6. Atrial fibrillation. 7. Hyperlipidemia. 8. Hypokalemia. 9. Elevated liver function tests. 10. Hypophosphatemia. 11. Right femoral shaft fracture. DISCHARGE MEDICATIONS 1. Levaquin 500 mg p.o. daily x38 days, until 10/26/2016. 2. Simvastatin 40 mg p.o. daily. 3. Lopressor 50 mg p.o. b.i.d. 4. Aspirin 81 mg p.o. daily. 5. Protonix 40 mg p.o. daily. 6. Calcium carbonate 500 mg p.o. b.i.d. 7. Lisinopril 5 mg p.o. daily. 8. Hydrochlorothiazide 50 mg p.o. daily. 9. Finasteride 5 mg p.o. daily. 10. Namenda 10 mg p.o. b.i.d. 11. Vitamin D3 1000 units p.o. daily. 12. Multivitamin 1 tablet p.o. daily. 13. [place] 5/325 mg p.o. every 6 hours p.r.n. for pain. 14. Potassium chloride 10 mEq p.o. daily. 15. Lantus 10 units subcutaneously b.i.d. 16. Sliding scale insulin low dose. HOSPITAL COURSE: The patient is a very pleasant 86-year-old gentleman with a moderate cognitive defi cit due to aging, and is on Namenda. He also has a history of atrial fibrillation and was previously on Coumadin, as well as a possible TIA. The patient has a history of obstructive sleep apnea on CPA P, BPH, osteoarthritis, hyperlipidemia, hypertension, and diabetes. He was recently hospitalized for right femoral neck fracture on 09/23/2016. He is status post open reduction and internal fixation. The patient was discharged to [facility] for rehabilitation. At [facility], the patient had been experien cing increasing chest congestion, cough, and increasing weakness. The patient began having fevers an d was becoming increasingly lethargic. He was finally sent to the emergency department at [facility]. The patient, on presentation, was obtunded. He was tachycardic and febrile, wi th a temperature of 38.9. He was hypotensive. Initially, blood pressure was 95/61, and dropped desp ite several liters of IV fluid. Eventually, the patient had to be placed on Levophed, and he was adm itted to the ICU. The patient was found to have a leukocytosis, which peaked at 38.2. His UA was gr ossly positive. The patient's blood cultures came back positive in 4 out of 4 bottles growing Klebsi venkat pneumonia, which was the same organism that he grew in his urine. The patient did have some pro state tenderness. This was thought to be the source of his Gram-negative bacteremia. The patient wa s initially placed on broad spectrum antibiotics with IV vancomycin and Zosyn. The patient's antibio tics were de-escalated. After the cultures returned, he was placed on IV Levaquin. He continued to improve. His leukocytosis completely resolved by the time of discharge. The patient continued to have improvement in his strength. Initially, the patient had zero appetite. By the ti me of discharge, he was eating more of his meals. The patient was discharged on oral Levaquin, which he will continue to complete a 6-week treatment for eradication of Klebsiella pneumoniae from likely prostatitis. The patient did have his louise removed from his previous surgery prior to discharge. The patient will continue with physical therapy at [facility] and will continue to be treated with his antibiotics. He also had his Lopressor dose increased to 25 mg b.i.d. during the hospitalization as he was having bouts of atrial fibrillation with RVR. The patient was discharged to [facility] in stabl e condition. PHYSICAL EXAMINATION AT DISCHARGE VITAL SIGNS: Temperature 36.7. Heart rate 93. Blood pressure 146/83. Respiratory rate 18. O2 sat uration 98% on room air. GENERAL: The patient is an elderly, mildly demented gentleman who is alert and able to answer most o f my questions. He does not appear to be in any acute distress at the moment, but does appear to be quite fatigued. HEENT: Pupils are equal and reactive to light. Extraocular muscles are intact. Mucous membranes ar e moist. There is no conjunctival pallor or scleral icterus noted. NECK: Supple. No thyromegaly. No JVD. Trachea is midline. LYMPH NODES: There is no cervical or axillary lymphadenopathy noted. CARDIOVASCULAR: S1 and S2, irregularly irregular rhythm. No murmurs, rubs, or gallops. LUNGS: Clear to auscultation bilaterally. No wheezes, rhonchi, or crackles. ABDOMEN: Soft, nontender, and nondistended. Bowel sounds are present in all four quadrants. EXTREMITIES: There is no lower extremity edema. Peripheral pulses are palpable. There is no cyanos is or clubbing. SKIN: No skin rashes, lesions, or cellulitis are noted. MUSCULOSKELETAL: The patient has good range of motion, except for in his right hip, where he had his fractures. His range of motion is slightly decreased. The patient's surgical site looks to be jeferson n and does not appear infected. NEUROLOGIC: The patient is alert and oriented x3. Cranial nerves II through XII are grossly intact. Strength is grossly normal. Sensations are intact. LABORATORY: WBCs 10.2, hemoglobin 8.7, hematocrit 26.0, and platelet count 356. INR 1.5. Ionized c alcium 1.12. Sodium 141, potassium 3.5, chloride 106, carbon dioxide 28, BUN 23, creatinine 0.9, glu cose 157, calcium 7.8, total bilirubin 1.1, AST 29, ALT 30, alkaline phosphatase 250. Troponin was 0 .07. Total protein 5.1, albumin 1.8. TSH 5.07. UA revealed moderate bilirubin, trace leukocyte est erase, and 6 to 10 WBCs with many bacteria. MICROBIOLOGY: Blood culture was positive for Klebsiella pneumonia, susceptible to Levaquin. His urine culture grew Klebsiella pneumoniae susceptible to Levaquin. IMAGING: The chest x-ray impression revealed pulmonary vascular congestion, with no overt edema or f ocal airspace consolidation. The abdominal ultrasound impression revealed: 1. Gallstones and sludge. No gallbladder wall thickening, sonographic Dorsye sign, or pericholecysti c fluid. 2. Heterogeneous liver parenchyma. No mass. 3. No hydronephrosis or renal stones. A 4.6 x 5.8 x 5.2 cm mildly complex right mid-renal cyst, with possible thickened septations. The cyst wall was mildly irregular without a definite mural nodule. Recommend contrast-enhanced CT or MRI for more definitive characterization and to exclude malignancy . The CT of the abdomen and pelvis impression revealed: 1. No acute solid or hollow viscous abdominal organ abnormality to clearly account for the patient's presentation. 2. There were moderate-sized bilateral pleural effusions. 3. There was distal colon diverticulosis, without evidence of diverticulitis. 4. There was atheromatous calcification of the aorta and branch vessels. No acute vascular abnormali ties were seen. The prostate was enlarged. There was mild thickening of the urinary bladder. This c ould represent cystitis. 5. Age-indeterminate compression fracture of the L2 vertebral body. The patient has undergone qa intern al fixation of the right femur fracture. The chest x-ray impression revealed: 1. Right IJ central line placed in the cavoatrial junction. 2. No pneumothorax. 3. Mild pulmonary fluid overload. FOLLOWUP/RECOMMENDATIONS: The patient was admitted to the hospital from [facility] after let hargy and fever. He was found to have severe sepsis with septic shock secondary to Klebsiella bacter emia, with the source being the urine and likely being prostatitis. The patient was treated with IV antibiotics while hospitalized. His leukocytosis improved. The patient had improvement in his stren gth and clinically was much improved. We were able to wean him off of Levophed, and he was stable en ough for return to [facility] for further physical therapy for his right hip fracture. The patient was discharged in stable condition and will continue on Levaquin for a total of 6 weeks of treatment for prostatitis and bacteremia. TIME SPENT ON DISCHARGE: Greater than 30 minutes were spent on discharge. JOB #: [id number] EXT JOB #:[id number]
== END 2016-10-09 10:45 | DRG 871 ==
LOC: EDUNIT# → ED 17:33 → ICU 22:24 → MS 10-07 14:37
PROVIDERS: ADMIT Specialist; ATTEND Internal Medicine
DX: A41.9 Sepsis, unspecified organism (principal); A41.59 Other Gram-negative sepsis; R10.84 Generalized abdominal pain; I10 Essential (primary) hypertension; E78.00 Pure hypercholesterolemia, unspecified; R65.21 Severe sepsis with septic shock; G47.30 Sleep apnea, unspecified; N17.9 Acute kidney failure, unspecified; Z86.73 Personal history of transient ischemic attack (TIA), and cerebral infarction without residual deficits; N40.0 Benign prostatic hyperplasia without lower urinary tract symptoms; M19.90 Unspecified osteoarthritis, unspecified site; G89.29 Other chronic pain; M54.9 Dorsalgia, unspecified; Z96.659 Presence of unspecified artificial knee joint; Z79.82 Long term (current) use of aspirin; N39.0 Urinary tract infection, site not specified; D62 Acute posthemorrhagic anemia; J90 Pleural effusion, not elsewhere classified; E46 Unspecified protein-calorie malnutrition; Z68.30 Body mass index [BMI] 30.0-30.9, adult; N41.9 Inflammatory disease of prostate, unspecified; R31.9 Hematuria, unspecified; I48.91 Unspecified atrial fibrillation; E78.5 Hyperlipidemia, unspecified; E87.6 Hypokalemia; F03.90 Unspecified dementia, unspecified severity, without behavioral disturbance, psychotic disturbance, mood disturbance, and anxiety; R79.89 Other specified abnormal findings of blood chemistry; E83.39 Other disorders of phosphorus metabolism; N28.1 Cyst of kidney, acquired; S72.301D Unspecified fracture of shaft of right femur, subsequent encounter for closed fracture with routine healing; W01.0XXD Fall on same level from slipping, tripping and stumbling without subsequent striking against object, subsequent encounter; K82.8 Other specified diseases of gallbladder; G47.33 Obstructive sleep apnea (adult) (pediatric); S39.82XD Other specified injuries of lower back, subsequent encounter; Z96.653 Presence of artificial knee joint, bilateral; Z66 Do not resuscitate; Z79.4 Long term (current) use of insulin; Z79.891 Long term (current) use of opiate analgesic; Z79.899 Other long term (current) drug therapy
CPT/HCPCS: 36415; 36569; 51701; 71010; 74177; 76705; 80048; 80053; 81001; 81003; 82040; 82310; 82330; 82550; 82553; 83605; 83690; 83735; 84100; 84132; 84443; 84484; 85025; 85610; 87040; 87077; 87086; 87150; 93005; 93010; 96361; 96365; 96375; 99285; 99291

== ENCOUNTER 2016-10-09 11:05 | Outpatient (CLI) | payer MEDICARE, OTHER | END 2016-10-09 11:06 | LOC: EMS 11:05 | PROVIDERS: ATTEND Surgery | DX: S72.301D Unspecified fracture of shaft of right femur, subsequent encounter for closed fracture with routine healing (principal) | CPT/HCPCS: A0425; A0428 ==

== ENCOUNTER 2016-10-16 09:44 | Outpatient (CLI) | payer MEDICARE, OTHER ==
[2016-10-16 13:03] LABS: BASOPHILS % (AUTO) 0.2 %; EOSINOPHILS % (AUTO) 0.1 %; HGB - HEMOGLOBIN 9.4 g/dL (14.0-18.0); LYMPHOCYTES # (AUTO) 0.8 10^3/uL (1.5-3.5); MEAN CORPUSCULAR HEMOGLOBIN 30.2 pg (27.0-31.0); MEAN CORPUSCULAR HGB CONC 32.5 g/dL (32.0-36.0); MEAN CORPUSCULAR VOLUME 92.7 fL (80.0-94.0); MONOCYTES # (AUTO) 0.7 10^3/uL (0.0-1.0); MONOCYTES % (AUTO) 4.7 %; NEUTROPHILS # (AUTO) 14.2 10^3/uL (1.5-6.6); RED BLOOD COUNT 3.13 10^6/uL (4.70-6.10); RED CELL DISTRIBUTION WIDTH 16.5 % (12.0-15.0); UNCORRECTED WHITE BLOOD COUNT 15.8 x10^3/uL; WHITE BLOOD COUNT 15.8 x10^3/uL (4.8-10.8)
[2016-10-16 13:17] LABS: ALBUMIN/GLOBULIN RATIO 0.6 (1.0-2.2); BILIRUBIN,TOTAL 1.1 mg/dL (0.2-1.0); CALCIUM 7.7 mg/dL (8.5-10.3); CREATININE 2.7 mg/dL (0.6-1.2)
[2016-10-16 13:20] LABS: POTASSIUM 2.5 mmol/L (3.5-5.0)
== END 2016-10-16 09:45 | disposition home or self-care (01) ==
LOC: LAB.R 09:44
DX: E83.51 Hypocalcemia (principal)
CPT/HCPCS: 80053; 85025

== ENCOUNTER 2016-10-16 13:00 | Outpatient (CLI) | payer MEDICARE, OTHER ==
[2016-10-16 17:08] LABS: BILIRUBIN,URINE NEGATIVE (NEGATIVE)
[2016-10-16 17:09] LABS: UA w/ MICROSCOPIC CHARGE YES
[2016-10-16 17:32] LABS: UR CULTURE IF IND INDICATED
== END 2016-10-16 13:01 | disposition home or self-care (01) ==
LOC: LAB.R 13:00
DX: N39.0 Urinary tract infection, site not specified (principal)
CPT/HCPCS: 81001; 81003; 87086

== ENCOUNTER 2016-10-16 17:34 | Outpatient (CLI) | payer MEDICARE, OTHER | END 2016-10-16 17:35 | disposition critical access hospital (66) | LOC: EMS 17:34 | PROVIDERS: ATTEND Surgery | DX: R79.89 Other specified abnormal findings of blood chemistry (principal); R53.1 Weakness | CPT/HCPCS: A0425; A0429 ==

== ENCOUNTER 2016-10-16 17:39 | Inpatient (IN) | payer MEDICARE, OTHER ==
[2016-10-16 18:03] LABS: BASOPHILS # (AUTO) 0.1 10^3/uL (0.0-0.1); BASOPHILS % (AUTO) 0.8 %; EOSINOPHILS % (AUTO) 0.2 %; HCT - HEMATOCRIT 28.2 % (42.0-52.0); HGB - HEMOGLOBIN 9.2 g/dL (14.0-18.0); LYMPHOCYTES # (AUTO) 0.9 10^3/uL (1.5-3.5); LYMPHOCYTES % (AUTO) 6.7 %; MEAN CORPUSCULAR HEMOGLOBIN 30.5 pg (27.0-31.0); MEAN CORPUSCULAR HGB CONC 32.8 g/dL (32.0-36.0); MEAN PLATELET VOLUME 6.8 fL (7.4-11.4); MONOCYTES # (AUTO) 0.6 10^3/uL (0.0-1.0); MONOCYTES % (AUTO) 4.4 %; NEUTROPHILS % (AUTO) 87.9 %; RED BLOOD COUNT 3.03 10^6/uL (4.70-6.10); RED CELL DISTRIBUTION WIDTH 16.2 % (12.0-15.0); UNCORRECTED WHITE BLOOD COUNT 13.7 x10^3/uL; WHITE BLOOD COUNT 13.7 x10^3/uL (4.8-10.8)
[2016-10-16 18:11] LABS: ALBUMIN/GLOBULIN RATIO 0.6 (1.0-2.2); BILIRUBIN,TOTAL 0.9 mg/dL (0.2-1.0); CALCIUM 7.4 mg/dL (8.5-10.3); CREATININE 2.5 mg/dL (0.6-1.2); MAGNESIUM 1.8 mg/dL (1.7-2.8); PHOSPHORUS 3.3 mg/dL (2.5-4.6); POTASSIUM 2.7 mmol/L (3.5-5.0); TOTAL PROTEIN 5.3 g/dL (6.7-8.2)
[2016-10-16] MEDS ORDERED: POTASSIUM CHLOR 10 MEQ/100 ML 100 ML IV ONE ×2 (18:36→18:57)
[2016-10-16] MEDS ORDERED: SODIUM CHLORIDE 0.9% 1,000 ML IV ONE (18:36)
[2016-10-16 18:53] LABS: BILIRUBIN,URINE NEGATIVE (NEGATIVE)
[2016-10-16 18:55] LABS: UA w/ MICROSCOPIC CHARGE YES
--- NOTE | 2016-10-16 19:00 | ED Physician Documentation ---
History of Present Illness - Stated complaint Stated Complaint: LOW POTASSIUM - Chief complaint Chief Complaint: Cardiac - History obtained from History obtained from: Patient, Family - History of Present Illness Timing: Today Pain level max: 0 Pain level now: 0 Improved by: nothing Worsened by: nothing - Additonal information Additional information: Patient is an 86-year-old gentleman who is accompanied to the emergency department by his . He was sent over from [facility] for low potassium on blood draw today. states he has not been as alert as usual. Appears somnolent. She states that he has had a long complicated postoperative course since falling and breaking his hip. He also had gram-negative sepsis from a UTI and has intermittent hematuria, likely prostatitis and intermittent use of an indwelling catheter. Review of Systems Unable to obtain: AMS GI: denies: Vomiting Skin: denies: Rash Neurologic: denies: Focal weakness, Numbness, Seizure PD PAST MEDICAL HISTORY - Past Medical History Cardiovascular: Hypertension, High cholesterol, Atrial fibrillation Respiratory: Sleep apnea, CPAP use Neuro: Dementia, TIA Endocrine/Autoimmune: None GI: None : Benign prostate hypertrophy HEENT: None Psych: None Musculoskeletal: Osteoarthritis, Chronic back pain Derm: None - Past Surgical History Past Surgical History: Yes Ortho: Hip replacement, Knee replacement - Present Medications Home Medications: Ambulatory Orders Medication Instructions Recorded Confirmed Aspirin 81 mg PO DAILY 09/23/16 10/05/16 Finasteride 5 mg PO DAILY 09/23/16 10/05/16 Memantine [Namenda] 10 mg PO BID 09/23/16 10/05/16 Metoprolol Succinate 25 mg PO DAILY 09/23/16 10/05/16 Simvastatin 40 mg PO DAILY 09/23/16 10/05/16 Potassium Chloride [Micro-K] 10 meq PO DAILY 09/24/16 10/05/16 Calcium Carbonate [Tums (Calcium 500 mg PO BID tablet 09/29/16 10/05/16 Carbonate 500mg)] Insulin Aspart [NovoLOG] 1 - 9 unit SUBQ 09/29/16 10/05/16 0800,1200,1700,2100 pen Insulin Glargine [Lantus Solostar] 10 unit SUBQ BID pen 09/29/16 10/05/16 Lisinopril [Zestril] 5 mg PO DAILY #0 tablet 09/29/16 10/05/16 Cholecalciferol (Vitamin D3) 1,000 units PO DAILY 10/05/16 10/05/16 [Vitamin D3] Hydrochlorothiazide 50 mg PO DAILY 10/05/16 10/05/16 [Hydrochlorothiazide] Pantoprazole [Protonix] 40 mg PO QDAC 10/05/16 10/05/16 - Allergies Allergies/Adverse Reactions: Allergies Allergy/AdvReac Type Severity Reaction Status Date / Time No Known Drug Allergies Allergy Verified 10/16/16 17:57 - Social History Does the pt smoke?: No Smoking Status: Unknown if ever smoked Does the pt drink ETOH?: Yes Does the pt have substance abuse?: No - POLST Patient has POLST: Yes POLST Status: DNR PD ED PE NORMAL - Vitals Vital signs reviewed: Yes - General General: No acute distress, Other (Appears pale. Somnolent, but arousable. Hoarse voice) - HEENT HEENT: PERRL, Moist mucous membranes, Other (Mild posterior oropharyngeal erythema without tonsillar exudates) - Neck Neck: Supple, no meningeal sign, No bony TTP - Cardiac Cardiac: RRR - Respiratory Respiratory: Other (Crackles bilaterally) - Abdomen Abdomen: Soft, Non tender, Non distended - Back Back: No CVA TTP, No spinal TTP - Derm Derm: Warm and dry - Extremities Extremities: Other (3+ bilateral lower extremity edema. Pitting) - Neuro Neuro: Other (Drowsy but arousable) Results - Vitals Vitals: Vital Signs - 24 hr 10/16/16 10/16/16 10/16/16 17:52 19:07 19:09 Temperature 37.1 C Heart Rate 114 H 102 H Respiratory 18 18 Rate Blood Pressure 90/55 L 104/56 L O2 Saturation 96 94 95 10/16/16 10/16/16 10/16/16 19:22 19:33 20:17 Temperature 36.5 C Heart Rate 107 H 117 H Respiratory 23 24 Rate Blood Pressure 108/61 122/65 O2 Saturation 90 L 100 99 10/16/16 20:41 Temperature Heart Rate 101 H Respiratory 22 Rate Blood Pressure 106/65 O2 Saturation 100 Oxygen O2 Source [Without Activity] Room air O2 Source Nasal cannula - Labs Labs: Laboratory Tests 10/16/16 10/16/16 10/16/16 17:47 17:47 17:47 WBC 13.7 H RBC 3.03 L Hgb 9.2 L Hct 28.2 L MCV 93.0 MCH 30.5 MCHC 32.8 RDW 16.2 H Plt Count 334 MPV 6.8 L Neut # 12.0 H Lymph # 0.9 L Evangeline # 0.6 Eos # 0.0 Baso # 0.1 Absolute Nucleated RBC 0.00 Nucleated RBCs 0.0 Sodium 144 Potassium 2.7 L Chloride 108 Carbon Dioxide 26 Anion Gap 10.0 BUN 54 H Creatinine 2.5 H Estimated GFR (MDRD) 25 L Glucose 212 H Glycated Hemoglobin 6.8 H Estim Average Glucose 148 H Lactic Acid Calcium 7.4 L Phosphorus 3.3 Magnesium 1.8 Total Bilirubin 0.9 AST 19 ALT 15 Alkaline Phosphatase 187 H Total Protein 5.3 L Albumin 2.0 L Globulin 3.3 Albumin/Globulin Ratio 0.6 L Lipase 15 L Urine Color Urine Clarity Urine pH Ur Specific [place] Urine Protein Urine Glucose (UA) Urine Ketones Urine Occult Blood Urine Nitrite Urine Bilirubin Urine Urobilinogen Ur Leukocyte Esterase Urine RBC Urine WBC Ur Squamous Epith Cells Urine Bacteria Ur Microscopic Review Urine Culture Comments Group A Strep Rapid 10/16/16 10/16/16 10/16/16 18:31 19:00 20:15 WBC RBC Hgb Hct MCV MCH MCHC RDW Plt Count MPV Neut # Lymph # Evangeline # Eos # Baso # Absolute Nucleated RBC Nucleated RBCs Sodium Potassium Chloride Carbon Dioxide Anion Gap BUN Creatinine Estimated GFR (MDRD) Glucose Glycated Hemoglobin Estim Average Glucose Lactic Acid 2.2 Calcium Phosphorus Magnesium Total Bilirubin AST ALT Alkaline Phosphatase Total Protein Albumin Globulin Albumin/Globulin Ratio Lipase Urine Color BROWN Urine Clarity CLOUDY Urine pH 5.0 Ur Specific [place] 1.025 Urine Protein 30 H Urine Glucose (UA) NEGATIVE Urine Ketones NEGATIVE Urine Occult Blood LARGE H Urine Nitrite NEGATIVE Urine Bilirubin NEGATIVE Urine Urobilinogen 0.2 (NORMAL) Ur Leukocyte Esterase TRACE H Urine RBC TNTC H Urine WBC 6-10 H Ur Squamous Epith Cells FEW Squamous Urine Bacteria Few Ur Microscopic Review INDICATED Urine Culture Comments INDICATED Group A Strep Rapid Negative - Rads (name of study) Chest x-ray Radiology: Prelim report reviewed, EMP read contemporaneously, See rad report ( terval resolution of mild cardiomegaly and vascular congestion. . New small right lung base infiltrate and effusion. ) PD MEDICAL DECISION MAKING - ED course Complexity details: reviewed old records, reviewed results, re-evaluated patient , considered differential, d/w patient, d/w family, d/w senior consumer insights consultant ED course: Patient is an 86-year-old male originally sent to the hospital for hypokalemia. He appears to have recurrent sepsis. Likely continued bacterial leak in the urine from his prostatitis as well as a new infiltrate on chest x-ray. He responded well to IV fluids, blood pressure improved, heart rate decreased and mentation greatly improved. We will admit the patient for further evaluation and care. Discussed the case with Dr. Armas, hospitalist, who accepts. This document was made in part using voice recognition software. While efforts are made to proofread this document, sound alike and grammatical errors may occur. Departure - Departure Disposition: 66 [facility] DC/Xfer Clinical Impression: CLARISSE (acute kidney injury) Sepsis Qualifiers: Sepsis type: sepsis due to unspecified organism Qualified Code(s): A41.9 - Sepsis, unspecified organism UTI (urinary tract infection) Qualifiers: Urinary tract infection type: acute cystitis Hematuria presence: with hematuria Qualified Code(s): N30.01 - Acute cystitis with hematuria Pneumonia Qualifiers: Pneumonia type: due to unspecified organism Laterality: left Lung location: lower lobe of lung Qualified Code(s): J18.1 - Lobar pneumonia, unspecified organism Condition: Stable Discharge Date/Time: 10/16/16 21:18
[2016-10-16 19:03] LABS: UR CULTURE IF IND INDICATED
[2016-10-16] MEDS ORDERED: cefTRIAXone 1 GM in SODIUM CHLORIDE 0.9% MINIBAG 100 ML IV STA (19:50)
[2016-10-16] MEDS ORDERED: SODIUM CHLORIDE 0.9% MINIBAG 100 ML IV ONE (20:00)
[2016-10-16] MEDS ORDERED: cefTRIAXone 1 GM VIAL ONE (20:00)
[2016-10-16 20:30] LABS: RAPID STREP SCREEN REAGENT QC YELLOW (YELLOW)
--- NOTE | 2016-10-16 20:30 | XRAY Preliminary Report ---
Exam: XR Chest 1 View IMPRESSION: 1. Interval resolution of mild cardiomegaly and vascular congestion. 2. New small right lung base infiltrate and effusion. [facility] SITE ID: [id number]
[2016-10-16] MEDS ORDERED: PROCHLORPERAZINE 10 MG/2 ML VIAL IVP PRN (20:45)
[2016-10-16] MEDS ORDERED: SODIUM CHLORIDE 0.9% 1,000 ML IV SCH (20:45)
[2016-10-16] MEDS ORDERED: ACETAMINOPHEN 325 MG TABLET PO PRN ×2 (20:45→23:20)
[2016-10-16] MEDS ORDERED: ONDANSETRON 4 MG/2 ML VIAL IVP PRN (20:45)
[2016-10-16] MEDS ORDERED: oxyCODONE 5 MG TABLET PO PRN ×2 (20:45)
[2016-10-16] MEDS ORDERED: MORPHINE 2 MG/ML SYRINGE IVP PRN (20:45)
[2016-10-16] MEDS ORDERED: IPRATROPIUM/ALBUTEROL 3 ML NEB INH PRN (20:45)
[2016-10-16] MEDS ORDERED: SODIUM CHLORIDE FLUSH 0.9% 10 ML SYRINGE IVP PRN (20:45)
[2016-10-16] MEDS ORDERED: PROMETHAZINE 25 MG/1 ML VIAL IM PRN (20:45)
[2016-10-16] MEDS ORDERED: NS W/20 MEQ KCL 1,000 ML IV SCH (21:00)
[2016-10-16] MEDS ORDERED: VANCOMYCIN PER PHARMACY 1 GM in SODIUM CHLORIDE 0.9% 250 ML IV SCH (21:00)
[2016-10-16] MEDS ORDERED: CEFEPIME 2 GM in SODIUM CHLORIDE 0.9% MINIBAG 100 ML IV SCH (21:00)
--- NOTE | 2016-10-16 21:05 | XRAY Report ---
EXAM: CHEST RADIOGRAPHY EXAM DATE: 10/16/2016 08:21 PM. CLINICAL HISTORY: Fever, hypotension. COMPARISON: 10/04/2016. TECHNIQUE: 1 view. FINDINGS: Lungs/Pleura: New mild blunting right lateral costophrenic angle. No persistent mild blunting left la teral costophrenic angle. No vascular congestion. New faint airspace infiltrate right lung base. No p neumothorax. Mediastinum: Interval resolution of mild cardiomegaly. No adenopathy. Other: None. IMPRESSION: 1. Interval resolution of mild cardiomegaly and vascular congestion. 2. New small right lung base infiltrate and effusion. [facility] Referring Provider Line: [phone] SITE ID: [id number]
[2016-10-16 21:36] LABS: HEMOGLOBIN A1C 0.52 g/dL
[2016-10-16] MEDS ORDERED: CEFEPIME 1 GM in SODIUM CHLORIDE 0.9% MINIBAG 100 ML IV SCH (22:00)
[2016-10-16] MEDS ORDERED: MIN OIL/DIMETHICON/COCONUT OIL 92 GM TUBE TOP ONE (22:08)
[2016-10-16] MEDS ORDERED: VANCOMYCIN INJ 1.25 GM in SODIUM CHLORIDE 0.9% 250 ML IV SCH (22:30)
[2016-10-16] MEDS: POTASSIUM CHLOR 10 MEQ/100 ML 100 ML IV SCH ×2 (22:36→23:28)
[2016-10-16] MEDS: INSULIN GLARGINE 300 UNIT/3 ML PEN SUBQ SCH (22:37)
[2016-10-16] MEDS: INSULIN ASPART 300 UNIT/3 ML PEN SUBQ SCH (22:37)
[2016-10-16] MEDS: POTASSIUM CHLORIDE 20 MEQ TABLET PO SCH (22:38)
[2016-10-16] MEDS: MEMANTINE 5 MG TABLET PO SCH (22:38)
[2016-10-16] MEDS: CALCIUM CARBONATE CHEW 500 MG TABLET PO SCH (22:38)
[2016-10-16] MEDS: SODIUM CHLORIDE FLUSH 0.9% 10 ML SYRINGE IVP SCH (22:57)
--- NOTE | 2016-10-16 23:17 | HISTORY & PHYSICAL EXAMINATION ---
Chief Complaint - Chief Complaint Chief Complaint: generalized weakness History of Present Illness - Admitted From Admitted From:: emergency department - History Obtained From Records Reviewed: yes History obtained from: patient and Exam Limitations: none - History of Present Illness HPI Comment/Other: The patient is an 86-year-old gentleman with a past medical history significant for cognitive decline due to aging, atrial fibrillation previously on Coumadin, history of possible TIA, obstructive sleep apnea on CPAP, BPH, osteoarthritis, hyperlipidemia, hypertension, diabetes, recent hospitalization for right femoral neck fracture 09/23/2016 status post open reduction and internal fixation and another recent hospitalization from 10/04/2016 to 10/09/2016 for septic shock secondary to Klebsiella pneumonia bacteremia source being prostatitis who presents again from [facility] with a chief complaint of generalized weakness. According to the patient's the patient has been continually weak since his discharge to [facility] one week ago. She states that he has not progressed very well with physical therapy in fact the patient has been requiring lives to get him out of bed. She states that she noticed that over the last 2 days he's become increasingly weak. She states that he's had very poor appetite ever since his recent hospitalization. The patient himself does admit to increasing shortness of air especially with any kind of exertion, coughing and a sore throat. He states all the symptoms have been progressively worsening over the last week. The patient's states that today when he went into the bathroom she noted that he was having significantly more blood with urination. She states that she he has had hematuria since July of this year and was supposed to see a urologist in [place] earlier in September when he had a fall. The staff at [facility] called Dr. Weber when the became concerned about the hematuria today. Dr. Weber ordered lab work which revealed a potassium of 2.6 and an elevated leukocytosis. The patient had also been having diarrhea and given all of the above the patient was sent to our emergency department. On presentation to the emergency department the patient was afebrile he was tachycardic with heart rate of 114 and his blood pressure was borderline at 90/ 55. According to the emergency room physician the patient looked to be quite ill -appearing. Initially he was not opening his eyes but was responsive. The patient underwent routine lab work which did show a leukocytosis of 13.7, potassium of 2.7 and a creatinine of 2.5 which was elevated from a baseline of 0.9. The patient's urinalysis did reveal large occult blood trace leukocyte esterase and 6-10 WBCs with a few bacteria which was not all that impressive. The patient also had a chest x-ray which did reveal a new small right lung base infiltrate and effusion. The patient was [facility] a healthcare associated pneumonia, dehydration with acute kidney injury, hypokalemia and diarrhea. Review of Systems - Constitutional Constitutional: reports: Fatigue, Weakness, Poor appetite. denies: Fever, Chills, Diaphoresis, Night sweats, Weight gain, Weight loss - Eyes Eyes: denies: Pain, Irritation, Amaurosis, Blurred vision, Spots in vision, Vision loss, Dipolpia - Ears, Nose & Throat Ears, Nose & Throat: denies: Ear pain, Hearing loss, Hearing aids, Tinnitus, Vertigo, Nasal pain, Nasal discharge, Nasal congestion, Postnasal drainage, Sore throat, Hoarseness, Mouth lesions - Cardiovascular Cariovascular: reports: Irregular heart rate, Edema, Exertional dyspnea, Decr. exercise tolerance. denies: Palpitations, Chest pain, Lightheadedness, Syncope , Orthopnea - Respiratory Respiratory: reports: Cough, Sputum production, SOB with exertion. denies: Wheezing, Snoring, Hemoptysis, Orthopnea, SOB at rest, Apnea, Stridor, Pleuritic pain - Gastrointestinal Gastrointestinal: reports: Diarrhea, Poor appetite. denies: Abdominal pain, Abdominal distention, Constipation, Rectal bleeding, Black stools, Bloody stools , Nausea, Vomiting, Bile emesis, Coffee grounds emesis, Bloating - Genitourinary Genitourinary: reports: Hematuria. denies: Dysuria, Frequency, Urgency, Incontinence, Flank pain, Nocturia, Urethral discharge - Musculoskeletal Musculoskeletal: reports: Back pain. denies: Muscle pain, Muscle aches, Stiffness, Limited range of motion, Muscle weakness, Joint pain, Joint swelling - Integumentary Integumentary: denies: Rash, Pruritis, Lesions, Dryness - Neurological Neurological: reports: General weakness. denies: Focal weakness, Headache, Dizziness, Numbness, Memory problems, Abnormal gait, Slurred speech - Psychiatric Psychiatric: denies: Depression, Anxiety - Endocrine Endocrine: denies: Polyuria, Polydypsia, Polyphagia, Intolerance to cold, Intolerance to heat - Hematologic/Lymphatic Hematologic/Lymphatic: denies: Lymphadenopathy History - Past Medical History Cardiovascular: reports: Hypertension, High cholesterol, Atrial fibrillation Respiratory: reports: Sleep apnea, CPAP use Neuro: reports: Dementia, TIA Endocrine/Autoimmune: reports: None GI: reports: None : reports: Benign prostate hypertrophy HEENT: reports: None Psych: reports: None Musculoskeletal: reports: Osteoarthritis, Chronic back pain Derm: reports: None Other Past Medical History: 1. Mild cognitive deficit. 2. Obstructive sleep apnea on CPAP. 3. Complex renal cyst, resulting in hematuria and stopping of Coumadin in early August. 4. Benign prostatic hyperplasia. 5. Osteoarthritis with history of bilateral knee replacements and chronic back pain. 6. Right femoral neck fracture on 09/23/2016 status post open reduction and internal fixation. 7. Chronic atrial fibrillation previously on Coumadin stopped due to hematuria. 8. Hyperlipidemia. 9. Hypertension. 10. Insulin-dependent diabetes. 11. History of TIA. 12. Prostatitis on rn long term care antibiotic treatment with Levaquin till 10/26/2016 - Past Surgical History Ortho: reports: Hip replacement, Knee replacement - Family & Social History Family History: Mother: (Old age), Father: , Other family: Alive and Well (2 sons and 1 daughter alive and well) Living arrangement: correction (For rehab) Living Situation: With spouse/s.o. Social History Notes: The patient is lives in [facility] since 2001. Prior to that he lived in [place]. He is originally from [place] moved here in [place]. The patient lives with his partner they have been together for 16 years. The patient uses a walker at home and has fallen several times in the past month. The patient does have 3 children 2 sons whom he has not spoken to for years and a daughter whom he occasionally speaks to him who lives in [place]. Patient used to smoke quit 50 years ago. Drinks alcohol occasionally. no illicit drug use - Substance History Use: Uses substance without health or social issues: NONE Abuse: Recurrent use of substance despite neg consequences: NONE Dependence: Experiences withdrawal or developed tolerances: NONE - POLST Patient has POLST: Yes POLST Status: DNR Meds/Allgy - Home Medications Home Medications: Ambulatory Orders Medication Instructions Recorded Confirmed Aspirin 81 mg PO DAILY 09/23/16 10/05/16 Finasteride 5 mg PO DAILY 09/23/16 10/05/16 Memantine [Namenda] 10 mg PO BID 09/23/16 10/05/16 Metoprolol Succinate 25 mg PO DAILY 09/23/16 10/05/16 Simvastatin 40 mg PO DAILY 09/23/16 10/05/16 Potassium Chloride [Micro-K] 10 meq PO DAILY 09/24/16 10/05/16 Calcium Carbonate [Tums (Calcium 500 mg PO BID tablet 09/29/16 10/05/16 Carbonate 500mg)] Insulin Aspart [NovoLOG] 1 - 9 unit SUBQ 09/29/16 10/05/16 0800,1200,1700,2100 pen Insulin Glargine [Lantus Solostar] 10 unit SUBQ BID pen 09/29/16 10/05/16 Lisinopril [Zestril] 5 mg PO DAILY #0 tablet 09/29/16 10/05/16 Cholecalciferol (Vitamin D3) 1,000 units PO DAILY 10/05/16 10/05/16 [Vitamin D3] Hydrochlorothiazide 50 mg PO DAILY 10/05/16 10/05/16 [Hydrochlorothiazide] Pantoprazole [Protonix] 40 mg PO QDAC 10/05/16 10/05/16 - Allergies Allergies/Adverse Reactions: Allergies Allergy/AdvReac Type Severity Reaction Status Date / Time No Known Drug Allergies Allergy Verified 10/16/16 17:57 Exam - Vital Signs Reviewed Vital Signs: Yes Vital Signs: Vital Signs x48h Temp Pulse Resp BP Pulse Ox 10/16/16 22:30 36.6 C 68 20 143/72 H 94 - Physical Exam General Appearance: positive: Alert, Mild distress (complaining of back pain) Eyes Bilateral: positive: Normal inspection, PERRL, EOMI, No lid inflammation, Conjunctivae nml, No scleral icterus ENT: positive: ENT inspection nml, Pharynx nml, Dry mucous membranes. negative : Purulent nasal drainage, Pharyngeal erythema, Oral lesions Neck: positive: Nml inspection, Thyroid nml, No JVD, Trachea midline. negative : Thyromegaly, Lymphadenopathy (R), Lymphadenopathy (L) Respiratory: positive: Chest non-tender, No respiratory distress, Rales ( crackles at the right base), Rhonchi (right lower lobe) Cardiovascular: positive: No murmur, No gallop, Irregularly irregular, Tachycardia Peripheral Pulses: positive: 2+ Abdomen: positive: Non-tender, No organomegaly, Nml bowel sounds, Other (abd is distended). negative: Guarding, Rebound Back: positive: Nml inspection. negative: CVA tenderness (R), CVA tenderness (L ) Skin: positive: Color nml, No rash, Dry. negative: Cyanosis, Pallor Extremities: positive: Non-tender, Full ROM, Nml appearance, Pedal edema ( bilateral 3+ edema) Neurologic/Psychiatric: positive: CN's nml (2-12), Motor nml, Sensation nml, Mood/affect nml, Disoriented to time, Weakness (general) Conclusion/Plan - Problem List (1) HCAP (healthcare-associated pneumonia) Conclusion/Plan: Presented with generalized weakness, cough and shortness of air for one week since recent hospitalization for septic shock from kleb pneumo bacteremia secondary to prostatitis WBC elevated at 13.7 with hypoxia on presentation Given recent hospitalization will treat for HCAP Plan: IV Vancomycin and IV cefepime for 24-48 hours and de-esclate to PO with improvement Duonebs prn Probiotics Supplemental O2 (2) C. difficile diarrhea Conclusion/Plan: Patient was having diarrhea at [facility] and on presentation here Presented with CLARISSE and hypokalemia appeared very dehydrated Stools sent for C. diff PCR and fecal leukocytes both were positive Plan: Start PO flagyl q6 hours Will need to continue flagyl for 10 days beyond treatment for prostatits so end date for treatment with flagyl would be 11/05/2016 Probiotics IVFs Electrolyte replacement (3) CLARISSE (acute kidney injury) Conclusion/Plan: Secondary to diarrhea, most likely prerenal Patient also has hematuria which is continuous since August with complex renal cyst Presented with Deadener of 2.6 elevated from 0.9 one week earlier Plan: Hold lisinopril and HCTZ IVFs Renal ultrasound Avoid nephrotoxic agents Monitor Deadener (4) Hypokalemia Conclusion/Plan: Secondary to diarrhea from c diff Potassium 2.6 on presentation Replace K IV and PO Montior K Monitor on tele (5) Prostatitis Conclusion/Plan: Patient was recently hospitalized with septic shock due to Kleb Pneumo bacteremia with likely source being prostatitis given patients BPH and tender prostate on exam Patient discharged to [facility] on PO levaquin till 10/26/16 Will hold levaquin for now given presentation with HCAP Treat HCAP with Vanco and Cefepime which will cover kleb pneumo Will need to continue treatment till 10/26/16 once abx de-escalated Qualifiers: Prostatitis type: prostatocystitis Qualified Code(s): N41.3 - Prostatocystitis (6) Atrial fibrillation Conclusion/Plan: Presented with HR in the 110-120 likely secondary to dehydration Will continue metoprolol for rate control Coumadin stopped in August secondary to continuous hematuria Monitor on tele Echo Qualifiers: Atrial fibrillation type: chronic Qualified Code(s): I48.2 - Chronic atrial fibrillation (7) Hematuria Conclusion/Plan: Patient has had hematuria with complex renal cyst since August 2016 Has been unable to see urology Currently not in the condition to see urology Will continue to monitor with marcelino catheter Monitor hb Needs outpatient work up with cystoscopy once he is stable Check PSA (8) Diabetes Conclusion/Plan: On Lantus 10 units BID HbA1C 6.[address] on SS insulin and DM diet Monitor glucose ACHS Qualifiers: Diabetes mellitus type: type 2 (9) Hypertension Conclusion/Plan: BP low normal on presentation Give IVFs HOlding lisinopril and HCTZ given renal failure COntinue metoprolol Monitor BP closely Qualifiers: Hypertension type: essential hypertension Qualified Code(s): I10 - Essential (primary) hypertension (10) LUISA on CPAP Conclusion/Plan: Continue home CPAP machine (11) History of hip fracture Conclusion/Plan: Right femoral shaft fx s/p ORIF Peerless removed Struggling with PT at [facility] secondary to generalized weakness likely secondary to pneumonia and c diff COntinue PT during hospitalization Patient will need to go back to SNF after hospitalization Patients significant other would like him to go to [facility] this time (12) Hyperlipidemia Conclusion/Plan: Continue statin Stable (13) Prophylactic use of unfractionated heparin for venous thromboembolism (VTE) Conclusion/Plan: Will place on heparin for VTE pro given GFR Will continue despite hematuria - Lab Results Lab results reviewed: Yes Fish Bones: 10/16/16 17:47 10/16/16 17:47 - Diagnostic Imaging Results Diagnostic Imaging Results: positive: Final report reviewed - EKG Results EKG Interpreted Independently: Yes Issues/Core Measures - Anticipated LOS Anticipated Stay Length: 2 or more midnights - DVT/VTE - Prophylaxis VTE/DVT Prophylaxis med ordered at admit?: Yes
[2016-10-17] MEDS: metroNIDAZOLE 250 MG TABLET PO SCH ×4 (00:23→18:16)
[2016-10-17] MEDS: POTASSIUM CHLOR 10 MEQ/100 ML 100 ML IV SCH ×8 (00:23→18:07)
[2016-10-17 05:43] LABS: BASOPHILS % (AUTO) 0.2 %; EOSINOPHILS # (AUTO) 0.1 10^3/uL (0.0-0.7); EOSINOPHILS % (AUTO) 0.7 %; HCT - HEMATOCRIT 27.1 % (42.0-52.0); HGB - HEMOGLOBIN 8.8 g/dL (14.0-18.0); LYMPHOCYTES # (AUTO) 1.2 10^3/uL (1.5-3.5); LYMPHOCYTES % (AUTO) 10.6 %; MEAN CORPUSCULAR HEMOGLOBIN 30.6 pg (27.0-31.0); MEAN CORPUSCULAR HGB CONC 32.5 g/dL (32.0-36.0); MEAN PLATELET VOLUME 6.4 fL (7.4-11.4); MONOCYTES # (AUTO) 0.6 10^3/uL (0.0-1.0); MONOCYTES % (AUTO) 5.3 %; NEUTROPHILS # (AUTO) 9.6 10^3/uL (1.5-6.6); NEUTROPHILS % (AUTO) 83.2 %; RED BLOOD COUNT 2.89 10^6/uL (4.70-6.10); UNCORRECTED WHITE BLOOD COUNT 11.5 x10^3/uL; WHITE BLOOD COUNT 11.5 x10^3/uL (4.8-10.8)
[2016-10-17 05:59] LABS: ALBUMIN/GLOBULIN RATIO 0.6 (1.0-2.2); BILIRUBIN,TOTAL 0.8 mg/dL (0.2-1.0); BUN - BLOOD UREA NITROGEN 42 mg/dL (6-20); CALCIUM 7.5 mg/dL (8.5-10.3); CARBON DIOXIDE - CO2 27 mmol/L (21-32); CHLORIDE 111 mmol/L (101-111); CREATININE 1.6 mg/dL (0.6-1.2); GFR - MDRD 41 (>89); GLUCOSE 116 mg/dL (70-100); MAGNESIUM 1.7 mg/dL (1.7-2.8); PHOSPHORUS 2.7 mg/dL (2.5-4.6); POTASSIUM 3.1 mmol/L (3.5-5.0); SODIUM 149 mmol/L (135-145); TOTAL PROTEIN 5.3 g/dL (6.7-8.2)
[2016-10-17 06:05] LABS: CALCIUM, IONIZED 1.07 mmol/L (1.15-1.33); VBG PH 7.411 (7.31-7.41)
[2016-10-17] MEDS: PANTOPRAZOLE 40 MG TABLET PO SCH (06:07)
[2016-10-17] MEDS: SODIUM CHLORIDE FLUSH 0.9% 10 ML SYRINGE IVP SCH ×3 (06:08→21:23)
[2016-10-17] MEDS ORDERED: CALCIUM GLUCONATE 2,000 MG in SODIUM CHLORIDE 0.9% 100ML 100 ML IV ONE (07:39)
[2016-10-17] MEDS: POTASSIUM CHLORIDE INJ 20 MEQ in SODIUM CHLORIDE 0.45% 1,000 ML IV SCH ×2 (08:04→18:08)
--- NOTE | 2016-10-17 08:06 | Ultrasound Preliminary Report ---
Exam: US Retroperitoneal IMPRESSION: Negative renal ultrasound. No evidence of obstruction as a source for renal failure. [facility] SITE ID: [id number]
--- NOTE | 2016-10-17 08:08 | Ultrasound Report ---
EXAM: RENAL ULTRASOUND EXAM DATE: 10/17/2016 07:52 AM. CLINICAL HISTORY: Worsening renal failure with hematuria . COMPARISON: 10/04/2016 CT scan abdomen and pelvis. TECHNIQUE: Real-time scanning was performed with static images obtained. FINDINGS: Right Kidney: 13.1 x 7.7 x 7.0 cm. Normal echotexture with no stones, contour-deforming masses, or hy dronephrosis. Upper mid pole cyst 4.9 x 4.8 x 5.6 cm. Left Kidney: 12.1 x 6.8 x 5.6 cm. Normal echotexture with no stones, contour-deforming masses, or hy dronephrosis. Possible upper pole cyst 1 x 0.9 x 0.9 cm. Bladder: Bladder decompressed by Rueda catheter. IMPRESSION: Negative renal ultrasound. No evidence of obstruction as a source for renal failure. [facility] Referring Provider Line: [phone] SITE ID: [id number]
[2016-10-17] MEDS ORDERED: ENOXAPARIN 40 MG/0.4 ML SYRINGE SUBQ SCH (09:00)
[2016-10-17] MEDS ORDERED: NON FORMULARY MED (Simvastatin [Simvastatin] 40 MG) PO SCH (09:00)
[2016-10-17] MEDS ORDERED: ENOXAPARIN 30 MG/0.3 ML SYRINGE SUBQ SCH (09:00)
--- NOTE | 2016-10-17 09:08 | PROVIDER PROGRESS NOTE ---
Assessment/Plan - Problem List (1) HCAP (healthcare-associated pneumonia) Assessment/Plan: Presented with generalized weakness, cough and shortness of air for one week since recent hospitalization for septic shock from kleb pneumo bacteremia secondary to prostatitis WBC elevated at 13.7 with hypoxia on presentation Given recent hospitalization will treat for HCAP On 4L of O2 this morning but does not appear to be in respiratory distress IV Vancomycin and IV cefepime day 2 will de-esclate to PO after 1-2 more days Duonebs prn Probiotics Supplemental O2 (2) C. difficile diarrhea Conclusion/Plan: Patient was having diarrhea at [facility] and on presentation here Presented with CLARISSE and hypokalemia appeared very dehydrated Stools sent for C. diff PCR and fecal leukocytes both were positive Flagyl 500 mg PO q6 hours Will need to continue flagyl for 10 days beyond treatment for prostatits so end date for treatment with flagyl would be 11/05/2016 Probiotics IVFs Electrolyte replacement (3) CLARISSE (acute kidney injury) Conclusion/Plan: Secondary to diarrhea, most likely prerenal Patient also has hematuria which is continuous since August with complex renal cyst Presented with Clothing Presser of 2.6 elevated from 0.9 one week earlier Hold lisinopril and HCTZ IVFs Renal ultrasound was negative Avoid nephrotoxic agents Clothing Presser improved to 1.6 this morning (4) Hypokalemia Conclusion/Plan: Secondary to diarrhea from c diff Potassium 2.6 on presentation Replace K IV and PO Potassium up to 3.1 this am (5) Prostatitis Conclusion/Plan: Patient was recently hospitalized with septic shock due to Kleb Pneumo bacteremia with likely source being prostatitis given patients BPH and tender prostate on exam Patient discharged to [facility] on PO levaquin till 10/26/16 Will hold levaquin for now given presentation with HCAP Treat HCAP with Vanco and Cefepime which will cover kleb pneumo Will need to continue treatment till 10/26/16 once abx de-escalated Qualifiers: Prostatitis type: prostatocystitis Qualified Code(s): N41.3 - Prostatocystitis (6) Atrial fibrillation Conclusion/Plan: Presented with HR in the 110-120 likely secondary to dehydration Will continue metoprolol for rate control Coumadin stopped in August secondary to continuous hematuria Monitor on tele Echo pending this am HR improved to low 100s but patient has a lot of ectopy on tele likely secondary to hypokalemia and hypernatremia Qualifiers: Atrial fibrillation type: chronic Qualified Code(s): I48.2 - Chronic atrial fibrillation (7) Hematuria Conclusion/Plan: Patient has had hematuria with complex renal cyst since August 2016 Has been unable to see urology Currently not in the condition to see urology Will continue to monitor with marcelino catheter Monitor hb Needs outpatient work up with cystoscopy once he is stable Check PSA (8) Diabetes Conclusion/Plan: On Lantus 10 units BID HbA1C 6.[address] on SS insulin and DM diet Monitor glucose ACHS Qualifiers: Diabetes mellitus type: type 2 (9) Hypertension Conclusion/Plan: BP low normal on presentation Give IVFs HOlding lisinopril and HCTZ given renal failure COntinue metoprolol BP stable Monitor BP Qualifiers: Hypertension type: essential hypertension Qualified Code(s): I10 - Essential (primary) hypertension (10) LUISA on CPAP Conclusion/Plan: Continue home CPAP machine (11) History of hip fracture Conclusion/Plan: Right femoral shaft fx s/p ORIF [place] removed Struggling with PT at [facility] secondary to generalized weakness likely secondary to pneumonia and c diff COntinue PT during hospitalization Patient will need to go back to SNF after hospitalization Patients significant other would like him to go to [facility] this time (12) Hypernatreamia Conclusion/Plan: Na increased to 149 this Change IVF to 0.45% saline with 20meq of K (13) Prophylactic use of unfractionated heparin for venous thromboembolism (VTE) Conclusion/Plan: Will place on heparin for VTE pro given GFR Will continue despite hematuria - Current Meds Current Meds: Current Medications Generic Name Dose Route Start Last Admin Trade Name Temoq PRN Reason Stop Dose Admin Calcium Carbonate/Glycine 500 mg 10/16/16 21:00 10/16/16 22:38 Tums PO 500 mg BID GABRIELA Administration Cefepime HCl 1 gm/ Sodium 100 mls @ 200 mls/hr 10/16/16 22:00 10/16/16 22:56 Chloride IV 200 mls/hr Q24H GABRIELA Administration Vancomycin HCl 1.25 gm/ Sodium 250 mls @ 167 mls/hr 10/16/16 22:30 10/16/16 23: 20 Chloride IV 167 mls/hr Q36H GABREILA Administration Potassium Chloride 20 meq/ 1,010 mls @ 83.333 mls/hr 10/17/16 06:00 10/17/16 08 :04 Sodium Chloride IV 83.333 mls/hr .Q12H8M GABRIELA Administration Insulin Aspart 1 - 9 unit 10/16/16 21:00 10/16/16 22:37 Novolog SUBQ Not Given 0800,1200,1700,2100 [facility] Protocol Insulin Glargine 10 unit 10/16/16 21:00 10/16/16 22:37 Lantus Solostar SUBQ 10 unit BID GABRIELA Administration Memantine 10 mg 10/16/16 21:00 10/16/16 22:38 Namenda PO 10 mg BID GABRIELA Administration Metronidazole 500 mg 10/17/16 00:00 10/17/16 06:07 Flagyl PO 500 mg Q6HR GABRIELA Administration Pantoprazole Sodium 40 mg 10/17/16 07:00 10/17/16 06:07 Protonix PO 40 mg QDAC GABRIELA Administration Potassium Chloride 20 meq 10/16/16 21:00 10/16/16 22:38 K-Dur PO 10/19/16 20:59 20 meq BID GABRIELA Administration Sodium Chloride 10 ml 10/16/16 22:00 10/17/16 06:08 Normal Saline Flush 0.9% IVP 10 ml Q8HR GABRIELA Administration - Lab Result Lab results reviewed: Yes Fish Bone Diagrams: 10/17/16 05:35 10/17/16 05:35 - EKG Results EKG Interpreted Independently: Yes - Diagnostic Imaging Results Diagnostic Imaging Results: positive: Final report reviewed - Additional Planning Condition/Complexity: Guarded My Orders: My Active Orders 10/16/16 21:05 RT [Nebulizer/MDI Tx.] [RC] .qidprn 10/16/16 22:00 Cefepime 1 gm Sodium Chloride 0.9% Minibag [Normal Saline 0.9% Minibag] 100 ml IV Q24H 10/16/16 22:30 CULTURE, STOOL [RM] Stat OVA AND PARASITE [REFLAB] Stat Vancomycin Inj [Vancomycin] 1.25 gm Sodium Chloride 0.9% [Normal Saline 0.9%] 250 ml IV Q36H 10/16/16 23:20 Acetaminophen [Tylenol] 1,000 mg PO Q4HR PRN 10/16/16 23:37 DIET [NPO except Meds] [DIET] 10/16/16 23:39 Message to Nursing [] [facility] 10/17/16 00:00 metroNIDAZOLE [Flagyl] 500 mg PO Q6HR 10/17/16 00:01 ANNEMARIE Arseniovaishnavi [] [facility] 10/17/16 06:00 Sodium Chloride 0.45% [Normal Saline 0.45%] 1,000 ml Potassium Chloride Inj 20 meq IV 83.333 mls/hr 10/17/16 09:00 Heparin 5,000 unit SUBQ BID 10/17/16 21:00 Atorvastatin [Lipitor] 20 mg PO QPM 10/17/16 Lunch Carb-controlled Diet [DIET] Subjective - Subjective Patient Reports: Other (Still feels weak this am. He had one episode of diarrhea overnight. No chest pain, no fevers. Still has mild cough but not short of breath at rest.) Nursing Reports: No Complaints Objective Vital Signs: Vital Signs - 24 hr 10/16/16 10/17/16 10/17/16 22:30 00:02 05:14 Temperature 36.6 C 36.6 C 36.3 C L Heart Rate Heart Rate [ 68 93 99 Brachial] Respiratory 20 22 20 Rate Blood Pressure 143/72 H [Left Brachial artery] Blood Pressure 134/75 H 127/72 [Right Brachial artery] O2 Saturation 94 94 97 10/17/16 07:45 Temperature 36.4 C L Heart Rate 109 H Heart Rate [ 109 H Brachial] Respiratory 16 Rate Blood Pressure [Left Brachial artery] Blood Pressure 129/65 [Right Brachial artery] O2 Saturation 99 Oxygen O2 Source Nasal cannula I&O (Last 24 Hrs): Intake and Output Totals x24h 10/15/16 10/16/16 10/17/16 23:59 23:59 23:59 Intake Total 1370 Output Total 600 850 Balance -600 520 General: Alert, Cooperative, No acute distress, Other (Dry, drowsy this morning) HEENT: Atraumatic, PERRLA, EOMI, Other (dry mucus membranes) Neck: Supple, No JVD, No thyromegaly, +2 carotid pulse wo bruit, No LAD Lymphatic: no adenopathy Neuro: Alert, Non Focal, CN 2-12 Grossly Intact, Other (Oriented x2) Cardiovascular: No murmurs, Other (Irregularly irregular, tachycardic) Respiratory: Chest non-tender, No respiratory distress, Breath sounds nml Abdomen: Normal bowel sounds, Soft, No tenderness, No hepatospenomegaly, Other ( Distended abd) Extremities: No clubbing, No cyanosis, Normal pulses, Other (Bilateral 3+ pitting edema) Skin: No rashes, No breakdown, No significant lesion - Results Results: Laboratory Results WBC 11.5 x10^3/uL (4.8-10.8) H 10/17/16 05:35 RBC 2.89 10^6/uL (4.70-6.10) L 10/17/16 05:35 Hgb 8.8 g/dL (14.0-18.0) L 10/17/16 05:35 Hct 27.1 % (42.0-52.0) L 10/17/16 05:35 MCV 94.0 fL (80.0-94.0) 10/17/16 05:35 MCH 30.6 pg (27.0-31.0) 10/17/16 05:35 MCHC 32.5 g/dL (32.0-36.0) 10/17/16 05:35 RDW 17.0 % (12.0-15.0) H 10/17/16 05:35 Plt Count 291 10^3/uL (130-450) 10/17/16 05:35 MPV 6.4 fL (7.4-11.4) L 10/17/16 05:35 Neut # 9.6 10^3/uL (1.5-6.6) H 10/17/16 05:35 Lymph # 1.2 10^3/uL (1.5-3.5) L 10/17/16 05:35 [place] # 0.6 10^3/uL (0.0-1.0) 10/17/16 05:35 Eos # 0.1 10^3/uL (0.0-0.7) 10/17/16 05:35 Baso # 0.0 10^3/uL (0.0-0.1) 10/17/16 05:35 Absolute Nucleated RBC 0.00 x10^3/uL 10/17/16 05:35 Nucleated RBCs 0.0 /100WBC 10/17/16 05:35 VBG pH 7.411 (7.31-7.41) H 10/17/16 05:35 Ionized Calcium 1.07 mmol/L (1.15-1.33) L 10/17/16 05:35 Sodium 149 mmol/L (135-145) H 10/17/16 05:35 Potassium 3.1 mmol/L (3.5-5.0) L 10/17/16 05:35 Chloride 111 mmol/L (101-111) 10/17/16 05:35 Carbon Dioxide 27 mmol/L (21-32) 10/17/16 05:35 Anion Gap 11.0 (6-13) 10/17/16 05:35 BUN 42 mg/dL (6-20) H 10/17/16 05:35 Creatinine 1.6 mg/dL (0.6-1.2) H 10/17/16 05:35 Estimated GFR (MDRD) 41 (>89) L 10/17/16 05:35 Glucose 116 mg/dL (70-100) H 10/17/16 05:35 Glycated Hemoglobin 6.8 % (4.6-6.2) H 10/16/16 17:47 Estim Average Glucose 148 (70-100) H 10/16/16 17:47 Lactic Acid 1.7 mmol/L (0.5-2.2) 10/17/16 05:35 Calcium 7.5 mg/dL (8.5-10.3) L 10/17/16 05:35 Ionized Calcium YES 10/17/16 05:35 Phosphorus 2.7 mg/dL (2.5-4.6) 10/17/16 05:35 Magnesium 1.7 mg/dL (1.7-2.8) 10/17/16 05:35 Total Bilirubin 0.8 mg/dL (0.2-1.0) 10/17/16 05:35 AST 17 IU/L (10-42) 10/17/16 05:35 ALT 13 IU/L (10-60) 10/17/16 05:35 Alkaline Phosphatase 172 IU/L (42-121) H 10/17/16 05:35 Total Protein 5.3 g/dL (6.7-8.2) L 10/17/16 05:35 Albumin 1.9 g/dL (3.2-5.5) L 10/17/16 05:35 Globulin 3.4 g/dL (2.1-4.2) 10/17/16 05:35 Albumin/Globulin Ratio 0.6 (1.0-2.2) L 10/17/16 05:35 Lipase 15 U/L (22-51) L 10/16/16 17:47 Urine Color BROWN 10/16/16 18:31 Urine Clarity CLOUDY (CLEAR) 10/16/16 18:31 Urine pH 5.0 PH (5.0-7.5) 10/16/16 18:31 Ur Specific [place] 1.025 (1.002-1.030) 10/16/16 18:31 Urine Protein 30 mg/dL (NEGATIVE) H 10/16/16 18:31 Urine Glucose (UA) NEGATIVE mg/dL (NEGATIVE) 10/16/16 18:31 Urine Ketones NEGATIVE mg/dL (NEGATIVE) 10/16/16 18:31 Urine Occult Blood LARGE (NEGATIVE) H 10/16/16 18:31 Urine Nitrite NEGATIVE (NEGATIVE) 10/16/16 18:31 Urine Bilirubin NEGATIVE (NEGATIVE) 10/16/16 18:31 Urine Urobilinogen 0.2 (NORMAL) E.U./dL (NORMAL) 10/16/16 18:31 Ur Leukocyte Esterase TRACE (NEGATIVE) H 10/16/16 18:31 Urine RBC TNTC /HPF (0-5) H 10/16/16 18:31 Urine WBC 6-10 /HPF (0-3) H 10/16/16 18:31 Ur Squamous Epith Cells FEW Squamous (<= Few) 10/16/16 18:31 Urine Bacteria Few /HPF (None Seen) 10/16/16 18:31 Ur Microscopic Review INDICATED 10/16/16 18:31 Urine Culture Comments INDICATED 10/16/16 18:31 Stool Leukocytes, Qual POSITIVE (Negative) 10/16/16 22:30 Group A Strep Rapid Negative (Negative) 10/16/16 20:15 - Procedures Procedures: Procedures REPOSITION R UP FEMUR WITH INTRAMED FIX, OPEN APPROACH (09/23/16) TRANSFUSE NONAUT RED BLOOD CELLS IN PERIPH VEIN, PERC (09/23/16)
[2016-10-17] MEDS: INSULIN ASPART 300 UNIT/3 ML PEN SUBQ SCH ×4 (10:26→21:21)
[2016-10-17] MEDS: METOPROLOL SUCCINATE 25 MG TABLET PO SCH (10:54)
[2016-10-17] MEDS: MEMANTINE 5 MG TABLET PO SCH ×2 (10:55→21:21)
[2016-10-17] MEDS: SACCHAROMYCES BOULARDII 250 MG CAPSULE PO SCH ×2 (10:57→18:06)
[2016-10-17] MEDS: ASPIRIN CHEW 81 MG TABLET PO SCH (10:58)
[2016-10-17] MEDS: POTASSIUM CHLORIDE 20 MEQ TABLET PO SCH (10:58)
[2016-10-17] MEDS: CHOLECALCIFEROL 1,000 UNIT TABLET PO SCH (10:58)
[2016-10-17] MEDS: CALCIUM CARBONATE CHEW 500 MG TABLET PO SCH ×2 (10:58→21:21)
[2016-10-17] MEDS: FINASTERIDE 5 MG TABLET PO SCH (10:58)
[2016-10-17] MEDS: POLYETHYLENE GLYCOL 3350 17 GM PACKET PO SCH (10:59)
[2016-10-17] MEDS: INSULIN GLARGINE 300 UNIT/3 ML PEN SUBQ SCH ×2 (10:59→21:21)
[2016-10-17 11:18] LABS: PSA FREE 37.87 ng/mL (0.16-2.81)
[2016-10-17] MEDS: HEPARIN 5,000 UNIT/ML VIAL SUBQ SCH ×2 (11:33→21:14)
[2016-10-17] MEDS ORDERED: DEXTROSE 50% ABBOJECT 25 GM/50 ML SYRINGE ONE (11:59)
[2016-10-17] MEDS ORDERED: DEXTROSE 50% ABBOJECT 25 GM/50 ML SYRINGE IVP ONE (12:02)
[2016-10-17] MEDS ORDERED: DEXTROSE 5% 1,000 ML IV SCH (13:00)
[2016-10-17] MEDS ORDERED: VANCOMYCIN INJ 1.5 GM in SODIUM CHLORIDE 0.9% 500 ML IV SCH (17:00)
[2016-10-17] MEDS ORDERED: CEFEPIME 2 GM in SODIUM CHLORIDE 0.9% MINIBAG 100 ML IV SCH (21:00)
[2016-10-17] MEDS: ATORVASTATIN 10 MG TABLET PO SCH (21:21)
[2016-10-18] MEDS: metroNIDAZOLE 250 MG TABLET PO SCH ×4 (00:24→17:43)
[2016-10-18] MEDS: PANTOPRAZOLE 40 MG TABLET PO SCH (06:04)
[2016-10-18] MEDS: SODIUM CHLORIDE FLUSH 0.9% 10 ML SYRINGE IVP SCH ×3 (06:05→20:27)
[2016-10-18 06:09] LABS: BASOPHILS % (AUTO) 0.4 %; EOSINOPHILS # (AUTO) 0.2 10^3/uL (0.0-0.7); EOSINOPHILS % (AUTO) 1.5 %; HCT - HEMATOCRIT 28.1 % (42.0-52.0); HGB - HEMOGLOBIN 9.1 g/dL (14.0-18.0); LYMPHOCYTES % (AUTO) 9.8 %; MEAN CORPUSCULAR HEMOGLOBIN 30.5 pg (27.0-31.0); MEAN CORPUSCULAR HGB CONC 32.4 g/dL (32.0-36.0); MEAN CORPUSCULAR VOLUME 94.1 fL (80.0-94.0); MEAN PLATELET VOLUME 6.7 fL (7.4-11.4); MONOCYTES # (AUTO) 0.6 10^3/uL (0.0-1.0); MONOCYTES % (AUTO) 5.9 %; NEUTROPHILS # (AUTO) 8.7 10^3/uL (1.5-6.6); NEUTROPHILS % (AUTO) 82.4 %; RED BLOOD COUNT 2.98 10^6/uL (4.70-6.10); RED CELL DISTRIBUTION WIDTH 16.7 % (12.0-15.0); UNCORRECTED WHITE BLOOD COUNT 10.5 x10^3/uL; WHITE BLOOD COUNT 10.5 x10^3/uL (4.8-10.8)
[2016-10-18 06:23] LABS: ALBUMIN/GLOBULIN RATIO 0.6 (1.0-2.2); BILIRUBIN,TOTAL 0.9 mg/dL (0.2-1.0); BUN - BLOOD UREA NITROGEN 29 mg/dL (6-20); CALCIUM 7.8 mg/dL (8.5-10.3); CARBON DIOXIDE - CO2 27 mmol/L (21-32); CHLORIDE 110 mmol/L (101-111); CREATININE 1.1 mg/dL (0.6-1.2); GFR - MDRD 63 (>89); GLUCOSE 111 mg/dL (70-100); MAGNESIUM 1.5 mg/dL (1.7-2.8); PHOSPHORUS 2.5 mg/dL (2.5-4.6); POTASSIUM 3.1 mmol/L (3.5-5.0); SODIUM 146 mmol/L (135-145); TOTAL PROTEIN 5.2 g/dL (6.7-8.2)
[2016-10-18 06:25] LABS: CALCIUM, IONIZED 1.1 mmol/L (1.15-1.33); VBG PH 7.373 (7.31-7.41)
[2016-10-18] MEDS ORDERED: MAGNESIUM SULFATE 2 GRAM 50 ML IV ONE (06:53)
[2016-10-18] MEDS: POLYETHYLENE GLYCOL 3350 17 GM PACKET PO SCH (07:22)
[2016-10-18] MEDS ORDERED: INSULIN GLARGINE 300 UNIT/3 ML PEN SUBQ SCH (08:00)
[2016-10-18] MEDS: INSULIN ASPART 300 UNIT/3 ML PEN SUBQ SCH ×4 (08:12→20:24)
[2016-10-18] MEDS: POTASSIUM CHLOR 10 MEQ/100 ML 100 ML IV SCH ×4 (08:12→12:22)
--- NOTE | 2016-10-18 10:07 | PROVIDER PROGRESS NOTE ---
Assessment/Plan - Problem List (1) C. difficile diarrhea Assessment/Plan: (1) C. difficile Colitis Conclusion/Plan: Patient was having diarrhea at [facility] and on presentation here Presented with CLARISSE and hypokalemia appeared very dehydrated C. diff PCR positive, continues to have loose stool, per RN decreasing frequency / amount Continue Flagyl 500 mg PO q6 hours Will need to continue flagyl for 10 days beyond treatment for prostatits so end date for treatment with flagyl would be 11/05/2016 Probiotics IVFs Electrolyte replacement (2) HCAP (healthcare-associated pneumonia) Assessment/Plan: Presented with generalized weakness, cough and shortness of air for one week since recent hospitalization for septic shock from kleb pneumo bacteremia secondary to prostatitis WBC elevated at 13.7 with hypoxia on presentation Given recent hospitalization pt was started on tx for HCAP, in review of cxr there is small right infiltrate - will repeat cxr 10/18 IV Vancomycin discontinue 10/18, and change cefepime day 3 to ceftriaxone Duonebs prn Probiotics Supplemental O2 (3) CLARISSE (acute kidney injury) Conclusion/Plan: Secondary to diarrhea, most likely prerenal Patient also has hematuria which is continuous since August with complex renal cyst Presented with Cr of 2.6 elevated from 0.9 one week earlier Hold lisinopril and HCTZ Renal ultrasound was negative Avoid nephrotoxic agents Cr improved to 1.6 yesterday and 1.1 today (4) Hypokalemia and hypomagnasemiu Conclusion/Plan: Secondary to diarrhea from c diff and decreased PO daily labs and replace Replace K IV and PO (5) Prostatitis Conclusion/Plan: Patient was recently hospitalized with septic shock due to Kleb Pneumo bacteremia with likely source being prostatitis given patients BPH and tender prostate on exam Patient discharged to [facility] on PO levaquin till 10/26/16 change abx to ceftriaxone Will need to continue treatment till 10/26/16 Qualifiers: Prostatitis type: prostatocystitis Qualified Code(s): N41.3 - Prostatocystitis (6) Atrial fibrillation Conclusion/Plan: Presented with HR in the 110-120 likely secondary to dehydration Will continue metoprolol for rate control Coumadin stopped in August secondary to continuous hematuria Echo shows normal EF and Grade 1 DD HR is stable, can discontinue tele today. Qualifiers: Atrial fibrillation type: chronic Qualified Code(s): I48.2 - Chronic atrial fibrillation (7) Hematuria Conclusion/Plan: Patient has had hematuria with complex renal cyst since August 2016 Has not been evaluated by urology, PSA is 400 range which makes me concerned that pt may have prostate cancer in addition. Will continue to monitor with marcelino catheter Monitor hb stable (8) Diabetes Conclusion/Plan: Very Poor PO intake and Low BS, Lantus 10 units BID decreased to 5am and 8pm HbA1C 6.8, would avoid very tight control due to age and risk of low bs liberalize diet due to very poor intake Monitor glucose ACHS Qualifiers: Diabetes mellitus type: type 2 (9) Hypertension Conclusion/Plan: BP low normal on presentation Give IVFs HOlding lisinopril and HCTZ given renal failure COntinue metoprolol BP stable Monitor BP Qualifiers: Hypertension type: essential hypertension Qualified Code(s): I10 - Essential (primary) hypertension (10) LUISA on CPAP Conclusion/Plan: Continue home CPAP machine (11) History of hip fracture Conclusion/Plan: Right femoral shaft fx s/p ORIF [place] removed Struggling with PT at [facility] secondary to generalized weakness likely secondary to pneumonia and c diff COntinue PT during hospitalization Patient will need to go back to SNF after hospitalization anticipate dc to [facility] when medically stable (12) Hypernatreamia Conclusion/Plan: Na increased to 149 this Change IVF to 0.45% saline with 20meq of K (13) Prophylactic use of unfractionated heparin for venous thromboembolism (VTE) Conclusion/Plan: Heparin for DVT ppx (14) Obese bmi 29. - Current Meds Current Meds: Current Medications Generic Name Dose Route Start Last Admin Trade Name [place] PRN Reason Stop Dose Admin Aspirin 81 mg 10/17/16 09:00 10/17/16 10:58 [place] Aspirin PO 81 mg DAILY GABRIELA Administration Atorvastatin Calcium 20 mg 10/17/16 21:00 10/17/16 21:21 Lipitor PO 20 mg QPM GABRIELA Administration Calcium Carbonate/Glycine 500 mg 10/16/16 21:00 10/17/16 21:21 Tums PO 500 mg BID GABRIELA Administration Cholecalciferol 1,000 unit 10/17/16 09:00 10/17/16 10:58 Vitamin D3 PO 1,000 unit DAILY GABRIELA Administration Finasteride 5 mg 10/17/16 09:00 10/17/16 10:58 Proscar PO 5 mg DAILY GABRIELA Administration Heparin Sodium (Porcine) 5,000 unit 10/17/16 09:00 10/17/16 21:14 SUBQ 5,000 unit BID GABRIELA Administration Vancomycin HCl 1.5 gm/ Sodium 500 mls @ 250 mls/hr 10/17/16 17:00 10/17/16 18: 08 Chloride IV 250 mls/hr Q24H GABRIELA Administration Cefepime HCl 2 gm/ Sodium 100 mls @ 200 mls/hr 10/17/16 21:00 10/17/16 21:22 Chloride IV 200 mls/hr Q24H GABRIELA Administration Potassium Chloride 100 mls @ 100 mls/hr 10/18/16 07:00 10/18/16 08:12 Potassium Chloride IV 10/18/16 10:59 100 mls/hr Q1H GABRIELA Administration Insulin Aspart 1 - 9 unit 10/16/16 21:00 10/18/16 08:12 Novolog SUBQ Not Given 0800,1200,1700,2100 [facility] Protocol Insulin Glargine 8 unit 10/17/16 21:00 10/17/16 21:21 Lantus Solostar SUBQ 8 unit QPM GABRIELA Administration Memantine 10 mg 10/16/16 21:00 10/17/16 21:21 Namenda PO 10 mg BID GABRIELA Administration Metoprolol Succinate 25 mg 10/17/16 09:00 10/17/16 10:54 Toprol Xl PO 25 mg DAILY GABRIELA Administration Metronidazole 500 mg 10/17/16 00:00 10/18/16 06:04 Flagyl PO 500 mg Q6HR GABRIELA Administration Ondansetron HCl 4 mg 10/16/16 20:45 10/17/16 11:54 Zofran Inj IVP 4 mg Q6HR PRN Administration Nausea / Vomiting Pantoprazole Sodium 40 mg 10/17/16 07:00 10/18/16 06:04 Protonix PO 40 mg QDAC GABRIELA Administration Polyethylene Glycol 17 gm 10/17/16 09:00 10/18/16 07:22 Miralax PO Not Given DAILY GABRIELA Saccharomyces Boulardii 250 mg 10/17/16 08:00 10/17/16 18:06 Florastor PO 250 mg BIDWM GABRIELA Administration Sodium Chloride 10 ml 10/16/16 22:00 10/18/16 06:05 Normal Saline Flush 0.9% IVP 10 ml Q8HR GABRIELA Administration - Lab Result Lab results reviewed: Yes Fish Bone Diagrams: 10/18/16 05:49 10/18/16 05:49 - Additional Planning Condition/Complexity: Guarded My Orders: My Active Orders 10/17/16 21:00 Insulin Glargine [Lantus Solostar] 8 unit SUBQ QPM 10/18/16 08:00 Insulin Glargine [Lantus Solostar] 5 unit SUBQ QDBREAKFAST 10/19/16 16:30 VANCOMYCIN TROUGH [CHEM] Timed Subjective - Subjective Patient Reports: Other (easy to wake up but lethargic.) Nursing Reports: Other (diarrhea less frequent / amount) Objective Vital Signs: Vital Signs - 24 hr 10/17/16 10/17/16 10/17/16 10:10 10:30 13:00 Temperature 36.6 C Heart Rate [ 128 H Brachial] Heart Rate [ 78 78 Sitting] Respiratory 19 Rate Blood Pressure [Left Brachial artery] Blood Pressure 126/77 [Right Brachial artery] Blood Pressure 147/91 H 147/90 H [Sitting] O2 Saturation 97 O2 Saturation [ 85 L Without Activity] 10/17/16 10/17/16 10/18/16 17:00 19:50 00:18 Temperature 36.3 C L 36.6 C 36.5 C Heart Rate [ 119 H 120 H 90 Brachial] Heart Rate [ Sitting] Respiratory 22 18 18 Rate Blood Pressure 132/79 H [Left Brachial artery] Blood Pressure 124/78 137/72 H [Right Brachial artery] Blood Pressure [Sitting] O2 Saturation 96 94 99 O2 Saturation [ Without Activity] 10/18/16 10/18/16 06:19 07:33 Temperature 36.5 C 36.4 C L Heart Rate [ 73 100 Brachial] Heart Rate [ Sitting] Respiratory 16 22 Rate Blood Pressure [Left Brachial artery] Blood Pressure 129/62 145/81 H [Right Brachial artery] Blood Pressure [Sitting] O2 Saturation 95 96 O2 Saturation [ Without Activity] Oxygen O2 Source [Without Activity] Nasal cannula O2 Source Nasal cannula I&O (Last 24 Hrs): Intake and Output Totals x24h 10/16/16 10/17/16 10/18/16 23:59 23:59 23:59 Intake Total 4306 660 Output Total 600 2025 650 Balance -600 2281 10 General: Other (lethargic no acute distress) Cardiovascular: Other (irregular, no murmurs) Respiratory: Chest non-tender, No respiratory distress, Breath sounds nml Abdomen: Normal bowel sounds, Soft, No tenderness Extremities: No edema, No tenderness/swelling - Results Results: Laboratory Results WBC 10.5 x10^3/uL (4.8-10.8) 10/18/16 05:49 RBC 2.98 10^6/uL (4.70-6.10) L 10/18/16 05:49 Hgb 9.1 g/dL (14.0-18.0) L 10/18/16 05:49 Hct 28.1 % (42.0-52.0) L 10/18/16 05:49 MCV 94.1 fL (80.0-94.0) H 10/18/16 05:49 MCH 30.5 pg (27.0-31.0) 10/18/16 05:49 MCHC 32.4 g/dL (32.0-36.0) 10/18/16 05:49 RDW 16.7 % (12.0-15.0) H 10/18/16 05:49 Plt Count 320 10^3/uL (130-450) 10/18/16 05:49 MPV 6.7 fL (7.4-11.4) L 10/18/16 05:49 Neut # 8.7 10^3/uL (1.5-6.6) H 10/18/16 05:49 Lymph # 1.0 10^3/uL (1.5-3.5) L 10/18/16 05:49 [place] # 0.6 10^3/uL (0.0-1.0) 10/18/16 05:49 Eos # 0.2 10^3/uL (0.0-0.7) 10/18/16 05:49 Baso # 0.0 10^3/uL (0.0-0.1) 10/18/16 05:49 Absolute Nucleated RBC 0.00 x10^3/uL 10/18/16 05:49 Nucleated RBCs 0.0 /100WBC 10/18/16 05:49 VBG pH 7.373 (7.31-7.41) 10/18/16 05:49 Ionized Calcium 1.10 mmol/L (1.15-1.33) L 10/18/16 05:49 Sodium 146 mmol/L (135-145) H 10/18/16 05:49 Potassium 3.1 mmol/L (3.5-5.0) L 10/18/16 05:49 Chloride 110 mmol/L (101-111) 10/18/16 05:49 Carbon Dioxide 27 mmol/L (21-32) 10/18/16 05:49 Anion Gap 9.0 (6-13) 10/18/16 05:49 BUN 29 mg/dL (6-20) H 10/18/16 05:49 Creatinine 1.1 mg/dL (0.6-1.2) 10/18/16 05:49 Estimated GFR (MDRD) 63 (>89) L 10/18/16 05:49 Glucose 111 mg/dL (70-100) H 10/18/16 05:49 POC Whole Bld Glucose 84 mg/dL (70 - 100) 10/18/16 07:28 Glycated Hemoglobin 6.8 % (4.6-6.2) H 10/16/16 17:47 Estim Average Glucose 148 (70-100) H 10/16/16 17:47 Lactic Acid 1.7 mmol/L (0.5-2.2) 10/17/16 05:35 Calcium 7.8 mg/dL (8.5-10.3) L 10/18/16 05:49 Ionized Calcium YES 10/18/16 05:49 Phosphorus 2.5 mg/dL (2.5-4.6) 10/18/16 05:49 Magnesium 1.5 mg/dL (1.7-2.8) L 10/18/16 05:49 Total Bilirubin 0.9 mg/dL (0.2-1.0) 10/18/16 05:49 AST 18 IU/L (10-42) 10/18/16 05:49 ALT 13 IU/L (10-60) 10/18/16 05:49 Alkaline Phosphatase 162 IU/L (42-121) H 10/18/16 05:49 Total Protein 5.2 g/dL (6.7-8.2) L 10/18/16 05:49 Albumin 1.9 g/dL (3.2-5.5) L 10/18/16 05:49 Globulin 3.3 g/dL (2.1-4.2) 10/18/16 05:49 Albumin/Globulin Ratio 0.6 (1.0-2.2) L 10/18/16 05:49 Lipase 15 U/L (22-51) L 10/16/16 17:47 Prostate Specific Ag 438.000 ng/mL (0.000-2.000) H 10/17/16 09:23 Free PSA 37.870 ng/mL (0.16-2.81) H 10/17/16 09:23 % Free PSA Calc 9 % (25-100) L 10/17/16 09:23 Urine Color BROWN 10/16/16 18:31 Urine Clarity CLOUDY (CLEAR) 10/16/16 18:31 Urine pH 5.0 PH (5.0-7.5) 10/16/16 18:31 Ur Specific [place] 1.025 (1.002-1.030) 10/16/16 18:31 Urine Protein 30 mg/dL (NEGATIVE) H 10/16/16 18:31 Urine Glucose (UA) NEGATIVE mg/dL (NEGATIVE) 10/16/16 18:31 Urine Ketones NEGATIVE mg/dL (NEGATIVE) 10/16/16 18:31 Urine Occult Blood LARGE (NEGATIVE) H 10/16/16 18:31 Urine Nitrite NEGATIVE (NEGATIVE) 10/16/16 18:31 Urine Bilirubin NEGATIVE (NEGATIVE) 10/16/16 18:31 Urine Urobilinogen 0.2 (NORMAL) E.U./dL (NORMAL) 10/16/16 18:31 Ur Leukocyte Esterase TRACE (NEGATIVE) H 10/16/16 18:31 Urine RBC TNTC /HPF (0-5) H 10/16/16 18:31 Urine WBC 6-10 /HPF (0-3) H 10/16/16 18:31 Ur Squamous Epith Cells FEW Squamous (<= Few) 10/16/16 18:31 Urine Bacteria Few /HPF (None Seen) 10/16/16 18:31 Ur Microscopic Review INDICATED 10/16/16 18:31 Urine Culture Comments INDICATED 10/16/16 18:31 Stool Leukocytes, Qual POSITIVE (Negative) 10/16/16 22:30 Group A Strep Rapid Negative (Negative) 10/16/16 20:15 - Procedures Procedures: Procedures REPOSITION R UP FEMUR WITH INTRAMED FIX, OPEN APPROACH (09/23/16) TRANSFUSE NONAUT RED BLOOD CELLS IN PERIPH VEIN, PERC (09/23/16)
[2016-10-18] MEDS: MEMANTINE 5 MG TABLET PO SCH ×2 (10:46→20:27)
[2016-10-18] MEDS: FINASTERIDE 5 MG TABLET PO SCH (10:46)
[2016-10-18] MEDS: cefTRIAXone 1 GM in SODIUM CHLORIDE 0.9% MINIBAG 100 ML IV SCH (10:46)
[2016-10-18] MEDS: HEPARIN 5,000 UNIT/ML VIAL SUBQ SCH ×2 (10:46→20:25)
[2016-10-18] MEDS: ASPIRIN CHEW 81 MG TABLET PO SCH (10:46)
[2016-10-18] MEDS: METOPROLOL SUCCINATE 25 MG TABLET PO SCH (10:47)
[2016-10-18] MEDS: CALCIUM CARBONATE CHEW 500 MG TABLET PO SCH ×2 (10:47→20:27)
[2016-10-18] MEDS: CHOLECALCIFEROL 1,000 UNIT TABLET PO SCH (10:47)
[2016-10-18] MEDS: SACCHAROMYCES BOULARDII 250 MG CAPSULE PO SCH ×2 (10:47→17:43)
[2016-10-18] MEDS: INSULIN GLARGINE 300 UNIT/3 ML PEN SUBQ SCH (20:23)
[2016-10-18] MEDS: ATORVASTATIN 10 MG TABLET PO SCH (20:26)
[2016-10-19] MEDS: metroNIDAZOLE 250 MG TABLET PO SCH ×5 (00:39→23:51)
[2016-10-19 05:45] LABS: BASOPHILS % (AUTO) 0.4 %; EOSINOPHILS # (AUTO) 0.1 10^3/uL (0.0-0.7); EOSINOPHILS % (AUTO) 1.7 %; HCT - HEMATOCRIT 28.6 % (42.0-52.0); HGB - HEMOGLOBIN 8.8 g/dL (14.0-18.0); LYMPHOCYTES # (AUTO) 1.1 10^3/uL (1.5-3.5); LYMPHOCYTES % (AUTO) 14.1 %; MEAN CORPUSCULAR HEMOGLOBIN 29.7 pg (27.0-31.0); MEAN CORPUSCULAR HGB CONC 30.8 g/dL (32.0-36.0); MEAN CORPUSCULAR VOLUME 96.4 fL (80.0-94.0); MEAN PLATELET VOLUME 7.1 fL (7.4-11.4); MONOCYTES # (AUTO) 0.5 10^3/uL (0.0-1.0); MONOCYTES % (AUTO) 6.1 %; NEUTROPHILS # (AUTO) 6.2 10^3/uL (1.5-6.6); NEUTROPHILS % (AUTO) 77.7 %; NUCLEATED RED BLOOD CELLS AUTO 0.3 /100WBC; RED BLOOD COUNT 2.97 10^6/uL (4.70-6.10); RED CELL DISTRIBUTION WIDTH 16.5 % (12.0-15.0)
[2016-10-19 05:54] LABS: ALBUMIN/GLOBULIN RATIO 0.6 (1.0-2.2); BILIRUBIN,TOTAL 0.9 mg/dL (0.2-1.0); BUN - BLOOD UREA NITROGEN 24 mg/dL (6-20); CALCIUM 7.8 mg/dL (8.5-10.3); CARBON DIOXIDE - CO2 26 mmol/L (21-32); CHLORIDE 107 mmol/L (101-111); CREATININE 0.9 mg/dL (0.6-1.2); GFR - MDRD 80 (>89); GLUCOSE 152 mg/dL (70-100); MAGNESIUM 1.6 mg/dL (1.7-2.8); POTASSIUM 3.1 mmol/L (3.5-5.0); SODIUM 143 mmol/L (135-145); TOTAL PROTEIN 5.2 g/dL (6.7-8.2)
[2016-10-19 05:58] LABS: CALCIUM, IONIZED 1.07 mmol/L (1.15-1.33); VBG PH 7.405 (7.31-7.41)
[2016-10-19] MEDS: PANTOPRAZOLE 40 MG TABLET PO SCH (06:22)
[2016-10-19] MEDS: SODIUM CHLORIDE FLUSH 0.9% 10 ML SYRINGE IVP SCH ×3 (06:22→20:49)
--- NOTE | 2016-10-19 07:37 | XRAY Preliminary Report ---
Exam: XR Chest 1 View IMPRESSION: Mild cardiovascular fullness with tiny right effusion. [facility] SITE ID: [id number]
--- NOTE | 2016-10-19 07:39 | XRAY Report ---
EXAM: CHEST RADIOGRAPHY EXAM DATE: 10/19/2016 07:11 AM. CLINICAL HISTORY: Fever, cough. COMPARISON: 10/16/2016. TECHNIQUE: 1 view. FINDINGS: Lungs/Pleura: Mild hazy prominence of lung markings with tiny right effusion. No consolidation, defin ite left effusion, or pneumothorax. Mediastinum: Overall heart size upper limit of normal, unchanged. Mild upper lobe vascular fullness. Other: Degenerative changes. IMPRESSION: Mild cardiovascular fullness with tiny right effusion. [facility] Referring Provider Line: [phone] SITE ID: [id number]
[2016-10-19] MEDS: INSULIN ASPART 300 UNIT/3 ML PEN SUBQ SCH ×4 (08:21→20:49)
[2016-10-19] MEDS: CALCIUM CARBONATE CHEW 500 MG TABLET PO SCH ×2 (08:24→20:48)
[2016-10-19] MEDS: SACCHAROMYCES BOULARDII 250 MG CAPSULE PO SCH ×2 (08:24→17:11)
[2016-10-19] MEDS: CHOLECALCIFEROL 1,000 UNIT TABLET PO SCH (08:25)
[2016-10-19] MEDS: ASPIRIN CHEW 81 MG TABLET PO SCH (08:25)
[2016-10-19] MEDS: cefTRIAXone 1 GM in SODIUM CHLORIDE 0.9% MINIBAG 100 ML IV SCH (08:25)
[2016-10-19] MEDS: MEMANTINE 5 MG TABLET PO SCH ×2 (08:26→20:48)
[2016-10-19] MEDS: FINASTERIDE 5 MG TABLET PO SCH (08:26)
[2016-10-19] MEDS: HEPARIN 5,000 UNIT/ML VIAL SUBQ SCH ×2 (08:26→20:56)
[2016-10-19] MEDS: POLYETHYLENE GLYCOL 3350 17 GM PACKET PO SCH (08:26)
[2016-10-19] MEDS: METOPROLOL SUCCINATE 25 MG TABLET PO SCH (08:38)
[2016-10-19] MEDS ORDERED: MAGNESIUM SULFATE 1 GM in SODIUM CHLORIDE 0.9% 50 ML IV ONE (12:37)
--- NOTE | 2016-10-19 12:49 | PROVIDER PROGRESS NOTE ---
Assessment/Plan - Problem List (1) C. difficile diarrhea Assessment/Plan: 1 C Diff colitis Patient was having diarrhea at [facility] and on presentation here Presented with CLARISSE and hypokalemia appeared very dehydrated C. diff PCR positive, continues to have loose stool, per RN decreasing frequency / amount Continue Flagyl 500 mg PO q6 hours Will need to continue flagyl for 10 days beyond treatment for prostatits so end date for treatment with flagyl would be 11/05/2016 Probiotics IVFs Electrolyte replacement (2) HCAP (healthcare-associated pneumonia) Presented with generalized weakness, cough and shortness of air for one week since recent hospitalization for septic shock from kleb pneumo bacteremia secondary to prostatitis WBC elevated at 13.7 with hypoxia on presentation Given recent hospitalization pt was started on tx for HCAP, in review of cxr there is small right infiltrate - no evidence of pna on cxr 10/18 IV Vancomycin discontinue 10/18, and change cefepime day 3 to ceftriaxone Duonebs prn Probiotics Supplemental O2 (3) CLARISSE (acute kidney injury) Improved Secondary to diarrhea, most likely prerenal Patient also has hematuria which is continuous since August with complex renal cyst Presented with Cr of 2.6 elevated from 0.9 one week earlier Hold lisinopril and HCTZ Renal ultrasound was negative Avoid nephrotoxic agents Cr improved to 1.6 yesterday and 1.1 today (4) Hypokalemia and hypomagnasemia - persistent Secondary to diarrhea from c diff and decreased PO Replace K IV and PO, replace Mag IV repeat labs in am (5) Prostatitis Patient was recently hospitalized with septic shock due to Kleb Pneumo bacteremia with likely source being prostatitis given patients BPH and tender prostate on exam Patient discharged to [facility] on PO levaquin till 10/26/16 change abx to ceftriaxone Will need to continue treatment till 10/26/16 (6) Atrial fibrillation Presented with HR in the 110-120 likely secondary to dehydration Will continue metoprolol for rate control Coumadin stopped in August secondary to continuous hematuria Echo shows normal EF and Grade 1 DD HR is stable, can discontinue tele today. (7) Hematuria and significantly elevated PSA Patient has had hematuria with complex renal cyst since August 2016 Has not been evaluated by urology, PSA is 400 range which makes me concerned that pt may have prostate cancer in addition. Will continue to monitor with marcelino catheter Hct stable discussed with pt's partner, she would like pt to fu with urology for diagnosis. Unfortunately her previous of prostate cancer which has heightened her concern (8) Diabetes Very Poor PO intake and Low BS, Lantus 10 units BID decreased to 5am and 8pm HbA1C 6.8, would avoid very tight control due to age and risk of low bs liberalize diet due to very poor intake Monitor glucose ACHS (9) Hypertension BP low normal on presentation Give IVFs HOlding lisinopril and HCTZ given renal failure COntinue metoprolol (10) LUISA on CPAP Continue home CPAP machine (11) History of hip fracture Right femoral shaft fx s/p ORIF [place] removed Struggling with PT at [facility] secondary to generalized weakness likely secondary to pneumonia and c diff COntinue PT during hospitalization Patient will need to go back to SNF after hospitalization anticipate dc to [facility] when medically stable (12) Hypernatreamia Na increased to 149 this Change IVF to 0.45% saline with 20meq of K (13) Prophylactic use of unfractionated heparin for venous thromboembolism (VTE) Heparin for DVT ppx (14) Obese bmi 29. Disposition anticipate pt will dc to SNF in next 1-2 days - Current Meds Current Meds: Current Medications Generic Name Dose Route Start Last Admin Trade Name Freq PRN Reason Stop Dose Admin Aspirin 81 mg 10/17/16 09:00 10/19/16 08:25 [facility] [place] Aspirin PO 81 mg DAILY GABRIELA Administration Atorvastatin Calcium 20 mg 10/17/16 21:00 10/18/16 20:26 Lipitor PO 20 mg QPM GABRIELA Administration Calcium Carbonate/Glycine 500 mg 10/16/16 21:00 10/19/16 08:24 Tums PO 500 mg BID GABRIELA Administration Cholecalciferol 1,000 unit 10/17/16 09:00 10/19/16 08:25 Vitamin D3 PO 1,000 unit DAILY GABRIELA Administration Finasteride 5 mg 10/17/16 09:00 10/19/16 08:26 Proscar PO 5 mg DAILY GABRIELA Administration Heparin Sodium (Porcine) 5,000 unit 10/17/16 09:00 10/19/16 08:26 SUBQ 5,000 unit BID GABRIELA Administration Ceftriaxone Sodium 1 gm/ 100 mls @ 200 mls/hr 10/18/16 11:00 10/19/16 08:25 Sodium Chloride IV 200 mls/hr DAILY GABRIELA Administration Insulin Aspart 1 - 9 unit 10/16/16 21:00 10/19/16 12:30 Novolog SUBQ 1 unit 0800,1200,1700,2100 GABRIELA Administration Protocol Insulin Glargine 8 unit 10/17/16 21:00 10/18/16 20:23 Lantus Solostar SUBQ 8 unit QPM GABRIELA Administration Memantine 10 mg 10/16/16 21:00 10/19/16 08:26 Namenda PO 10 mg BID GABRIELA Administration Metoprolol Succinate 25 mg 10/17/16 09:00 10/19/16 08:38 Toprol Xl PO 25 mg DAILY GABRIELA Administration Metronidazole 500 mg 10/17/16 00:00 10/19/16 12:30 Flagyl PO 500 mg Q6HR GABRIELA Administration Ondansetron HCl 4 mg 10/16/16 20:45 10/17/16 11:54 Zofran Inj IVP 4 mg Q6HR PRN Administration Nausea / Vomiting Pantoprazole Sodium 40 mg 10/17/16 07:00 10/19/16 06:22 Protonix PO 40 mg QDAC GABRIELA Administration Polyethylene Glycol 17 gm 10/17/16 09:00 10/19/16 08:26 Miralax PO 17 gm DAILY GABRIELA Administration Saccharomyces Boulardii 250 mg 10/17/16 08:00 10/19/16 08:24 Florastor PO 250 mg BIDWM GABRIELA Administration Sodium Chloride 10 ml 10/16/16 20:45 10/19/16 00:53 Normal Saline Flush 0.9% IVP 10 ml PRN PRN Administration NEEDED PER PROVIDER ORDERS Sodium Chloride 10 ml 10/16/16 22:00 10/19/16 06:22 Normal Saline Flush 0.9% IVP 10 ml Q8HR GABRIELA Administration - Lab Result Lab results reviewed: Yes Fish Bone Diagrams: 10/19/16 05:25 10/19/16 05:25 - Additional Planning My Orders: My Active Orders 10/19/16 12:38 Magnesium Sulfate 2 Gram [Magnesium Sulfate] 50 ml IV ONCE 10/19/16 21:00 Potassium Chloride [K-Dur] 20 meq PO BID Subjective - Subjective Patient Reports: Resting Comfortably, No Complaints, Other (pt's partner is in room and states he is very forgettful. She would like him to go to SNF in [place] so that he can fu with urology. Pt has had a chronically poor appetite and wt loss, bs has been low and diet was liberalized.) Objective Vital Signs: Vital Signs - 24 hr 10/18/16 10/18/16 10/18/16 16:05 20:35 20:38 Temperature 36.8 C 36.3 C L Heart Rate [ 88 105 H Brachial] Respiratory 16 22 18 Rate Blood Pressure 120/78 110/66 [Right Brachial artery] O2 Saturation 99 95 97 10/19/16 10/19/16 10/19/16 01:00 05:49 07:37 Temperature 36.6 C 36.6 C 36.4 C L Heart Rate [ 94 86 85 Brachial] Respiratory 20 20 20 Rate Blood Pressure 113/75 137/77 H 143/85 H [Right Brachial artery] O2 Saturation 98 93 95 Oxygen O2 Source [Without Activity] Nasal cannula O2 Source Nasal cannula I&O (Last 24 Hrs): Intake and Output Totals x24h 10/17/16 10/18/16 10/19/16 23:59 23:59 23:59 Intake Total 4306 2427 680 Output Total 5 1500 300 Balance 2281 927 380 General: Other (pt is more alert this am. conversant with his partner. nad) Cardiovascular: Regular rate Respiratory: Chest non-tender, No respiratory distress, Breath sounds nml Abdomen: Normal bowel sounds, Soft, No tenderness Extremities: No clubbing, No edema, No tenderness/swelling Skin: No significant lesion - Results Results: Laboratory Results WBC 8.0 x10^3/uL (4.8-10.8) 10/19/16 05:25 RBC 2.97 10^6/uL (4.70-6.10) L 10/19/16 05:25 Hgb 8.8 g/dL (14.0-18.0) L 10/19/16 05:25 Hct 28.6 % (42.0-52.0) L 10/19/16 05:25 MCV 96.4 fL (80.0-94.0) H 10/19/16 05:25 MCH 29.7 pg (27.0-31.0) 10/19/16 05:25 MCHC 30.8 g/dL (32.0-36.0) L 10/19/16 05:25 RDW 16.5 % (12.0-15.0) H 10/19/16 05:25 Plt Count 303 10^3/uL (130-450) 10/19/16 05:25 MPV 7.1 fL (7.4-11.4) L 10/19/16 05:25 Neut # 6.2 10^3/uL (1.5-6.6) 10/19/16 05:25 Lymph # 1.1 10^3/uL (1.5-3.5) L 10/19/16 05:25 Hill # 0.5 10^3/uL (0.0-1.0) 10/19/16 05:25 Eos # 0.1 10^3/uL (0.0-0.7) 10/19/16 05:25 Baso # 0.0 10^3/uL (0.0-0.1) 10/19/16 05:25 Absolute Nucleated RBC 0.02 x10^3/uL 10/19/16 05:25 Nucleated RBCs 0.3 /100WBC 10/19/16 05:25 VBG pH 7.405 (7.31-7.41) 10/19/16 05:25 Ionized Calcium 1.07 mmol/L (1.15-1.33) L 10/19/16 05:25 Sodium 143 mmol/L (135-145) 10/19/16 05:25 Potassium 3.1 mmol/L (3.5-5.0) L 10/19/16 05:25 Chloride 107 mmol/L (101-111) 10/19/16 05:25 Carbon Dioxide 26 mmol/L (21-32) 10/19/16 05:25 Anion Gap 10.0 (6-13) 10/19/16 05:25 BUN 24 mg/dL (6-20) H 10/19/16 05:25 Creatinine 0.9 mg/dL (0.6-1.2) 10/19/16 05:25 Estimated GFR (MDRD) 80 (>89) L 10/19/16 05:25 Glucose 152 mg/dL (70-100) H 10/19/16 05:25 POC Whole Bld Glucose 141 mg/dL (70 - 100) H 10/19/16 11:37 Glycated Hemoglobin 6.8 % (4.6-6.2) H 10/16/16 17:47 Estim Average Glucose 148 (70-100) H 10/16/16 17:47 Lactic Acid 1.7 mmol/L (0.5-2.2) 10/17/16 05:35 Calcium 7.8 mg/dL (8.5-10.3) L 10/19/16 05:25 Ionized Calcium YES 10/19/16 05:25 Phosphorus 2.5 mg/dL (2.5-4.6) 10/18/16 05:49 Magnesium 1.6 mg/dL (1.7-2.8) L 10/19/16 05:25 Total Bilirubin 0.9 mg/dL (0.2-1.0) 10/19/16 05:25 AST 18 IU/L (10-42) 10/19/16 05:25 ALT 12 IU/L (10-60) 10/19/16 05:25 Alkaline Phosphatase 167 IU/L (42-121) H 10/19/16 05:25 Total Protein 5.2 g/dL (6.7-8.2) L 10/19/16 05:25 Albumin 2.0 g/dL (3.2-5.5) L 10/19/16 05:25 Globulin 3.2 g/dL (2.1-4.2) 10/19/16 05:25 Albumin/Globulin Ratio 0.6 (1.0-2.2) L 10/19/16 05:25 Lipase 15 U/L (22-51) L 10/16/16 17:47 Prostate Specific Ag 438.000 ng/mL (0.000-2.000) H 10/17/16 09:23 Free PSA 37.870 ng/mL (0.16-2.81) H 10/17/16 09:23 % Free PSA Calc 9 % (25-100) L 10/17/16 09:23 TSH 4.01 uIU/mL (0.34-5.60) 10/19/16 05:25 Urine Color BROWN 10/16/16 18:31 Urine Clarity CLOUDY (CLEAR) 10/16/16 18:31 Urine pH 5.0 PH (5.0-7.5) 10/16/16 18:31 Ur Specific [place] 1.025 (1.002-1.030) 10/16/16 18:31 Urine Protein 30 mg/dL (NEGATIVE) H 10/16/16 18:31 Urine Glucose (UA) NEGATIVE mg/dL (NEGATIVE) 10/16/16 18:31 Urine Ketones NEGATIVE mg/dL (NEGATIVE) 10/16/16 18:31 Urine Occult Blood LARGE (NEGATIVE) H 10/16/16 18:31 Urine Nitrite NEGATIVE (NEGATIVE) 10/16/16 18:31 Urine Bilirubin NEGATIVE (NEGATIVE) 10/16/16 18:31 Urine Urobilinogen 0.2 (NORMAL) E.U./dL (NORMAL) 10/16/16 18:31 Ur Leukocyte Esterase TRACE (NEGATIVE) H 10/16/16 18:31 Urine RBC TNTC /HPF (0-5) H 10/16/16 18:31 Urine WBC 6-10 /HPF (0-3) H 10/16/16 18:31 Ur Squamous Epith Cells FEW Squamous (<= Few) 10/16/16 18:31 Urine Bacteria Few /HPF (None Seen) 10/16/16 18:31 Ur Microscopic Review INDICATED 10/16/16 18:31 Urine Culture Comments INDICATED 10/16/16 18:31 Stool Leukocytes, Qual POSITIVE (Negative) 10/16/16 22:30 Group A Strep Rapid Negative (Negative) 10/16/16 20:15 Ova & Parasites SEE NOTE (()) 10/16/16 22:30 - Procedures Procedures: Procedures REPOSITION R UP FEMUR WITH INTRAMED FIX, OPEN APPROACH (09/23/16) TRANSFUSE NONAUT RED BLOOD CELLS IN PERIPH VEIN, PERC (09/23/16)
[2016-10-19] MEDS ORDERED: MAGNESIUM SULFATE 2 GRAM 50 ML IV SCH (13:00)
[2016-10-19] MEDS: ATORVASTATIN 10 MG TABLET PO SCH (20:48)
[2016-10-19] MEDS: POTASSIUM CHLORIDE 20 MEQ TABLET PO SCH (20:48)
[2016-10-19] MEDS: INSULIN GLARGINE 300 UNIT/3 ML PEN SUBQ SCH (20:48)
[2016-10-20] MEDS: SODIUM CHLORIDE FLUSH 0.9% 10 ML SYRINGE IVP SCH ×2 (05:44→14:56)
[2016-10-20] MEDS: metroNIDAZOLE 250 MG TABLET PO SCH ×2 (05:44→12:53)
[2016-10-20] MEDS: PANTOPRAZOLE 40 MG TABLET PO SCH (05:53)
[2016-10-20 06:24] LABS: BASOPHILS % (AUTO) 0.5 %; EOSINOPHILS # (AUTO) 0.1 10^3/uL (0.0-0.7); EOSINOPHILS % (AUTO) 1.6 %; HCT - HEMATOCRIT 28.8 % (42.0-52.0); HGB - HEMOGLOBIN 9.3 g/dL (14.0-18.0); LYMPHOCYTES # (AUTO) 1.3 10^3/uL (1.5-3.5); LYMPHOCYTES % (AUTO) 15.6 %; MEAN CORPUSCULAR HEMOGLOBIN 30.6 pg (27.0-31.0); MEAN CORPUSCULAR HGB CONC 32.4 g/dL (32.0-36.0); MEAN CORPUSCULAR VOLUME 94.6 fL (80.0-94.0); MEAN PLATELET VOLUME 6.6 fL (7.4-11.4); MONOCYTES # (AUTO) 0.6 10^3/uL (0.0-1.0); MONOCYTES % (AUTO) 7.1 %; NEUTROPHILS # (AUTO) 6.3 10^3/uL (1.5-6.6); NEUTROPHILS % (AUTO) 75.2 %; NUCLEATED RED BLOOD CELLS AUTO 0.1 /100WBC; RED BLOOD COUNT 3.05 10^6/uL (4.70-6.10); RED CELL DISTRIBUTION WIDTH 16.6 % (12.0-15.0); UNCORRECTED WHITE BLOOD COUNT 8.4 x10^3/uL; WHITE BLOOD COUNT 8.4 x10^3/uL (4.8-10.8)
[2016-10-20 06:40] LABS: ALBUMIN/GLOBULIN RATIO 0.6 (1.0-2.2); BUN - BLOOD UREA NITROGEN 21 mg/dL (6-20); CALCIUM 7.6 mg/dL (8.5-10.3); CARBON DIOXIDE - CO2 26 mmol/L (21-32); CHLORIDE 109 mmol/L (101-111); CREATININE 0.9 mg/dL (0.6-1.2); GFR - MDRD 80 (>89); GLUCOSE 156 mg/dL (70-100); MAGNESIUM 1.6 mg/dL (1.7-2.8); POTASSIUM 2.9 mmol/L (3.5-5.0); SODIUM 144 mmol/L (135-145); TOTAL PROTEIN 5.2 g/dL (6.7-8.2)
[2016-10-20 06:44] LABS: CALCIUM, IONIZED 1.02 mmol/L (1.15-1.33); VBG PH 7.497 (7.31-7.41)
[2016-10-20] MEDS ORDERED: MAGNESIUM SULFATE 2 GRAM 50 ML IV SCH (06:54)
[2016-10-20] MEDS: ASPIRIN CHEW 81 MG TABLET PO SCH (08:32)
[2016-10-20] MEDS: METOPROLOL SUCCINATE 25 MG TABLET PO SCH (08:32)
[2016-10-20] MEDS: CALCIUM CARBONATE CHEW 500 MG TABLET PO SCH (08:32)
[2016-10-20] MEDS: FINASTERIDE 5 MG TABLET PO SCH (08:32)
[2016-10-20] MEDS: POTASSIUM CHLORIDE 20 MEQ TABLET PO SCH (08:32)
[2016-10-20] MEDS: CHOLECALCIFEROL 1,000 UNIT TABLET PO SCH (08:32)
[2016-10-20] MEDS: cefTRIAXone 1 GM in SODIUM CHLORIDE 0.9% MINIBAG 100 ML IV SCH (08:32)
[2016-10-20] MEDS: HEPARIN 5,000 UNIT/ML VIAL SUBQ SCH (08:36)
[2016-10-20] MEDS: MEMANTINE 5 MG TABLET PO SCH (09:24)
[2016-10-20] MEDS: SACCHAROMYCES BOULARDII 250 MG CAPSULE PO SCH (09:24)
[2016-10-20] MEDS: POLYETHYLENE GLYCOL 3350 17 GM PACKET PO SCH (09:25)
[2016-10-20] MEDS: INSULIN ASPART 300 UNIT/3 ML PEN SUBQ SCH (09:29)
[2016-10-20] MEDS ORDERED: ZINC OXIDE 20% OINT 28.35 GM TUBE TOP ONE (10:40)
[2016-10-20] MEDS: POTASSIUM CHLOR 10 MEQ/100 ML 100 ML IV SCH ×6 (11:00→14:56)
--- NOTE | 2016-10-20 11:39 | Discharge Plan ---
Discharge Plan Disposition: 03 [facility] DC/Xfer Condition: Fair Prescriptions: metroNIDAZOLE [Flagyl] 500 mg PO TID #51 tablet Levofloxacin 500 mg PO DAILY #6 tablet Diet: Regular Activity Restrictions: Wt Bearing as Tolerated No Smoking: If you smoke, Please STOP! Call for help.
[2016-10-20] MEDS ORDERED: INSULIN ASPART 300 UNIT/3 ML PEN SUBQ SCH (12:00)
--- NOTE | 2016-10-20 13:37 | XRAY Report ---
TWO-VIEW RIGHT FEMUR: 10/20/2016 CLINICAL INDICATION: Status post fracture fixation. COMPARISON: 09/24/2016 FINDINGS: Frontal and lateral views of the right femur demonstrate dynamic compression screw and emma g IM marlo fixation of the femoral shaft fracture, with cerclage wires in place. Skin clips have been removed. Knee replacement appears stable. IMPRESSION: STABLE APPEARANCE OF IM MARLO AND DYNAMIC COMPRESSION SCREW FIXATION OF THE PROXIMAL FEMOR AL SHAFT FRACTURE, WITH CERCLAGE WIRES IN PLACE. JOB #: [id number] EXT JOB #:[id number]
[2016-10-20 15:20] VITALS: BP 131/73
--- NOTE | 2016-10-22 10:48 | DISCHARGE SUMMARY ---
Date of admit 10/16/16 Date of discharge 10/20/16 DISCHARGE DIAGNOSES: 1. Clostridium difficile colitis. 2. Healthcare associated pneumonia. 3. Acute kidney injury. 4. Hematuria and significantly elevated PSA. 5. Diabetes. 6. Hypertension. 7. Obstructive sleep apnea on CPAP. 8. Recent hip fracture. 9. Prostatitis. BRIEF HISTORY OF PRESENTATION: Please see dictated History and Physical by Dr. Armas. Briefly, the patient is an 86-year-old gentleman with complicated medical history who presented with generalized weakness, hypokalemia, and diarrhea found to be Clostridium difficile colitis. HOSPITAL COURSE BY PROBLEM: 1. Clostridium difficile colitis. The patient was started on Flagyl 500 mg every 6 hours. His diarrhea was slow to improve most likely because he was still on antibiotics for healthcare associated pneumonia and prostatitis. By the date of discharge his diarrhea had improved. He will need to continue Flagyl through November 05, 2016, 10 days beyond treatment for prostatitis. 2. Healthcare associated pneumonia. The patient presented with generalized weakness, cough, shortness of breath. He had an elevated white blood count and was felt to have healthcare associated pneumonia. He had a small infiltrate evident on chest x-ray. He was initially started on vancomycin and cefepime. The vancomycin was discontinued on hospital day 3 and cefepime was changed to ceftriaxone after repeat chest x-ray showed clearing of infiltrate and patient had improved from a pulmonary standpoint. He was continued on duonebs as needed and supplemental oxygen as needed. 3. Acute kidney injury felt secondary to pre-renal due to GI loss. He also has hematuria. His creatinine was initially 2.6, elevated from 0.9 1 week earlier. Creatinine slowly improved with IV hydration. Renal ultrasound was unremarkable. 4. Hypokalemia and hypomagnesemia present throughout course. He received IV and oral replacement and will need lab monitoring at the halfway facility on discharge. 5. Prostatitis. The patient will be treated with the antibiotics through October, with Levaquin. In the hospital he was initially on vancomycin and cefepime, then transitioned to ceftriaxone and oral therapy will be continued as above. 6. Atrial fibrillation with intermittent rapid ventricular response from 110 to 120. He was continued on metoprolol. Coumadin was discontinued due to hematuria. Echo showed normal EF and grade 1 diastolic dysfunction. 7. Hematuria and elevated PSA to the 400 range. I am concerned this is likely due to prostate cancer. The patient's would like him to have a followup appointment with Urology. I have explained that it would be easier for Urology to see patient after he completes treatment for C. Difficile colitis. They likely will not do a procedure while he is infected, and would not be a good idea to offer treatment at that time, either. 8. Diabetes. The patient had very poor oral intake and low blood sugar. His A1c is 6.8. He typically takes Lantus 10 units b.i.d. which I decreased to 8 units at night, liberalized to a regular diet due to poor nutritional status, and would not treat aggressively given his age and life expectancy. 9. Hypertension. Patient has had low normal blood pressure and lisinopril and hydrochlorothiazide were held. He was continued on metoprolol. 10. Obstructive sleep apnea. The patient was continued on CPAP. 11. Recent hip fracture. The patient will need ongoing physical therapy and occupational therapy. He has no weightbearing restrictions and can followup with Orthopaedics as previously directed. MEDICATIONS: 1. Tylenol scheduled for pain. 2. Atorvastatin 20 mg daily. 3. Insulin 8 units at night. 4. Levofloxacin 500 mg through 10/26/2016. 5. Metronidazole 500 mg three times a day through 11/05/2016. Continue the following medications: 6. Aspirin 81 mg daily. 7. Calcium. 8. Vitamin D. 9. Finasteride. 10. Namenda. 11. Metoprolol 25 mg b.i.d. 12. Protonix 40 mg daily. The patient is going to be discharged to [facility], will be followed by Dr. Weber. His would like him transferred to another halfway facility when bed becomes available so that he will be in a community with the urologists so that they can easily followup. Greater than 30 minutes was spent on discharge of this patient. AMPARO
--- NOTE | 2016-10-30 10:18 | CONSULTATION NOTE ---
DATE OF CONSULTATION: 10/20/2016 00:00:00 REQUESTING PROVIDER: Sinan Mendez. REASON FOR CONSULTATION: Interim wound check. HISTORY OF PRESENT ILLNESS: The patient is an 86-year-old male who previously had suffered a complex right hip fracture and had recovered from that surgery satisfactorily in the initial period and disch arged to a care center. He was readmitted to the hospital on 10/16/2016 with increasing decline in co ndition and evidence of Klebsiella pneumonia bacteremia. On this admission the patient showed progres sive recovery and at mid point in the hospitalization I was asked to perform a check on the patient's status. Therefore, a consultation was written. The patient's prior medical history and his surgical history are delineated in his admit note and his previous admission notes from 10/16/2016. MEDICATIONS: The patient's medications are reviewed on this visit and documented by the hospitalist. The patient himself on physical examination appears to be in baseline condition, not in severe pain a nd not complaining of pain in his hip. His hip incision sites were examined and are healing without e vidence of complication or infection, and louise were removed. The patient's neurovascular exam is intact and he does not have undue limb swelling. X-ray evaluation done reveals stable rodding internal fixation with early healing. PLAN: The plan is for the patient to continue with recovery and planned medical care and discharge as performed by the hospitalist. His weightbearing status remains weightbearing as tolerated with a wal ker, and he will be expected to be in a care center until he is seen in this office again within 1 mo nt. JOB #: [id number] EXT JOB #:[id number]
== END 2016-10-20 16:25 | DRG 371 ==
LOC: EDUNIT# → ED 17:39 → MS 20:45
PROVIDERS: ADMIT Internal Medicine; ATTEND Internal Medicine
DX: A04.7 Enterocolitis due to Clostridium difficile (principal); J18.9 Pneumonia, unspecified organism; N30.01 Acute cystitis with hematuria; J18.1 Lobar pneumonia, unspecified organism; I48.91 Unspecified atrial fibrillation; N17.9 Acute kidney failure, unspecified; E78.00 Pure hypercholesterolemia, unspecified; F03.90 Unspecified dementia, unspecified severity, without behavioral disturbance, psychotic disturbance, mood disturbance, and anxiety; G47.30 Sleep apnea, unspecified; E87.0 Hyperosmolality and hypernatremia; Y95 Nosocomial condition; R31.9 Hematuria, unspecified; R97.20 Elevated prostate specific antigen [PSA]; I10 Essential (primary) hypertension; S72.009D Fracture of unspecified part of neck of unspecified femur, subsequent encounter for closed fracture with routine healing; E11.9 Type 2 diabetes mellitus without complications; W19.XXXD Unspecified fall, subsequent encounter; N41.9 Inflammatory disease of prostate, unspecified; E87.6 Hypokalemia; E83.42 Hypomagnesemia; I48.2 Chronic atrial fibrillation; G47.33 Obstructive sleep apnea (adult) (pediatric); R41.81 Age-related cognitive decline; N40.0 Benign prostatic hyperplasia without lower urinary tract symptoms; M19.90 Unspecified osteoarthritis, unspecified site; E78.5 Hyperlipidemia, unspecified; E86.0 Dehydration; N28.1 Cyst of kidney, acquired; G89.29 Other chronic pain; M54.9 Dorsalgia, unspecified; E66.9 Obesity, unspecified; Z68.29 Body mass index [BMI] 29.0-29.9, adult; Z96.653 Presence of artificial knee joint, bilateral; Z86.73 Personal history of transient ischemic attack (TIA), and cerebral infarction without residual deficits; Z79.82 Long term (current) use of aspirin; Z79.4 Long term (current) use of insulin; Z79.899 Other long term (current) drug therapy; Z87.891 Personal history of nicotine dependence
CPT/HCPCS: 36415; 71010; 76770; 80053; 81001; 81003; 82330; 83036; 83605; 83630; 83690; 83735; 84100; 84154; 84443; 85025; 87040; 87045; 87046; 87070; 87086; 87177; 87209; 87430; 87493; 93005; 93306; 96365; 96367; 99284; 99285

== ENCOUNTER 2016-10-23 18:00 | Outpatient (CLI) | payer MEDICARE, OTHER ==
[2016-10-23 20:23] LABS: CALCIUM 7.4 mg/dL (8.5-10.3); CREATININE 0.9 mg/dL (0.6-1.2); MAGNESIUM 1.5 mg/dL (1.7-2.8); POTASSIUM 2.8 mmol/L (3.5-5.0)
[2016-10-23 20:30] LABS: BASOPHILS % (AUTO) 0.5 %; EOSINOPHILS # (AUTO) 0.1 10^3/uL (0.0-0.7); EOSINOPHILS % (AUTO) 1.1 %; HCT - HEMATOCRIT 27.5 % (42.0-52.0); HGB - HEMOGLOBIN 9.2 g/dL (14.0-18.0); LYMPHOCYTES # (AUTO) 1.1 10^3/uL (1.5-3.5); LYMPHOCYTES % (AUTO) 12.5 %; MEAN CORPUSCULAR HEMOGLOBIN 31.2 pg (27.0-31.0); MEAN CORPUSCULAR HGB CONC 33.3 g/dL (32.0-36.0); MEAN CORPUSCULAR VOLUME 93.5 fL (80.0-94.0); MEAN PLATELET VOLUME 6.8 fL (7.4-11.4); MONOCYTES # (AUTO) 0.6 10^3/uL (0.0-1.0); MONOCYTES % (AUTO) 6.7 %; NEUTROPHILS # (AUTO) 6.8 10^3/uL (1.5-6.6); NEUTROPHILS % (AUTO) 79.2 %; NUCLEATED RED BLOOD CELLS AUTO 0.7 /100WBC; RED BLOOD COUNT 2.94 10^6/uL (4.70-6.10); RED CELL DISTRIBUTION WIDTH 16.9 % (12.0-15.0); UNCORRECTED WHITE BLOOD COUNT 8.6 x10^3/uL; WHITE BLOOD COUNT 8.6 x10^3/uL (4.8-10.8)
== END 2016-10-23 18:01 | disposition home or self-care (01) ==
LOC: LAB.R 18:00
DX: N18.9 Chronic kidney disease, unspecified (principal)
CPT/HCPCS: 80048; 83735; 85025

== ENCOUNTER 2016-10-31 16:30 | Outpatient (CLI) | payer MEDICARE, OTHER | END 2016-10-31 23:59 | disposition home or self-care (01) | DX: I10 Essential (primary) hypertension (principal); N41.0 Acute prostatitis ==

== ENCOUNTER 2016-11-12 08:00 | Outpatient (CLI) | payer MEDICARE, OTHER | END 2016-11-12 08:01 | disposition home or self-care (01) | LOC: LAB.R 08:00 | DX: A04.7 Enterocolitis due to Clostridium difficile (principal) | CPT/HCPCS: 87493 ==

== ENCOUNTER 2016-11-24 08:45 | Outpatient (CLI) | payer OTHER, MEDICARE | END 2016-11-24 08:46 | disposition home or self-care (01) | LOC: LAB.R 08:45 | DX: A04.7 Enterocolitis due to Clostridium difficile (principal) | CPT/HCPCS: 87493 ==

== ENCOUNTER 2016-11-29 08:45 | Outpatient (CLI) | payer MEDICARE, OTHER | END 2016-11-29 08:46 | LOC: LAB.R 08:45 | DX: A04.7 Enterocolitis due to Clostridium difficile (principal) | CPT/HCPCS: 87493 ==

== ENCOUNTER 2017-01-15 10:38 | Outpatient (CLI) | payer OTHER ==
--- NOTE | 2017-01-15 17:02 | Nuclear Medicine Report ---
EXAM: BONE SCAN EXAM DATE: 01/15/2017 02:43 PM. CLINICAL HISTORY: PROSTATE CANCER. COMPARISON: Abdomen/pelvis CT 10/04/2016. Right femur radiographs 10/20/2016. TECHNIQUE: Following the intravenous administration of 32.2 mCi of technetium 99m MDP and an appropri ate delay, a whole-body scan was performed in anterior and posterior projections. FINDINGS: Exam Quality: Normal overall osseous radiotracer uptake. Physiological tracer uptake in bilateral col lecting systems. Skull: Multiple foci of increased uptake in skull. Thorax: Numerous foci of increased uptake in bilateral ribs, sternum, clavicles, and scapulae Pelvis: Numerous foci of increased uptake in the pelvic bones. Spine: Numerous foci of increased uptake in the spine. Extremities: Numerous foci of increased uptake in the femurs and humeri. Mid shaft right femur fractu re deformity. Bilateral knee prostheses. IMPRESSION: Multifocal skeletal metastatic disease. [facility] Referring Provider Line: [phone] SITE ID: [id number]
== END 2017-01-15 10:39 | disposition home or self-care (01) ==
LOC: DI 10:38
PROVIDERS: ATTEND Urology
DX: C61 Malignant neoplasm of prostate (principal); C79.51 Secondary malignant neoplasm of bone
CPT/HCPCS: 78306; A9503

== ENCOUNTER 2017-03-24 09:11 | Outpatient (CLI) | payer OTHER | END 2017-03-24 09:12 | disposition home or self-care (01) | LOC: EMS 09:11 | PROVIDERS: ATTEND Surgery | DX: Z51.5 Encounter for palliative care (principal) | CPT/HCPCS: A0425; A0428 ==